=== PATIENT | male | born 1945 | race African-American/Black ===

== ENCOUNTER 2017-08-31 14:23 | Inpatient (IN) | payer OTHER, MEDICARE ==
[~2017-08-31] VITALS: Ht 180.3 cm; Wt 78.5 kg
[2017-08-31] VITALS (7 sets, daily range): BP systolic 106–129; BP diastolic 60–73; PULSE 70–101; RESP 10–20; TEMP 98.2–99.2; O2SAT 95–100
[~2017-08-31 14:23] MED LIST: CART120C2 PO; DIGO0.12 PO; OMPR20CCR PO
[2017-08-31] MEDS ORDERED: SODIUM CHLORIDE 0.9% FLUSH 10 ML FLUSH IVF PRN (15:00)
--- NOTE | 2017-08-31 15:11 | PD ---
HPI Chief Complaint: Abnormal Results Time Seen by Provider: 14:58 Travel History International Travel<30 days: No Contact w/Intl Traveler<30days: No Traveled to known affect area: No History of Present Illness HPI 72-year-old male presents to emergency department complaining of being tired and "dizzy" since Sunday. Patient states that he has had some blurred vision and confusion but he is A+Ox3. Patient has history of liver cancer status post lobectomy in January. Patient states that his stool has been black for approximately 3 months. Patient does not take iron supplements. Patient denies fever, chills, chest pain, shortness of breath, abdominal pain. Pt says his PCP advised him to to come to the ED for worsening symptoms. Apparently patient had labs done his primary care physician and he was concerned about the abnormal blood work. Patient denies use of anticoagulants. PFSH Past Medical History Cancer: Yes (LIVER) Cardiovascular Problems: Yes Diminished Hearing: No Endocrine: No Glaucoma: Yes Genitourinary: No Hypertension: Yes Musculoskeletal: No Neurologic: No Psychiatric: No Respiratory: No Influenza Vaccination: No Past Surgical History Abdominal Surgery: Yes (APPENDECTOMY) Appendectomy: Yes Cardiac Surgery: No Ear Surgery: No Endocrine Surgery: No Eye Surgery: No Genitourinary Surgery: No Gynecologic Surgery: No Oral Surgery: No Thoracic Surgery: No Other Surgery: Yes (eye glaucoma) Social History Alcohol Use: Yes (OCC) Tobacco Use: No (quit 1st week jul 2012) Substance Use: No Allergies-Medications (Allergen,Severity, Reaction): Coded Allergies: No Known Allergies (Unverified , 07/25/12) Reported Meds & Prescriptions Reported Meds & Active Scripts Active Reported Prilosec 20 Mg Cap (Omeprazole) 20 Mg Capcr 20 Mg PO DAILY TAKE ON EMPTY STOMACH, 1-2 HR BEFORE MEALS Digoxin 0.125 Mg Tab 0.125 Mg PO DAILY Cartia Xt (Diltiazem HCl) 120 Mg/24 Hr Cap 120 Mg PO DAILY Review of Systems Except as stated in HPI: all other systems reviewed are Neg Physical Exam Narrative GENERAL: Well-developed well-nourished in mild distress SKIN: Focused skin assessment warm/dry. HEAD: Atraumatic. Normocephalic. EYES: Pupils equal and round. No scleral icterus. No injection or drainage. Pale conjunctiva ENT: No nasal bleeding or discharge. Mucous membranes pink and moist. NECK: Trachea midline. No JVD. CARDIOVASCULAR: Regular rate and rhythm. No murmur appreciated. RESPIRATORY: No accessory muscle use. Clear to auscultation. Breath sounds equal bilaterally. GASTROINTESTINAL: Abdomen soft, non-tender, nondistended. MUSCULOSKELETAL: No obvious deformities. No clubbing. No cyanosis. No edema. Rectal exam- good tone and stool black NEUROLOGICAL: Awake and alert. No obvious cranial nerve deficits. Motor grossly within normal limits. Normal speech. PSYCHIATRIC: Appropriate mood and affect; insight and judgment normal. Data Data Last Documented VS Vital Signs Date Time Temp Pulse Resp B/P (MAP) Pulse Ox O2 Delivery O2 Flow Rate FiO2 08/31/17 18:16 78 10 106/68 (81) 100 Room Air 08/31/17 14:24 99.2 Orders Orders Complete Blood Count With Diff (08/31/17 14:58) Basic Metabolic Panel (Bmp) (08/31/17 14:58) Magnesium (Mg) (08/31/17 14:58) Urinalysis - C+S If Indicated (08/31/17 14:58) Iv Access Insert/Monitor (08/31/17 14:58) Ecg Monitoring (08/31/17 14:58) Oximetry (08/31/17 14:58) Oxygen Administration (08/31/17 14:58) Sodium Chloride 0.9% Flush (Ns Flush) (08/31/17 15:00) Sodium Chlor 0.9% 1000 Ml Inj (Ns 1000 M (08/31/17 15:30) Red Blood Cells (Rbc) (08/31/17 16:13) Blood Product Administration (08/31/17 16:13) Sodium Chlor 0.9% 250 Ml Inj (Ns 250 Ml (08/31/17 16:15) Type And Screen (08/31/17 16:13) Admit Order (Ed Use Only) (08/31/17 18:19) Labs Laboratory Tests Test 08/31/17 15:04 08/31/17 16:09 White Blood Count 7.5 TH/MM3 Red Blood Count 2.97 MIL/MM3 Hemoglobin 7.8 GM/DL Hematocrit 25.6 % Mean Corpuscular Volume 86.0 FL Mean Corpuscular Hemoglobin 26.3 PG Mean Corpuscular Hemoglobin Concent 30.6 % Red Cell Distribution Width 20.7 % Platelet Count 371 TH/MM3 Mean Platelet Volume 7.1 FL Neutrophils (%) (Auto) 67.7 % Lymphocytes (%) (Auto) 19.3 % Monocytes (%) (Auto) 9.2 % Eosinophils (%) (Auto) 3.0 % Basophils (%) (Auto) 0.8 % Neutrophils # (Auto) 5.1 TH/MM3 Lymphocytes # (Auto) 1.4 TH/MM3 Monocytes # (Auto) 0.7 TH/MM3 Eosinophils # (Auto) 0.2 TH/MM3 Basophils # (Auto) 0.1 TH/MM3 CBC Comment AUTO DIFF Differential Total Cells Counted 100 Neutrophils % (Manual) 71 % Band Neutrophils % 2 % Lymphocytes % 16 % Monocytes % 8 % Eosinophils % 2 % Neutrophils # (Manual) 5.6 TH/MM3 Myelocytes 1 % Nucleated Red Blood Cells 2 /100 WBC Differential Comment FINAL DIFF MANUAL Platelet Estimate NORMAL Platelet Morphology Comment NORMAL Blood Urea Nitrogen 6 MG/DL Creatinine 0.96 MG/DL Random Glucose 154 MG/DL Calcium Level 8.4 MG/DL Magnesium Level 2.3 MG/DL Sodium Level 140 MEQ/L Potassium Level 4.0 MEQ/L Chloride Level 108 MEQ/L Carbon Dioxide Level 28.2 MEQ/L Anion Gap 4 MEQ/L Estimat Glomerular Filtration Rate 94 ML/MIN Urine Color YELLOW Urine Turbidity CLEAR Urine pH 6.0 Urine Specific [place] 1.026 Urine Protein TRACE mg/dL Urine Glucose (UA) NEG mg/dL Urine Ketones NEG mg/dL Urine Occult Blood NEG Urine Nitrite NEG Urine Bilirubin NEG Urine Urobilinogen 8.0 MG/DL Urine Leukocyte Esterase TRACE Urine WBC 2 /hpf Urine Squamous Epithelial Cells <1 /hpf Urine Mucus FEW /lpf Microscopic Urinalysis Comment CULT NOT INDICATED MDM Medical Decision Making Medical Screen Exam Complete: Yes Emergency Medical Condition: Yes Differential Diagnosis Anemia versus hypoglycemia versus metabolic disturbance Narrative Course 72-year-old male presents to emergency department complaining of being tired and "dizzy" since Sunday. Patient states that he has had some blurred vision and confusion but he is A+Ox3. Patient has history of liver cancer status post lobectomy in January. Patient states that his stool has been black for approximately 3 months. Patient does not take iron supplements. Patient denies fever, chills, chest pain, shortness of breath, abdominal pain, nausea, vomiting, diarrhea.. Pt says his PCP advised him to to come to the ED for worsening symptoms. Apparently patient had labs done his primary care physician and he was concerned about the abnormal blood work. Patient denies use of anticoagulants. States he had a colonoscopy and endoscopy approximately one year ago. Patient does not know the results. Vital signs stable Occult fecal test positive Laboratory Tests Test 08/31/17 15:04 08/31/17 16:09 White Blood Count 7.5 TH/MM3 (4.0-11.0) Red Blood Count 2.97 MIL/MM3 (4.50-5.90) Hemoglobin 7.8 GM/DL (13.0-17.0) Hematocrit 25.6 % (39.0-51.0) Mean Corpuscular Volume 86.0 FL (80.0-100.0) Mean Corpuscular Hemoglobin 26.3 PG (27.0-34.0) Mean Corpuscular Hemoglobin Concent 30.6 % (32.0-36.0) Red Cell Distribution Width 20.7 % (11.6-17.2) Platelet Count 371 TH/MM3 (150-450) Mean Platelet Volume 7.1 FL (7.0-11.0) Neutrophils (%) (Auto) 67.7 % (16.0-70.0) Lymphocytes (%) (Auto) 19.3 % (9.0-44.0) Monocytes (%) (Auto) 9.2 % (0.0-8.0) Eosinophils (%) (Auto) 3.0 % (0.0-4.0) Basophils (%) (Auto) 0.8 % (0.0-2.0) Neutrophils # (Auto) 5.1 TH/MM3 (1.8-7.7) Lymphocytes # (Auto) 1.4 TH/MM3 (1.0-4.8) Monocytes # (Auto) 0.7 TH/MM3 (0-0.9) Eosinophils # (Auto) 0.2 TH/MM3 (0-0.4) Basophils # (Auto) 0.1 TH/MM3 (0-0.2) CBC Comment AUTO DIFF Differential Total Cells Counted 100 Neutrophils % (Manual) 71 % (16-70) Band Neutrophils % 2 % (0-6) Lymphocytes % 16 % (9-44) Monocytes % 8 % (0-8) Eosinophils % 2 % (0-4) Neutrophils # (Manual) 5.6 TH/MM3 (1.8-7.7) Myelocytes 1 % (0-0) Nucleated Red Blood Cells 2 /100 WBC (0-0) Differential Comment FINAL DIFF MANUAL Platelet Estimate NORMAL (NORMAL) Platelet Morphology Comment NORMAL (NORMAL) Blood Urea Nitrogen 6 MG/DL (7-18) Creatinine 0.96 MG/DL (0.60-1.30) Random Glucose 154 MG/DL (74-106) Calcium Level 8.4 MG/DL (8.5-10.1) Magnesium Level 2.3 MG/DL (1.5-2.5) Sodium Level 140 MEQ/L (136-145) Potassium Level 4.0 MEQ/L (3.5-5.1) Chloride Level 108 MEQ/L (98-107) Carbon Dioxide Level 28.2 MEQ/L (21.0-32.0) Anion Gap 4 MEQ/L (5-15) Estimat Glomerular Filtration Rate 94 ML/MIN (>89) Urine Color YELLOW (YELLW/STRAW) Urine Turbidity CLEAR (CLEAR) Urine pH 6.0 (5.0-8.5) Urine Specific [place] 1.026 (1.002-1.035) Urine Protein TRACE mg/dL (NEG-TRACE) Urine Glucose (UA) NEG mg/dL (NEG) Urine Ketones NEG mg/dL (NEG) Urine Occult Blood NEG (NEG) Urine Nitrite NEG (NEG) Urine Bilirubin NEG (NEG) Urine Urobilinogen 8.0 MG/DL (LESS THAN Urine Leukocyte Esterase TRACE (NEG) Urine WBC 2 /hpf (0-5) Urine Squamous Epithelial Cells <1 /hpf (0-5) Urine Mucus FEW /lpf (OCC) Microscopic Urinalysis Comment CULT NOT INDICATED Patient has severe anemia. Will receive 2 units PRBCs. Admit to Obs. Patient to follow up with primary care physician and consider outpatient follow- up with gastrointestinal specialist for positive fecal Hemoccult blood. HemaPrompt Point of Care Internal Pos. & Neg. Controls: Passed Fecal Specimen Occult Blood: Positive Diagnosis Primary Impression: Anemia Qualified Codes: D64.9 - Anemia, unspecified Admitting Information Admitting Physician Requests: Observation Condition: Stable Tiffany Harvey Aug 31, 2017 15:11
[2017-08-31 15:26] LABS: AUTOMATED NEUTROPHIL # 5.1 TH/MM3 (1.8-7.7); BASOPHIL # 0.1 TH/MM3 (0-0.2); BASOPHIL % 0.8 % (0.0-2.0); EOSINOPHIL # 0.2 TH/MM3 (0-0.4); HEMATOCRIT 25.6 % (39.0-51.0); LYMPH % 19.3 % (9.0-44.0); LYMPHOCYTE # 1.4 TH/MM3 (1.0-4.8); MEAN CORPUSCULAR HEMOGLOBIN 26.3 PG (27.0-34.0); MEAN CORPUSCULAR HGB CONC 30.6 % (32.0-36.0); MONO % 9.2 % (0.0-8.0); NEUT % 67.7 % (16.0-70.0); PLATELET COUNT 371 TH/MM3 (150-450); RED BLOOD COUNT 2.97 MIL/MM3 (4.50-5.90); RED CELL DISTRIBUTION WIDTH 20.7 % (11.6-17.2); WHITE BLOOD COUNT 7.5 TH/MM3 (4.0-11.0)
[2017-08-31 15:27] LABS: HEMO FLAGS AUTO DIFF
[2017-08-31] MEDS ORDERED: SODIUM CHLOR 0.9% 1000 ML INJ 1,000 ML IV ONE (15:30)
[2017-08-31 15:44] LABS: BICARBONATE 28.2 MEQ/L (21.0-32.0); MAGNESIUM 2.3 MG/DL (1.5-2.5)
[2017-08-31 15:54] LABS: BANDS 2 % (0-6); CORRECTED NUCLEATED RBC 2 /100 WBC (0-0); EOSINOPHILS 2 % (0-4); MYELOCYTES 1 % (0-0); NEUTROPHIL # MANUAL DIFF 5.6 TH/MM3 (1.8-7.7); POLYS (SEG NEUTROPHILS) 71 % (16-70); WBC DIFF SAMPLE 100
[2017-08-31 15:55] LABS: PLATELET ESTIMATE SMEAR NORMAL (NORMAL); PLATELET MORPHOLOGY NORMAL (NORMAL); SCAN/DIFF FINAL DIFF MANUAL
[2017-08-31] MEDS ORDERED: SODIUM CHLOR 0.9% 250 ML INJ 250 ML IV ONE (16:15)
[2017-08-31 16:35] LABS: BLOOD, URINE NEG (NEG); COMMENT (UR) CULT NOT INDICATED; CULTURE IF INDICATED CULT NOT INDICATED; GLUCOSE,URINE NEG (NEG); KETONE, URINE NEG (NEG); MUCUS URINE FEW /lpf (OCC); NITRITE,URINE NEG (NEG); SQUAMOUS EPITHELIAL CELL URINE <1 /hpf (0-5); URINE COLOR YELLOW (YELLW/STRAW)
[2017-08-31] MEDS ORDERED: IOHEXOL 350 MG/ML 10 ML VIAL (for RAD DIAG) IVCONTRAST ONE (18:22)
[2017-08-31] MEDS ORDERED: GADODIAMIDE PF 287 MG/ML 20 ML VIAL (for RAD MRI) IVCONTRAST ONE (18:22)
--- NOTE | 2017-08-31 18:49 | HHI.HP ---
[facility] Srinivasan Barakat M.D. Admission Diagnosis Severe anemia Diagnoses: (1) Anemia Diagnosis: Principal Chief Complaint: Dizziness, sent to ED by PCP Travel History International Travel<30 Days: No Contact w/Intl Traveler <30 Da: No Traveled to Known Affected Are: No History of Present Illness 72-year-old AA male past medical history of HTN, anemia, atrial fibrillation, liver cancer s/p liver resection, hepatitis C s/p Harvoni course, liver cirrhosis and prior GI bleed. He presents to the ED after being called by his primary care physician with critical results of anemia. Patient reports that for the past 2 months he had been having dark stools as well as loss of appetite with 10 pound unintentional weight loss. He had been on iron previously however stopped taking this to see if his dark stools would go away however they did not. He denies any nausea, vomiting, or diarrhea. Patient states that for the past 2 months he has progressively gotten or fatigued with shortness of breath on exertion, with transient chest pains, and dizziness with standing, he denies syncope. Patient denies any fevers, chills, or cough. He reports that his last colonoscopy was 2 years ago although is unsure of the exact time. He states that his colonoscopy had polyps which were removed, has not had a repeat colonoscopy. At that time he also underwent EGD he believes was normal. Review of medical records shows patient was hospitalized in July 2012 due to partial small bowel obstruction for which she did not undergo any surgical intervention, did not fine history of GI bleed in [facility].. Review of Systems Except as stated in HPI: all other systems reviewed are Neg Past Family Social History Past Medical History Hypertension A. fib Liver cancer Hep C Cirrhosis Past Surgical History Liver resection in 2014 due to liver cancer Appendectomy Cholecystectomy Eye surgery Left rotator cuff surgery Reported Medications Reported Meds & Active Scripts Active Reported Prilosec 20 Mg Cap (Omeprazole) 20 Mg Capcr 20 Mg PO DAILY TAKE ON EMPTY STOMACH, 1-2 HR BEFORE MEALS Digoxin 0.125 Mg Tab 0.125 Mg PO DAILY Cartia Xt (Diltiazem HCl) 120 Mg/24 Hr Cap 120 Mg PO DAILY Allergies: Coded Allergies: No Known Allergies (Unverified , 07/25/12) Active Ordered Medications Inpatient Medications Sodium Chloride 250 ml @ 15 mls/hr ONCE ONCE IV ; Start 08/31/17 at 16:15; Stop 09/01/17 at 08:54 Sodium Chloride (NS Flush) 2 ml UNSCH PRN IVF FLUSH AFTER USING IV ACCESS; Start 08/31/17 at 15:00 Family History Mother : Dementia Social History Tobacco: Half a pack for the past 2 years Alcohol use: None since 2014 Illicit drug use: Denies Physical Exam Vital Signs Vital Signs Date Time Temp Pulse Resp B/P (MAP) Pulse Ox O2 Delivery O2 Flow Rate FiO2 08/31/17 18:16 78 10 106/68 (81) 100 Room Air 08/31/17 16:23 79 15 122/60 (80) 100 Room Air 08/31/17 15:03 100 Room Air 08/31/17 14:58 91 21 99 Room Air 08/31/17 14:24 99.2 101 20 129/68 (88) 100 Room Air Physical Exam GENERAL: This is a well-nourished, well-developed patient, in no apparent distress. SKIN: No rashes, ecchymoses or lesions. Cool and dry. HEAD: Atraumatic. Normocephalic. EYES: Pupils equal round and reactive. No scleral icterus. No injection or drainage. ENT: Nose without bleeding, purulent drainage or septal hematoma. Throat without erythema. Airway patent. NECK: Trachea midline. CARDIOVASCULAR: Regular rate and rhythm without murmurs, gallops, or rubs. RESPIRATORY: Clear to auscultation. Breath sounds equal bilaterally. No wheezes , rales, or rhonchi. GASTROINTESTINAL: Abdomen soft, non-tender, nondistended. No guarding. MUSCULOSKELETAL: Extremities without clubbing, cyanosis, or edema. No joint tenderness, effusion, or edema noted. NEUROLOGICAL: Awake and alert. Moves all extremities spontaneously. Motor and sensory grossly within normal limits. Five out of 5 muscle strength in all muscle groups. Normal speech. Laboratory Laboratory Tests Test 08/31/17 15:04 08/31/17 16:09 White Blood Count 7.5 Red Blood Count 2.97 Hemoglobin 7.8 Hematocrit 25.6 Mean Corpuscular Volume 86.0 Mean Corpuscular Hemoglobin 26.3 Mean Corpuscular Hemoglobin Concent 30.6 Red Cell Distribution Width 20.7 Platelet Count 371 Mean Platelet Volume 7.1 Neutrophils (%) (Auto) 67.7 Lymphocytes (%) (Auto) 19.3 Monocytes (%) (Auto) 9.2 Eosinophils (%) (Auto) 3.0 Basophils (%) (Auto) 0.8 Neutrophils # (Auto) 5.1 Lymphocytes # (Auto) 1.4 Monocytes # (Auto) 0.7 Eosinophils # (Auto) 0.2 Basophils # (Auto) 0.1 CBC Comment AUTO DIFF Differential Total Cells Counted 100 Neutrophils % (Manual) 71 Band Neutrophils % 2 Lymphocytes % 16 Monocytes % 8 Eosinophils % 2 Neutrophils # (Manual) 5.6 Myelocytes 1 Nucleated Red Blood Cells 2 Differential Comment FINAL DIFF MANUAL Platelet Estimate NORMAL Platelet Morphology Comment NORMAL Blood Urea Nitrogen 6 Creatinine 0.96 Random Glucose 154 Calcium Level 8.4 Magnesium Level 2.3 Sodium Level 140 Potassium Level 4.0 Chloride Level 108 Carbon Dioxide Level 28.2 Anion Gap 4 Estimat Glomerular Filtration Rate 94 Urine Color YELLOW Urine Turbidity CLEAR Urine pH 6.0 Urine Specific [place] 1.026 Urine Protein TRACE Urine Glucose (UA) NEG Urine Ketones NEG Urine Occult Blood NEG Urine Nitrite NEG Urine Bilirubin NEG Urine Urobilinogen 8.0 Urine Leukocyte Esterase TRACE Urine WBC 2 Urine Squamous Epithelial Cells <1 Urine Mucus FEW Microscopic Urinalysis Comment CULT NOT INDICATED Result Diagram: 08/31/17 1504 08/31/17 1504 Caprini VTE Risk Assessment Caprini VTE Risk Assessment: Mod/High Risk (score >= 2) Caprini Risk Assessment Model Point Value = 1 Point Value = 2 Point Value = 3 Point Value = 5 Age 41-60 Minor surgery BMI > 25 kg/m2 Swollen legs Varicose veins or History of unexplained or recurrent spontaneous Oral contraceptives or hormone replacement Sepsis (< 1 month) Serious lung disease, including pneumonia (< 1 month) Abnormal pulmonary function Acute myocardial infarction Congestive heart failure (< 1 month) History of inflammatory bowel disease Medical patient at bed rest Age 61-74 Arthroscopic surgery Major open surgery (> 45 min) Laparoscopic surgery (> 45 min) Malignancy Confined to bed (> 72 hours) Immobilizing plaster cast Central venous access Age >= 75 History of VTE Family history of VTE Factor V Leiden Prothrombin [id number] Lupus anticoagulant Anticardiolipin antibodies Elevated serum homocysteine Heparin-induced thrombocytopenia Other congenital or acquired thrombophilia Stroke (< 1 month) Elective arthroplasty Hip, pelvis, or leg fracture Acute spinal cord injury (< 1 month) Prophylaxis Regimen Total Risk Factor Score Risk Level Prophylaxis Regimen 0-1 Low Early ambulation 2 Moderate Order ONE of the following: *Sequential Compression Device (SCD) *Heparin 5000 units SQ BID 3-4 Higher Order ONE of the following medications: *Heparin 5000 units SQ TID *Enoxaparin/Lovenox 40 mg SQ daily (WT < 150 kg, CrCl > 30 mL/min) *Enoxaparin/Lovenox 30 mg SQ daily (WT < 150 kg, CrCl > 10-29 mL/min) *Enoxaparin/Lovenox 30 mg SQ BID (WT < 150 kg, CrCl > 30 mL/min) AND/OR *Sequential Compression Device (SCD) 5 or more Highest Order ONE of the following medications: *Heparin 5000 units SQ TID (Preferred with Epidurals) *Enoxaparin/Lovenox 40 mg SQ daily (WT < 150 kg, CrCl > 30 mL/min) *Enoxaparin/Lovenox 30 mg SQ daily (WT < 150 kg, CrCl > 10-29 mL/min) *Enoxaparin/Lovenox 30 mg SQ BID (WT < 150 kg, CrCl > 30 mL/min) AND *Sequential Compression Device (SCD) Assessment and Plan Problem List: (1) Anemia ICD Code: D64.9 - Anemia, unspecified Status: Acute Assessment and Plan 72-year-old AA male past medical history of HTN, anemia, atrial fibrillation, liver cancer s/p liver resection, hepatitis C s/p Harvoni course, liver cirrhosis and prior GI bleed. He presents to the ED after being called by his primary care physician with critical results of anemia. Upon arrival patient's lab work showed hemoglobin 7.8, hematocrit 25.6, he is also symptomatic. Symptomatic anemia, likely GI bleed - Patient's lab work reviewed demonstrates hemoglobin 7.8, hematocrit 25.6, RDW 20.7 - Patient reports dark stools for the past 2 months - Patient will be admitted to observation and transfuse with 2 units of PRBCs , recheck H&H one-hour posttransfusion - Labwork ordered for tomorrow morning - Order for Hemoccult, consult GI services - IV PPI - Keep patient nothing by mouth, IV fluids for hydration Atrial fibrillation, initially heart rate elevated, now normal/HTN - Consider restarting diltiazem and digoxin once verified by nurse. - Blood pressure stable at the moment. VTE: - Contraindicated at the moment since it is suspected, SCDs and ELOISA cleary Discussed with daughter who is at the bedside, Tiffany DELCID in ED, and . Problem Qualifiers (1) Anemia: Qualified Codes: D64.9 - Anemia, unspecified Kian Wilson [facility] Aug 31, 2017 18:49
[2017-08-31] MEDS ORDERED: SODIUM CHLORIDE 0.9% FLUSH 10 ML FLUSH IV FLUSH PRN (19:00)
[2017-08-31] MEDS ORDERED: BISACODYL 10 MG SUPP RECTAL PRN (19:00)
[2017-08-31] MEDS ORDERED: SENNOSIDES 8.6 MG TAB PO PRN (19:00)
[2017-08-31] MEDS ORDERED: LACTULOSE SYRUP 20 GM/30 ML CUP PO PRN (19:00)
[2017-08-31] MEDS ORDERED: NALOXONE HCL 0.4 MG/ML AMP IV PUSH PRN (19:00)
[2017-08-31] MEDS ORDERED: MAGNESIUM HYDROXIDE SUSP 30 ML CUP PO PRN (19:00)
[2017-08-31] MEDS ORDERED: ACETAMINOPHEN 325 MG TAB PO PRN (21:00)
[2017-08-31] MEDS ORDERED: FUROSEMIDE 20 MG/2 ML VIAL IV PUSH ONE (21:00)
[2017-08-31] MEDS: SODIUM CHLOR 0.9% 1000 ML INJ 1,000 ML IV SCH (21:36)
[2017-08-31] MEDS: diphenhydrAMINE HCL 25 MG CAP PO PRN (21:37)
[2017-08-31] MEDS: DOCUSATE SODIUM 50 MG/SENNA 8.6 MG TAB PO SCH (21:37)
[2017-08-31] MEDS: PANTOPRAZOLE SODIUM 40 MG VIAL IV PUSH SCH (21:37)
[2017-08-31] MEDS: SODIUM CHLORIDE 0.9% FLUSH 10 ML FLUSH IV FLUSH SCH (21:37)
[2017-08-31] MEDS ORDERED: CART120C PO (22:27)
[2017-08-31] MEDS ORDERED: FERR325T18 PO (22:27)
[2017-08-31] MEDS ORDERED: DIGO0.12 PO (22:28)
[2017-09-01] VITALS (10 sets, daily range): BP systolic 115–135; BP diastolic 66–78; PULSE 65–82; RESP 16–22; TEMP 98–98.6; O2SAT 94–99
[2017-09-01] MEDS: diphenhydrAMINE HCL 25 MG CAP PO PRN (03:58)
[2017-09-01] MEDS: SODIUM CHLOR 0.9% 1000 ML INJ 1,000 ML IV SCH ×2 (05:00→19:42)
[2017-09-01] MEDS: DILTIAZEM-CD 120 MG CAP ER PO SCH (05:15)
[2017-09-01] MEDS: DIGOXIN 0.125 MG TAB PO SCH (05:15)
[2017-09-01] MEDS: SODIUM CHLORIDE 0.9% FLUSH 10 ML FLUSH IV FLUSH SCH ×2 (09:00→21:48)
[2017-09-01] MEDS: FERROUS SULFATE 325 MG (65 MG ELEMENTAL IRON) TAB PO SCH ×3 (10:34→19:42)
[2017-09-01] MEDS: DOCUSATE SODIUM 50 MG/SENNA 8.6 MG TAB PO SCH (10:34)
--- NOTE | 2017-09-01 10:42 | PD.CONS ---
HPI History of Present Illness This is a 72 year old male complaining of dizziness, blurred vision for the past 2-3 months. He also notes shortness of breath and decreased stamina. Patient has a history of liver cancer with liver resection in 2014, liver cirrhosis and prior GI bleed patient. Patient was seen by his general practitioner who requested that he come to the hospital for further workup for critical results of anemia. On admission patient's hemoglobin was 7.8, transfusion ordered for 2 units. Patient notes dark tarry stools over the past few months and states stools were dark even before he started taking by mouth iron products. Patient notes constipation alternated with diarrhea, states he received a laxative on 08-31, BM this a.m. remains dark and tarry. Denies any bright red bleeding, no dysphasia, no nausea and vomiting, no recent weight gain, but has had a 10 pound weight loss. Patient denies any fever. According to the record patient was hospitalized in July 2012 for small bowel obstruction. (Brooke Sosa) PFSH Past Medical History Hypertension A. fib Liver cancer Hep C Liver Cirrhosis GI bleed Constipation alternating with diarrhea Anemia Tobacco dependence Previous alcohol usage up until 2014 Past Surgical History Liver resection in 2014 due to liver cancer Appendectomy Cholecystectomy Eye surgery Left rotator cuff surgery (Brooke Sosa) Coded Allergies: No Known Allergies (Unverified , 07/25/12) Medications Administered Medications Medications (Trade) Dose Ordered Sig/Víctor Route PRN Reason Start Time Stop Time Status Last Admin Dose Admin Sodium Chloride 1,000 ml @ 100 mls/hr Q10H IV 08/31/17 19:00 08/31/17 21:36 Sodium Chloride (NS Flush) 2 ml BID IV FLUSH 08/31/17 21:00 08/31/17 21:37 Senna/Docusate Sodium (Germania-Colace) 1 tab BID PO 08/31/17 21:00 08/31/17 21:37 Pantoprazole Sodium (Protonix Inj) 40 mg Q24H IV PUSH 08/31/17 21:00 08/31/17 21:37 Digoxin (Lanoxin) 0.125 mg DAILY@0600 PO 09/01/17 06:00 09/01/17 05:15 Diltiazem HCl (Cardizem Cd) 120 mg DAILY@0600 PO 09/01/17 06:00 09/01/17 05:15 Family History Mother : Dementia Social History Tobacco: Half a pack for the past 2 years Alcohol use: None since 2014 Illicit drug use: Denies (Brooke Sosa) Review of Systems Constitutional: COMPLAINS OF: Fatigue, Weight loss, Dizziness Ears, nose, mouth, throat: COMPLAINS OF: Vertigo Respiratory: COMPLAINS OF: Shortness of breath Gastrointestinal: COMPLAINS OF: Black stools, Constipation, Diarrhea (Brooke Sosa) GI Exam Vitals I&O Vital Signs Date Time Temp Pulse Resp B/P (MAP) Pulse Ox O2 Delivery O2 Flow Rate FiO2 09/01/17 07:45 98.3 73 16 127/77 99 09/01/17 07:38 98.6 68 20 123/75 (91) 97 09/01/17 05:45 98.3 66 16 122/75 98 09/01/17 05:16 98.4 69 16 127/72 98 09/01/17 03:21 98.4 72 16 121/73 98 09/01/17 00:12 98.1 73 16 120/69 98 08/31/17 23:56 98.2 71 16 124/68 97 08/31/17 23:41 98.2 70 16 119/68 95 08/31/17 20:55 98.3 80 18 124/73 (90) 98 08/31/17 20:18 100 08/31/17 18:16 78 10 106/68 (81) 100 Room Air 08/31/17 16:23 79 15 122/60 (80) 100 Room Air 08/31/17 15:03 100 Room Air 08/31/17 14:58 91 21 99 Room Air 08/31/17 14:24 99.2 101 20 129/68 (88) 100 Room Air I/O 08/31/17 08/31/17 08/31/17 09/01/17 09/01/17 09/01/17 07:00 15:00 23:00 07:00 15:00 23:00 Intake Total 1300 ml 430 ml 410 ml Output Total 1825 ml 400 ml Balance -525 ml 430 ml 10 ml Intake Oral 100 ml IV Total 250 ml Packed Cells 950 ml 400 ml 400 ml Blood Product IV Normal Saline Flush 30 ml 10 ml Output Urine Total 1825 ml 400 ml Laboratory Test 08/31/17 15:04 08/31/17 16:09 White Blood Count 7.5 TH/MM3 Red Blood Count 2.97 MIL/MM3 Hemoglobin 7.8 GM/DL Hematocrit 25.6 % Mean Corpuscular Volume 86.0 FL Mean Corpuscular Hemoglobin 26.3 PG Mean Corpuscular Hemoglobin Concent 30.6 % Red Cell Distribution Width 20.7 % Platelet Count 371 TH/MM3 Mean Platelet Volume 7.1 FL Neutrophils (%) (Auto) 67.7 % Lymphocytes (%) (Auto) 19.3 % Monocytes (%) (Auto) 9.2 % Eosinophils (%) (Auto) 3.0 % Basophils (%) (Auto) 0.8 % Neutrophils # (Auto) 5.1 TH/MM3 Lymphocytes # (Auto) 1.4 TH/MM3 Monocytes # (Auto) 0.7 TH/MM3 Eosinophils # (Auto) 0.2 TH/MM3 Basophils # (Auto) 0.1 TH/MM3 CBC Comment AUTO DIFF Differential Total Cells Counted 100 Neutrophils % (Manual) 71 % Band Neutrophils % 2 % Lymphocytes % 16 % Monocytes % 8 % Eosinophils % 2 % Neutrophils # (Manual) 5.6 TH/MM3 Myelocytes 1 % Nucleated Red Blood Cells 2 /100 WBC Differential Comment FINAL DIFF MANUAL Platelet Estimate NORMAL Platelet Morphology Comment NORMAL Blood Urea Nitrogen 6 MG/DL Creatinine 0.96 MG/DL Random Glucose 154 MG/DL Calcium Level 8.4 MG/DL Magnesium Level 2.3 MG/DL Sodium Level 140 MEQ/L Potassium Level 4.0 MEQ/L Chloride Level 108 MEQ/L Carbon Dioxide Level 28.2 MEQ/L Anion Gap 4 MEQ/L Estimat Glomerular Filtration Rate 94 ML/MIN Urine Color YELLOW Urine Turbidity CLEAR Urine pH 6.0 Urine Specific [place] 1.026 Urine Protein TRACE mg/dL Urine Glucose (UA) NEG mg/dL Urine Ketones NEG mg/dL Urine Occult Blood NEG Urine Nitrite NEG Urine Bilirubin NEG Urine Urobilinogen 8.0 MG/DL Urine Leukocyte Esterase TRACE Urine WBC 2 /hpf Urine Squamous Epithelial Cells <1 /hpf Urine Mucus FEW /lpf Microscopic Urinalysis Comment CULT NOT INDICATED Date/Time Source Procedure Growth Status 09/01/17 08:00 Stool Stool Stool Occult Blood (GILMER) Pending Received Physical Examination HEENT: Pupils round and reactive to light; normocephalic; atraumatic; no jaundice. Oral cavity is clean NECK: Neck is supple, no JVD, no lymphadenopathy. CHEST: Chest is clear to auscultation and percussion. No wheezes or rhonchi noted CARDIAC: Irregular rate and rhythm, possible soft systolic murmur ABDOMEN: Soft, nondistended, nontender to light palpation; no hepatosplenomegaly; bowel sounds are soft in all four quadrants. EXTREMITIES: No clubbing, cyanosis, or edema. SKIN: Normal; no rash; no jaundice. PARTY COORDINATOR: No focal deficits; alert and oriented times three. (Brooke Sosa) Assessment and Plan Plan Assessment GI bleed, probable lower, complaints of dark tarry stools even when not taking by mouth iron products for the past 2-3 months. Symptoms associated with dizziness shortness of breath and blurred vision. Anemia noted per his regular physician, hemoglobin 7.8/25.6 hematocrit, no leukocytosis. Transfusion 2 units 12 -1, hemoglobin hematocrit pending. Possible irritable bowel syndrome, patient has constipation alternating with diarrhea. History of liver cancer, concern for any redevelopment of his cancer changes in bowel habits chiefly dark tarry stools. Patient has also had a 10 pound weight loss within the past few months unexplained. History of EtOH abuse, denies any alcohol consumption since 2014, patient shows no signs of agitation Anemia, possibly due to acute versus chronic, which could include iron deficiency anemia. Iron TIBC and ferritin level pending, CBC pending Plan: Diet is currently is chips over the past [address] of the abdomen and pelvis with contrast today, after review of CT Will consider clear liquids with possible advancement to full liquids today Colonoscopy scheduled for Sunday, procedure explained to patient and family member in room Nothing by mouth at midnight Sunday night 09/02 GI GoLYTELY prep Sunday p.m. Hold any anticoagulants after midnight on 09/02 Hemoccult stools daily 3 PPI, and continue iron supplements Bowel regimen including stool softeners and or laxatives as needed Labs to monitor hemoglobin, currently pending after transfusion of 2 units Recheck CBC CMP in the morning Plan of care and treatment regimen will be based on findings during this hospital stay Patient seen per myself and Dr. 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
[2017-09-01] MEDS ORDERED: DIATRIZOATE MEGLUM/DIATRIZOATE SOD 9 ML CUP PO ONE (11:00)
--- NOTE | 2017-09-01 13:15 | HHI.PR ---
Subjective Remarks Follow-up symptomatic anemia/GI bleed 09/01/17-patient seen and examined, he was transfused 2 units packed red blood cell. Reports history of bloody stool over the past 3 months. Denies any significant shortness of breath Objective Vitals Vital Signs Date Time Temp Pulse Resp B/P (MAP) Pulse Ox O2 Delivery O2 Flow Rate FiO2 09/01/17 12: 98.3 65 22 117/66 (83) 99 09/01/17 07:45 98.3 73 16 127/77 99 09/01/17 07:38 98.6 68 20 123/75 (91) 97 09/01/17 05:45 98.3 66 16 122/75 98 09/01/17 05:16 98.4 69 16 127/72 98 09/01/17 03:21 98.4 72 16 121/73 98 09/01/17 00:12 98.1 73 16 120/69 98 08/31/17 23:56 98.2 71 16 124/68 97 08/31/17 23:41 98.2 70 16 119/68 95 08/31/17 20:55 98.3 80 18 124/73 (90) 98 08/31/17 20:18 100 08/31/17 18:16 78 10 106/68 (81) 100 Room Air 08/31/17 16:23 79 15 122/60 (80) 100 Room Air 08/31/17 15:03 100 Room Air 08/31/17 14:58 91 21 99 Room Air 08/31/17 14:24 99.2 101 20 129/68 (88) 100 Room Air I/O 08/31/17 08/31/17 08/31/17 09/01/17 09/01/17 09/01/17 07:00 15:00 23:00 07:00 15:00 23:00 Intake Total 1300 ml 430 ml 410 ml Output Total 1825 ml 1200 ml Balance -525 ml 430 ml -790 ml Intake Oral 100 ml IV Total 250 ml Packed Cells 950 ml 400 ml 400 ml Blood Product IV Normal Saline Flush 30 ml 10 ml Output Urine Total 1825 ml 1200 ml Result Diagram: 08/31/17 1504 08/31/17 1504 Objective Remarks GENERAL: NAD SKIN: Warm and dry. HEAD: Normocephalic. EYES: No scleral icterus. No injection or drainage. NECK: Supple, trachea midline. No JVD or lymphadenopathy. CARDIOVASCULAR: Regular rate and rhythm without murmurs, gallops, or rubs. RESPIRATORY: Breath sounds equal bilaterally. No accessory muscle use. GASTROINTESTINAL: Abdomen soft, non-tender, nondistended. MUSCULOSKELETAL: No cyanosis, or edema. BACK: Nontender without obvious deformity. No CVA tenderness. A/P Problem List: (1) GI bleeding ICD Code: K92.2 - Gastrointestinal hemorrhage, unspecified (2) Symptomatic anemia ICD Code: D64.9 - Anemia, unspecified (3) History of liver cancer ICD Code: Z85.05 - Personal history of malignant neoplasm of liver (4) Hepatitis C ICD Code: B19.20 - Unspecified viral hepatitis C without hepatic coma Assessment and Plan 72-year-old man with Symptomatic anemia, likely GI bleed - Transfuse 2 units packed red blood cell - Monitor H&H Consult GI for evaluation for possible panendoscopy GI bleed GI consultation pending for possible evaluation for panendoscopy Continue PPI Monitor H&H History liver cancer Chronic outpatient follow with oncology Atrial fibrillation - Currently on diltiazem and digoxin Hypertension Continue Cardizem DVT prophylaxis: Mechanical prophylaxis contraindicated Neel Clemente MD Sep 01, 2017 13:15
[2017-09-01 13:40] LABS: AUTOMATED NEUTROPHIL # 5.6 TH/MM3 (1.8-7.7); BASOPHIL # 0.1 TH/MM3 (0-0.2); BASOPHIL % 0.6 % (0.0-2.0); EOSINOPHIL # 0.2 TH/MM3 (0-0.4); EOSINOPHIL % 2.6 % (0.0-4.0); HEMATOCRIT 32.3 % (39.0-51.0); HEMO FLAGS DIFF FINAL; LYMPH % 16.9 % (9.0-44.0); LYMPHOCYTE # 1.4 TH/MM3 (1.0-4.8); MEAN CELL VOLUME 85.6 FL (80.0-100.0); MEAN CORPUSCULAR HEMOGLOBIN 27.5 PG (27.0-34.0); MEAN CORPUSCULAR HGB CONC 32.1 % (32.0-36.0); MONO % 10.5 % (0.0-8.0); NEUT % 69.4 % (16.0-70.0); PLATELET COUNT 332 TH/MM3 (150-450); RED BLOOD COUNT 3.77 MIL/MM3 (4.50-5.90); RED CELL DISTRIBUTION WIDTH 19.5 % (11.6-17.2); WHITE BLOOD COUNT 8.1 TH/MM3 (4.0-11.0)
[2017-09-01 14:00] LABS: ANION GAP 7 MEQ/L (5-15); AST (GOT) 17 U/L (15-37); BICARBONATE 26.3 MEQ/L (21.0-32.0); BLOOD UREA NITROGEN 9 MG/DL (7-18); CHLORIDE 107 MEQ/L (98-107); GLOMERULAR FILTRATION RATE 103 ML/MIN (>89); POTASSIUM 4.1 MEQ/L (3.5-5.1); SODIUM (NA) 140 MEQ/L (136-145)
[2017-09-01 14:01] LABS: ALT (GPT) 11 U/L (12-78)
[2017-09-01 14:03] LABS: ALKALINE PHOSPHATASE 59 U/L (45-117); TOTAL BILIRUBIN ADULT 0.9 MG/DL (0.2-1.0)
[2017-09-01 15:21] LABS: TRANSFERRIN IRON PROFILE 270 MG/DL (200-360)
[2017-09-01 15:23] LABS: FERRITIN 36 NG/ML (26-388)
--- NOTE | 2017-09-01 16:17 | RADRPT ---
EXAM DATE/TIME: 09/01/2017 15:13 [facility] COMPARISON: CT ABDOMEN & PELVIS W CONTRAST, July 25, 2012, 14:05. INDICATIONS : Abdomen pain with bloody stools. IV CONTRAST: 80 cc Omnipaque 350 (iohexol) IV ORAL CONTRAST: Prescribed oral contrast ingested. RADIATION DOSE: 8.20 CTDIvol (mGy) MEDICAL HISTORY : Cardiovascular disease. Hypertension. Hepatitis C.Liver cancer SURGICAL HISTORY : Appendectomy. Cholecystectomy.Liver resection ENCOUNTER: Initial ACUITY: 2 days PAIN SCALE: 5/10 LOCATION: Bilateral abdomen TECHNIQUE: Volumetric scanning of the abdomen and pelvis was performed. Using automated exposure control and ad justment of the mA and/or kV according to patient size, radiation dose was kept as low as reasonably achievable to obtain optimal diagnostic quality images. DICOM format image data is available electro nically for review and comparison. FINDINGS: LOWER LUNGS: The visualized lower lungs are clear. LIVER: There is a 2.0 x 2.8 cm hypodense mass in the right dome of the liver which was not present on our ex am. There has been interval left hepatic resection with. Portal vein is patent. There is slight promi nence of the common bile duct likely due to reservoir effect. SPLEEN: Normal size without lesion. PANCREAS: Within normal limits. KIDNEYS: Normal in size and shape. There is no mass, stone or hydronephrosis. ADRENAL GLANDS: Within normal limits. VASCULAR: There is no aortic aneurysm. Proximal celiac, SMA and LEIGH ANN are grossly patent. SMV is grossly patent. BOWEL/MESENTERY: There are scattered diverticula in the ascending colon and proximal sigmoid. The colon is decompresse d. However, there is questionable subtle colonic wall thickening involving the proximal transverse co kaiden and hepatic flexure. No pneumatosis or free air. No significant free fluid. ABDOMINAL WALL: Within normal limits. RETROPERITONEUM: There is no lymphadenopathy. BLADDER: No wall thickening or mass. REPRODUCTIVE: Within normal limits. INGUINAL: There is no lymphadenopathy or hernia. MUSCULOSKELETAL: Within normal limits for patient age. CONCLUSION: 1. Incomplete colonic distention which accentuates the colonic wall. There does however appear to be mild colonic wall thickening involving the proximal transverse colon and hepatic flexure. There are s cattered diverticula in the region of the hepatic flexure although the diverticula do not appear part icularly inflamed. Mild colitis, potentially infectious/inflammatory in etiology, cannot be excluded. 2. Status post left hepatic resection with new 2.0 x 2.8 cm mass in the right dome of the liver. This is concerning for hepatocellular carcinoma given patient's history. Recommend further evaluation wit h liver mass protocol MRI exam on a nonemergent basis. Vikash Centeno MD on September 01, 2017 at 16:07 Board Certified Radiologist. This report was verified electronically.
[2017-09-01 17:16] LABS: HEMATOCRIT 32.6 % (39.0-51.0); REVIEW FLAG FINAL
[2017-09-01] MEDS: PANTOPRAZOLE SODIUM 40 MG VIAL IV PUSH SCH (21:49)
[2017-09-01] MEDS ORDERED: CHLORHEXIDINE GLUCONATE 2 % 1 PACK (2 CLOTHS) TOPICAL PRN (22:00)
[2017-09-01] MEDS ORDERED: POVIDONE IODINE 5% (ANTISEPSIS KIT) 4 APPLICATIONS EACH NARE PRN (22:00)
[2017-09-01] MEDS ORDERED: LACTATED RINGER'S 1000 ML IV PRN (22:00)
[2017-09-02 03:36] VITALS: BP 118/68; PULSE 70; RESP 18; TEMP 98.3; O2SAT 97
[2017-09-02] MEDS: SODIUM CHLOR 0.9% 1000 ML INJ 1,000 ML IV SCH ×3 (04:59→18:48)
[2017-09-02] MEDS: DILTIAZEM-CD 120 MG CAP ER PO SCH (05:57)
[2017-09-02] MEDS: DIGOXIN 0.125 MG TAB PO SCH (05:57)
--- NOTE | 2017-09-02 08:31 | RADRPT ---
EXAM DATE/TIME: 09/02/2017 07:33 [facility] COMPARISON: CT ABDOMEN & PELVIS W CONTRAST, September 01, 2017, 15:13. INDICATIONS : Abnormal CT scan. CONTRAST: 16 cc Omniscan (gadodiamide) IV MEDICAL HISTORY : Carcinoma, hepatocellular. Hypertension. SURGICAL HISTORY : Appendectomy. Cholecystectomy. ENCOUNTER: Initial ACUITY: 2 day PAIN SCORE: 0/10 LOCATION: upper quadrant TECHNIQUE: Multiplanar, multisequence magnetic resonance imaging of the abdomen was performed without and with i ntravenous contrast. FINDINGS: LIVER: Partial hepatectomy left lobe. There is a low T1 signal intensity lesion within the central aspect of the liver towards the dome measuring 3.5 x 2.4 cm. Irregular peripheral enhancement is identified. T here is also a small enhancing lesion in the periphery of the liver laterally measuring 1.2 cm only s een portal venous phase. BILIARY: There is no intra- or extra-hepatic biliary ductal dilatation. Gallbladder is surgically absent. SPLEEN: Within normal limits. PANCREAS: Within normal limits. ADRENALS: Within normal limits. KIDNEYS: Normal size and signal intensity. There is no hydronephrosis or mass. OTHER: Aorta is nonaneurysmal. There is no lymphadenopathy. CONCLUSION: 1. Enhancing lesion toward the dome of the liver measuring 3.5 cm concerning for hepatocellular carci noma. 2. Small enhancing lesion more laterally in the liver measuring 1.2 cm, nonspecific. 3. Partial hepatectomy. 4. Status post cholecystectomy. Neel Payne MD on September 02, 2017 at 8:21 Board Certified Radiologist. This report was verified electronically.
--- NOTE | 2017-09-02 08:42 | HHI.GIFU ---
Subjective Remarks Pt resting in bed comfortable. He denies any abdominal pain, nausea, vomiting. Tolerating diet yesterday, on clear liquids today due to procedure scheduled for tomorrow. Pt reports three dark stools yesterday, denies BM today. Complaints of some dizziness and weakness yesterday, but states feels better today. (Celina Quiroz) Objective Vitals I&O Vital Signs Date Time Temp Pulse Resp B/P (MAP) Pulse Ox O2 Delivery O2 Flow Rate FiO2 09/02/17 03:36 98.3 70 18 118/68 (85) 97 09/01/17 23:53 98.3 74 18 121/69 (86) 99 09/01/17 21:00 98.0 82 18 115/70 (85) 98 09/01/17 15:56 98.3 71 20 135/78 (97) 94 09/01/17 12:17 98.3 65 22 117/66 (83) 99 I/O 09/01/17 09/01/17 09/01/17 09/02/17 09/02/17 09/02/17 07:00 15:00 23:00 07:00 15:00 23:00 Intake Total 430 ml 660 ml 1880 ml 1830 ml Output Total 1200 ml 300 ml 1125 ml Balance 430 ml -540 ml 1580 ml 705 ml Intake Oral 880 ml 830 ml IV Total 250 ml 1000 ml 1000 ml Packed Cells 400 ml 400 ml Blood Product IV Normal Saline Flush 30 ml 10 ml Output Urine Total 1200 ml 300 ml 1125 ml # Voids 10 # Bowel Movements 2 Laboratory Laboratory Tests Test 09/01/17 13:10 09/01/17 16:40 White Blood Count 8.1 Red Blood Count 3.77 Hemoglobin 10.4 10.5 Hematocrit 32.3 32.6 Mean Corpuscular Volume 85.6 Mean Corpuscular Hemoglobin 27.5 Mean Corpuscular Hemoglobin Concent 32.1 Red Cell Distribution Width 19.5 Platelet Count 332 Mean Platelet Volume 7.1 Neutrophils (%) (Auto) 69.4 Lymphocytes (%) (Auto) 16.9 Monocytes (%) (Auto) 10.5 Eosinophils (%) (Auto) 2.6 Basophils (%) (Auto) 0.6 Neutrophils # (Auto) 5.6 Lymphocytes # (Auto) 1.4 Monocytes # (Auto) 0.8 Eosinophils # (Auto) 0.2 Basophils # (Auto) 0.1 CBC Comment DIFF FINAL Differential Comment Blood Urea Nitrogen 9 Creatinine 0.88 Random Glucose 81 Total Protein 7.0 Albumin 3.1 Calcium Level 8.3 Alkaline Phosphatase 59 Aspartate Amino Transf (AST/SGOT) 17 Alanine Aminotransferase (ALT/SGPT) 11 Total Bilirubin 0.9 Sodium Level 140 Potassium Level 4.1 Chloride Level 107 Carbon Dioxide Level 26.3 Anion Gap 7 Estimat Glomerular Filtration Rate 103 Iron Level 149 Total Iron Binding Capacity 378 Percent Iron Saturation 39.4 Ferritin 36 Date/Time Source Procedure Growth Status 09/01/17 14:55 Stool Stool Stool Occult Blood (GILMER) - Final HEMOCCULT POSITIVE Complete Imaging Last Impressions Abdomen/Pelvis CT 09/01/17 0000 Signed Impressions: Service Date/Time: Sunday, September 01, 2017 15:13 - CONCLUSION: 1. Incomplete colonic distention which accentuates the colonic wall. There does however appear to be mild colonic wall thickening involving the proximal transverse colon and hepatic flexure. There are scattered diverticula in the region of the hepatic flexure although the diverticula do not appear particularly inflamed. Mild colitis, potentially infectious/inflammatory in etiology, cannot be excluded. 2. Status post left hepatic resection with new 2.0 x 2.8 cm mass in the right dome of the liver. This is concerning for hepatocellular carcinoma given patient's history. Recommend further evaluation with liver mass protocol MRI exam on a nonemergent basis. Vikash Centeno MD Physical Exam HEENT: Normocephalic; atraumatic; no jaundice. CHEST: CTA CARDIAC: RRR ABDOMEN: Soft, distended, nontender; no hepatosplenomegaly; bowel sounds are present in all four quadrants. EXTREMITIES:Mild edema. SKIN: Normal; no rash; no jaundice. PRODUCTION ILLUSTRATOR: No focal deficits; alert and oriented times three. (Celina Quiroz) Assessment and Plan Plan Assessment GI bleed, Dark stools for the past 3-4 month. H/H 7.8/25.6 on admission. S/P 2 U PRBC. H/H 10.5/32.6 yesterday. Labs pending for today. Pt reports 3 dark stools yesterday. EGD/colon schedule for tomorrow. PPI. Anemia- Iron supplements at home. TIBC-378 % Sat- 39.4 Ferritin- 36 Iron-149 Possible irritable bowel syndrome, patient has constipation alternating with diarrhea. CT abdomen and pelvis W/ IV contrast (09/01) --> Incomplete colonic distension with accentuates the colonic wall. There does however appear to be mild colonic wall thickening involving the proximal transverse colon and hepatic flexure. There are scattered diverticula do not appear particularly inflamed. Mild colitis, potentially infectious/ inflammatory in etiology, cannot be excluded. Status post left hepatic resection with new 2.0cm x 2.8 cm mass in the right dome of the liver. This is concerning for HCC given patient's history. Recommended further evaluation with liver mass protocol MRI exam on a nonemergent basis. MRI abdomen pending. History of liver cancer with resection 2014- oncology following. Liver enzymes WNL. CEA, CA 19-9, and AFP, Hep C RNA and genotype pending. History of EtOH abuse, denies any alcohol consumption since 2014, patient shows no signs of agitation. Plan: - EGD, colonoscopy tomorrow - NPO after midnight - Clear liquid diet today - GoLYTELY prep - Obtain consents - CA 19-9, CEA, AFP, Hep C RNA and genotype pending - MRI Abdomen pending - PPI - Monitor H/H - Transfuse as needed - Further recommendation to follow based on results of above Pt has been seen and examined by myself and Dr. Barclay and this note has been written on her behalf (Celina Quiroz) Celina Quiroz Sep 02, 2017 08:42 Emilia Barclay MD Sep 02, 2017 17:58
[2017-09-02] MEDS: SODIUM CHLORIDE 0.9% FLUSH 10 ML FLUSH IV FLUSH SCH ×2 (09:00→21:14)
[2017-09-02] MEDS: FERROUS SULFATE 325 MG (65 MG ELEMENTAL IRON) TAB PO SCH ×3 (09:31→18:30)
[2017-09-02 11:14] VITALS: BP 133/73; PULSE 64; RESP 20; TEMP 97.6; O2SAT 99
--- NOTE | 2017-09-02 12:11 | HHI.PR ---
Subjective Remarks Follow-up symptomatic anemia/GI bleed 09/01/17-patient seen and examined, he was transfused 2 units packed red blood cell. Reports history of bloody stool over the past 3 months. Denies any significant shortness of breath 09/02/17-patient seen and examined, responded well to 2 units of packed red blood cell. Patient still continued to have dark stool. Plan for panendoscopy tomorrow. Abdominal MRI noted. Objective Vitals Vital Signs Date Time Temp Pulse Resp B/P (MAP) Pulse Ox O2 Delivery O2 Flow Rate FiO2 09/02/17 11:14 97.6 64 20 133/73 (93) 99 09/02/17 03:36 98.3 70 18 118/68 (85) 97 09/01/17 23:53 98.3 74 18 121/69 (86) 99 09/01/17 21:00 98.0 82 18 115/70 (85) 98 09/01/17 15:56 98.3 71 20 135/78 (97) 94 09/01/17: 98.3 65 22 117/66 (83) 99 I/O 09/01/17 09/01/17 09/01/17 09/02/17 09/02/17 09/02/17 07:00 15:00 23:00 07:00 15:00 23:00 Intake Total 430 ml 660 ml 1880 ml 1830 ml Output Total 1200 ml 300 ml 1125 ml 500 ml Balance 430 ml -540 ml 1580 ml 705 ml -500 ml Intake Oral 880 ml 830 ml IV Total 250 ml 1000 ml 1000 ml Packed Cells 400 ml 400 ml Blood Product IV Normal Saline Flush 30 ml 10 ml Output Urine Total 1200 ml 300 ml 1125 ml 500 ml # Voids 10 # Bowel Movements 2 Result Diagram: 09/01/17 1640 09/01/17 1310 Imaging Last Impressions Abdomen MRI 09/02/17 0000 Signed Impressions: Service Date/Time: Saturday, September 02, 2017 07:33 - CONCLUSION: 1. Enhancing lesion toward the dome of the liver measuring 3.5 cm concerning for hepatocellular carcinoma. 2. Small enhancing lesion more laterally in the liver measuring 1.2 cm, nonspecific. 3. Partial hepatectomy. 4. Status post cholecystectomy. Neel Payne MD Abdomen/Pelvis CT 09/01/17 0000 Signed Impressions: Service Date/Time: Friday, September 01, 2017 15:13 - CONCLUSION: 1. Incomplete colonic distention which accentuates the colonic wall. There does however appear to be mild colonic wall thickening involving the proximal transverse colon and hepatic flexure. There are scattered diverticula in the region of the hepatic flexure although the diverticula do not appear particularly inflamed. Mild colitis, potentially infectious/inflammatory in etiology, cannot be excluded. 2. Status post left hepatic resection with new 2.0 x 2.8 cm mass in the right dome of the liver. This is concerning for hepatocellular carcinoma given patient's history. Recommend further evaluation with liver mass protocol MRI exam on a nonemergent basis. Vikash Centeno MD Objective Remarks GENERAL: NAD SKIN: Warm and dry. HEAD: Normocephalic. EYES: No scleral icterus. No injection or drainage. NECK: Supple, trachea midline. No JVD or lymphadenopathy. CARDIOVASCULAR: Regular rate and rhythm without murmurs, gallops, or rubs. RESPIRATORY: Breath sounds equal bilaterally. No accessory muscle use. GASTROINTESTINAL: Abdomen soft, non-tender, nondistended. MUSCULOSKELETAL: No cyanosis, or edema. BACK: Nontender without obvious deformity. No CVA tenderness. A/P Problem List: (1) GI bleeding ICD Code: K92.2 - Gastrointestinal hemorrhage, unspecified (2) Symptomatic anemia ICD Code: D64.9 - Anemia, unspecified (3) History of liver cancer ICD Code: Z85.05 - Personal history of malignant neoplasm of liver (4) Hepatitis C ICD Code: B19.20 - Unspecified viral hepatitis C without hepatic coma Assessment and Plan 72-year-old man with Symptomatic anemia, likely GI bleed - Transfused 2 units packed red blood cell - Monitor H&H -Appreciate input from GI and plan for panendoscopy 09/03/17 GI bleed Appreciate input from GI and plan for panendoscopy 09/03/17 Continue PPI Monitor H&H History liver cancer Abdominal MRI noted and review with finding of enhancing lesions in the dome of the liver concerning for HCC Oncology consultation pending Atrial fibrillation - Currently on diltiazem and digoxin Hypertension Continue Cardizem DVT prophylaxis: Mechanical prophylaxis contraindicated Neel Clemente MD Sep 02, 2017 12:11
[2017-09-02] MEDS ORDERED: IOHEXOL 350 MG/ML 10 ML VIAL (for RAD DIAG) IVCONTRAST ONE (12:18)
--- NOTE | 2017-09-02 12:33 | MB ---
cc: MIGUEL JOHNSON M.D., ERIC DATE OF CONSULTATION: 09/02/2017 ATTENDING PHYSICIAN: Dr. Clemente. REASON FOR CONSULTATION: Oncology consulted to render an opinion regarding patient with liver mass. HISTORY OF PRESENT ILLNESS The patient is a very pleasant 72 year-old -[place] male presented to the emergency room with complaint of increased weakness. He was evaluated by his primary care physician, noted to have significant anemia. He was told to come to the hospital. He has had dark stool on and off for at least two months. He has lost about ten pounds. He had decreased appetite. He has increased shortness of breath and dyspnea on exertion. He has occasional dizziness. He has increased weakness and fatigue. He denies any fever or chills. He has no chest pain, no nausea or vomiting. He denies dysuria, hematuria, denies abdominal pain. He has had a history of GI bleed due to complication from liver cirrhosis. He also has a history of liver mass resected in [place] in 2014. On admission he had a CT of the abdomen and pelvis which unfortunately showed two new masses in the liver. Oncology was consulted for further management. PAST MEDICAL HISTORY: 1. Hepatitis C treated with Harvoni in 2014. 2. Liver cirrhosis. 3. GI bleed. 4. Small bowel obstruction. 5. Liver cancer. 6. Chronic atrial fibrillation. 7. Anemia. 8. Hypertension. PAST SURGICAL HISTORY: 1. Colonoscopy and EGD about two years ago. 2. Resection of liver mass in 2014. 3. Appendectomy. 4. Cholecystectomy 5. Eye surgery. 6. Left rotator cuff surgery. FAMILY HISTORY: One sister, one half brother recently . No cancer in the family. He has a son and two daughters, all healthy. SOCIAL HISTORY: He has smoked for at least 20 years, tried to cut back. He has not had alcohol since 2015. ALLERGIES NO KNOWN DRUG ALLERGIES. CURRENT MEDICATIONS 1. Ferrous sulfate. 2. Digoxin. 3. Diltiazem. 4. Protonix. REVIEW OF SYSTEMS Constitution: As above. Eyes: Negative. ENT: Negative. Cardiovascular: Denies chest pressure, palpitation. Respiratory: As above. GI: As above. : Negative. Musculoskeletal: Negative. Hematology: As above. Endocrine: Negative. Dermatology: Negative. Neurologic: Negative. Psychiatric: Negative. PHYSICAL EXAMINATION Vitals: Temperature 98.3, blood pressure 118/68, O2 saturation 97%. General: He is alert and oriented x3, in no acute distress. HEENT: Atraumatic, normocephalic. Pupils equal, round and reactive to light. Extraocular muscles intact. No sclera icterus. Oropharynx: Dry mucosa, no lesion, no thrush. No mucositis. NECK: No thyromegaly. No palpable mass. Lymphatics: No palpable, cervical, clavicular, axillary lymphadenopathy. CARDIOVASCULAR: Regular S1-S2. No murmurs. LUNGS: Clear to auscultation bilaterally, no wheezing, rhonchi. ABDOMEN: Soft, nontender. I could not palpate liver or spleen. EXTREMITIES: No cyanosis, he has mild clubbing, no significant lower extremity edema. No calf tenderness. BACK: No paravertebral tenderness. SKIN: No rash or petechiae. NEUROLOGIC: Nonfocal. LABORATORY DATA: Hemoglobin 10.5, platelet count 332, liver transaminase within normal limit, iron saturation 39, ferritin 36. ASSESSMENT 1. Liver mass worrisome for hepatocellular carcinoma. He has history of cirrhosis due to Hepatitis C. Reportedly he had a liver mass resected in 2016 at [facility] in [place]. His CT of the abdomen and pelvis on presentation showed evidence of left hepatic lobe resection. Unfortunately there is a new 2.0 x 2.8 mass noted in the right hepatic dome of the liver. MRI of the liver showed enhancing lesion measured 3.5 cm with additional 1.2 centimeter enhancing lesion more laterally. This is likely hepatocellular carcinoma, given his history of cirrhosis. Tumor marker has been ordered and results still pending. I will get CT of the chest for further staging. The disease appears to be localized in the liver. I talked to the patient about option of liver transplant versus liver resection versus local therapy like cryoablation, radiofrequency ablation, and Yttrium embolization versus radiation. Given his advanced age he is likely not a candidate for liver transplant and the patient is also not interested in having transplant. Will proceed with staging workup. If the disease is localized, will consult surgeon to get an opinion regarding resection of the liver mass. 2. Severe anemia due to GI bleed. He has had dark stool on and off for two months. Stool occult blood test was positive. He appeared to have iron deficiency. He received two units of packed red blood cells and hemoglobin trended up from 7.8 to 10.4. He is awaiting EGD and colonoscopy. 3. Hepatitis C treated with Harvoni in 2014. 4. Chronic atrial fibrillation. 5. Hypertension. 6. History of partial small bowel obstruction. RECOMMENDATIONS: 1. Await results of the tumor marker. 2. Get CT of the chest for staging. 3. Await EGD and colonoscopy. 4. Consider giving him Venofer infusion after the GI workup. 5. Consult surgery tomorrow to see if the patient is a candidate for resection of liver mass. Thank you Dr. Clemente, for asking me to see this patient. MD DANIEL Ceron/THIERRY /11:08 AM /11:47 AM MTDD
--- NOTE | 2017-09-02 12:34 | RADRPT ---
EXAM DATE/TIME: 09/02/2017 12:11 [place] COMPARISON: CT ABDOMEN & PELVIS W CONTRAST, September 01, 2017, 15:13. INDICATIONS : Abdominal lesions. Evaluate for metastatic disease. IV CONTRAST: 75 cc Omnipaque 350 (iohexol) IV RADIATION DOSE: 4.37 CTDIvol (mGy) MEDICAL HISTORY : Hepatitis C. Carcinoma, hepatocellular. Cardiovascular diseaseHypertension. SURGICAL HISTORY : Appendectomy. Cholecystectomy.Liver resection. ENCOUNTER: Initial ACUITY: 1 day PAIN SCALE: 0/10 LOCATION: chest TECHNIQUE: Volumetric scanning of the chest was performed. Using automated exposure control and adjustment of t he mA and/or kV according to patient size, radiation dose was kept as low as reasonably achievable to obtain optimal diagnostic quality images. DICOM format image data is available electronically for review and comparison. Follow-up recommendations for detected pulmonary nodules are based at a minimum on nodule size and pa tient risk factors according to Fleischner Society Guidelines. FINDINGS: LUNGS: Scarring right lower lobe. Minimal ground glass density right upper lobe and left lower lobe likely s carring. No masses or consolidation PLEURA: There is no pleural thickening or pleural effusion. MEDIASTINUM: The heart and great vessels demonstrate no acute abnormality. There is no mediastinal or hilar lymph adenopathy. AXILLAE: Within normal limits. No lymphadenopathy. SKELETAL: Within normal limits for patient age. MISCELLANEOUS: The visualized upper abdominal organs demonstrate no acute abnormality. CONCLUSION: 1. No evidence for metastatic disease. 2. Minimal scarring. Neel Payne MD on September 02, 2017 at 12:30 Board Certified Radiologist. This report was verified electronically.
[2017-09-02 13:42] LABS: AUTOMATED NEUTROPHIL # 3.8 TH/MM3 (1.8-7.7); BASOPHIL % 0.7 % (0.0-2.0); EOSINOPHIL # 0.1 TH/MM3 (0-0.4); EOSINOPHIL % 1.7 % (0.0-4.0); HEMATOCRIT 31.5 % (39.0-51.0); HEMO FLAGS DIFF FINAL; LYMPH % 18.4 % (9.0-44.0); MEAN CELL VOLUME 87.7 FL (80.0-100.0); MEAN CORPUSCULAR HEMOGLOBIN 27.7 PG (27.0-34.0); MEAN CORPUSCULAR HGB CONC 31.6 % (32.0-36.0); MONO % 9.9 % (0.0-8.0); NEUT % 69.3 % (16.0-70.0); PLATELET COUNT 279 TH/MM3 (150-450); RED BLOOD COUNT 3.59 MIL/MM3 (4.50-5.90); RED CELL DISTRIBUTION WIDTH 19.9 % (11.6-17.2); WHITE BLOOD COUNT 5.5 TH/MM3 (4.0-11.0)
[2017-09-02] MEDS ORDERED: PEG (High)/E-LYTE SOLN 4000 ML BTL PO ONE (14:00)
[2017-09-02 14:11] LABS: BICARBONATE 26.4 MEQ/L (21.0-32.0); POTASSIUM 3.9 MEQ/L (3.5-5.1)
[2017-09-02 15:30] VITALS: BP 138/74; PULSE 59; RESP 22; TEMP 97.6; O2SAT 98
[2017-09-02 18:59] VITALS: BP 137/78; PULSE 95; RESP 18; TEMP 98.7; O2SAT 97
[2017-09-02 21:12] VITALS: BP 133/82; PULSE 64; RESP 18; TEMP 98.7; O2SAT 98
[2017-09-02] MEDS: PANTOPRAZOLE SODIUM 40 MG VIAL IV PUSH SCH (21:14)
[2017-09-02] MEDS ORDERED: SODIUM CHLORID 0.9% 500 ML IV PRN (22:00)
[2017-09-02] MEDS ORDERED: POVIDONE IODINE 5% (ANTISEPSIS KIT) 4 APPLICATIONS EACH NARE PRN (22:00)
[2017-09-02] MEDS ORDERED: CHLORHEXIDINE GLUCONATE 2 % 1 PACK (2 CLOTHS) TOPICAL PRN (22:00)
[2017-09-02] MEDS ORDERED: LACTATED RINGER'S 1000 ML IV PRN (22:00)
[2017-09-03] VITALS (8 sets, daily range): BP systolic 117–142; BP diastolic 66–91; PULSE 52–68; RESP 16–22; TEMP 98–98.7; O2SAT 96–100
[2017-09-03] MEDS: DILTIAZEM-CD 120 MG CAP ER PO SCH (05:06)
[2017-09-03] MEDS: DIGOXIN 0.125 MG TAB PO SCH (05:07)
[2017-09-03 06:36] LABS: INTERNATIONAL NORMALIZED RATIO 1.1 RATIO; PROTHROMBIN TIME - PATIENT 11.2 SEC (9.8-11.6)
[2017-09-03] MEDS: SODIUM CHLORIDE 0.9% FLUSH 10 ML FLUSH IV FLUSH SCH ×2 (08:37→21:51)
[2017-09-03] MEDS: FERROUS SULFATE 325 MG (65 MG ELEMENTAL IRON) TAB PO SCH ×3 (08:46→18:05)
[2017-09-03 10:54] LABS: BASOPHIL % 0.9 % (0.0-2.0); EOSINOPHIL # 0.1 TH/MM3 (0-0.4); EOSINOPHIL % 2.3 % (0.0-4.0); HEMATOCRIT 30.9 % (39.0-51.0); HEMO FLAGS DIFF FINAL; LYMPH % 18.4 % (9.0-44.0); LYMPHOCYTE # 1.1 TH/MM3 (1.0-4.8); MEAN CELL VOLUME 87.1 FL (80.0-100.0); MEAN CORPUSCULAR HEMOGLOBIN 27.1 PG (27.0-34.0); MEAN CORPUSCULAR HGB CONC 31.1 % (32.0-36.0); NEUT % 67.4 % (16.0-70.0); PLATELET COUNT 275 TH/MM3 (150-450); RED BLOOD COUNT 3.55 MIL/MM3 (4.50-5.90); RED CELL DISTRIBUTION WIDTH 19.7 % (11.6-17.2); WHITE BLOOD COUNT 5.9 TH/MM3 (4.0-11.0)
--- NOTE | 2017-09-03 11:20 | PD.ONC.PN ---
Subjective Subjective Remarks Afebrile overnight. Patient resting in bed with at bedside. Denies pain at present. Waiting to go down for EGD/colonoscopy. Objective Data Date Time Temp Pulse Resp B/P (MAP) Pulse Ox O2 Delivery O2 Flow Rate FiO2 09/03/17 08:38 98.7 63 16 129/80 (96) 96 09/03/17 05:01 98.1 66 22 135/91 (106) 99 09/03/17 00:01 98.7 65 16 121/73 (89) 98 09/02/17 21:12 98.7 64 18 133/82 (99) 98 09/02/17 18:59 98.7 95 18 137/78 (97) 97 09/02/17 15:30 97.6 59 22 138/74 (95) 98 09/02/17 11:14 97.6 64 20 133/73 (93) 99 09/03/17 09/03/17 09/03/17 07:00 15:00 23:00 Output Total 300 ml Balance -300 ml Result Diagram: 09/03/17 1043 09/02/17 1320 Laboratory Results Laboratory Tests Test 09/02/17 13:20 09/03/17 05:06 09/03/17 10:43 White Blood Count 5.5 TH/MM3 5.9 TH/MM3 Red Blood Count 3.59 MIL/MM3 3.55 MIL/MM3 Hemoglobin 9.9 GM/DL 9.6 GM/DL Hematocrit 31.5 % 30.9 % Mean Corpuscular Volume 87.7 FL 87.1 FL Mean Corpuscular Hemoglobin 27.7 PG 27.1 PG Mean Corpuscular Hemoglobin Concent 31.6 % 31.1 % Red Cell Distribution Width 19.9 % 19.7 % Platelet Count 279 TH/MM3 275 TH/MM3 Mean Platelet Volume 7.2 FL 6.8 FL Neutrophils (%) (Auto) 69.3 % 67.4 % Lymphocytes (%) (Auto) 18.4 % 18.4 % Monocytes (%) (Auto) 9.9 % 11.0 % Eosinophils (%) (Auto) 1.7 % 2.3 % Basophils (%) (Auto) 0.7 % 0.9 % Neutrophils # (Auto) 3.8 TH/MM3 4.0 TH/MM3 Lymphocytes # (Auto) 1.0 TH/MM3 1.1 TH/MM3 Monocytes # (Auto) 0.5 TH/MM3 0.6 TH/MM3 Eosinophils # (Auto) 0.1 TH/MM3 0.1 TH/MM3 Basophils # (Auto) 0.0 TH/MM3 0.0 TH/MM3 CBC Comment DIFF FINAL DIFF FINAL Differential Comment Blood Urea Nitrogen 6 MG/DL Creatinine 0.96 MG/DL Random Glucose 186 MG/DL Calcium Level 7.9 MG/DL Sodium Level 138 MEQ/L Potassium Level 3.9 MEQ/L Chloride Level 106 MEQ/L Carbon Dioxide Level 26.4 MEQ/L Anion Gap 6 MEQ/L Estimat Glomerular Filtration Rate 94 ML/MIN Tumor Marker Alpha Fetoprotein 1.5 NG/ML Carcinoembryonic Antigen 1.3 NG/ML CA 19-9 Antigen 16.8 U/ML Prothrombin Time 11.2 SEC Prothromb Time International Ratio 1.1 RATIO Culture Results Microbiology Date/Time Source Procedure Growth Status 09/01/17 14:55 Stool Stool Stool Occult Blood (GILMER) - Final HEMOCCULT POSITIVE Complete 09/01/17 08:00 Stool Stool Stool Occult Blood (GILMER) - Final HEMOCCULT NEGATIVE Complete Administered Medications Medications (Trade) Dose Ordered Sig/Víctor Route PRN Reason Start Time Stop Time Status Last Admin Dose Admin Sodium Chloride 1,000 ml @ 100 mls/hr Q10H IV 08/31/17 19:00 09/03/17 00:00 Sodium Chloride (NS Flush) 2 ml BID IV FLUSH 08/31/17 21:00 09/02/17 21:14 Pantoprazole Sodium (Protonix Inj) 40 mg Q24H IV PUSH 08/31/17 21:00 09/02/17 21:14 Digoxin (Lanoxin) 0.125 mg DAILY@0600 PO 09/01/17 06:00 09/03/17 05:07 Diltiazem HCl (Cardizem Cd) 120 mg DAILY@0600 PO 09/01/17 06:00 09/03/17 05:06 Ferrous Sulfate (Ferrous Sulfate) 325 mg TIDPC PO 09/01/17 09:30 09/02/17 18:30 Objective Remarks GENERAL: Pleasant elderly male sitting up in bed in [facility]. SKIN: Warm and dry. HEAD: Normocephalic. EYES: No injection or drainage. NECK: Supple, trachea midline. CARDIOVASCULAR: Regular rate and rhythm RESPIRATORY: Breath sounds equal bilaterally. No accessory muscle use. GASTROINTESTINAL: Abdomen soft, non-tender, nondistended. EXTREMITIES: No cyanosis NEUROLOGICAL: awake and alert, normal speech. Assessment/Plan Problem List: (1) Liver masses ICD Codes: R16.0 - Hepatomegaly, not elsewhere classified Plan: --Liver mass worrisome for hepatocellular carcinoma. --as history of cirrhosis due to Hepatitis C. --had a liver mass resected in 2016 at [facility] in [place]. --CT of the abdomen and pelvis on presentation showed evidence of left hepatic lobe resection + new 2.0 x 2.8 mass noted in the right hepatic dome of the liver. --MRI liver showed enhancing lesion measured 3.5 cm with additional 1.2 centimeter enhancing lesion more laterally. --AFP is not elevated, making HCC less likely --CT chest shows no mets -- If the disease is localized, will consult surgeon to get an opinion regarding resection of the liver mass. (2) GI bleeding ICD Codes: K92.2 - Gastrointestinal hemorrhage, unspecified Status: Acute Plan: --Severe anemia due to GI bleed. --has had dark stool on and off for two months. --Stool occult blood test was positive. appeared to have iron deficiency. --received two units of packed red blood cells and hemoglobin trended up from 7.8 to 10.4. He is awaiting EGD and colonoscopy. Assessment 72y/o male admitted for anemia/GIB. On admission he had a CT of the abdomen and pelvis which showed two new masses in the liver. h/o Hepatitis C treated with Harvoni in 2014. Liver cirrhosis. GI bleed. Small bowel obstruction. Liver cancer. Chronic atrial fibrillation. Anemia. Hypertension. Plan 1. EGD/colonoscopy today 2. I have requested records from [facility]. 3. monitor CBC patient does not want to know about his liver mass Attending Statement The exam, history, and the medical decision-making described in the above note were completed with the assistance of the mid-level provider. I reviewed and agree with the findings presented. I attest that I had a [id number] encounter with the patient on the same day, and personally performed and documented my assessment and findings in the medical record. No abdominal pain. Await EGD/colonoscopy today. Pt's at the bedside but he does not want her to know about the liver mass. Will get records from [facility]. If previous pathology showed hepatocellular carcinoma, then no need to repeat biopsy. CT chest no mets. Will consult surgery to see if he is a candidate for resection. Alexandra Rai Sep 03, 2017 11:20 Lane Ortiz MD Sep 03, 2017 19:13
[2017-09-03] MEDS ORDERED: PROPOFOL 200 MG/20 ML AMP IV ONE (12:00)
[2017-09-03] MEDS ORDERED: LIDOCAINE HCL 1% PF 5 ML SYRINGE OTHER ONE (12:00)
[2017-09-03] MEDS: SODIUM CHLOR 0.9% 1000 ML INJ 1,000 ML IV SCH ×2 (12:41)
--- NOTE | 2017-09-03 12:45 | HHI.PR ---
Subjective Remarks Patient denies abdominal pain. He does complain of hunger. lightheadedness had resolved after blood transfusion. Objective Vitals Vital Signs Date Time Temp Pulse Resp B/P (MAP) Pulse Ox O2 Delivery O2 Flow Rate FiO2 09/03/17 11:46 97 21 09/03/17 08:38 98.7 63 16 129/80 (96) 96 09/03/17 05:01 98.1 66 22 135/91 (106) 99 09/03/17 00:01 98.7 65 16 121/73 (89) 98 09/02/17 21:12 98.7 64 18 133/82 (99) 98 09/02/17 18:59 98.7 95 18 137/78 (97) 97 09/02/17 15:30 97.6 59 22 138/74 (95) 98 I/O 09/02/17 09/02/17 09/02/17 09/03/17 09/03/17 09/03/17 07:00 15:00 23:00 07:00 15:00 23:00 Intake Total 1830 ml Output Total 1125 ml 500 ml 200 ml 300 ml Balance 705 ml -500 ml -200 ml -300 ml Intake Oral 830 ml IV Total 1000 ml Output Urine Total 1125 ml 500 ml 200 ml 300 ml # Voids 4 # Bowel Movements 3 4 Result Diagram: 09/03/17 1043 09/02/17 1320 Objective Remarks GENERAL: Well-nourished, well-developed pleasant male patient in no apparent distress. SKIN: Warm and dry. HEAD: Normocephalic. EYES: No scleral icterus. No injection or drainage. NECK: Supple, trachea midline. No JVD or lymphadenopathy. CARDIOVASCULAR: Regular rate and rhythm without murmurs, gallops, or rubs. RESPIRATORY: Breath sounds equal bilaterally. No accessory muscle use. GASTROINTESTINAL: Abdomen soft, non-tender, nondistended. EXTREMITIES: No cyanosis, or edema. NEUROLOGICAL: Awake, alert, and oriented x 3. Non-focal. A/P Problem List: (1) GI bleeding ICD Code: K92.2 - Gastrointestinal hemorrhage, unspecified Status: Acute (2) Symptomatic anemia ICD Code: D64.9 - Anemia, unspecified Status: Acute (3) History of liver cancer ICD Code: Z85.05 - Personal history of malignant neoplasm of liver Status: Chronic (4) Hepatitis C ICD Code: B19.20 - Unspecified viral hepatitis C without hepatic coma Status: Chronic (5) Liver masses ICD Code: R16.0 - Hepatomegaly, not elsewhere classified (6) Anemia ICD Code: D64.9 - Anemia, unspecified Status: Acute Assessment and Plan 72-year-old man with Symptomatic anemia due to acute blood loss, suspected GI bleed - Transfused 2 units packed red blood cell - hemoglobin stable at 9.6 today - Monitor H&H -Appreciate input from GI and plan for panendoscopy today GI bleed, dark tarry stools Appreciate input from GI and plan for panendoscopy 09/03/17 Continue PPI Monitor H&H History hepatocellular liver cancer with history of liver mass resection in 2016 , history of cirrhosis due to 2 hepatitis C virus Abdominal MRI noted and review with finding of enhancing lesions in the dome of the liver concerning for HCC, AFP not elevated Chest CT with contrast negative for metastatic disease Oncology following, evaluating for candidacy of resection of liver mass versus local therapy Hepatitis C virus load pending - he has been treated in the past with Gaudencio in 2014 Atrial fibrillation - Currently on diltiazem and digoxin Hypertension Continue Cardizem DVT prophylaxis: Problem Qualifiers (1) Anemia: Qualified Codes: D64.9 - Anemia, unspecified Adela Munoz MD Sep 03, 2017 12:45
--- NOTE | 2017-09-03 14:30 | GIPROC ---
[facility] [address] [facility]. [facility] [place], [address] EGD PROCEDURE REPORT EXAM DATE: 09/03/2017 PATIENT NAME: Anil Doe MR #: [id number] BIRTHDATE: 1945 ATTENDING: Marianela Quiroz MD ORDER #: [id number] MARKETING RESEARCH COORDINATOR: Yandel Long and Mandi Dhaliwal STATUS: inpatient INDICATIONS: The patient is a 72 yr old male here for an EGD due to iron deficiency anemia PROCEDURE PERFORMED: EGD, diagnostic MEDICATIONS: None and Per Anesthesia. TOPICAL ANESTHETIC: CONSENT: The patient understands the risks and benefits of the procedure and understands that these risks include, but are not limited to: sedation, allergic reaction, infection, perforation and/or bleeding. Alternative means of evaluation and treatment include, among others: physical exam, x-rays, and/or surgical intervention. The patient elects to proceed with this endoscopic procedure. medical equipment was checked for proper function. Hand hygiene and appropriate measures for infection prevention was taken. After the risks, benefits and alternatives of the procedure were thoroughly explained, Informed consent was verified, confirmed and timeout was successfully executed by the treatment team. The patient was anesthetized with topical anesthesia and the Pentax [id number] endoscope was introduced through the mouth and advanced to the second portion of the duodenum. Retroflexed views revealed no abnormalities The gastroscope was then slowly withdrawn and removed. ESOPHAGUS: The mucosa of the esophagus appeared normal. STOMACH: There was mild gastritis in the gastric antrum. DUODENUM: A large non-bleeding and shallow ulcer, ranging between 5-9mm in size, with heaped up edges and a pigmented spot was found in the duodenal bulb. The duodenal mucosa appeared normal in the 2nd part of the duodenum. ADVERSE EVENTS: There were no complications. IMPRESSIONS: 1. The esophagus appeared normal 2. There was mild gastritis in the gastric antrum 3. Large ulcer, ranging between 5-9mm in size, was found in the duodenal bulb 4. Normal duodenal mucosa in the 2nd part of the duodenum 5. Retroflexed views revealed no abnormalities RECOMMENDATIONS: 1. Anti-reflux regimen 2. Continue PPI 3. Avoid NSAIDS PATIENT CONDITION: stable DISPOSITION: Inpatient REPEAT EXAM: Return 3 days EGD Marianela Quiroz MD eSigned: Marianela Quiroz MD 09/03/2017 2:29 PM cc: PATIENT NAME: Anil Doe MR#: [id number]
--- NOTE | 2017-09-03 14:33 | GIPROC ---
[facility] [address] [facility]. [facility], [address] COLONOSCOPY PROCEDURE REPORT EXAM DATE: 09/03/2017 PATIENT NAME: Anil Doe MR #: [id number] BIRTHDATE: 1945 ENDOSCOPIST: Marianela Quiroz MD ORDER #: [id number] DISTRIBUTOR SALES CONSULTANT: Yandel Long and Mandi Dhaliwal STATUS: inpatient INDICATIONS: The patient is a 72 yr old male here for a colonoscopy due to iron deficiency anemia PROCEDURE PERFORMED: Colonoscopy with polypectomy MEDICATIONS: None and Per Anesthesia. PREP QUALITY: The [place] Bowel Prep Score was Right colon 3, Mid colon 2, and Left colon 2. Total = 7. PREP TYPE:GoLytely ESTIMATED BLOOD LOSS: None CONSENT: The patient understands the risks and benefits of the procedure and understands that these risks include, but are not limited to: sedation, allergic reaction, infection, perforation and/or bleeding. Alternative means of evaluation and treatment include, among others: physical exam, x-rays, and/or surgical intervention. The patient elects to proceed with this endoscopic procedure. medical equipment was checked for proper function. Hand hygiene and appropriate measures for infection prevention was taken. After the risks, benefits and alternatives of the procedure were thoroughly explained, Informed consent was verified, confirmed and timeout was successfully executed by the treatment team. A digital exam revealed external hemorrhoids The Pentax [id number] endoscope was introduced through the anus and advanced to the cecum, which was identified by both the appendix and ileocecal valve. The instrument was then slowly withdrawn as the colon was fully examined. COLON FINDINGS: A polypoid shaped sessile polyp ranging between 3-5mm in size was found in the sigmoid colon. A polypectomy was performed with cold forceps. The resection was complete and the polyp tissue was completely retrieved. Retroflexed views revealed internal hemorrhoids and Retroflexed views revealed small internal hemorrhoids The scope was then completely withdrawn from the patient and the procedure terminated. PROCEDURE WITHDRAWAL TIME:6minutes ADVERSE EVENTS: There were no complications. IMPRESSIONS: 1. A sessile polyp ranging between 3-5mm in size was found in the sigmoid colon; polypectomy was performed with cold forceps 2. Retroflexed views revealed internal hemorrhoids 3. Retroflexed views revealed small internal hemorrhoids 4. Revealed external hemorrhoids RECOMMENDATIONS: 1. Await biopsy results. Biopsy results will not be ready for 7-10 days. If you don't hear from us in two weeks, call our office for results. 2. Continue surveillance 3. Yearly hemoccult RECALL: Return 5 years Colonoscopy, pending biopsy results Marianela Quiroz MD eSigned: Marianela Quiroz MD 09/03/2017 2:32 PM cc: PATIENT NAME: Anil Doe MR#: [id number]
--- NOTE | 2017-09-03 18:26 | EKG ---
Date Performed: 09/03/2017 Time Performed: 06:13:26 PTAGE: 72 years EKG: Abnormal ECG Compared to PREVIOUS TRACING , the patient continues in Sinus rhythm with PACs. PREVIOUS TRACING 07/25/2012 10.40.50 DOCTOR: Figueroa Keating Interpretating Date/Time 09/03/2017 18:25:39
[2017-09-03] MEDS: PANTOPRAZOLE SODIUM 40 MG VIAL IV PUSH SCH (21:51)
[2017-09-04] VITALS (7 sets, daily range): BP systolic 120–130; BP diastolic 63–79; PULSE 57–64; RESP 15–16; TEMP 97.9–98.9; O2SAT 96–100
[2017-09-04] MEDS: SODIUM CHLOR 0.9% 1000 ML INJ 1,000 ML IV SCH ×2 (04:24→14:38)
[2017-09-04] MEDS: DILTIAZEM-CD 120 MG CAP ER PO SCH (04:25)
[2017-09-04] MEDS: DIGOXIN 0.125 MG TAB PO SCH (04:25)
[2017-09-04] MEDS: FERROUS SULFATE 325 MG (65 MG ELEMENTAL IRON) TAB PO SCH ×3 (08:42→18:48)
[2017-09-04] MEDS: SODIUM CHLORIDE 0.9% FLUSH 10 ML FLUSH IV FLUSH SCH ×2 (08:43→20:01)
--- NOTE | 2017-09-04 10:03 | HHI.GIFU ---
Subjective Remarks Pt resting in bed, says he feels better today. Asking to go home. (Zakia Arreola) Objective Vitals I&O Vital Signs Date Time Temp Pulse Resp B/P (MAP) Pulse Ox O2 Delivery O2 Flow Rate FiO2 09/04/17 04:27 98.8 64 16 125/74 (91) 98 09/04/17 00:26 98.8 57 15 120/66 (84) 97 09/03/17 20:00 98.1 68 20 117/66 (83) 97 09/03/17 17:38 99 21 09/03/17 15:59 98.0 52 16 142/83 (102) 100 09/03/17 14:39 97.4 69 18 111/59 (76) 100 09/03/17 12:47 98.3 54 16 135/80 (98) 98 09/03/17 11:46 97 21 I/O 09/03/17 09/03/17 09/03/17 09/04/17 09/04/17 09/04/17 07:00 15:00 23:00 07:00 15:00 23:00 Intake Total 1801 ml 1200 ml Output Total 300 ml 1150 ml 900 ml Balance -300 ml 1801 ml 50 ml -900 ml Intake Oral 1200 ml IV Total 1501 ml Other 300 ml Output Urine Total 300 ml 1150 ml 900 ml # Voids 4 # Bowel Movements 4 1 Laboratory Laboratory Tests Test 09/03/17 10:43 White Blood Count 5.9 Red Blood Count 3.55 Hemoglobin 9.6 Hematocrit 30.9 Mean Corpuscular Volume 87.1 Mean Corpuscular Hemoglobin 27.1 Mean Corpuscular Hemoglobin Concent 31.1 Red Cell Distribution Width 19.7 Platelet Count 275 Mean Platelet Volume 6.8 Neutrophils (%) (Auto) 67.4 Lymphocytes (%) (Auto) 18.4 Monocytes (%) (Auto) 11.0 Eosinophils (%) (Auto) 2.3 Basophils (%) (Auto) 0.9 Neutrophils # (Auto) 4.0 Lymphocytes # (Auto) 1.1 Monocytes # (Auto) 0.6 Eosinophils # (Auto) 0.1 Basophils # (Auto) 0.0 CBC Comment DIFF FINAL Differential Comment Date/Time Source Procedure Growth Status 09/01/17 14:55 Stool Stool Stool Occult Blood (GILMER) - Final HEMOCCULT POSITIVE Complete Imaging Last Impressions Chest CT 09/02/17 0000 Signed Impressions: Service Date/Time: Saturday, September 02, 2017 12:11 - CONCLUSION: 1. No evidence for metastatic disease. 2. Minimal scarring. Neel Payne MD Abdomen MRI 09/02/17 0000 Signed Impressions: Service Date/Time: Saturday, September 02, 2017 07:33 - CONCLUSION: 1. Enhancing lesion toward the dome of the liver measuring 3.5 cm concerning for hepatocellular carcinoma. 2. Small enhancing lesion more laterally in the liver measuring 1.2 cm, nonspecific. 3. Partial hepatectomy. 4. Status post cholecystectomy. Neel Payne MD Abdomen/Pelvis CT 09/01/17 0000 Signed Impressions: Service Date/Time: Friday, September 01, 2017 15:13 - CONCLUSION: 1. Incomplete colonic distention which accentuates the colonic wall. There does however appear to be mild colonic wall thickening involving the proximal transverse colon and hepatic flexure. There are scattered diverticula in the region of the hepatic flexure although the diverticula do not appear particularly inflamed. Mild colitis, potentially infectious/inflammatory in etiology, cannot be excluded. 2. Status post left hepatic resection with new 2.0 x 2.8 cm mass in the right dome of the liver. This is concerning for hepatocellular carcinoma given patient's history. Recommend further evaluation with liver mass protocol MRI exam on a nonemergent basis. Vikash Centeno MD Physical Exam HEENT: Normocephalic; atraumatic; no jaundice. CHEST: CTA CARDIAC: RRR ABDOMEN: Soft, mildly distended, mild RUQ TTP; no hepatosplenomegaly; bowel sounds are present in all four quadrants. EXTREMITIES:Mild edema. SKIN: Normal; no rash; no jaundice. FIBERGLASS PRODUCT TESTER: No focal deficits; alert and oriented times three. (Zakia Arreola) Assessment and Plan Plan Assessment GI bleed, Dark stools for the past 3-4 month. H/H 7.8/25.6 on admission. S/P 2 U PRBC. H/H 10.5/32.6 yesterday. Labs pending for today. Pt reports 3 dark stools yesterday. s/p EGD and colonoscopy 09/03/17 found gastritis, large ulcer duodenum; sessile polyps sigmoid, hemorrhoids. Anemia- Iron supplements at home. TIBC-378 % Sat- 39.4 Ferritin- 36 Iron-149 Possible irritable bowel syndrome, patient has constipation alternating with diarrhea. CT abdomen and pelvis W/ IV contrast (09/01) --> Incomplete colonic distension with accentuates the colonic wall. There does however appear to be mild colonic wall thickening involving the proximal transverse colon and hepatic flexure. There are scattered diverticula do not appear particularly inflamed. Mild colitis, potentially infectious/ inflammatory in etiology, cannot be excluded. Status post left hepatic resection with new 2.0cm x 2.8 cm mass in the right dome of the liver. This is concerning for HCC given patient's history. MRI abd 09/02/17 --> lesion dome liver 3.5 cm concerning for HCC, small 1.2 cm nonspecific lesion still with mild RUQ TTP History of liver cancer with resection 2014- oncology following. Liver enzymes WNL. tumor markers not elevated, MRI abd as above, Hep C RNA and genotype pending. History of EtOH abuse, denies any alcohol consumption since 2014, patient shows no signs of agitation. Plan: - repeat EGD 2days - await Hep C RNA and genotype pending - await path - PPI - Monitor H/H - Transfuse as needed - Further recommendation to follow based on results of above Pt has been seen and examined by myself and and this note has been written on his behalf (Zakia Arreola) Physician Comments Seen and examined with PHOTOVOLTAIC TECHNICIAN, doing well expecting to go home today. Needs fu egd for large duodenal ulcer as well as a liver biopsy. If dced home please arrange fu with gi in [address] Ortiz to fu on liver lesion. (Marianela Quiroz MD) Zakia Arreola Sep 04, 2017 10:03 Marianela Quiroz MD Sep 04, 2017 14:25
--- NOTE | 2017-09-04 10:46 | PD.ONC.PN ---
Subjective Subjective Remarks Afebrile overnight. Patient feeling good today. tolerated colonoscopy yesterday and was able to eat breakfast today. Hopeful to go home soon. Objective Data Date Time Temp Pulse Resp B/P (MAP) Pulse Ox O2 Delivery O2 Flow Rate FiO2 09/04/17 04:27 98.8 64 16 125/74 (91) 98 09/04/17 00:26 98.8 57 15 120/66 (84) 97 09/03/17 20:00 98.1 68 20 117/66 (83) 97 09/03/17 17:38 99 21 09/03/17 15:59 98.0 52 16 142/83 (102) 100 09/03/17 14:39 97.4 69 18 111/59 (76) 100 09/03/17 12:47 98.3 54 16 135/80 (98) 98 09/03/17 11:46 97 21 09/04/17 09/04/17 09/04/17 07:00 15:00 23:00 Output Total 900 ml Balance -900 ml Result Diagram: 09/03/17 1043 09/02/17 1320 Culture Results Microbiology Date/Time Source Procedure Growth Status 09/01/17 14:55 Stool Stool Stool Occult Blood (GILMER) - Final HEMOCCULT POSITIVE Complete Administered Medications Medications (Trade) Dose Ordered Sig/Víctor Route PRN Reason Start Time Stop Time Status Last Admin Dose Admin Sodium Chloride 1,000 ml @ 100 mls/hr Q10H IV 08/31/17 19:00 09/04/17 04:24 Sodium Chloride (NS Flush) 2 ml BID IV FLUSH 08/31/17 21:00 09/03/17 21:51 Pantoprazole Sodium (Protonix Inj) 40 mg Q24H IV PUSH 08/31/17 21:00 09/03/17 21:51 Digoxin (Lanoxin) 0.125 mg DAILY@0600 PO 09/01/17 06:00 09/04/17 04:25 Diltiazem HCl (Cardizem Cd) 120 mg DAILY@0600 PO 09/01/17 06:00 09/04/17 04:25 Ferrous Sulfate (Ferrous Sulfate) 325 mg TIDPC PO 09/01/17 09:30 09/04/17 08:42 Objective Remarks GENERAL: Pleasant male, sitting up in bed in nad. SKIN: Warm and dry. HEAD: Normocephalic. EYES: No injection or drainage. NECK: Supple, trachea midline. CARDIOVASCULAR: Regular rate and rhythm RESPIRATORY: Breath sounds equal bilaterally. No accessory muscle use. GASTROINTESTINAL: Abdomen soft, non-tender, nondistended. EXTREMITIES: No cyanosis NEUROLOGICAL: awake and alert, normal speech. moving all extremities. Assessment/Plan Problem List: (1) Liver masses ICD Codes: R16.0 - Hepatomegaly, not elsewhere classified Plan: --Liver mass worrisome for hepatocellular carcinoma. --as history of cirrhosis due to Hepatitis C. --had a liver mass resected in [address] [facility] in [place]. --CT of the abdomen and pelvis on presentation showed evidence of left hepatic lobe resection + new 2.0 x 2.8 mass noted in the right hepatic dome of the liver. --MRI liver showed enhancing lesion measured 3.5 cm with additional 1.2 centimeter enhancing lesion more laterally. --AFP is not elevated --CT chest shows no mets (2) GI bleeding ICD Codes: K92.2 - Gastrointestinal hemorrhage, unspecified Status: Acute Plan: --Severe anemia due to GI bleed. --has had dark stool on and off for two months. --Stool occult blood test was positive. appeared to have iron deficiency. --received two units of packed red blood cells and hemoglobin trended up from 7.8 to 10.4. --s/p colonoscopy on 09/03 Assessment 72y/o male admitted for anemia/GIB. On admission he had a CT of the abdomen and pelvis which showed two new masses in the liver. h/o Hepatitis C treated with Harvoni in 2014. Liver cirrhosis. GI bleed. Small bowel obstruction. Liver cancer. Chronic atrial fibrillation. Anemia. Hypertension. Plan 1. ok to go home once cleared by GI 2. follow up in clinic with Dr. Ortiz in 2-3 weeks. Attending Statement The exam, history, and the medical decision-making described in the above note were completed with the assistance of the mid-level provider. I reviewed and agree with the findings presented. I attest that I had a [id number] encounter with the patient on the same day, and personally performed and documented my assessment and findings in the medical record. Feeling better. EGD showed ulcer in duodenal bulb possibly source of bleed. Colonoscopy + polyps. Liver masses most likely HCC. Try to get report from [facility]. Consult surgery to see if he is candidate for resection but can be done as outpt if he is discharged. Discussed with patient and his questions answered. Alexandra Rai Sep 04, 2017 10:46 Lane Ortiz MD Sep 04, 2017 11:36
--- NOTE | 2017-09-04 11:49 | HHI.PR ---
Subjective Remarks No complaints. Tolerated breakfast of eggs and grits. Objective Vitals Vital Signs Date Time Temp Pulse Resp B/P (MAP) Pulse Ox O2 Delivery O2 Flow Rate FiO2 09/04/17 04:27 98.8 64 16 125/74 (91) 98 09/04/17 00:26 98.8 57 15 120/66 (84) 97 09/03/17 20:00 98.1 68 20 117/66 (83) 97 09/03/17 17:38 99 21 09/03/17 15:59 98.0 52 16 142/83 (102) 100 09/03/17 14:39 97.4 69 18 111/59 (76) 100 09/03/17 12:47 98.3 54 16 135/80 (98) 98 I/O 09/03/17 09/03/17 09/03/17 09/04/17 09/04/17 09/04/17 07:00 15:00 23:00 07:00 15:00 23:00 Intake Total 1801 ml 1200 ml Output Total 300 ml 1150 ml 900 ml Balance -300 ml 1801 ml 50 ml -900 ml Intake Oral 1200 ml IV Total 1501 ml Other 300 ml Output Urine Total 300 ml 1150 ml 900 ml # Voids 4 # Bowel Movements 4 1 Result Diagram: 09/03/17 1043 09/02/17 1320 Objective Remarks GENERAL: Well-nourished, well-developed pleasant male patient in no apparent distress. SKIN: Warm and dry. HEAD: Normocephalic. EYES: No scleral icterus. No injection or drainage. NECK: Supple, trachea midline. No JVD or lymphadenopathy. CARDIOVASCULAR: Regular rate and rhythm without murmurs, gallops, or rubs. RESPIRATORY: Breath sounds equal bilaterally. No accessory muscle use. GASTROINTESTINAL: Abdomen soft, non-tender, nondistended. EXTREMITIES: No cyanosis, or edema. NEUROLOGICAL: Awake, alert, and oriented x 3. Non-focal. A/P Problem List: (1) GI bleeding ICD Code: K92.2 - Gastrointestinal hemorrhage, unspecified Status: Acute (2) Symptomatic anemia ICD Code: D64.9 - Anemia, unspecified Status: Acute (3) History of liver cancer ICD Code: Z85.05 - Personal history of malignant neoplasm of liver Status: Chronic (4) Hepatitis C ICD Code: B19.20 - Unspecified viral hepatitis C without hepatic coma Status: Chronic (5) Liver masses ICD Code: R16.0 - Hepatomegaly, not elsewhere classified (6) Anemia ICD Code: D64.9 - Anemia, unspecified Status: Acute (7) Duodenal ulcer ICD Code: K26.9 - Duodenal ulcer, unspecified as acute or chronic, without hemorrhage or perforation (8) Polyp of sigmoid colon ICD Code: D12.5 - Benign neoplasm of sigmoid colon Assessment and Plan 72-year-old man with Symptomatic anemia due to acute blood loss, suspected GI bleed - Transfused 2 units packed red blood cell - repeat CBC in a.m. - Monitor H&H -Appreciate input from GI GI bleed, dark tarry stools Appreciate input from GI and plan for panendoscopy 09/03/17 - showing large 5 -9 mm duodenal ulcer, sessile polyp removed from sigmoid colon small internal and external hemorrhoids Continue PPI Monitor H&H Repeat EGD in 2 days per GI History hepatocellular liver cancer with history of liver mass resection in 2015 , history of cirrhosis due to 2 hepatitis C virus Abdominal MRI noted and review with finding of enhancing lesions in the dome of the liver concerning for HCC, AFP not elevated Chest CT with contrast negative for metastatic disease Oncology following, evaluating for candidacy of resection of liver mass versus local therapy - followup outpatient Hepatitis C virus load pending - he has been treated in the past with Harvsascha in 2014 Atrial fibrillation - Currently on diltiazem and digoxin -Not on anticoagulation at home. Any blood thinners will need to be held until the duodenal ulcer is healed. Discussed with the patient and his daughter. 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
[2017-09-04] MEDS ORDERED: ACETAMINOPHEN/HYDROcodone 325 MG/5 MG TAB PO PRN (15:15)
[2017-09-04] MEDS: PANTOPRAZOLE SODIUM 40 MG VIAL IV PUSH SCH (20:01)
[2017-09-05] VITALS: BP 121/68; PULSE 69; RESP 16; TEMP 98.9; O2SAT 99
[2017-09-05] MEDS: SODIUM CHLOR 0.9% 1000 ML INJ 1,000 ML IV SCH ×3 (00:05→17:58)
[2017-09-05 05:11] VITALS: BP 133/76; PULSE 65; RESP 19; TEMP 98.7; O2SAT 99
[2017-09-05 05:13] LABS: AUTOMATED NEUTROPHIL # 3.9 TH/MM3 (1.8-7.7); BASOPHIL % 0.5 % (0.0-2.0); EOSINOPHIL # 0.2 TH/MM3 (0-0.4); EOSINOPHIL % 3.3 % (0.0-4.0); HEMO FLAGS DIFF FINAL; LYMPHOCYTE # 1.1 TH/MM3 (1.0-4.8); MEAN CELL VOLUME 86.9 FL (80.0-100.0); MEAN CORPUSCULAR HEMOGLOBIN 26.8 PG (27.0-34.0); MEAN CORPUSCULAR HGB CONC 30.8 % (32.0-36.0); MONO % 12.9 % (0.0-8.0); NEUT % 65.3 % (16.0-70.0); PLATELET COUNT 280 TH/MM3 (150-450); RED CELL DISTRIBUTION WIDTH 18.7 % (11.6-17.2); WHITE BLOOD COUNT 5.9 TH/MM3 (4.0-11.0)
[2017-09-05] MEDS: DILTIAZEM-CD 120 MG CAP ER PO SCH (05:15)
[2017-09-05] MEDS: DIGOXIN 0.125 MG TAB PO SCH (05:15)
[2017-09-05 05:45] LABS: BICARBONATE 28.6 MEQ/L (21.0-32.0); POTASSIUM 4.3 MEQ/L (3.5-5.1)
[2017-09-05 08:00] VITALS: BP 132/77; PULSE 60; RESP 20; TEMP 98.4; O2SAT 98
[2017-09-05] MEDS: SODIUM CHLORIDE 0.9% FLUSH 10 ML FLUSH IV FLUSH SCH ×2 (08:53→21:00)
[2017-09-05] MEDS: FERROUS SULFATE 325 MG (65 MG ELEMENTAL IRON) TAB PO SCH ×3 (08:53→17:57)
[2017-09-05 10:48] VITALS: O2SAT 99
[2017-09-05 12:00] VITALS: BP 121/72; PULSE 64; RESP 18; TEMP 98; O2SAT 99
--- NOTE | 2017-09-05 12:39 | HHI.PR ---
Subjective Remarks States stools are brown and formed. Denies abdominal pain or complaints. He wants to go home. Objective Vitals Vital Signs Date Time Temp Pulse Resp B/P (MAP) Pulse Ox O2 Delivery O2 Flow Rate FiO2 09/05/17 10:48 99 09/05/17 08:00 98.4 60 20 132/77 (95) 98 09/05/17 05:11 98.7 65 19 133/76 (95) 99 09/05/17 00:00 98.9 69 16 121/68 (85) 99 09/04/17 22:02 96 21 09/04/17 20:04 98.9 62 16 130/77 (94) 96 09/04/17 17:30 98.8 57 16 130/79 (96) I/O 09/04/17 09/04/17 09/04/17 09/05/17 09/05/17 09/05/17 07:00 15:00 23:00 07:00 15:00 23:00 Intake Total 732 ml 1420 ml Output Total 900 ml 1100 ml 1740 ml Balance -900 ml 732 ml -1100 ml -320 ml Intake Oral 240 ml IV Total 732 ml 1180 ml Output Urine Total 900 ml 1100 ml 1740 ml Result Diagram: 09/05/1742409/05/17424 Objective Remarks GENERAL: Well-nourished, well-developed pleasant male patient in no apparent distress. SKIN: Warm and dry. HEAD: Normocephalic. EYES: No scleral icterus. No injection or drainage. NECK: Supple, trachea midline. No JVD or lymphadenopathy. CARDIOVASCULAR: Regular rate and rhythm without murmurs, gallops, or rubs. RESPIRATORY: Breath sounds equal bilaterally. No accessory muscle use. GASTROINTESTINAL: Abdomen soft, non-tender, nondistended. EXTREMITIES: No cyanosis, or edema. NEUROLOGICAL: Awake, alert, and oriented x 3. Non-focal. A/P Problem List: (1) GI bleeding ICD Code: K92.2 - Gastrointestinal hemorrhage, unspecified Status: Acute (2) Symptomatic anemia ICD Code: D64.9 - Anemia, unspecified Status: Acute (3) History of liver cancer ICD Code: Z85.05 - Personal history of malignant neoplasm of liver Status: Chronic (4) Hepatitis C ICD Code: B19.20 - Unspecified viral hepatitis C without hepatic coma Status: Chronic (5) Liver masses ICD Code: R16.0 - Hepatomegaly, not elsewhere classified (6) Anemia ICD Code: D64.9 - Anemia, unspecified Status: Acute (7) Duodenal ulcer ICD Code: K26.9 - Duodenal ulcer, unspecified as acute or chronic, without hemorrhage or perforation (8) Polyp of sigmoid colon ICD Code: D12.5 - Benign neoplasm of sigmoid colon Assessment and Plan 72-year-old man with Symptomatic anemia due to acute blood loss, suspected GI bleed - Transfused 2 units packed red blood cell -hemoglobin stable at 10 today without further bleeding - Monitor H&H -Appreciate input from GI GI bleed, dark tarry stools Appreciate input from GI and plan for panendoscopy 09/03/17 - showing large 5 -9 mm duodenal ulcer, sessile polyp removed from sigmoid colon small internal and external hemorrhoids Continue PPI Monitor H&H Repeat EGD tomorrow per GI, high risk of rebleed due to size of ulcer History hepatocellular liver cancer with history of liver mass resection in 2015 , 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 Any blood thinners will need to be held until the duodenal ulcer is healed. Discussed with the patient and his daughter. 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
--- NOTE | 2017-09-05 14:55 | PD.ONC.PN ---
Subjective Subjective Remarks Afebrile Denies abdominal pain Reports some mild nausea Wants to go home Objective Data Date Time Temp Pulse Resp B/P (MAP) Pulse Ox O2 Delivery O2 Flow Rate FiO2 09/05/17 12:00 98.0 64 18 121/72 (88) 99 09/05/17 10:48 99 09/05/17 08:00 98.4 60 20 132/77 (95) 98 09/05/17 05:11 98.7 65 19 133/76 (95) 99 09/05/17 00:00 98.9 69 16 121/68 (85) 99 09/04/17 22:02 96 21 09/04/17 20:04 98.9 62 16 130/77 (94) 96 09/04/17 17:30 98.8 57 16 130/79 (96) 09/05/17 09/05/17 09/05/17 06:59 14:59 22:59 Intake Total 1420 ml Output Total 1740 ml Balance -320 ml Result Diagram: 09/05/17 0425 09/05/17 0425 Laboratory Results Laboratory Tests Test 09/05/17 04:25 White Blood Count 5.9 TH/MM3 Red Blood Count 3.80 MIL/MM3 Hemoglobin 10.2 GM/DL Hematocrit 33.0 % Mean Corpuscular Volume 86.9 FL Mean Corpuscular Hemoglobin 26.8 PG Mean Corpuscular Hemoglobin Concent 30.8 % Red Cell Distribution Width 18.7 % Platelet Count 280 TH/MM3 Mean Platelet Volume 7.6 FL Neutrophils (%) (Auto) 65.3 % Lymphocytes (%) (Auto) 18.0 % Monocytes (%) (Auto) 12.9 % Eosinophils (%) (Auto) 3.3 % Basophils (%) (Auto) 0.5 % Neutrophils # (Auto) 3.9 TH/MM3 Lymphocytes # (Auto) 1.1 TH/MM3 Monocytes # (Auto) 0.8 TH/MM3 Eosinophils # (Auto) 0.2 TH/MM3 Basophils # (Auto) 0.0 TH/MM3 CBC Comment DIFF FINAL Differential Comment Blood Urea Nitrogen 6 MG/DL Creatinine 0.89 MG/DL Random Glucose 91 MG/DL Calcium Level 8.8 MG/DL Sodium Level 143 MEQ/L Potassium Level 4.3 MEQ/L Chloride Level 109 MEQ/L Carbon Dioxide Level 28.6 MEQ/L Anion Gap 5 MEQ/L Estimat Glomerular Filtration Rate 102 ML/MIN Administered Medications Medications (Trade) Dose Ordered Sig/Víctor Route PRN Reason Start Time Stop Time Status Last Admin Dose Admin Sodium Chloride 1,000 ml @ 100 mls/hr Q10H IV 08/31/17 19:00 09/05/17 08:53 Sodium Chloride (NS Flush) 2 ml BID IV FLUSH 08/31/17 21:00 09/04/17 20:01 Pantoprazole Sodium (Protonix Inj) 40 mg Q24H IV PUSH 08/31/17 21:00 09/04/17 20:01 Digoxin (Lanoxin) 0.125 mg DAILY@0600 PO 09/01/17 06:00 09/05/17 05:15 Diltiazem HCl (Cardizem Cd) 120 mg DAILY@0600 PO 09/01/17 06:00 09/05/17 05:15 Ferrous Sulfate (Ferrous Sulfate) 325 mg TIDPC PO 09/01/17 09:30 09/05/17 13:23 Objective Remarks GENERAL: Pleasant male, sitting up in bed in no obvious distress SKIN: Warm and dry. HEAD: Normocephalic. EYES: No injection or drainage. NECK: Supple, trachea midline. CARDIOVASCULAR: Regular rate and rhythm RESPIRATORY: Breath sounds equal bilaterally. No accessory muscle use. GASTROINTESTINAL: Abdomen soft, non-tender, nondistended. EXTREMITIES: No cyanosis NEUROLOGICAL: No obvious focal deficit. Denies headache. Normal speech. Assessment/Plan Problem List: (1) Liver masses ICD Codes: R16.0 - Hepatomegaly, not elsewhere classified Plan: --Liver mass worrisome for hepatocellular carcinoma. --as history of cirrhosis due to Hepatitis C. --had a liver mass resected in 2016 at [facility]. --CT of the abdomen and pelvis on presentation showed evidence of left hepatic lobe resection + new 2.0 x 2.8 mass noted in the right hepatic dome of the liver. --MRI liver showed enhancing lesion measured 3.5 cm with additional 1.2 centimeter enhancing lesion more laterally. --AFP is not elevated --CT chest shows no mets -- Colon Pathology pending (2) GI bleeding ICD Codes: K92.2 - Gastrointestinal hemorrhage, unspecified Status: Acute Plan: --Severe anemia due to GI bleed. --has had dark stool on and off for two months. --Stool occult blood test was positive. appeared to have iron deficiency. --received two units of packed red blood cells and hemoglobin trended up from 7.8 to 10.4. --s/p colonoscopy on 09/03 Assessment 72y/o male admitted for anemia/GIB. On admission he had a CT of the abdomen and pelvis which showed two new masses in the liver. h/o Hepatitis C treated with Harvoni in 2014. Liver cirrhosis. GI bleed. Small bowel obstruction. Liver cancer. Chronic atrial fibrillation. Anemia. Hypertension. Plan 1. Pathology pending 2. Recommend he follow-up with his surgeon at [facility] in [place] 3. Clear for discharge from oncology standpoint Attending Statement The exam, history, and the medical decision-making described in the above note were completed with the assistance of the mid-level provider. I reviewed and agree with the findings presented. I attest that I had a [id number] encounter with the patient on the same day, and personally performed and documented my assessment and findings in the medical record. Denies GI bleed or abdominal pain. Discussed with at tumor board, pt is not a good surgical candidate. Recommend he goes back to see his surgeon at [facility] for another opinion. I fnot a surgical candidate, can consider local therapy with ablation vs embolization vs XRT. Previous path from +HCC. Discussed with pt and he voices understanding. Delmi Souza Sep 05, 2017 14:55 Lane Ortiz MD Sep 05, 2017 16:11
[2017-09-05 16:30] VITALS: BP 130/77; PULSE 68; RESP 18; TEMP 98.2; O2SAT 98
[2017-09-05] MEDS: PANTOPRAZOLE SODIUM 40 MG VIAL IV PUSH SCH (21:58)
[2017-09-05] MEDS: ONDANSETRON HCL 4 MG/2 ML VIAL IVP PRN (22:05)
[2017-09-06 03:50] LABS: HCV RNA PCR IU/ML LESS THAN 15 IU/mL (0-14); HCV RNA PCR LOGIU/ML LESS THAN 1.18 (0-1.18)
[2017-09-06 04:49] VITALS: BP 130/77; PULSE 58; RESP 16; O2SAT 100
[2017-09-06] MEDS: DIGOXIN 0.125 MG TAB PO SCH (04:53)
[2017-09-06] MEDS: DILTIAZEM-CD 120 MG CAP ER PO SCH (04:54)
[2017-09-06] MEDS: SODIUM CHLOR 0.9% 1000 ML INJ 1,000 ML IV SCH (04:55)
[2017-09-06 08:44] VITALS: BP 118/75; PULSE 54; RESP 20; TEMP 98.1; O2SAT 100
[2017-09-06] MEDS: SODIUM CHLORIDE 0.9% FLUSH 10 ML FLUSH IV FLUSH SCH ×2 (09:00→14:01)
[2017-09-06 09:07] VITALS: O2SAT 99
[2017-09-06] MEDS: FERROUS SULFATE 325 MG (65 MG ELEMENTAL IRON) TAB PO SCH ×2 (09:21→13:30)
--- NOTE | 2017-09-06 10:09 | HHI.PR ---
Subjective Remarks Patient denies complaints, no GI bleeding. Objective Vitals Vital Signs Date Time Temp Pulse Resp B/P (MAP) Pulse Ox O2 Delivery O2 Flow Rate FiO2 09/06/17 09:07 99 21 09/06/17 08:44 98.1 54 20 118/75 (89) 100 09/06/17 06:10 18 09/06/17 04:49 58 16 130/77 (94) 100 09/05/17 22:24 21 09/05/17 16:30 98.2 68 18 130/77 (94) 98 09/05/17 12:00 98.0 64 18 121/72 (88) 99 09/05/17 10:48 99 I/O 09/05/17 09/05/17 09/05/17 09/06/17 09/06/17 09/06/17 07:00 15:00 23:00 07:00 15:00 23:00 Intake Total 1420 ml 1000 ml 1780 ml 2583 ml Output Total 1740 ml 1475 ml 1100 ml 200 ml Balance -320 ml 1000 ml 305 ml -1100 ml 2383 ml Intake Oral 240 ml 780 ml IV Total 1180 ml 1000 ml 1000 ml 2583 ml Output Urine Total 1740 ml 1475 ml 1100 ml 200 ml Result Diagram: 09/05/1742409/05/17424 Objective Remarks GENERAL: Well-nourished, well-developed pleasant male patient in no apparent distress. SKIN: Warm and dry. HEAD: Normocephalic. EYES: No scleral icterus. No injection or drainage. NECK: Supple, trachea midline. No JVD or lymphadenopathy. CARDIOVASCULAR: Regular rate and rhythm without murmurs, gallops, or rubs. RESPIRATORY: Breath sounds equal bilaterally. No accessory muscle use. GASTROINTESTINAL: Abdomen soft, non-tender, nondistended. EXTREMITIES: No cyanosis, or edema. NEUROLOGICAL: Awake, alert, and oriented x 3. Non-focal. A/P Problem List: (1) GI bleeding ICD Code: K92.2 - Gastrointestinal hemorrhage, unspecified Status: Acute (2) Symptomatic anemia ICD Code: D64.9 - Anemia, unspecified Status: Acute (3) History of liver cancer ICD Code: Z85.05 - Personal history of malignant neoplasm of liver Status: Chronic (4) Hepatitis C ICD Code: B19.20 - Unspecified viral hepatitis C without hepatic coma Status: Chronic (5) Liver masses ICD Code: R16.0 - Hepatomegaly, not elsewhere classified (6) Anemia ICD Code: D64.9 - Anemia, unspecified Status: Acute (7) Duodenal ulcer ICD Code: K26.9 - Duodenal ulcer, unspecified as acute or chronic, without hemorrhage or perforation (8) Polyp of sigmoid colon ICD Code: D12.5 - Benign neoplasm of sigmoid colon Assessment and Plan 72-year-old man with Symptomatic anemia due to acute blood loss, suspected GI bleed - Transfused 2 units packed red blood cell -hemoglobin improved to 10 without further bleeding GI bleed, dark tarry stools Appreciate input from GI and plan for panendoscopy 09/03/17 - showing large 5 -9 mm duodenal ulcer, sessile polyp removed from sigmoid colon small internal and external hemorrhoids Continue PPI For repeat EGD today per GI, high risk of rebleed due to size of ulcer - I discussed patient with Dr. Quiroz History hepatocellular liver cancer with history of liver mass resection in 2015 , history of cirrhosis due to 2 hepatitis C virus Abdominal MRI noted and review with finding of enhancing lesions in the dome of the liver concerning for HCC, AFP not elevated Chest CT with contrast negative for metastatic disease Oncology following, evaluating for candidacy of resection of liver mass versus local therapy - followup outpatient with Dr. Ortiz in 3 weeks Hepatitis C virus load pending - he has been treated in the past with Gaudencio in 2014 Atrial fibrillation - Cont diltiazem and digoxin -Not on anticoagulation at home. Any blood thinners will need to be held until the duodenal ulcer is healed. Discussed with the patient and his daughter previously. 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 Problem Qualifiers (1) Anemia: Qualified Codes: D64.9 - Anemia, unspecified Adela Munoz MD Sep 06, 2017 10:09
--- NOTE | 2017-09-06 10:57 | HHI.DS ---
Discharge Summary Admission Date Sep 03, 2017 at 08:38 Discharge Date: Sep 06, 2017 Admitting Diagnosis Severe anemia (1) GI bleeding ICD Code: K92.2 - Gastrointestinal hemorrhage, unspecified Status: Acute (2) Symptomatic anemia ICD Code: D64.9 - Anemia, unspecified Status: Acute (3) History of liver cancer ICD Code: Z85.05 - Personal history of malignant neoplasm of liver Status: Chronic (4) Hepatitis C ICD Code: B19.20 - Unspecified viral hepatitis C without hepatic coma Status: Chronic (5) Liver masses ICD Code: R16.0 - Hepatomegaly, not elsewhere classified (6) Anemia ICD Code: D64.9 - Anemia, unspecified Status: Acute (7) Duodenal ulcer ICD Code: K26.9 - Duodenal ulcer, unspecified as acute or chronic, without hemorrhage or perforation (8) Polyp of sigmoid colon ICD Code: D12.5 - Benign neoplasm of sigmoid colon Procedures EGD x 2, colonoscopy Brief History - From Admission 72-year-old AA male past medical history of HTN, anemia, atrial fibrillation, liver cancer s/p liver resection, hepatitis C s/p Harvoni course, liver cirrhosis and prior GI bleed. He presents to the ED after being called by his primary care physician with critical results of anemia. Patient reports that for the past 2 months he had been having dark stools as well as loss of appetite with 10 pound unintentional weight loss. He had been on iron previously however stopped taking this to see if his dark stools would go away however they did not. He denies any nausea, vomiting, or diarrhea. Patient states that for the past 2 months he has progressively gotten or fatigued with shortness of breath on exertion, with transient chest pains, and dizziness with standing, he denies syncope. Patient denies any fevers, chills, or cough. He reports that his last colonoscopy was 2 years ago although is unsure of the exact time. He states that his colonoscopy had polyps which were removed, has not had a repeat colonoscopy. At that time he also underwent EGD he believes was normal. Review of medical records shows patient was hospitalized in July 2012 due to partial small bowel obstruction for which she did not undergo any surgical intervention, did not fine history of GI bleed in [facility] [place].. CBC/BMP: 09/05/17 0425 09/05/17 0425 Significant Findings Laboratory Tests Test 09/05/17 04:25 Red Blood Count 3.80 MIL/MM3 (4.50-5.90) Hemoglobin 10.2 GM/DL (13.0-17.0) Hematocrit 33.0 % (39.0-51.0) Mean Corpuscular Hemoglobin 26.8 PG (27.0-34.0) Mean Corpuscular Hemoglobin Concent 30.8 % (32.0-36.0) Red Cell Distribution Width 18.7 % (11.6-17.2) Monocytes (%) (Auto) 12.9 % (0.0-8.0) Blood Urea Nitrogen 6 MG/DL (7-18) Chloride Level 109 MEQ/L (98-107) Imaging Last Impressions Chest CT 09/02/17 0000 Signed Impressions: Service Date/Time: Saturday, September 02, 2017 12:11 - CONCLUSION: 1. No evidence for metastatic disease. 2. Minimal scarring. Neel Payne MD Abdomen MRI 09/02/17 0000 Signed Impressions: Service Date/Time: Saturday, September 02, 2017 07:33 - CONCLUSION: 1. Enhancing lesion toward the dome of the liver measuring 3.5 cm concerning for hepatocellular carcinoma. 2. Small enhancing lesion more laterally in the liver measuring 1.2 cm, nonspecific. 3. Partial hepatectomy. 4. Status post cholecystectomy. Neel Payne MD Abdomen/Pelvis CT 09/01/17 0000 Signed Impressions: Service Date/Time: Friday, September 01, 2017 15:13 - CONCLUSION: 1. Incomplete colonic distention which accentuates the colonic wall. There does however appear to be mild colonic wall thickening involving the proximal transverse colon and hepatic flexure. There are scattered diverticula in the region of the hepatic flexure although the diverticula do not appear particularly inflamed. Mild colitis, potentially infectious/inflammatory in etiology, cannot be excluded. 2. Status post left hepatic resection with new 2.0 x 2.8 cm mass in the right dome of the liver. This is concerning for hepatocellular carcinoma given patient's history. Recommend further evaluation with liver mass protocol MRI exam on a [facility] basis. Vikash Centeno MD PE at Discharge GENERAL: Well-nourished, well-developed pleasant male patient in no apparent distress. SKIN: Warm and dry. HEAD: Normocephalic. EYES: No scleral icterus. No injection or drainage. NECK: Supple, trachea midline. No JVD or lymphadenopathy. CARDIOVASCULAR: Regular rate and rhythm without murmurs, gallops, or rubs. RESPIRATORY: Breath sounds equal bilaterally. No accessory muscle use. GASTROINTESTINAL: Abdomen soft, non-tender, nondistended. EXTREMITIES: No cyanosis, or edema. NEUROLOGICAL: Awake, alert, and oriented x 3. Non-focal. Hospital Course 72-year-old man with Symptomatic anemia due to acute blood loss, suspected GI bleed - Transfused 2 units packed red blood cell -hemoglobin improved to 10 without further bleeding GI bleed, dark tarry stools Appreciate input from GI and plan for panendoscopy 09/03/17 - showing large 5 -9 mm duodenal ulcer, sessile polyp removed from sigmoid colon small internal and external hemorrhoids pathology pending Continue PPI, patient has been counseled on no NSAIDs/blood thinners Patient needed to have repeat EGD as the ulcer could not be biopsied the first time due to risk of bleed, high risk of rebleed due to size of ulcer Patient underwent EGD again this afternoon with Dr. Quiroz and a biopsy of the ulcer was taken to f/u biopsy results - discussed with Dr. Quiroz History hepatocellular liver cancer with history of liver mass resection in 2016 , history of cirrhosis due to 2 hepatitis C virus Abdominal MRI noted and review with finding of enhancing lesions in the dome of the liver concerning for HCC, AFP not elevated Chest CT with contrast negative for metastatic disease Oncology following, evaluating for candidacy of resection of liver mass versus local therapy - followup outpatient with Dr. Ortiz in 3 weeks Hepatitis C virus PCR<15 Atrial fibrillation - Cont diltiazem and digoxin -Not on anticoagulation at home. Any blood thinners will need to be held until the duodenal ulcer is healed. Discussed with the patient and his daughter previously. 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 Pt Condition on Discharge: Stable Discharge Disposition: Discharge Home Discharge Time: > 30 minutes Discharge Instructions DIET: Follow Instructions for: Heart Healthy Diet Additional Diet Instructions: NO NSAIDS OR BLOOD THINNERS Activities you can perform: Regular-No Restrictions Follow up Referrals: Gastroenterology - 2 Weeks with Marianela Quiroz MD Oncology/Hematology - [address]iz MD PCP Follow-up - 1 Week Continued Medications: Digoxin 0.125 mg (Digoxin 0.125 mg) 0.125 Mg Tab 0.125 MG PO DAILY Diltiazem ER 24 HR (Cartia Xt) 120 Mg Caper 120 MG PO DAILY@0600, #30 CAP 0 Refills DILTIAZEM XT 120 mg (Cartia) (Cartia XT 120 mg) 120 Mg/24 Hr Cap 120 MG PO DAILY Ferrous Sulfate (Ferrous Sulfate) 325 Mg (65 Mg Iron) Tablet 325 MG PO TIDPC for Nutritional Supplement, #90 TAB 0 Refills Omeprazole (Prilosec 20 Mg Cap) 20 Mg Capcr 20 MG PO DAILY, #90 TAKE ON EMPTY STOMACH, 1-2 HR BEFORE MEALS Discontinued Medications: Digoxin (Digoxin) 0.125 Mg Tab 0.125 MG PO DAILY@0600 for Regulate Heart Beat, #30 TAB 0 Refills Adela Munoz MD Sep 06, 2017 10:57
--- NOTE | 2017-09-06 10:59 | PD.ONC.PN ---
Subjective Subjective Remarks Afebrile Reports he still has some mild nausea Improved with IV Zofran Having EGD later this afternoon Reports he has an appointment with his surgeon in [place] for second opinion on the Objective Data Date Time Temp Pulse Resp B/P (MAP) Pulse Ox O2 Delivery O2 Flow Rate FiO2 09/06/17 09:07 99 21 09/06/17 08:44 98.1 54 20 118/75 (89) 100 09/06/17 06:10 18 09/06/17 04:49 58 16 130/77 (94) 100 09/05/17 22:24 21 09/05/17 16:30 98.2 68 18 130/77 (94) 98 09/05/17 12:00 98.0 64 18 121/72 (88) 99 09/05/17 10:48 99 09/06/17 09/06/17 09/06/17 07:00 15:00 23:00 Intake Total 2583 ml Output Total 1100 ml 200 ml Balance -1100 ml 2383 ml Result Diagram: 09/05/17 0425 09/05/17 0425 Administered Medications Medications (Trade) Dose Ordered Sig/Víctor Route PRN Reason Start Time Stop Time Status Last Admin Dose Admin Sodium Chloride 1,000 ml @ 100 mls/hr Q10H IV 08/31/17 19:00 09/06/17 04:55 Sodium Chloride (NS Flush) 2 ml BID IV FLUSH 08/31/17 21:00 09/04/17 20:01 Ondansetron HCl (Zofran Inj) 4 mg Q6H PRN IVP NAUSEA OR VOMITING 08/31/17 19:00 09/05/17 22:05 Pantoprazole Sodium (Protonix Inj) 40 mg Q24H IV PUSH 08/31/17 21:00 09/05/17 21:58 Digoxin (Lanoxin) 0.125 mg DAILY@0600 PO 09/01/17 06:00 09/06/17 04:53 Diltiazem HCl (Cardizem Cd) 120 mg DAILY@0600 PO 09/01/17 06:00 09/06/17 04:54 Ferrous Sulfate (Ferrous Sulfate) 325 mg TIDPC PO 09/01/17 09:30 09/06/17 09:21 Acetaminophen/ Hydrocodone Bitart ([place] 5-325 Mg) 1 tab Q4H PRN PO leg pain 09/04/17 15:15 09/06/17 04:53 Objective Remarks GENERAL: Pleasant male resting in bed in no acute distress SKIN: Warm and dry. HEAD: Normocephalic. EYES: No injection or drainage. NECK: Supple, trachea midline. CARDIOVASCULAR: Regular rate and rhythm RESPIRATORY: Breath sounds equal bilaterally. No accessory muscle use. GASTROINTESTINAL: Abdomen soft, non-tender, nondistended. EXTREMITIES: No cyanosis NEUROLOGICAL: No obvious focal deficit. Denies headache. Normal speech. Assessment/Plan Problem List: (1) Liver masses ICD Codes: R16.0 - Hepatomegaly, not elsewhere classified Plan: --Liver mass worrisome for hepatocellular carcinoma. --as history of cirrhosis due to Hepatitis C. --had a liver mass resected in [address] [facility] in [place]. --CT of the abdomen and pelvis on presentation showed evidence of left hepatic lobe resection + new 2.0 x 2.8 mass noted in the right hepatic dome of the liver. --MRI liver showed enhancing lesion measured 3.5 cm with additional 1.2 centimeter enhancing lesion more laterally. --AFP is not elevated --CT chest shows no mets -- Colon Pathology shows hyperplastic polyp (2) GI bleeding ICD Codes: K92.2 - Gastrointestinal hemorrhage, unspecified Status: Acute Plan: --Severe anemia due to GI bleed. --has had dark stool on and off for two months. --Stool occult blood test was positive. appeared to have iron deficiency. --received two units of packed red blood cells and hemoglobin trended up from 7.8 to 10.4. --s/p colonoscopy on 09/03 Assessment 72y/o male admitted for anemia/GIB. On admission he had a CT of the abdomen and pelvis which showed two new masses in the liver. h/o Hepatitis C treated with Harvoni in 2014. Liver cirrhosis. GI bleed. Small bowel obstruction. Liver cancer. Chronic atrial fibrillation. Anemia. Hypertension. Plan 1. Patient having repeat EGD later this afternoon to reevaluate ulcers 2. We will follow up with patient in the clinic 3. Clear for discharge from oncology standpoint Attending Statement The exam, history, and the medical decision-making described in the above note were completed with the assistance of the mid-level provider. I reviewed and agree with the findings presented. I attest that I had a [id number] encounter with the patient on the same day, and personally performed and documented my assessment and findings in the medical record. No GI bleed. Stool was brown. Await repeat EGD. He has appt with surgeon Dr.Dela Rodrigues later this months. F/u oncology after d/c. Delmi Souza Sep 06, 2017 10:[address] Ortiz MD Sep 06, 2017 11:12
--- NOTE | 2017-09-06 12:47 | GIPROC ---
[facility] [address] [facility]. [facility] [place], [id number] EGD PROCEDURE REPORT EXAM DATE: 09/06/2017 PATIENT NAME: Anil Doe MR #: [id number] BIRTHDATE: 1945 ATTENDING: Marianela Quiroz MD ORDER #: [id number] FURNACE CONVERTER: Armando Ozuna and Lorena Roche STATUS: inpatient INDICATIONS: The patient is a 72 yr old male here for an EGD due to acute post hemorrhagic anemia PROCEDURE PERFORMED: EGD w/ biopsy MEDICATIONS: None and Per Anesthesia. TOPICAL ANESTHETIC: CONSENT: The patient understands the risks and benefits of the procedure and understands that these risks include, but are not limited to: sedation, allergic reaction, infection, perforation and/or bleeding. Alternative means of evaluation and treatment include, among others: physical exam, x-rays, and/or surgical intervention. The patient elects to proceed with this endoscopic procedure. medical equipment was checked for proper function. Hand hygiene and appropriate measures for infection prevention was taken. After the risks, benefits and alternatives of the procedure were thoroughly explained, Informed consent was verified, confirmed and timeout was successfully executed by the treatment team. The patient was anesthetized with topical anesthesia and the InforSenseax [id number] endoscope was introduced through the mouth and advanced to the second portion of the duodenum. Retroflexed views revealed no abnormalities The gastroscope was then slowly withdrawn and removed. ESOPHAGUS: There was LA Class A esophagitis noted. STOMACH: The mucosa of the stomach appeared normal. DUODENUM: A single non-bleeding, round and deep ulcer ranging between 5-9mm in size with surrounding edema and a pigmented spot was found in the duodenal bulb. Biopsies were taken at edge of the ulcer. ADVERSE EVENTS: There were no complications. IMPRESSIONS: 1. There was LA Class A esophagitis noted 2. The mucosa of the stomach appeared normal 3. Single ulcer ranging between 5-9mm in size was found in the duodenal bulb; biopsies were taken 4. Retroflexed views revealed no abnormalities RECOMMENDATIONS: 1. Await biopsy results. Biopsy results will not be ready for 7-10 days. If you don't hear from us in two weeks, call our office for biopsy results. 2. Anti-reflux regimen 3. Continue PPI 4. Avoid NSAIDS PATIENT CONDITION: stable DISPOSITION: Inpatient REPEAT EXAM: Return 3 months EGD pending biopsy results Marianela Quiroz MD eSigned: Marianela Quiroz MD 09/06/2017 12:47 PM cc: PATIENT NAME: Anil Doe MR#: [id number]
[2017-09-06] MEDS ORDERED: PROT40TA PO (13:02)
[2017-09-06] MEDS: ONDANSETRON HCL 4 MG/2 ML VIAL IVP PRN (14:01)
[2017-09-06] MEDS ORDERED: ZOFR4TAB3 SL (14:40)
[2017-09-06 14:42] VITALS: BP 124/67; PULSE 56; RESP 18; TEMP 98.8; O2SAT 96
[2017-09-06 15:50] LABS: HEPATITIS C RNA GENOTYPE NOT DETECTED (NOT DETECTD)
== END 2017-09-06 15:22 | disposition home or self-care (01) | DRG 378 ==
LOC: NEPE 14:23 → NEDA 18:21 → NEPHCDU 19:51 → HCIN 09-02 17:45 → OBSVTOIN 09-03 08:38
PROVIDERS: ADMIT Family Medicine; ATTEND Family Medicine
PROC: 30233N1 Transfusion of Nonautologous Red Blood Cells into Peripheral Vein, Percutaneous Approach (ICD-10-PCS; principal; 2017-08-31)
PROC: 0DBN8ZX Excision of Sigmoid Colon, Via Natural or Artificial Opening Endoscopic, Diagnostic (ICD-10-PCS; 2017-09-03 14:05)
PROC: 0DB98ZX Excision of Duodenum, Via Natural or Artificial Opening Endoscopic, Diagnostic (ICD-10-PCS; 2017-09-06)
DX: K92.2 Gastrointestinal hemorrhage, unspecified (principal); D62 Acute posthemorrhagic anemia; I48.2 Chronic atrial fibrillation; K74.69 Other cirrhosis of liver; I10 Essential (primary) hypertension; K26.9 Duodenal ulcer, unspecified as acute or chronic, without hemorrhage or perforation; K20.9 Esophagitis, unspecified; D12.5 Benign neoplasm of sigmoid colon; Z85.05 Personal history of malignant neoplasm of liver; Z90.49 Acquired absence of other specified parts of digestive tract; K64.8 Other hemorrhoids; K64.4 Residual hemorrhoidal skin tags; R16.0 Hepatomegaly, not elsewhere classified; Z86.19 Personal history of other infectious and parasitic diseases
CPT/HCPCS: 36430; 71260; 74177; 74183; 80048; 80053; 81001; 82105; 82272; 82378; 82728; 83540; 83550; 83735; 85007; 85014; 85018; 85025; 85027; 85610; 86301; 86850; 86900; 86901; 86920; 87522; 87902; 88305; 93005; 96361; 96374; 96375; 96376; A9579; C9113; G0378; J1940; J2405; J7030; J7050; P9016; Q9963; Q9967

== ENCOUNTER 2017-11-01 21:53 | Inpatient (IN) | payer OTHER, MEDICARE ==
[~2017-11-01] VITALS: Ht 180.3 cm; Wt 75.4 kg
[~2017-11-01 21:53] MED LIST changes: +CART120C PO; +FERR325T18 PO; -OMPR20CCR PO; +PROT40TA PO; +ZOFR4TAB3 SL
[2017-11-01 21:55] VITALS: BP 126/71; PULSE 102; RESP 16; TEMP 98.9; O2SAT 98
[2017-11-01] MEDS ORDERED: DILT120T PO (22:59)
[2017-11-01] MEDS ORDERED: TYLE325T PO (22:59)
[2017-11-01] MEDS ORDERED: DIGO0.12 PO (22:59)
[2017-11-01 23:00] VITALS: BP 104/61; PULSE 84; RESP 16; O2SAT 96
[2017-11-01] MEDS ORDERED: PANTOPRAZOLE INJ 80 MG in SODIUM CHLORIDE 0.9% INJ 35 ML IV ONE (23:00)
[2017-11-01 23:12] LABS: AUTOMATED NEUTROPHIL # 6.2 TH/MM3 (1.8-7.7); BASOPHIL % 0.5 % (0.0-2.0); EOSINOPHIL # 0.2 TH/MM3 (0-0.4); EOSINOPHIL % 2.1 % (0.0-4.0); HEMATOCRIT 22.7 % (39.0-51.0); HEMOGLOBIN 7.3 GM/DL (13.0-17.0); LYMPH % 17.6 % (9.0-44.0); LYMPHOCYTE # 1.6 TH/MM3 (1.0-4.8); MEAN CELL VOLUME 92.1 FL (80.0-100.0); MEAN CORPUSCULAR HEMOGLOBIN 29.5 PG (27.0-34.0); MEAN CORPUSCULAR HGB CONC 32.1 % (32.0-36.0); MEAN PLATELET VOLUME 7.1 FL (7.0-11.0); MONO % 10.3 % (0.0-8.0); MONOCYTE # 0.9 TH/MM3 (0-0.9); NEUT % 69.5 % (16.0-70.0); PLATELET COUNT 328 TH/MM3 (150-450); RED BLOOD COUNT 2.46 MIL/MM3 (4.50-5.90); RED CELL DISTRIBUTION WIDTH 20.3 % (11.6-17.2); WHITE BLOOD COUNT 8.9 TH/MM3 (4.0-11.0)
--- NOTE | 2017-11-01 23:20 | RADRPT ---
EXAM DATE/TIME: 11/01/2017 23:08 [facility] COMPARISON: No previous studies available for comparison. INDICATIONS : Vomiting with blood in stool x 1 week. MEDICAL HISTORY : Hypertension. Liver Cancer, Angina SURGICAL HISTORY : Appendectomy. Cholecystectomy. ENCOUNTER: Initial ACUITY: 1 week PAIN SCORE: 8/10 LOCATION: Bilateral chest FINDINGS: Lungs are clear. Borderline cardiomegaly. Osseous structures are intact. EKG leads overlie the chest. CONCLUSION: No acute disease. Tylor Jon MD on November 01, 2017 at 23:18 Board Certified Radiologist. This report was verified electronically.
[2017-11-01 23:21] LABS: PROTHROMBIN TIME - PATIENT 10.4 SEC (9.8-11.6)
[2017-11-01 23:28] LABS: ALBUMIN 3.2 GM/DL (3.4-5.0); AST (GOT) 10 U/L (15-37); BICARBONATE 25.3 MEQ/L (21.0-32.0); BLOOD UREA NITROGEN 13 MG/DL (7-18); CALCIUM 8.8 MG/DL (8.5-10.1); CHLORIDE 105 MEQ/L (98-107); CREATININE 1.08 MG/DL (0.60-1.30); GLOMERULAR FILTRATION RATE 82 ML/MIN (>89); GLUCOSE,RANDOM 90 MG/DL (74-106); SODIUM (NA) 138 MEQ/L (136-145)
[2017-11-01 23:29] LABS: ALT (GPT) 8 U/L (12-78)
[2017-11-01 23:33] LABS: ALKALINE PHOSPHATASE 52 U/L (45-117); TOTAL BILIRUBIN ADULT 0.2 MG/DL (0.2-1.0); TOTAL PROTEIN 6.8 GM/DL (6.4-8.2); TROPONIN I LESS THAN 0.02 NG/ML (0.02-0.05)
[2017-11-01] MEDS: PANTOPRAZOLE INJ 80 MG in SODIUM CHLORIDE 0.9% INJ 100 ML IV SCH (23:44)
[2017-11-02] VITALS (8 sets, daily range): BP systolic 99–121; BP diastolic 56–76; PULSE 71–79; RESP 16–24; TEMP 97.9–99.2; O2SAT 96–100
--- NOTE | 2017-11-02 00:23 | PD ---
HPI Chief Complaint: GI Complaint Time Seen by Provider: 22:34 Travel History International Travel<30 days: No Contact w/Intl Traveler<30days: No Traveled to known affect area: No History of Present Illness HPI Patient is a 72-year-old male who comes in complaining of generalized weakness. He says he has been having black stools for the past week, but is not sure if it is from the iron he is taking. He does have history of anemia and GI bleeds and has required transfusions in the past. He says he has liver cancer, but he is not being treated yet. He did have some vomiting a few days ago, and says it was coffee grounds. He denies fever chills. Nothing seems to make his symptoms better. Severity is moderate. PFSH Past Medical History Asthma: No Blood Disorders: No Anxiety: No Depression: No Heart Rhythm Problems: Yes (irregular palpations) Cancer: Yes (LIVER) Cardiovascular Problems: Yes (HTN, Palpitations) High Cholesterol: No Chemotherapy: No Chest Pain: Yes (10 years) Congestive Heart Failure: No COPD: No Diabetes: No Diminished Hearing: No Endocrine: No Gastrointestinal Disorders: Yes (constipation) Glaucoma: Yes Genitourinary: No Hypertension: Yes Immune Disorder: No Musculoskeletal: No Neurologic: No Psychiatric: No Reproductive: No Respiratory: No Radiation Therapy: No Sleep Apnea: No Thyroid Disease: No Past Surgical History Abdominal Surgery: Yes (APPENDECTOMY) Appendectomy: Yes Cardiac Surgery: No Cholecystectomy: Yes Ear Surgery: No Endocrine Surgery: No Eye Surgery: No Genitourinary Surgery: No Gynecologic Surgery: No Oral Surgery: No Thoracic Surgery: No Other Surgery: Yes (eye glaucoma/ sx liver cancer/ appentectomy/ gall bladder) Social History Alcohol Use: Yes (OCC) Tobacco Use: No (quit week jul 2012) Substance Use: No Allergies-Medications (Allergen,Severity, Reaction): Coded Allergies: No Known Allergies (Unverified , 07/25/12) Reported Meds & Prescriptions Reported Meds & Active Scripts Active Zofran Odt (Ondansetron Odt) 4 Mg Tab 4 Mg SL Q6HR PRN Protonix (Pantoprazole Sodium) 40 Mg Tab 40 Mg PO DAILY Reported Diltiazem (Diltiazem HCl) 120 Mg Tab 120 Mg PO QID Digoxin 0.125 Mg Tab 0.125 Mg PO DAILY Tylenol (Acetaminophen) 325 Mg Tab 500 Mg PO ONCE Ferrous Sulfate 325 Mg (65 Mg Iron) Tablet 325 Mg PO TIDPC Review of Systems Except as stated in HPI: all other systems reviewed are Neg General / Constitutional: No: Fever, Chills HENT: No: Headaches, Lightheadedness Cardiovascular: No: Chest Pain or Discomfort Respiratory: No: Shortness of Breath Gastrointestinal: Positive: Nausea, Vomiting, Abdominal Pain, Hematemesis, Hematochezia Genitourinary: No: Dysuria Musculoskeletal: No: Myalgias Skin: No Rash, No Change in Pigmentation Neurologic: Positive: Weakness Physical Exam Narrative GENERAL: Awake and alert, no acute distress. SKIN: Focused skin assessment warm/dry. HEAD: Atraumatic. Normocephalic. EYES: Pupils equal and round. No scleral icterus. ENT: Mucous membranes pink and moist. NECK: Trachea midline. No JVD. CARDIOVASCULAR: Regular rate and rhythm. No murmur appreciated. RESPIRATORY: No accessory muscle use. Clear to auscultation. Breath sounds equal bilaterally. GASTROINTESTINAL: Abdomen soft, non-tender, nondistended. MUSCULOSKELETAL: No obvious deformities. No clubbing. No cyanosis. No edema. NEUROLOGICAL: Awake and alert. No obvious cranial nerve deficits. Motor grossly within normal limits. Normal speech. PSYCHIATRIC: Appropriate mood and affect; insight and judgment normal. Data Data Last Documented VS Vital Signs Date Time Temp Pulse Resp B/P (MAP) Pulse Ox O2 Delivery O2 Flow Rate FiO2 11/01/17 23:00 84 16 104/61 (75) 96 11/01/17 21:55 98.9 Room Air Orders Orders Iv Access Insert/Monitor (11/01/17 22:50) Complete Blood Count With Diff (11/01/17 22:50) Comprehensive Metabolic Panel (11/01/17 22:50) Troponin I (11/01/17 22:50) Type And Screen (11/01/17 22:50) Act Partial Throm Time (Ptt) (11/01/17 22:50) Prothrombin Time / Inr (Pt) (11/01/17 22:50) Chest, Single Ap (11/01/17 ) Pantoprazole Inj (Protonix Inj) (11/01/17 23:00) Pantoprazole Inj (Protonix Inj) (11/01/17 23:00) Electrocardiogram (11/01/17 ) Ecg Monitoring (11/01/17 22:50) Red Blood Cells (Rbc) (11/02/17 00:21) Blood Product Administration (11/02/17 00:21) Sodium Chlor 0.9% 250 Ml Inj (Ns 250 Ml (11/02/17 00:30) Admit Order (Ed Use Only) (11/02/17 ) Labs Laboratory Tests Test 11/01/17 22:50 White Blood Count 8.9 TH/MM3 Red Blood Count 2.46 MIL/MM3 Hemoglobin 7.3 GM/DL Hematocrit 22.7 % Mean Corpuscular Volume 92.1 FL Mean Corpuscular Hemoglobin 29.5 PG Mean Corpuscular Hemoglobin Concent 32.1 % Red Cell Distribution Width 20.3 % Platelet Count 328 TH/MM3 Mean Platelet Volume 7.1 FL Neutrophils (%) (Auto) 69.5 % Lymphocytes (%) (Auto) 17.6 % Monocytes (%) (Auto) 10.3 % Eosinophils (%) (Auto) 2.1 % Basophils (%) (Auto) 0.5 % Neutrophils # (Auto) 6.2 TH/MM3 Lymphocytes # (Auto) 1.6 TH/MM3 Monocytes # (Auto) 0.9 TH/MM3 Eosinophils # (Auto) 0.2 TH/MM3 Basophils # (Auto) 0.0 TH/MM3 CBC Comment DIFF FINAL Differential Comment Prothrombin Time 10.4 SEC Prothromb Time International Ratio 1.0 RATIO Activated Partial Thromboplast Time 24.7 SEC Blood Urea Nitrogen 13 MG/DL Creatinine 1.08 MG/DL Random Glucose 90 MG/DL Total Protein 6.8 GM/DL Albumin 3.2 GM/DL Calcium Level 8.8 MG/DL Alkaline Phosphatase 52 U/L Aspartate Amino Transf (AST/SGOT) 10 U/L Alanine Aminotransferase (ALT/SGPT) 8 U/L Total Bilirubin 0.2 MG/DL Sodium Level 138 MEQ/L Potassium Level 4.2 MEQ/L Chloride Level 105 MEQ/L Carbon Dioxide Level 25.3 MEQ/L Anion Gap 8 MEQ/L Estimat Glomerular Filtration Rate 82 ML/MIN Troponin I LESS THAN 0.02 NG/ML MDM Medical Decision Making Medical Screen Exam Complete: Yes Emergency Medical Condition: Yes Medical Record Reviewed: Yes Differential Diagnosis GI bleed versus electrolyte abnormality versus dehydration Narrative Course Patient is a 72-year-old male comes in complaining of generalized weakness. Exam shows black stool positive for blood. IV established, labs sent. Labs show a low hemoglobin of 7.3. Patient be transfused 1 unit due to symptoms and active bleed. Given Protonix. He will be admitted for further management. HemaPrompt Point of Care Internal Pos. & Neg. Controls: Passed Fecal Specimen Occult Blood: Positive Diagnosis Primary Impression: GI bleeding Qualified Codes: K62.5 - Hemorrhage of anus and rectum Admitting Information Admitting Physician Requests: Admit Viktoria Shaikh MD Nov 02, 2017 00:23
[2017-11-02] MEDS ORDERED: SODIUM CHLOR 0.9% 250 ML INJ 250 ML IV ONE (00:30)
[2017-11-02] MEDS ORDERED: SODIUM CHLORIDE 0.9% FLUSH 10 ML FLUSH IV FLUSH PRN (00:45)
[2017-11-02] MEDS ORDERED: ONDANSETRON HCL 4 MG/2 ML VIAL IVP PRN (00:45)
[2017-11-02] MEDS ORDERED: LACTULOSE SYRUP 20 GM/30 ML CUP PO PRN (00:45)
[2017-11-02] MEDS ORDERED: NALOXONE HCL 0.4 MG/ML AMP IV PUSH PRN (00:45)
[2017-11-02] MEDS ORDERED: SENNOSIDES 8.6 MG TAB PO PRN (00:45)
[2017-11-02] MEDS ORDERED: BISACODYL 10 MG SUPP RECTAL PRN (00:45)
[2017-11-02] MEDS ORDERED: ACETAMINOPHEN 325 MG TAB PO PRN (00:45)
[2017-11-02] MEDS ORDERED: MAGNESIUM HYDROXIDE SUSP 30 ML CUP PO PRN (00:45)
--- NOTE | 2017-11-02 03:51 | HHI.HP ---
HPI Service [facility] Srinivasan Barakat M.D. Admission Diagnosis Anemia, GI bleed Diagnoses: Travel History International Travel<30 Days: No Contact w/Intl Traveler <30 Da: No Traveled to Known Affected Are: No History of Present Illness 72-year-old male with a past medical history significant for hypertension, anemia, atrial fibrillation, hepatitis C cirrhosis with liver mass and large duodenal ulcer with history of GI bleed presents to the emergency department with a complaint of dizziness and black, tarry stools 1 week. The patient has had accompanying fatigue with shortness of breath. He denies any syncope. He also endorses postprandial pain. The patient denies any chest pain, palpitations. No nausea/vomiting/abdominal pain. Vital signs: Temperature 98.9 , pulse 102, respirations 16, BP 126/71, pulse ox 98% on room air Review of Systems Except as stated in HPI: all other systems reviewed are Neg Past Family Social History Past Medical History Hypertension A. fib Liver cancer Hep C Cirrhosis New liver mass concerning for HCC Past Surgical History Liver resection in 2015 due to liver cancer Appendectomy Cholecystectomy Eye surgery Left rotator cuff surgery Reported Medications Reported Meds & Active Scripts Active Zofran Odt (Ondansetron Odt) 4 Mg Tab 4 Mg SL Q6HR PRN Protonix (Pantoprazole Sodium) 40 Mg Tab 40 Mg PO DAILY Reported Diltiazem (Diltiazem HCl) 120 Mg Tab 120 Mg PO QID Digoxin 0.125 Mg Tab 0.125 Mg PO DAILY Tylenol (Acetaminophen) 325 Mg Tab 500 Mg PO ONCE Ferrous Sulfate 325 Mg (65 Mg Iron) Tablet 325 Mg PO TIDPC Allergies: Coded Allergies: No Known Allergies (Unverified , 07/25/12) Family History Mother : Dementia Social History Tobacco: Half a pack for the past 2 years Alcohol use: None since 2014 Illicit drug use: Denies Physical Exam Vital Signs Vital Signs Date Time Temp Pulse Resp B/P (MAP) Pulse Ox O2 Delivery O2 Flow Rate FiO2 11/02/17 03:07 98.0 75 18 99/56 100 11/02/17 02:00 80 16 115/76 (89) 95 11/01/17 23:00 84 16 104/61 (75) 96 11/01/17 21:55 98.9 102 16 126/71 (89) 98 Room Air Physical Exam GENERAL: This is a well-nourished, well-developed patient, in no apparent distress. SKIN: No rashes, ecchymoses or lesions. Cool and dry. HEAD: Atraumatic. Normocephalic. No temporal or scalp tenderness. EYES: Pupils equal round and reactive. Extraocular motions intact. No scleral icterus. No injection or drainage. ENT: Nose without bleeding, purulent drainage or septal hematoma. Throat without erythema, tonsillar hypertrophy or exudate. Uvula midline. Airway patent. NECK: Trachea midline. No JVD or lymphadenopathy. Supple, nontender, no meningeal signs. CARDIOVASCULAR: Regular rate and rhythm without murmurs, gallops, or rubs. RESPIRATORY: Clear to auscultation. Breath sounds equal bilaterally. No wheezes , rales, or rhonchi. GASTROINTESTINAL: Abdomen soft, non-tender, nondistended. No hepato-splenomegaly , or palpable masses. No guarding. MUSCULOSKELETAL: Extremities without clubbing, cyanosis, or edema. No joint tenderness, effusion, or edema noted. No calf tenderness. Negative Homans sign bilaterally. NEUROLOGICAL: Awake and alert. Cranial nerves II through XII intact. Motor and sensory grossly within normal limits. Five out of 5 muscle strength in all muscle groups. Normal speech. Laboratory Laboratory Tests Test 11/01/17 22:50 White Blood Count 8.9 Red Blood Count 2.46 Hemoglobin 7.3 Hematocrit 22.7 Mean Corpuscular Volume 92.1 Mean Corpuscular Hemoglobin 29.5 Mean Corpuscular Hemoglobin Concent 32.1 Red Cell Distribution Width 20.3 Platelet Count 328 Mean Platelet Volume 7.1 Neutrophils (%) (Auto) 69.5 Lymphocytes (%) (Auto) 17.6 Monocytes (%) (Auto) 10.3 Eosinophils (%) (Auto) 2.1 Basophils (%) (Auto) 0.5 Neutrophils # (Auto) 6.2 Lymphocytes # (Auto) 1.6 Monocytes # (Auto) 0.9 Eosinophils # (Auto) 0.2 Basophils # (Auto) 0.0 CBC Comment DIFF FINAL Differential Comment Prothrombin Time 10.4 Prothromb Time International Ratio 1.0 Activated Partial Thromboplast Time 24.7 Blood Urea Nitrogen 13 Creatinine 1.08 Random Glucose 90 Total Protein 6.8 Albumin 3.2 Calcium Level 8.8 Alkaline Phosphatase 52 Aspartate Amino Transf (AST/SGOT) 10 Alanine Aminotransferase (ALT/SGPT) 8 Total Bilirubin 0.2 Sodium Level 138 Potassium Level 4.2 Chloride Level 105 Carbon Dioxide Level 25.3 Anion Gap 8 Estimat Glomerular Filtration Rate 82 Troponin I LESS THAN 0.02 Result Diagram: 11/01/17224911/01/172249 Caprini VTE Risk Assessment Caprini VTE Risk Assessment: Mod/High Risk (score >= 2) Caprini Risk Assessment Model Point Value = 1 Point Value = 2 Point Value = 3 Point Value = 5 Age 41-60 Minor surgery BMI > 25 kg/m2 Swollen legs Varicose veins or History of unexplained or recurrent spontaneous Oral contraceptives or hormone replacement Sepsis (< 1 month) Serious lung disease, including pneumonia (< 1 month) Abnormal pulmonary function Acute myocardial infarction Congestive heart failure (< 1 month) History of inflammatory bowel disease Medical patient at bed rest Age 61-74 Arthroscopic surgery Major open surgery (> 45 min) Laparoscopic surgery (> 45 min) Malignancy Confined to bed (> 72 hours) Immobilizing plaster cast Central venous access Age >= 75 History of VTE Family history of VTE Factor V Leiden Prothrombin [id number] Lupus anticoagulant Anticardiolipin antibodies Elevated serum homocysteine Heparin-induced thrombocytopenia Other congenital or acquired thrombophilia Stroke (< 1 month) Elective arthroplasty Hip, pelvis, or leg fracture Acute spinal cord injury (< 1 month) Prophylaxis Regimen Total Risk Factor Score Risk Level Prophylaxis Regimen 0-1 Low Early ambulation 2 Moderate Order ONE of the following: *Sequential Compression Device (SCD) *Heparin 5000 units SQ BID 3-4 Higher Order ONE of the following medications: *Heparin 5000 units SQ TID *Enoxaparin/Lovenox 40 mg SQ daily (WT < 150 kg, CrCl > 30 mL/min) *Enoxaparin/Lovenox 30 mg SQ daily (WT < 150 kg, CrCl > 10-29 mL/min) *Enoxaparin/Lovenox 30 mg SQ BID (WT < 150 kg, CrCl > 30 mL/min) AND/OR *Sequential Compression Device (SCD) 5 or more Highest Order ONE of the following medications: *Heparin 5000 units SQ TID (Preferred with Epidurals) *Enoxaparin/Lovenox 40 mg SQ daily (WT < 150 kg, CrCl > 30 mL/min) *Enoxaparin/Lovenox 30 mg SQ daily (WT < 150 kg, CrCl > 10-29 mL/min) *Enoxaparin/Lovenox 30 mg SQ BID (WT < 150 kg, CrCl > 30 mL/min) AND *Sequential Compression Device (SCD) Assessment and Plan Assessment and Plan Assessment/plan: 1. GI bleed H&H 7.3/22.7 Patient with history of large bleeding duodenal ulcer Transfuse 1 unit packed red blood cells Protonix drip Gastroenterology consulted, appreciate assistance 2. Liver masses concerning for HCC Patient seen by oncology during his most recent hospitalization on 09/06/17 Will need to follow up as an outpatient upon discharge 3. Atrial fibrillation Continue home digoxin and diltiazem 4. Hypertension Medications as above FEN NPO Electrolytes: monitor and replete prn Holding anticoagulation for active GI bleed Physician Certification 2 Midnight Certification Type: Admission for Inpatient Services Order for Inpatient Services The services are ordered in accordance with Medicare regulations or non- Medicare payer requirements, as applicable. In the case of services not specified as inpatient-only, they are appropriately provided as inpatient services in accordance with the 2-midnight benchmark. Estimated LOS (days): 2 2 days is the estimated time the patient will need to remain in the hospital, assuming treatment plan goals are met and no additional complications. Post-Hospital Plan: Not yet determined Swati Preston MD Nov 02, 2017 03:51
[2017-11-02] MEDS: SODIUM CHLORIDE 0.9% FLUSH 10 ML FLUSH IV FLUSH SCH ×2 (08:30→22:10)
[2017-11-02] MEDS: DIGOXIN 0.125 MG TAB PO SCH (08:33)
[2017-11-02] MEDS: DILTIAZEM HCL 60 MG TAB PO SCH ×4 (08:33→22:09)
--- NOTE | 2017-11-02 09:51 | PD.CONS ---
HPI History of Present Illness This is a 72 year old male with hx hep C, liver cancer, cirrhosis, duodenal ulcer, AF who presented with fatigue, black tarry stool, abd pain, dizziness, nausea, coffee ground emesis. He was admitted in August and treated for GIB and had black tarry stool at that time which stayed black as he was on iron but returned to normal firmness and then 1-2 weeks ago became black and tarry and he started having epigastric pain, coffee ground emesis, bloating after eating. he had and EGD at [facility] 09/06/17 that found class A esophagitis, and a duodenal bulb ulcer with path peptic duodenitis. Same ulcer seen on an EGD as well. he had a colonsocopy 09/03/17 found sessile polyp, hyperplastic. He has not followed up with RACHNA in the office. (Zakia Arreola) PFSH Past Medical History Hypertension A. fib Liver cancer Hep C Cirrhosis New liver mass concerning for HCC Past Surgical History Liver resection in 2014 due to liver cancer Appendectomy Cholecystectomy Eye surgery Left rotator cuff surgery (Zakia Arreola) Coded Allergies: No Known Allergies (Unverified , 07/25/12) Family History Mother : Dementia Social History Tobacco: Half a pack for the past 2 years Alcohol use: None since 2014 Illicit drug use: Denies (Zakia Arreola) Review of Systems Constitutional: DENIES: Fever Eyes: DENIES: Blurred vision Ears, nose, mouth, throat: DENIES: Hearing loss Respiratory: DENIES: Cough Cardiovascular: DENIES: Chest pain Gastrointestinal: COMPLAINS OF: Abdominal pain, Black stools, Nausea, Vomiting , Hematemesis Genitourinary: DENIES: Hematuria Musculoskeletal: DENIES: Joint Swelling Integumentary: DENIES: Pruritus Immunologic/allergic: DENIES: Eczema Neurologic: DENIES: Abnormal gait Psychiatric: DENIES: Confusion (Zakia Arreola) GI Exam Vitals I&O Vital Signs Date Time Temp Pulse Resp B/P (MAP) Pulse Ox O2 Delivery O2 Flow Rate FiO2 11/02/17 08:00 98.3 75 24 110/65 (80) 98 11/02/17 03:42 98.0 75 18 99/56 (70) 100 11/02/17 03:26 97.9 79 18 106/63 97 11/02/17 03:07 98.0 75 18 99/56 100 11/02/17 02:00 80 16 115/76 (89) 95 11/01/17 23:00 84 16 104/61 (75) 96 11/01/17 21:55 98.9 102 16 126/71 (89) 98 Room Air I/O 11/01/17 11/01/17 11/01/17 11/02/17 11/02/17 11/02/17 07:00 15:00 23:00 07:00 15:00 23:00 Intake Total 455 ml Balance 455 ml Intake IV Total 35 ml Packed Cells 400 ml Blood Product IV Normal Saline Flush 20 ml Imaging Last Impressions Chest X-Ray 11/01/17 0000 Signed Impressions: Service Date/Time: November 23:08 - CONCLUSION: No acute disease. Tylor Jon MD Laboratory Test 11/01/17 22:50 White Blood Count 8.9 TH/MM3 Red Blood Count 2.46 MIL/MM3 Hemoglobin 7.3 GM/DL Hematocrit 22.7 % Mean Corpuscular Volume 92.1 FL Mean Corpuscular Hemoglobin 29.5 PG Mean Corpuscular Hemoglobin Concent 32.1 % Red Cell Distribution Width 20.3 % Platelet Count 328 TH/MM3 Mean Platelet Volume 7.1 FL Neutrophils (%) (Auto) 69.5 % Lymphocytes (%) (Auto) 17.6 % Monocytes (%) (Auto) 10.3 % Eosinophils (%) (Auto) 2.1 % Basophils (%) (Auto) 0.5 % Neutrophils # (Auto) 6.2 TH/MM3 Lymphocytes # (Auto) 1.6 TH/MM3 Monocytes # (Auto) 0.9 TH/MM3 Eosinophils # (Auto) 0.2 TH/MM3 Basophils # (Auto) 0.0 TH/MM3 CBC Comment DIFF FINAL Differential Comment Prothrombin Time 10.4 SEC Prothromb Time International Ratio 1.0 RATIO Activated Partial Thromboplast Time 24.7 SEC Blood Urea Nitrogen 13 MG/DL Creatinine 1.08 MG/DL Random Glucose 90 MG/DL Total Protein 6.8 GM/DL Albumin 3.2 GM/DL Calcium Level 8.8 MG/DL Alkaline Phosphatase 52 U/L Aspartate Amino Transf (AST/SGOT) 10 U/L Alanine Aminotransferase (ALT/SGPT) 8 U/L Total Bilirubin 0.2 MG/DL Sodium Level 138 MEQ/L Potassium Level 4.2 MEQ/L Chloride Level 105 MEQ/L Carbon Dioxide Level 25.3 MEQ/L Anion Gap 8 MEQ/L Estimat Glomerular Filtration Rate 82 ML/MIN Troponin I LESS THAN 0.02 NG/ML Physical Examination HEENT: PERRL; normocephalic; atraumatic; no jaundice. CHEST: CTA CARDIAC: RRR ABDOMEN: Soft, nondistended, nontender; no hepatosplenomegaly; bowel sounds are present in all four quadrants. EXTREMITIES: No clubbing, cyanosis, or edema. SKIN: Normal; no rash; no jaundice. DIESEL TECHNICIAN MECHANIC: No focal deficits; alert and oriented times three. (Zakia Arreola) Assessment and Plan Plan ASSESSMENT - anemia, melanotic stool - hgb 7.3 on admission, this is drop from his baseline. normocytic. 2 wks black tarry stool. hx duodenal ulcer EGD at [facility] 09/06/17 that found class A esophagitis, and a duodenal bulb ulcer with path peptic duodenitis. he had a colonsocopy 09/03/17 found sessile polyp, hyperplastic s/p 1 x PRBC, will rck HH - hx hep C, liver ca PLAN - EGD today - obtain consent - keep NPO - stat HH - monitor labs - transfuse as needed - further recs to follow this pt seen by myself and Dr Quiroz and this note is written on his behalf (Zakia Arreola) Physician Comments Seen and examined with LAUREN, admitted for gi bleed. NPO, egd today. IV protonix. Has liver cancer and duodenal ulcer. (Marianela Quiroz MD) Zakia Arreola Nov 02, 2017 09:51 Marianela Quiroz MD Nov 02, 2017 12:39
--- NOTE | 2017-11-02 11:58 | GIPROC ---
[facility] [address] [facility], [address] EGD PROCEDURE REPORT EXAM DATE: 11/02/2017 PATIENT NAME: Anil Doe MR #: [id number] BIRTHDATE: 1945 ATTENDING: Marianela Quiroz MD ORDER #: [id number] ACCESS CONTROL SPECIALIST: Fadumo Quarles and Mandi Dhaliwal STATUS: inpatient INDICATIONS: The patient is a 72 yr old male here for an EGD due to acute post hemorrhagic anemia and hematemesis PROCEDURE PERFORMED: EGD w/ biopsy MEDICATIONS: None and Per Anesthesia. TOPICAL ANESTHETIC: CONSENT: The patient understands the risks and benefits of the procedure and understands that these risks include, but are not limited to: sedation, allergic reaction, infection, perforation and/or bleeding. Alternative means of evaluation and treatment include, among others: physical exam, x-rays, and/or surgical intervention. The patient elects to proceed with this endoscopic procedure. medical equipment was checked for proper function. Hand hygiene and appropriate measures for infection prevention was taken. After the risks, benefits and alternatives of the procedure were thoroughly explained, Informed consent was verified, confirmed and timeout was successfully executed by the treatment team. The patient was anesthetized with topical anesthesia and the Pentax [id number] endoscope was introduced through the mouth and advanced to the pylorus. Retroflexion was not performed The gastroscope was then slowly withdrawn and removed. ESOPHAGUS: The mucosa of the esophagus appeared normal. STOMACH: A circumferential fungating mass with friable surfaces was found at the pylorus. Large obstructing /ulcer at the pylorus. Unable to pass into the duodenum. Biopsies obtained. Retained food and fluid in the stomach. NG placed. ADVERSE EVENTS: There were no complications. IMPRESSIONS: 1. The esophagus appeared normal 2. Circumferential mass was found at the pylorus; Large obstructing /ulcer at the pylorus. Unable to pass into the duodenum. Biopsies obtained. Retained food and fluid in the stomach. NG placed 3. Retroflexion was not performed RECOMMENDATIONS: 1. Await biopsy results. Biopsy results will not be ready for 7-10 days. If you don't hear from us in two weeks, call our office for biopsy results. 2. Xray: CT ABD W/CONTRAST 3. NG to L.I.S. NPO PATIENT CONDITION: stable DISPOSITION: Inpatient REPEAT EXAM: Return 1 week EGD pending biopsy results Marianela Quiroz MD eSigned: Marianela Quiroz MD 11/02/2017 11:57 AM cc:
[2017-11-02] MEDS ORDERED: PHENYLEPH/NS 1000 MCG/10 ML SYR IV ONE (12:00)
[2017-11-02] MEDS ORDERED: PROPOFOL 200 MG/20 ML AMP IV ONE (12:00)
[2017-11-02] MEDS ORDERED: LIDOCAINE HCL 1% PF 5 ML SYRINGE OTHER ONE (12:00)
--- NOTE | 2017-11-02 12:01 | HHI.PR ---
Subjective Remarks Patient states no further vomiting overnight. States that he did not have any bowel movements overnight. Mild nausea. Reports mild midabdominal discomfort. Objective Vitals Vital Signs Date Time Temp Pulse Resp B/P (MAP) Pulse Ox O2 Delivery O2 Flow Rate FiO2 11/02/17 08:00 98.3 75 24 110/65 (80) 98 11/02/17 03:42 98.0 75 18 99/56 (70) 100 11/02/17 03:26 97.9 79 18 106/63 97 11/02/17 03:07 98.0 75 18 99/56 100 11/02/17 02:00 80 16 115/76 (89) 95 11/01/17 23:00 84 16 104/61 (75) 96 11/01/17 21:55 98.9 102 16 126/71 (89) 98 Room Air I/O 11/01/17 11/01/17 11/01/17 11/02/17 11/02/17 11/02/17 07:00 15:00 23:00 07:00 15:00 23:00 Intake Total 455 ml Balance 455 ml Intake IV Total 35 ml Packed Cells 400 ml Blood Product IV Normal Saline Flush 20 ml Result Diagram: 11/01/17224911/01/172249 Objective Remarks GENERAL: This is a well-nourished, well-developed patient, in no apparent distress. CARDIOVASCULAR: Regular rate and rhythm RESPIRATORY: Clear to auscultation. Breath sounds equal bilaterally. No wheezes , rales, or rhonchi. GASTROINTESTINAL: Abdomen soft, non-tender, nondistended. Normal active bowel sounds MUSCULOSKELETAL: Extremities without clubbing, cyanosis, or edema. NEURO: Alert & Oriented x4 to person, place, time, situation. Moves all ext x4 A/P Assessment and Plan 1. GI bleed with acute anemia H&H 7.3/22.7 Patient with history of large bleeding duodenal ulcer Transfuse 1 unit packed red blood cells overnight with repeat hemoglobin pending. Protonix drip Gastroenterology consulted, appreciate assistance and continue nothing by mouth for scheduled EGD today. 2. Liver masses concerning for HCC Patient seen by oncology during his most recent hospitalization on 09/06/17 Will need to follow up as an outpatient upon discharge 3. Previous history of Atrial fibrillation - currently normal sinus rhythm Continue home digoxin and diltiazem 4. DVT prophylaxisv - anticoagulation contraindicated secondary to GI bleed. SCDs Discharge Planning Home when clinically stable. Christine Ayres MD Nov 02, 2017 12:01
[2017-11-02] MEDS ORDERED: DO NOT ADM ANY ANTICOAGULANT DRUGS PRN (13:30)
[2017-11-02] MEDS ORDERED: metFORMIN HCL 500 MG TAB PO SCH (16:00)
[2017-11-02 16:11] LABS: HEMATOCRIT 23.1 % (39.0-51.0); HEMOGLOBIN 8.2 GM/DL (13.0-17.0)
[2017-11-02] MEDS ORDERED: PHENOL 1.4% SOLN 180 ML BTL MT PRN (16:45)
--- NOTE | 2017-11-02 19:41 | EKG ---
Date Performed: 11/01/2017 Time Performed: 23:25:31 PTAGE: 72 years EKG: Sinus rhythm Premature atrial contractions no longer present from prior tracing NORMAL ECG PREVIOUS TRACING : 09/03/2017 06.13 DOCTOR: Khris Funk Interpretating Date/Time 11/02/2017 19:40:22
[2017-11-02] MEDS ORDERED: ATORVASTATIN 20 MG TAB PO SCH (21:00)
[2017-11-02] MEDS: PANTOPRAZOLE INJ 80 MG in SODIUM CHLORIDE 0.9% INJ 100 ML IV SCH (23:53)
[2017-11-03] VITALS: BP 123/69; PULSE 78; RESP 18; TEMP 99.1; O2SAT 95
[2017-11-03] MEDS ORDERED: LIRAGLUTIDE SQ SCH (06:00)
[2017-11-03 07:06] LABS: AUTOMATED NEUTROPHIL # 12.4 TH/MM3 (1.8-7.7); BASOPHIL % 0.3 % (0.0-2.0); EOSINOPHIL % 0.1 % (0.0-4.0); HEMATOCRIT 27.7 % (39.0-51.0); LYMPHOCYTE # 0.7 TH/MM3 (1.0-4.8); MEAN CELL VOLUME 91.1 FL (80.0-100.0); MEAN CORPUSCULAR HEMOGLOBIN 29.6 PG (27.0-34.0); MEAN CORPUSCULAR HGB CONC 32.5 % (32.0-36.0); MEAN PLATELET VOLUME 7.5 FL (7.0-11.0); MONO % 7.5 % (0.0-8.0); MONOCYTE # 1.1 TH/MM3 (0-0.9); NEUT % 87.1 % (16.0-70.0); PLATELET COUNT 332 TH/MM3 (150-450); RED BLOOD COUNT 3.04 MIL/MM3 (4.50-5.90); RED CELL DISTRIBUTION WIDTH 18.2 % (11.6-17.2); WHITE BLOOD COUNT 14.2 TH/MM3 (4.0-11.0)
[2017-11-03 07:24] LABS: BICARBONATE 22.5 MEQ/L (21.0-32.0); CALCIUM 8.7 MG/DL (8.5-10.1); CREATININE 1.04 MG/DL (0.60-1.30)
[2017-11-03 08:00] VITALS: BP 118/75; PULSE 82; RESP 18; TEMP 98.9; O2SAT 96
[2017-11-03] MEDS: DILTIAZEM HCL 60 MG TAB PO SCH ×4 (08:55→21:09)
[2017-11-03] MEDS: DIGOXIN 0.125 MG TAB PO SCH (08:55)
[2017-11-03] MEDS: SODIUM CHLORIDE 0.9% FLUSH 10 ML FLUSH IV FLUSH SCH ×2 (08:56→21:00)
[2017-11-03] MEDS ORDERED: PANTOPRAZOLE SOD 20 MG DELAYED RELEASE TAB PO SCH (09:00)
[2017-11-03] MEDS ORDERED: LORazepam 2 MG/ML VIAL IV PUSH PRN (09:45)
--- NOTE | 2017-11-03 09:59 | HHI.PR ---
Subjective Remarks 72-year-old male with a past medical history significant for hypertension, anemia, atrial fibrillation, hepatitis C cirrhosis with liver mass and large duodenal ulcer with history of GI bleed presents to the emergency department with a complaint of dizziness and black, tarry stools 1 week. The patient has had accompanying fatigue with shortness of breath. He denies any syncope. He also endorses postprandial pain. The patient denies any chest pain, palpitations. No nausea/vomiting/abdominal pain. Vital signs: Temperature 98.9 , pulse 102, respirations 16, BP 126/71, pulse ox 98% on room air 2-2 Patient states no further vomiting overnight. States that he did not have any bowel movements overnight. Mild nausea. Reports mild midabdominal discomfort. 2-3 PATIENT COMPLAINS OF DISCOMFORT WITH NGT IN PLACE, STATES I CANNOT BREATHE BUT IS BREATHING FINE WITH IT IN PLACE WILL GIVE MEDICATIONS FOR ANXIETY START OF IV FLUIDS AM LABS ST TO EVAL AND TREAT DW RN AND PT Patient is threatening to pull out his NG tube Objective Vitals Vital Signs Date Time Temp Pulse Resp B/P (MAP) Pulse Ox O2 Delivery O2 Flow Rate FiO2 11/03/17 08:00 98.9 82 18 118/75 (89) 96 11/03/17 00:00 99.1 78 18 123/69 (87) 95 11/02/17 20:00 99.2 74 16 121/68 (85) 97 11/02/17 17:12 96 21 11/02/17 16:00 99.2 71 20 104/57 (73) 96 11/02/17 12:15 97.9 63 18 101/52 (68) 100 I/O 11/02/17 11/02/17 11/02/17 11/03/17 11/03/17 11/03/17 07:00 15:00 23:00 07:00 15:00 23:00 Intake Total 455 ml 600 ml Output Total 625 ml 1250 ml Balance 455 ml 600 ml -625 ml -1250 ml Intake Oral 0 ml IV Total 35 ml Packed Cells 400 ml Blood Product IV Normal Saline Flush 20 ml Other 600 ml Output Urine Total 650 ml Gastric Drainage Total 625 ml 600 ml # Voids 2 # Bowel Movements 0 Result Diagram: 11/03/17 0627 11/03/17 0627 Other Results Laboratory Tests Test 11/01/17 22:50 11/02/17 14:52 11/03/17 06:27 White Blood Count 8.9 TH/MM3 14.2 TH/MM3 Red Blood Count 2.46 MIL/MM3 3.04 MIL/MM3 Hemoglobin 7.3 GM/DL 8.2 GM/DL 9.0 GM/DL Hematocrit 22.7 % 23.1 % 27.7 % Mean Corpuscular Volume 92.1 FL 91.1 FL Mean Corpuscular Hemoglobin 29.5 PG 29.6 PG Mean Corpuscular Hemoglobin Concent 32.1 % 32.5 % Red Cell Distribution Width 20.3 % 18.2 % Platelet Count 328 TH/MM3 332 TH/MM3 Mean Platelet Volume 7.1 FL 7.5 FL Neutrophils (%) (Auto) 69.5 % 87.1 % Lymphocytes (%) (Auto) 17.6 % 5.0 % Monocytes (%) (Auto) 10.3 % 7.5 % Eosinophils (%) (Auto) 2.1 % 0.1 % Basophils (%) (Auto) 0.5 % 0.3 % Neutrophils # (Auto) 6.2 TH/MM3 12.4 TH/MM3 Lymphocytes # (Auto) 1.6 TH/MM3 0.7 TH/MM3 Monocytes # (Auto) 0.9 TH/MM3 1.1 TH/MM3 Eosinophils # (Auto) 0.2 TH/MM3 0.0 TH/MM3 Basophils # (Auto) 0.0 TH/MM3 0.0 TH/MM3 CBC Comment DIFF FINAL DIFF FINAL Differential Comment Prothrombin Time 10.4 SEC Prothromb Time International Ratio 1.0 RATIO Activated Partial Thromboplast Time 24.7 SEC Blood Urea Nitrogen 13 MG/DL 11 MG/DL Creatinine 1.08 MG/DL 1.04 MG/DL Random Glucose 90 MG/DL 87 MG/DL Total Protein 6.8 GM/DL Albumin 3.2 GM/DL Calcium Level 8.8 MG/DL 8.7 MG/DL Alkaline Phosphatase 52 U/L Aspartate Amino Transf (AST/SGOT) 10 U/L Alanine Aminotransferase (ALT/SGPT) 8 U/L Total Bilirubin 0.2 MG/DL Sodium Level 138 MEQ/L 140 MEQ/L Potassium Level 4.2 MEQ/L 4.1 MEQ/L Chloride Level 105 MEQ/L 107 MEQ/L Carbon Dioxide Level 25.3 MEQ/L 22.5 MEQ/L Anion Gap 8 MEQ/L 11 MEQ/L Estimat Glomerular Filtration Rate 82 ML/MIN 85 ML/MIN Troponin I LESS THAN 0.02 NG/ML Imaging Last Impressions Chest X-Ray 11/01/17 0000 Signed Impressions: Service Date/Time: November 23:08 - CONCLUSION: No acute disease. Tylor Jon MD Objective Remarks GENERAL: Alert very anxious has NG tube in place SKIN: Warm and dry. HEAD: Atraumatic. Normocephalic. EYES: Pupils equal and round. No scleral icterus. No injection or drainage. Extraocular muscles intact ENT: No nasal bleeding or discharge. Mucous membranes pink and moist. Tongue is midline has NG tube in place NECK: Trachea midline. No JVD. Supple CARDIOVASCULAR: Regular rate and rhythm. S1 and S2 no S3 or S4 RESPIRATORY: No accessory muscle use. Clear to auscultation. Breath sounds equal bilaterally. GASTROINTESTINAL: Abdomen soft, non-tender, nondistended. Hepatic and splenic margins not palpable. MUSCULOSKELETAL: Extremities without clubbing, cyanosis, or edema. No obvious deformities. NEUROLOGICAL: Awake and alert. No obvious cranial nerve deficits. Motor grossly within normal limits. 4 out of 5 muscle strength in the arms and legs. Normal speech. PSYCHIATRIC: INAppropriate mood and affect; insight and judgment ABnormal. Procedures EGD PROCEDURE REPORT EXAM DATE: 11/02/2017 PATIENT NAME: Anil Doe MR #: [id number] BIRTHDATE: 1945 ATTENDING: Marianela Quiroz MD ORDER #: [id number] MARKETING ASSISTANT: Fadumo Quarles and Mandi Dhaliwal STATUS: inpatient INDICATIONS: The patient is a 72 yr old male here for an EGD due to acute post hemorrhagic anemia and hematemesis PROCEDURE PERFORMED: EGD w/ biopsy MEDICATIONS: None and Per Anesthesia. TOPICAL ANESTHETIC: CONSENT: The patient understands the risks and benefits of the procedure and understands that these risks include, but are not limited to: sedation, allergic reaction, infection, perforation and/or bleeding. Alternative means of evaluation and treatment include, among others: physical exam, x-rays, and/or surgical intervention. The patient elects to proceed with this endoscopic procedure. medical equipment was checked for proper function. Hand hygiene and appropriate measures for infection prevention was taken. After the risks, benefits and alternatives of the procedure were thoroughly explained, Informed consent was verified, confirmed and timeout was successfully executed by the treatment team. The patient was anesthetized with topical anesthesia and the Pentax EG-[id number] endoscope was introduced through the mouth and advanced to the pylorus. Retroflexion was not performed The gastroscope was then slowly withdrawn and removed. ESOPHAGUS: The mucosa of the esophagus appeared normal. STOMACH: A circumferential fungating mass with friable surfaces was found at the pylorus. Large obstructing /ulcer at the pylorus. Unable to pass into the duodenum. Biopsies obtained. Retained food and fluid in the stomach. NG placed. ADVERSE EVENTS: There were no complications. IMPRESSIONS: 1. The esophagus appeared normal 2. Circumferential mass was found at the pylorus; Large obstructing /ulcer at the pylorus. Unable to pass into the duodenum. Biopsies obtained. Retained food and fluid in the stomach. NG placed 3. Retroflexion was not performed RECOMMENDATIONS: 1. Await biopsy results. Biopsy results will not be ready for 7-10 days. If you don't hear from us in two weeks, call our office for biopsy results. 2. Xray: CT ABD W/CONTRAST 3. NG to L.I.S. NPO PATIENT CONDITION: stable DISPOSITION: Inpatient REPEAT EXAM: Return 1 week EGD pending biopsy results Medications and IVs Current Medications Pantoprazole Sodium 80 mg/ Sodium Chloride 100 ml @ 10 mls/hr CONTINUOUS IV Last administered on 11/02/17at 23:53; Start 11/01/17 at 23:00 Pantoprazole Sodium 80 mg/ Sodium Chloride 35 ml @ 420 mls/hr BOLUS ONCE IV Last administered on 11/01/17at 23:43; Start 11/01/17 at 23:00; Stop 11/01/17 at 23: 04; Status DC Sodium Chloride 250 ml @ 15 mls/hr ONCE ONCE IV Last administered on at 03:00; Start 11/02/17 at 00:30; Stop 11/02/17 at 17:09; Status DC Sodium Chloride (NS Flush) 2 ml UNSCH PRN IV FLUSH FLUSH AFTER USING IV ACCESS ; Start 11/02/17 at 00:45 Sodium Chloride (NS Flush) 2 ml BID IV FLUSH Last administered on 11/03/17at 08: 56; Start 11/02/17 at 09:00 Acetaminophen (Tylenol) 650 mg Q4H PRN PO TEMP>100.4F,PAIN1-10; Start 11/02/17 at 00:45 Ondansetron HCl (Zofran Inj) 4 mg Q6H PRN IVP NAUSEA OR VOMITING Last administered on 11/03/17at 09:01; Start 11/02/17 at 00:45 Naloxone HCl (Narcan Inj) 0.4 mg UNSCH PRN IV PUSH SEE LABEL COMMENTS; Start at 00:45 Magnesium Hydroxide (Milk Of Magnesia Liq) 30 ml Q12H PRN PO Mild constipation ; Start 11/02/17 at 00:45 Sennosides (Senokot) 17.2 mg Q12H PRN PO Moderate constipation; Start 11/02/17 at 00:45 Bisacodyl (Dulcolax Supp) 10 mg DAILY PRN RECTAL SEVERE CONSITIPATION; Start at 00:45 Lactulose (Lactulose Liq) 30 ml DAILY PRN PO SEVERE CONSITIPATION; Start at 00:45 Digoxin (Lanoxin) 0.125 mg DAILY PO Last administered on 11/03/17at 08:55; Start 11/02/17 at 09:00 Diltiazem HCl (Cardizem) 120 mg QID PO Last administered on 11/03/17at 08:55; Start 11/02/17 at 09:00 Miscellaneous Information ALL NURSING DEPARTME... UNSCH PRN .XX SEE LABEL COMMENTS; Start 11/02/17 at 13:30; Stop 11/03/17 at 13:29 Atorvastatin Calcium (Lipitor) 20 mg HS PO ; Start 11/02/17 at 21:00; Status Cancel Pantoprazole Sodium (Protonix) 20 mg DAILY PO ; Start 11/03/17 at 09:00; Status Cancel Metformin HCl (Glucophage) 500 mg BIDAC PO ; Start 11/02/17 at 16:00; Status Cancel Patient Own Medication PT OWN MED: LIRAGLUT... DAILY@0600 SQ ; Start 11/03/17 at 06:00; Status Cancel Phenol (Chloraseptic [place]) 2 spray Q2H PRN MT SORE THROAT Last administered on 11/02/17at 17:19; Start 11/02/17 at 16:45 Potassium Chloride/Dextrose/ Sod Cl 1,000 ml @ 100 mls/hr Q10H IV ; Start at 10:41; Status UNV Lorazepam (Ativan Inj) 1 mg Q6H PRN IV PUSH ANXIETY; Start 11/03/17 at 09:45; Status UNV Zolpidem Tartrate (Ambien) 5 mg HS PRN PO INSOMNIA; Start 11/03/17 at 09:45; Status UNV A/P Assessment and Plan 1. GI bleed with acute anemia H&H 7.3/22.7 Patient with history of large bleeding duodenal ulcer Transfuse 1 unit packed red blood cells overnight with repeat hemoglobin pending. Protonix drip Gastroenterology consulted, appreciate assistance and continue nothing by mouth for scheduled Had EGD 2-2 IMPRESSIONS: 1. The esophagus appeared normal 2. Circumferential mass was found at the pylorus; Large obstructing /ulcer at the pylorus. Unable to pass into the duodenum. Biopsies obtained. Retained food and fluid in the stomach. NG placed 3. Retroflexion was not performed PYLORIC ULCER/MASS HAS NGT IN PLACE 2. Liver masses concerning for HCC-- LIVER CANCER Patient seen by oncology during his most recent hospitalization on 09/06/17 Will need to follow up as an outpatient upon discharge 3. Previous history of Atrial fibrillation - currently normal sinus rhythm Continue home digoxin and diltiazem 4. DVT prophylaxis - anticoagulation contraindicated secondary to GI bleed. SCDs Continue NG tube --will consult speech regarding swallow evaluation GI prophylaxis Anxiety 1 mg Ativan IV every 6 Insomnia Ambien when necessary Discharge Planning PENDING TOLERATING A DIET Som Jesus DO Nov 03, 2017 09:59
[2017-11-03] MEDS: D5-1/2 NS + KCL 20 MEQ INJ 1,000 ML IV SCH ×2 (10:54→21:08)
[2017-11-03] MEDS: PANTOPRAZOLE INJ 80 MG in SODIUM CHLORIDE 0.9% INJ 100 ML IV SCH ×2 (11:14→21:08)
[2017-11-03] MEDS ORDERED: NALOXONE HCL 0.4 MG/ML AMP IV PUSH PRN (11:15)
[2017-11-03] MEDS ORDERED: METOCLOPRAMIDE HCL 10 MG/2 ML VIAL IV PUSH PRN (11:15)
[2017-11-03] MEDS ORDERED: BISACODYL 10 MG SUPP RECTAL PRN (11:15)
[2017-11-03] MEDS ORDERED: ACETAMINOPHEN 325 MG TAB PO PRN (11:15)
[2017-11-03] MEDS ORDERED: LACTULOSE SYRUP 20 GM/30 ML CUP PO PRN (11:15)
[2017-11-03] MEDS ORDERED: MORPHINE SULFATE 2 MG/ML INJ IV PUSH PRN (11:15)
[2017-11-03 12:00] VITALS: BP 125/69; PULSE 94; RESP 17; TEMP 98.3; O2SAT 96
[2017-11-03] MEDS ORDERED: DIATRIZOATE MEGLUM/DIATRIZOATE SOD 9 ML CUP PO ONE (12:00)
[2017-11-03] MEDS ORDERED: MORPHINE SULFATE 4 MG/ML INJ IV PUSH PRN (12:15)
[2017-11-03 16:00] VITALS: BP 123/69; PULSE 92; RESP 18; TEMP 97.8; O2SAT 97
[2017-11-03] MEDS ORDERED: IOHEXOL 350 MG/ML 10 ML VIAL (for RAD DIAG) IVCONTRAST ONE (16:10)
--- NOTE | 2017-11-03 16:47 | RADRPT ---
EXAM DATE/TIME: 11/03/2017 15:52 [facility] COMPARISON: CT ABDOMEN & PELVIS W CONTRAST, September 01, 2017, 15:13. INDICATIONS : Black, tarry stools for one week. IV CONTRAST: 90 cc Omnipaque 350 (iohexol) IV ORAL CONTRAST: Prescribed oral contrast ingested. RADIATION DOSE: 6.69 CTDIvol (mGy) MEDICAL HISTORY : Cirrhosis. Hepatitis C. Cardiovascular diseaseLiver cancer. SURGICAL HISTORY : Appendectomy. Cholecystectomy. ENCOUNTER: Initial ACUITY: 1 week PAIN SCALE: 0/10 LOCATION: lower quadrant TECHNIQUE: Volumetric scanning of the abdomen and pelvis was performed. Using automated exposure control and ad justment of the mA and/or kV according to patient size, radiation dose was kept as low as reasonably achievable to obtain optimal diagnostic quality images. DICOM format image data is available electro nically for review and comparison. FINDINGS: CT Abdomen: The spleen, pancreas, kidneys, adrenals are unremarkable. There is no evidence for any ap preciable pathological adenopathy, free fluid, or bowel obstruction. There is evidence for prior res ection of left hepatic lobe and in the right hepatic lobe there is an approximate 3.6 cm low attenuat ing mass which measured 2.7 cm previously therefore larger. There is a loop of bowel which projects i nto the right upper quadrant adjacent to the surgical clips at the appearance of the patient's antrum . The stomach is slightly prominent in size and the exact nature of the patient's prior surgery is no t known to us. This loop of bowel and next to the second portion of the duodenum, however does not ap pear to be connecting to the stomach itself. Common bile duct measures 1 cm without significant luke e. There is mild prominence of the pancreatic duct without evidence for a mass. CT pelvis: There is no evidence for mass, abscess formation, or any significant adenopathy within the pelvis. The prostate gland is inhomogeneous and measures 3.5 x 5.2 cm in AP and transverse diameters and nonspecific. There is moderate amount of stool throughout the colon. Significant degenerative di sc disease is present in the lower lumbosacral spine particularly L5-S1. CONCLUSION: Hepatic mass appears larger concerning for malignancy such as hepatocellular carcinom a. K. Eugene Sanchez MD on November 03, 2017 at 16:38 Board Certified Radiologist. This report was verified electronically.
[2017-11-03] MEDS: ONDANSETRON HCL 4 MG/2 ML VIAL IVP PRN ×2 (17:02→21:20)
--- NOTE | 2017-11-03 17:15 | HHI.GIFU ---
Subjective Remarks Patient is sitting up in chair, holding a bassinet in his hand, spitting up saliva and clear frothy material. No bleeding reported (Debo Cee) Objective Vitals I&O Vital Signs Date Time Temp Pulse Resp B/P (MAP) Pulse Ox O2 Delivery O2 Flow Rate FiO2 11/03/17 16:00 97.8 92 18 123/69 (87) 97 11/03/17 12:00 98.3 94 17 125/69 (87) 96 11/03/17 08:00 98.9 82 18 118/75 (89) 96 11/03/17 00:00 99.1 78 18 123/69 (87) 95 11/02/17 20:00 99.2 74 16 121/68 (85) 97 11/02/17 17:12 96 21 I/O 11/02/17 11/02/17 11/02/17 11/03/17 11/03/17 11/03/17 07:00 15:00 23:00 07:00 15:00 23:00 Intake Total 455 ml 600 ml Output Total 625 ml 1250 ml 200 ml Balance 455 ml 600 ml -625 ml -1250 ml -200 ml Intake Oral 0 ml IV Total 35 ml Packed Cells 400 ml Blood Product IV Normal Saline Flush 20 ml Other 600 ml Output Urine Total 650 ml Gastric Drainage Total 625 ml 600 ml 200 ml # Voids 2 # Bowel Movements 0 Laboratory Laboratory Tests Test 11/03/17 06:27 White Blood Count 14.2 Red Blood Count 3.04 Hemoglobin 9.0 Hematocrit 27.7 Mean Corpuscular Volume 91.1 Mean Corpuscular Hemoglobin 29.6 Mean Corpuscular Hemoglobin Concent 32.5 Red Cell Distribution Width 18.2 Platelet Count 332 Mean Platelet Volume 7.5 Neutrophils (%) (Auto) 87.1 Lymphocytes (%) (Auto) 5.0 Monocytes (%) (Auto) 7.5 Eosinophils (%) (Auto) 0.1 Basophils (%) (Auto) 0.3 Neutrophils # (Auto) 12.4 Lymphocytes # (Auto) 0.7 Monocytes # (Auto) 1.1 Eosinophils # (Auto) 0.0 Basophils # (Auto) 0.0 CBC Comment DIFF FINAL Differential Comment Blood Urea Nitrogen 11 Creatinine 1.04 Random Glucose 87 Calcium Level 8.7 Sodium Level 140 Potassium Level 4.1 Chloride Level 107 Carbon Dioxide Level 22.5 Anion Gap 11 Estimat Glomerular Filtration Rate 85 Imaging Last Impressions Abdomen/Pelvis CT 11/03/17 0000 Signed Impressions: Service Date/Time: Friday, November 03, 2017 15:52 - CONCLUSION: Hepatic mass appears larger concerning for malignancy such as hepatocellular carcinoma. Dorothy Sanchez MD Chest X-Ray 11/01/17 0000 Signed Impressions: Service Date/Time: November 23:08 - CONCLUSION: No acute disease. Tylor Jon MD Physical Exam HEENT: normocephalic; atraumatic; no jaundice. CHEST: Chest is clear to auscultation and percussion. CARDIAC: Regular rate and rhythm with no murmur gallop or rubs. ABDOMEN: Soft, nondistended, nontender; no hepatosplenomegaly; bowel sounds are present in all four quadrants. EXTREMITIES: No clubbing, cyanosis, or edema. SKIN: Normal; no rash; no jaundice. MOBILE HOME SERVICER: No focal deficits; alert and oriented times three. (Debo Cee) Assessment and Plan Plan ASSESSMENT - anemia, melanotic stool - hgb 7.3 on admission, this is drop from his baseline. 2 wks black tarry stool. hx duodenal ulcer EGD on 11/02/17---> The esophagus appeared normal, Circumferential mass was found at the pylorus; Large obstructing /ulcer at the pylorus. Unable to pass into the duodenum. Biopsies obtained. Retained food and fluid in the stomach. 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 Jesus. New finding on egd of pyloric mass/ulcer causing gastric outlet obstruction. repeat CT pending. Will likely need surgical consult. (Marianela Quiroz MD) Debo Cee Nov 03, 2017 17:15 Marianela Quiroz MD Nov 04, 2017 10:29
[2017-11-03 20:00] VITALS: BP 110/57; PULSE 89; RESP 17; TEMP 99.5; O2SAT 97
[2017-11-03] MEDS ORDERED: ZOLPIDEM TARTRATE 5 MG TAB PO PRN (21:00)
[2017-11-03] MEDS: DOCUSATE SODIUM 50 MG/SENNA 8.6 MG TAB PO SCH (21:09)
[2017-11-04 00:23] VITALS: BP 118/66; PULSE 85; RESP 18; TEMP 99.6; O2SAT 95
[2017-11-04] MEDS: PANTOPRAZOLE INJ 80 MG in SODIUM CHLORIDE 0.9% INJ 100 ML IV SCH ×2 (05:13→15:06)
[2017-11-04] MEDS: D5-1/2 NS + KCL 20 MEQ INJ 1,000 ML IV SCH ×2 (05:14→15:06)
[2017-11-04 06:33] LABS: BASOPHIL % 0.2 % (0.0-2.0); EOSINOPHIL % 0.3 % (0.0-4.0); HEMOGLOBIN 8.6 GM/DL (13.0-17.0); LYMPH % 7.2 % (9.0-44.0); LYMPHOCYTE # 0.8 TH/MM3 (1.0-4.8); MEAN CELL VOLUME 90.4 FL (80.0-100.0); MEAN PLATELET VOLUME 7.5 FL (7.0-11.0); MONO % 10.4 % (0.0-8.0); MONOCYTE # 1.2 TH/MM3 (0-0.9); NEUT % 81.9 % (16.0-70.0); PLATELET COUNT 326 TH/MM3 (150-450); RED BLOOD COUNT 2.98 MIL/MM3 (4.50-5.90); RED CELL DISTRIBUTION WIDTH 17.8 % (11.6-17.2)
[2017-11-04 06:45] LABS: CARCINOEMBRYONIC ANTIGEN 0.8 NG/ML (0.2-5.0)
[2017-11-04 07:03] LABS: ALKALINE PHOSPHATASE 74 U/L (45-117); ALT (GPT) 12 U/L (12-78); AST (GOT) 29 U/L (15-37); BICARBONATE 25.6 MEQ/L (21.0-32.0); BLOOD UREA NITROGEN 11 MG/DL (7-18); CALCIUM 8.4 MG/DL (8.5-10.1); CHLORIDE 106 MEQ/L (98-107); CREATININE 1.15 MG/DL (0.60-1.30); GLOMERULAR FILTRATION RATE 76 ML/MIN (>89); GLUCOSE,RANDOM 156 MG/DL (74-106); MAGNESIUM 2.3 MG/DL (1.5-2.5); PHOSPHORUS 2.8 MG/DL (2.5-4.9); SODIUM (NA) 137 MEQ/L (136-145); TOTAL BILIRUBIN ADULT 0.8 MG/DL (0.2-1.0); TOTAL PROTEIN 6.7 GM/DL (6.4-8.2)
[2017-11-04 07:22] LABS: CA 19-9 13.5 U/ML (0.0-35.0)
[2017-11-04 08:00] VITALS: BP 114/61; PULSE 89; RESP 16; TEMP 99; O2SAT 92
[2017-11-04] MEDS: SODIUM CHLORIDE 0.9% FLUSH 10 ML FLUSH IV FLUSH SCH ×2 (08:08→19:56)
[2017-11-04] MEDS: DOCUSATE SODIUM 50 MG/SENNA 8.6 MG TAB PO SCH ×2 (08:09→19:56)
[2017-11-04] MEDS: DILTIAZEM HCL 60 MG TAB PO SCH ×4 (08:10→21:00)
[2017-11-04] MEDS: DIGOXIN 0.125 MG TAB PO SCH (08:10)
[2017-11-04] MEDS: ONDANSETRON HCL 4 MG/2 ML VIAL IVP PRN ×2 (08:11→17:56)
[2017-11-04 09:55] VITALS: O2SAT 92
--- NOTE | 2017-11-04 10:16 | HHI.GIFU ---
Subjective Remarks Patient is resting in bed, NGT to LIWS with yellow gastric out put, no bleeding noted, patient inquiring about the status of NGT (Debo Cee) Objective Vitals I&O Vital Signs Date Time Temp Pulse Resp B/P (MAP) Pulse Ox O2 Delivery O2 Flow Rate FiO2 11/04/17 09:55 92 11/04/17 08:00 99.0 89 16 114/61 (78) 92 11/04/17 00:23 99.6 85 18 118/66 (83) 95 11/03/17 20:00 99.5 89 17 110/57 (74) 97 11/03/17 16:00 97.8 92 18 123/69 (87) 97 11/03/17 12:00 98.3 94 17 125/69 (87) 96 I/O 11/03/17 11/03/17 11/03/17 11/04/17 11/04/17 11/04/17 07:00 15:00 23:00 07:00 15:00 23:00 Intake Total 1100 ml 1100 ml Output Total 1250 ml 200 ml 300 ml 850 ml Balance -1250 ml -200 ml 800 ml 250 ml Intake Oral 0 ml IV Total 1100 ml 1100 ml Output Urine Total 650 ml 300 ml 700 ml Gastric Drainage Total 600 ml 200 ml 150 ml # Voids 3 # Bowel Movements 0 0 Laboratory Laboratory Tests Test 11/04/17 05:23 11/04/17 05:32 Blood Urea Nitrogen 11 Creatinine 1.15 Random Glucose 156 Total Protein 6.7 Albumin 3.0 Calcium Level 8.4 Phosphorus Level 2.8 Magnesium Level 2.3 Alkaline Phosphatase 74 Aspartate Amino Transf (AST/SGOT) 29 Alanine Aminotransferase (ALT/SGPT) 12 Total Bilirubin 0.8 Sodium Level 137 Potassium Level 4.1 Chloride Level 106 Carbon Dioxide Level 25.6 Anion Gap 5 Estimat Glomerular Filtration Rate 76 Free Thyroxine 1.20 Thyroid Stimulating Hormone 3rd Gen 2.670 White Blood Count 11.0 Red Blood Count 2.98 Hemoglobin 8.6 Hematocrit 27.0 Mean Corpuscular Volume 90.4 Mean Corpuscular Hemoglobin 29.0 Mean Corpuscular Hemoglobin Concent 32.0 Red Cell Distribution Width 17.8 Platelet Count 326 Mean Platelet Volume 7.5 Neutrophils (%) (Auto) 81.9 Lymphocytes (%) (Auto) 7.2 Monocytes (%) (Auto) 10.4 Eosinophils (%) (Auto) 0.3 Basophils (%) (Auto) 0.2 Neutrophils # (Auto) 9.0 Lymphocytes # (Auto) 0.8 Monocytes # (Auto) 1.2 Eosinophils # (Auto) 0.0 Basophils # (Auto) 0.0 CBC Comment DIFF FINAL Differential Comment Tumor Marker Alpha Fetoprotein 1.3 Carcinoembryonic Antigen 0.8 CA 19-9 Antigen 13.5 Imaging Last Impressions Abdomen/Pelvis CT 11/03/17 0000 Signed Impressions: Service Date/Time: Friday, November 03, 2017 15:52 - CONCLUSION: Hepatic mass appears larger concerning for malignancy such as hepatocellular carcinoma. Dorothy Sanchez MD Chest X-Ray 11/01/17 0000 Signed Impressions: Service Date/Time: November 23:08 - CONCLUSION: No acute disease. Tylor Jon MD Physical Exam HEENT: normocephalic; atraumatic; no jaundice. CHEST: Chest is clear to auscultation and percussion. CARDIAC: Regular rate and rhythm with no murmur gallop or rubs. ABDOMEN: Soft, nondistended, nontender; no hepatosplenomegaly; bowel sounds are present in all four quadrants. EXTREMITIES: No clubbing, cyanosis, or edema. SKIN: Normal; no rash; no jaundice. BUSINESS SUPPORT ASSISTANT: No focal deficits; alert and oriented times three. (Debo Cee) Assessment and Plan Plan ASSESSMENT - anemia, melanotic stool - hgb 7.3 on admission, this is drop from his baseline. 2 wks black tarry stool. hx duodenal ulcer No more black stools, hgb today is 8.6 which is stable, yellow gastric out put noted in the canister. Tumor markers including CEA, AFP, CA 19-9 negative EGD on 11/02/17---> The esophagus appeared normal, Circumferential mass was found at the pylorus; Large obstructing /ulcer at the pylorus. Unable to pass into the duodenum. Biopsies obtained. Retained food and fluid in the stomach. 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 Surgical consult recommended. TPN (Marianela Quiroz MD) Debo Cee Nov 04, 2017 10:16 Marianela Quiroz MD Nov 04, 2017 10:38
[2017-11-04 11:35] LABS: HEMOGLOBIN A1C 4.3 % (4.3-6.0)
--- NOTE | 2017-11-04 11:36 | HHI.PR ---
Subjective Remarks 72-year-old male with a past medical history significant for hypertension, anemia, atrial fibrillation, hepatitis C cirrhosis with liver mass and large duodenal ulcer with history of GI bleed presents to the emergency department with a complaint of dizziness and black, tarry stools 1 week. The patient has had accompanying fatigue with shortness of breath. He denies any syncope. He also endorses postprandial pain. The patient denies any chest pain, palpitations. No nausea/vomiting/abdominal pain. Vital signs: Temperature 98.9 , pulse 102, respirations 16, BP 126/71, pulse ox 98% on room air 2-2 Patient states no further vomiting overnight. States that he did not have any bowel movements overnight. Mild nausea. Reports mild midabdominal discomfort. 2-3 PATIENT COMPLAINS OF DISCOMFORT WITH NGT IN PLACE, STATES I CANNOT BREATHE BUT IS BREATHING FINE WITH IT IN PLACE WILL GIVE MEDICATIONS FOR ANXIETY START OF IV FLUIDS AM LABS ST TO EVAL AND TREAT DW RN AND PT Patient is threatening to pull out his NG tube 2-4 FAILED SWALLOW EVAL WILL START TUBE FEEDS CT SCAN SHOWS WORSENING LIVER METS AND DISEASE Objective Vitals Vital Signs Date Time Temp Pulse Resp B/P (MAP) Pulse Ox O2 Delivery O2 Flow Rate FiO2 11/04/17 09:55 92 11/04/17 08:00 99.0 89 16 114/61 (78) 92 11/04/17 00:23 99.6 85 18 118/66 (83) 95 11/03/17 20:00 99.5 89 17 110/57 (74) 97 11/03/17 16:00 97.8 92 18 123/69 (87) 97 11/03/17 12:00 98.3 94 17 125/69 (87) 96 I/O 11/03/17 11/03/17 11/03/17 11/04/17 11/04/17 11/04/17 07:00 15:00 23:00 07:00 15:00 23:00 Intake Total 1100 ml 1100 ml Output Total 1250 ml 200 ml 300 ml 850 ml Balance -1250 ml -200 ml 800 ml 250 ml Intake Oral 0 ml IV Total 1100 ml 1100 ml Output Urine Total 650 ml 300 ml 700 ml Gastric Drainage Total 600 ml 200 ml 150 ml # Voids 3 # Bowel Movements 0 0 Result Diagram: 11/04/17 0532 11/04/17 0523 Other Results Laboratory Tests Test 11/01/17 22:50 11/02/17 14:52 11/03/17 06:27 11/04/17 05:23 White Blood Count 8.9 TH/MM3 14.2 TH/MM3 Red Blood Count 2.46 MIL/MM3 3.04 MIL/MM3 Hemoglobin 7.3 GM/DL 8.2 GM/DL 9.0 GM/DL Hematocrit 22.7 % 23.1 % 27.7 % Mean Corpuscular Volume 92.1 FL 91.1 FL Mean Corpuscular Hemoglobin 29.5 PG 29.6 PG Mean Corpuscular Hemoglobin Concent 32.1 % 32.5 % Red Cell Distribution Width 20.3 % 18.2 % Platelet Count 328 TH/MM3 332 TH/MM3 Mean Platelet Volume 7.1 FL 7.5 FL Neutrophils (%) (Auto) 69.5 % 87.1 % Lymphocytes (%) (Auto) 17.6 % 5.0 % Monocytes (%) (Auto) 10.3 % 7.5 % Eosinophils (%) (Auto) 2.1 % 0.1 % Basophils (%) (Auto) 0.5 % 0.3 % Neutrophils # (Auto) 6.2 TH/MM3 12.4 TH/MM3 Lymphocytes # (Auto) 1.6 TH/MM3 0.7 TH/MM3 Monocytes # (Auto) 0.9 TH/MM3 1.1 TH/MM3 Eosinophils # (Auto) 0.2 TH/MM3 0.0 TH/MM3 Basophils # (Auto) 0.0 TH/MM3 0.0 TH/MM3 CBC Comment DIFF FINAL DIFF FINAL Differential Comment Prothrombin Time 10.4 SEC Prothromb Time International Ratio 1.0 RATIO Activated Partial Thromboplast Time 24.7 SEC Blood Urea Nitrogen 13 MG/DL 11 MG/DL 11 MG/DL Creatinine 1.08 MG/DL 1.04 MG/DL 1.15 MG/DL Random Glucose 90 MG/DL 87 MG/DL 156 MG/DL Total Protein 6.8 GM/DL 6.7 GM/DL Albumin 3.2 GM/DL 3.0 GM/DL Calcium Level 8.8 MG/DL 8.7 MG/DL 8.4 MG/DL Alkaline Phosphatase 52 U/L 74 U/L Aspartate Amino Transf (AST/SGOT) 10 U/L 29 U/L Alanine Aminotransferase (ALT/SGPT) 8 U/L 12 U/L Total Bilirubin 0.2 MG/DL 0.8 MG/DL Sodium Level 138 MEQ/L 140 MEQ/L 137 MEQ/L Potassium Level 4.2 MEQ/L 4.1 MEQ/L 4.1 MEQ/L Chloride Level 105 MEQ/L 107 MEQ/L 106 MEQ/L Carbon Dioxide Level 25.3 MEQ/L 22.5 MEQ/L 25.6 MEQ/L Anion Gap 8 MEQ/L 11 MEQ/L 5 MEQ/L Estimat Glomerular Filtration Rate 82 ML/MIN 85 ML/MIN 76 ML/MIN Troponin I LESS THAN 0.02 NG/ML Phosphorus Level 2.8 MG/DL Magnesium Level 2.3 MG/DL Free Thyroxine 1.20 NG/DL Thyroid Stimulating Hormone 3rd Gen 2.670 uIU/ML Test 11/04/17 05:32 White Blood Count 11.0 TH/MM3 Red Blood Count 2.98 MIL/MM3 Hemoglobin 8.6 GM/DL Hematocrit 27.0 % Mean Corpuscular Volume 90.4 FL Mean Corpuscular Hemoglobin 29.0 PG Mean Corpuscular Hemoglobin Concent 32.0 % Red Cell Distribution Width 17.8 % Platelet Count 326 TH/MM3 Mean Platelet Volume 7.5 FL Neutrophils (%) (Auto) 81.9 % Lymphocytes (%) (Auto) 7.2 % Monocytes (%) (Auto) 10.4 % Eosinophils (%) (Auto) 0.3 % Basophils (%) (Auto) 0.2 % Neutrophils # (Auto) 9.0 TH/MM3 Lymphocytes # (Auto) 0.8 TH/MM3 Monocytes # (Auto) 1.2 TH/MM3 Eosinophils # (Auto) 0.0 TH/MM3 Basophils # (Auto) 0.0 TH/MM3 CBC Comment DIFF FINAL Differential Comment Tumor Marker Alpha Fetoprotein 1.3 NG/ML Carcinoembryonic Antigen 0.8 NG/ML CA 19-9 Antigen 13.5 U/ML Imaging Last Impressions Abdomen/Pelvis CT 11/03/17 0000 Signed Impressions: Service Date/Time: Friday, November 03, 2017 15:52 - CONCLUSION: Hepatic mass appears larger concerning for malignancy such as hepatocellular carcinoma. Dorothy Sanchez MD Chest X-Ray 11/01/17 0000 Signed Impressions: Service Date/Time: November 23:08 - CONCLUSION: No acute disease. Tylor A. Dontrell, MD Objective Remarks GENERAL: Alert very anxious has NG tube in place SKIN: Warm and dry. HEAD: Atraumatic. Normocephalic. EYES: Pupils equal and round. No scleral icterus. No injection or drainage. Extraocular muscles intact ENT: No nasal bleeding or discharge. Mucous membranes pink and moist. Tongue is midline has NG tube in place NECK: Trachea midline. No JVD. Supple CARDIOVASCULAR: Regular rate and rhythm. S1 and S2 no S3 or S4 RESPIRATORY: No accessory muscle use. Clear to auscultation. Breath sounds equal bilaterally. GASTROINTESTINAL: Abdomen soft, non-tender, nondistended. Hepatic and splenic margins not palpable. MUSCULOSKELETAL: Extremities without clubbing, cyanosis, or edema. No obvious deformities. NEUROLOGICAL: Awake and alert. No obvious cranial nerve deficits. Motor grossly within normal limits. 4 out of 5 muscle strength in the arms and legs. Normal speech. PSYCHIATRIC: INAppropriate mood and affect; insight and judgment ABnormal. Procedures EGD PROCEDURE REPORT EXAM DATE: 11/02/2017 PATIENT NAME: Anil Doe MR #: [id number] BIRTHDATE: 1945 ATTENDING: Marianela Quiroz MD ORDER #: [id number] DECORATOR CONSULTANT: Fadumo Quarles and Mandi Dhaliwal STATUS: inpatient INDICATIONS: The patient is a 72 yr old male here for an EGD due to acute post hemorrhagic anemia and hematemesis PROCEDURE PERFORMED: EGD w/ biopsy MEDICATIONS: None and Per Anesthesia. TOPICAL ANESTHETIC: CONSENT: The patient understands the risks and benefits of the procedure and understands that these risks include, but are not limited to: sedation, allergic reaction, infection, perforation and/or bleeding. Alternative means of evaluation and treatment include, among others: physical exam, x-rays, and/or surgical intervention. The patient elects to proceed with this endoscopic procedure. medical equipment was checked for proper function. Hand hygiene and appropriate measures for infection prevention was taken. After the risks, benefits and alternatives of the procedure were thoroughly explained, Informed consent was verified, confirmed and timeout was successfully executed by the treatment team. The patient was anesthetized with topical anesthesia and the Pentax EG-[id number] endoscope was introduced through the mouth and advanced to the pylorus. Retroflexion was not performed The gastroscope was then slowly withdrawn and removed. ESOPHAGUS: The mucosa of the esophagus appeared normal. STOMACH: A circumferential fungating mass with friable surfaces was found at the pylorus. Large obstructing /ulcer at the pylorus. Unable to pass into the duodenum. Biopsies obtained. Retained food and fluid in the stomach. NG placed. ADVERSE EVENTS: There were no complications. IMPRESSIONS: 1. The esophagus appeared normal 2. Circumferential mass was found at the pylorus; Large obstructing /ulcer at the pylorus. Unable to pass into the duodenum. Biopsies obtained. Retained food and fluid in the stomach. NG placed 3. Retroflexion was not performed RECOMMENDATIONS: 1. Await biopsy results. Biopsy results will not be ready for 7-10 days. If you don't hear from us in two weeks, call our office for biopsy results. 2. Xray: CT ABD W/CONTRAST 3. NG to L.I.S. NPO PATIENT CONDITION: stable DISPOSITION: Inpatient REPEAT EXAM: Return 1 week EGD pending biopsy results Medications and IVs Current Medications Pantoprazole Sodium 80 mg/ Sodium Chloride 100 ml @ 10 mls/hr CONTINUOUS IV Last administered on 11/02/17at 23:53; Start 11/01/17 at 23:00; Stop 11/03/17 at 10: 25; Status DC Pantoprazole Sodium 80 mg/ Sodium Chloride 35 ml @ 420 mls/hr BOLUS ONCE IV Last administered on 11/01/17at 23:43; Start 11/01/17 at 23:00; Stop 11/01/17 at 23: 04; Status DC Sodium Chloride 250 ml @ 15 mls/hr ONCE ONCE IV Last administered on at 03:00; Start 11/02/17 at 00:30; Stop 11/02/17 at 17:09; Status DC Sodium Chloride (NS Flush) 2 ml UNSCH PRN IV FLUSH FLUSH AFTER USING IV ACCESS ; Start 11/02/17 at 00:45 Sodium Chloride (NS Flush) 2 ml BID IV FLUSH Last administered on 11/03/17at 08: 56; Start 11/02/17 at 09:00 Acetaminophen (Tylenol) 650 mg Q4H PRN PO TEMP>100.4F,PAIN1-10; Start 11/02/17 at 00:45; Stop 11/03/17 at 12:05; Status DC Ondansetron HCl (Zofran Inj) 4 mg Q6H PRN IVP NAUSEA OR VOMITING Last administered on 11/03/17at 09:01; Start 11/02/17 at 00:45; Stop 11/03/17 at 12:05; Status DC Naloxone HCl (Narcan Inj) 0.4 mg UNSCH PRN IV PUSH SEE LABEL COMMENTS; Start at 00:45; Stop 11/03/17 at 11:56; Status DC Magnesium Hydroxide (Milk Of Magnesia Liq) 30 ml Q12H PRN PO Mild constipation ; Start 11/02/17 at 00:45; Stop 11/03/17 at 11:56; Status DC Sennosides (Senokot) 17.2 mg Q12H PRN PO Moderate constipation; Start 11/02/17 at 00:45; Stop 11/03/17 at 11:56; Status DC Bisacodyl (Dulcolax Supp) 10 mg DAILY PRN RECTAL SEVERE CONSITIPATION; Start at 00:45; Stop 11/03/17 at 11:56; Status DC Lactulose (Lactulose Liq) 30 ml DAILY PRN PO SEVERE CONSITIPATION; Start at 00:45; Stop 11/03/17 at 11:56; Status DC Digoxin (Lanoxin) 0.125 mg DAILY PO Last administered on 11/04/17at 08:10; Start 11/02/17 at 09:00 Diltiazem HCl (Cardizem) 120 mg QID PO Last administered on 11/04/17at 08:10; Start 11/02/17 at 09:00 Miscellaneous Information ALL NURSING DEPARTME... UNSCH PRN .XX SEE LABEL COMMENTS; Start 11/02/17 at 13:30; Stop 11/03/17 at 13:29; Status DC Atorvastatin Calcium (Lipitor) 20 mg HS PO ; Start 11/02/17 at 21:00; Status Cancel Pantoprazole Sodium (Protonix) 20 mg DAILY PO ; Start 11/03/17 at 09:00; Status Cancel Metformin HCl (Glucophage) 500 mg BIDAC PO ; Start 11/02/17 at 16:00; Status Cancel Patient Own Medication PT OWN MED: LIRAGLUT... DAILY@0600 SQ ; Start 11/03/17 at 06:00; Status Cancel Phenol (Chloraseptic [place]) 2 spray Q2H PRN MT SORE THROAT Last administered on 11/02/17at 17:19; Start 11/02/17 at 16:45 Potassium Chloride/Dextrose/ Sod Cl 1,000 ml @ 100 mls/hr Q10H IV Last administered on 11/04/17at 05:14; Start 11/03/17 at 10:41 Lorazepam (Ativan Inj) 1 mg Q6H PRN IV PUSH ANXIETY Last administered on at 10:58; Start 11/03/17 at 09:45 Zolpidem Tartrate (Ambien) 5 mg HS PRN PO INSOMNIA; Start 11/03/17 at 21:00 Pantoprazole Sodium 80 mg/ Sodium Chloride 100 ml @ 10 mls/hr Q10H IV Last administered on 11/04/17at 05:13; Start 11/03/17 at 10:30 Acetaminophen (Tylenol) 650 mg Q4H PRN PO TEMP > 100.4; Start 11/03/17 at 11:15 Ondansetron HCl (Zofran Inj) 4 mg Q6H PRN IVP NAUSEA OR VOMITING Last administered on 11/04/17at 08:11; Start 11/03/17 at 11:15 Metoclopramide HCl (Reglan Inj) 5 mg Q6H PRN IV PUSH NAUSEA OR VOMITING; Start 11/03/17 at 11:15 Oxycodone HCl (Roxicodone) 10 mg Q4H PRN PO PAIN SCALE 6 TO 10 Last administered on 11/04/17at 08:09; Start 11/03/17 at 12:15 Morphine Sulfate (Morphine Inj) 2 mg Q3H PRN IV PUSH Pain 3-5; if unable to take PO; Start 11/03/17 at 11:15 Morphine Sulfate (Morphine Inj) 4 mg Q3H PRN IV PUSH Pain 6-10;if unable to take PO; Start 11/03/17 at 12:15 Morphine Sulfate (Morphine Inj) 4 mg Q3H PRN IV PUSH BREAKTHROUGH PAIN; Start 11/03/17 at 12:15 Oxycodone HCl (Roxicodone) 5 mg Q4H PRN PO PAIN SCALE 3 TO 5; Start 11/03/17 at 11:15 Naloxone HCl (Narcan Inj) 0.4 mg UNSCH PRN IV PUSH SEE LABEL COMMENTS; Start at 11:15 Senna/Docusate Sodium ([place]ia-Colace) 1 tab BID PO Last administered on 11/04/17at 08:09; Start 11/03/17 at 21:00 Magnesium Hydroxide (Milk Of Magnesia Liq) 30 ml Q12H PRN PO Mild constipation ; Start 11/03/17 at 11:15 Sennosides (Senokot) 17.2 mg Q12H PRN PO Moderate constipation; Start 11/03/17 at 11:15 Bisacodyl (Dulcolax Supp) 10 mg DAILY PRN RECTAL SEVERE CONSITIPATION; Start at 11:15 Lactulose (Lactulose Liq) 30 ml DAILY PRN PO SEVERE CONSITIPATION; Start at 11:15 Diatrizoate Meglum/ Diatrizoate Sod ( Gastroview Liq) 18 ml ONCE ONCE PO Last administered on 11/03/17at 12:40; Start 11/03/17 at 12:00; Stop 11/03/17 at 12: 01; Status DC Iohexol (Omnipaque 350 Inj) 90 ml STK-MED ONCE IVCONTRAST Last administered on 11/03/17at 16:10; Start 11/03/17 at 16:10; Stop 11/03/17 at 16:11; Status DC A/P Assessment and Plan 1. GI bleed with acute anemia H&H 7.3/22.7 Patient with history of large bleeding duodenal ulcer Transfuse 1 unit packed red blood cells overnight with repeat hemoglobin pending. Protonix drip Gastroenterology consulted, appreciate assistance and continue nothing by mouth for scheduled Had EGD 2-2 IMPRESSIONS: 1. The esophagus appeared normal 2. Circumferential mass was found at the pylorus; Large obstructing /ulcer at the pylorus. Unable to pass into the duodenum. Biopsies obtained. Retained food and fluid in the stomach. NG placed 3. Retroflexion was not performed PYLORIC ULCER/MASS HAS NGT IN PLACE 2. Liver masses concerning for HCC-- LIVER CANCER- HX OF LIVER RESECTIONS Patient seen by oncology during his most recent hospitalization on 12/7/17 Will need to follow up as an outpatient upon discharge 3. Previous history of Atrial fibrillation - currently normal sinus rhythm Continue home digoxin and diltiazem 4. DVT prophylaxis - anticoagulation contraindicated secondary to GI bleed. SCDs Continue NG tube --will consult speech regarding swallow evaluation GI prophylaxis Anxiety 1 mg Ativan IV every 6 Insomnia Ambien when necessary FAILED SWALLOW EVAL START TUBE FEEDS Discharge Planning PENDING TOLERATING A DIET Som Jesus DO Nov 04, 2017 11:36
[2017-11-04 12:00] VITALS: BP 116/68; PULSE 85; RESP 18; TEMP 98.8; O2SAT 94
[2017-11-04 16:00] VITALS: BP 119/69; PULSE 86; RESP 18; TEMP 98.3; O2SAT 94
[2017-11-04] MEDS ORDERED: SODIUM CHLORIDE 0.9% FLUSH 10 ML FLUSH IV FLUSH PRN (17:30)
--- NOTE | 2017-11-04 18:24 | RADRPT ---
EXAM DATE/TIME: 11/04/2017 18:05 [facility] COMPARISON: CHEST SINGLE AP, November 01, 2017, 23:08. INDICATIONS : PICC line placement, right upper arm. MEDICAL HISTORY : Hypertension. Liver Cancer, Angina SURGICAL HISTORY : Appendectomy. Cholecystectomy. ENCOUNTER: Subsequent ACUITY: 3 days PAIN SCORE: 0/10 LOCATION: Bilateral chest FINDINGS: Slight bibasilar atelectasis and/or infiltrate is seen. NG tube is present with tip at the level of t he gastroesophageal junction and needs to be advanced. Right subclavian PICC line is present with tip overlapping the expected region of the SVC. Heart and mediastinum are unremarkable for technique. No definite pneumothorax is seen for technique. CONCLUSION: 1. Slight bibasilar atelectasis and/or infiltrate is seen. 2. The tip of the NG tube needs to be advanced. Dorothy Sanchez MD on November 04, 2017 at 18:20 Board Certified Radiologist. This report was verified electronically.
[2017-11-04] MEDS: CLINIMIX 5/25 (Custom) 2000 mL- >42 mls/hr IV-CENTRAL SCH ×9 (19:57)
[2017-11-04 20:00] VITALS: BP_SYST 103; BP_SYST 62; BP_DIAS 62; PULSE 90; RESP 18; TEMP 101.5; O2SAT 99
[2017-11-05] VITALS (7 sets, daily range): BP systolic 105–117; BP diastolic 58–67; PULSE 80–105; RESP 18–20; TEMP 98.8–100.3; O2SAT 91–97
[2017-11-05] MEDS: PANTOPRAZOLE INJ 80 MG in SODIUM CHLORIDE 0.9% INJ 100 ML IV SCH ×3 (01:02→22:08)
[2017-11-05] MEDS: D5-1/2 NS + KCL 20 MEQ INJ 1,000 ML IV SCH ×3 (02:41→22:09)
[2017-11-05] MEDS: SODIUM CHLORIDE 0.9% FLUSH 10 ML FLUSH IV FLUSH SCH ×3 (09:00→20:10)
[2017-11-05] MEDS: DOCUSATE SODIUM 50 MG/SENNA 8.6 MG TAB PO SCH ×2 (09:38→22:09)
[2017-11-05] MEDS: DIGOXIN 0.125 MG TAB PO SCH (09:38)
[2017-11-05] MEDS: DILTIAZEM HCL 60 MG TAB PO SCH ×4 (09:39→22:09)
--- NOTE | 2017-11-05 10:52 | PD.CONS ---
Consult Service Palliative Care Consult Requested By Dr. Jesus Primary Care Physician Srinivasan Barakat M.D. Reason for Consultation a. To assist with evaluation and management of symptoms including: pain, dysphagia, nausea and vomiting. b. To assist medical decision maker(s) with: better understanding of current medical conditions; weighing benefits/burdens of medical treatment options; making medical treatment decisions. HPI History of Present Illness Mr. Doe is a 72 years old male with a past medical history of hypertension, anemia, atrial fibrillation, liver cancer s/p liver resection, hepatitis C s/p Harvoni course, and large duodenal ulcer with history of GI bleed. Patient presented to the ER on 11/01/17 complaining of generalized weakness, dizziness, having black stools and coffee ground emesis for approximately a week. Patient was hospitalized in August, and treated for severe anemia from a GI bleed. Patient followed up with Dr. Arboleda on 10/19/17 and was scheduled for a panendoscopy procedure on 11/16/17. Patient also sees Dr. Godwin Frazier radiation oncology in [place] and according to spouse and daughter patient was last seen on 10/23/[address] Frazier was planning to initiate radioembolization (TheraSphere) therapy for the liver cancer sometime this month (November,). ER Course: * Vital signs: Temperature 98.9 degrees F, Pulse 84, RR16, BP 104/61, O2 saturation 96% on room air. * Laboratory workup revealed WBC 8.9, hemoglobin 7.3, hematocrit 22.7, platelet count 328, potassium 4.2, AST 10.0, ALT at, troponin less than 0.02%, total protein 6.8, albumin 3.2 * Chest x-ray revealed no acute disease. * 1 unit PRBC transfused GI Dr. Quiroz consulted on 11/02/17. EGD with biopsy performed. NGT placed. Abdomen/pelvis CT on 11/03/17 revealed hepatic mass concerning for malignancy such as hepatocellular carcinoma. Speech therapy consulted for swallow evaluation. Patient failed swallow evaluation. Remains NPO. NGT connected to LIWS. Clinical course complicated with dysphagia and worsening liver mets and disease. General surgeon Dr. Garcia consulted for evaluation of liver mets and obstruction. Dr. Garcia consulted surgical oncology Dr. Gamenthaler to evaluate and manage gastric outlet obstruction. Met with patient`s spouse and daughter at bedside. Patient currently undergoing upper GI Series and abdomen CT in radiology department. Obtained psychosocial history and medical history. Family requested oncology consult, patient is known to Dr. Ortiz. Dr. Culver informed of request. Patient seen and examined in his room. Alert and oriented to self, place and situation. Patient endorsing gastric discomfort. Patient is afebrile. Heart rate 90s. BP 108/58 and O2 saturation 93% on room air. Patient underwent upper GI series and results showed a mass involving the antrum, superior margin in the intimate association with the liver extending into the first portion of the duodenum causing significant gastric outlet obstruction. Abdomen CT revealed antral mass probably arising from the surgical margin in the liver. Patient appears to have a good understanding of his medical condition. Appears to have her ability to only burdens and benefits of treatment at this time. Discussed CODE STATUS, patient states that at this time he wants to give himself a chance, and see how he would do with available treatment options. Patient went ahead to enquire if the question regarding code status would be addressed in the future. Explained to patient that he has a choice to change his code status anytime during this hospital stay or in the future. Patient has an understanding that his condition may change in the future. Family supportive of patient`s decisions. Patient has never completed advance directives. Patient designated his Clotilde Doe as his health care surrogate and his daughter Ted Longoria as his alternate Health care surrogate. Assisted patient with completing and signing HCS form. Case discussed with Dr. Culver and JOYCE Champagne. . Function/Cognitive Trajectory Patient was recently admitted in August 2017 for severe anemia, and at that time he had had an unintentional weight loss of about 10 pounds. He lives at home with his spouse. Prior to hospitalization patient was independent of all his ADLs. . Review of Systems Constitutional: COMPLAINS OF: Fatigue, Weight loss, Generalized weakness Eyes: DENIES: Eye inflammation Ears, nose, mouth, throat: DENIES: Nasal discharge Respiratory: COMPLAINS OF: Shortness of breath, DENIES: Cough, Hemoptysis Cardiovascular: DENIES: Chest pain, Palpitations Gastrointestinal: COMPLAINS OF: Black stools, Difficulty Swallowing, DENIES: Nausea, Vomiting Hematologic/Lymphatics: COMPLAINS OF: History of transfusions Psychiatric: DENIES: Confusion, Hallucinations, Agitation Past Family Social History Coded Allergies: No Known Allergies (Unverified , 07/25/12) Past Medical History Hypertension A. fib Liver cancer Hep C treated with Harvoni in 2014 Cirrhosis History of partial small bowel obstruction. New liver mass concerning for hepatocellular carcinoma . Past Surgical History Liver resection in 2015 due to liver cancer at [facility] Appendectomy Cholecystectomy Eye surgery Left rotator cuff surgery Colonoscopy with polyps removal 09/03/17 EGD 09/06/17 . Reported Medications Zofran Odt (Ondansetron Odt) 4 Mg Tab 4 Mg SL Q6HR PRN Protonix (Pantoprazole Sodium) 40 Mg Tab 40 Mg PO DAILY Diltiazem (Diltiazem HCl) 120 Mg Tab 120 Mg PO QID Digoxin 0.125 Mg Tab 0.125 Mg PO DAILY Tylenol (Acetaminophen) 325 Mg Tab 500 Mg PO ONCE Ferrous Sulfate 325 Mg (65 Mg Iron) Tablet 325 Mg PO TIDPC . Current Medications Medications (Trade) Dose Ordered Sig/Víctor Route Start Time Stop Time Status Last Admin (NS Flush) 2 ml UNSCH PRN IV FLUSH 11/02/17 00:45 (NS Flush) 2 ml BID IV FLUSH 11/02/17 09:00 11/03/17 08:56 (Lanoxin) 0.125 mg DAILY PO 11/02/17 09:00 11/04/17 08:10 (Cardizem) 120 mg QID PO 11/02/17 09:00 11/04/17 21:00 (Chloraseptic [place]) 2 spray Q2H PRN MT 11/02/17 16:45 11/02/17 17:19 Potassium Chloride/Dextrose/ Sod Cl 1,000 ml @ 100 mls/hr Q10H IV 11/03/17 10:41 11/04/17 15:06 (Ativan Inj) 1 mg Q6H PRN IV PUSH 11/03/17 09:45 11/03/17 10:58 (Ambien) 5 mg HS PRN PO 11/03/17 21:00 Pantoprazole Sodium 80 mg/ Sodium Chloride 100 ml @ 10 mls/hr Q10H IV 11/03/17 10:30 11/05/17 01:02 (Tylenol) 650 mg Q4H PRN PO 11/03/17 11:15 11/04/17 19:56 (Zofran Inj) 4 mg Q6H PRN IVP 11/03/17 11:15 11/04/17 17:56 (Reglan Inj) 5 mg Q6H PRN IV PUSH 11/03/17 11:15 (Roxicodone) 10 mg Q4H PRN PO 11/03/17 12:15 11/05/17 04:48 (Morphine Inj) 2 mg Q3H PRN IV PUSH 11/03/17 11:15 (Morphine Inj) 4 mg Q3H PRN IV PUSH 11/03/17 12:15 (Morphine Inj) 4 mg Q3H PRN IV PUSH 11/03/17 12:15 (Roxicodone) 5 mg Q4H PRN PO 11/03/17 11:15 (Narcan Inj) 0.4 mg UNSCH PRN IV PUSH 11/03/17 11:15 (Germania-Colace) 1 tab BID PO 11/03/17 21:00 11/04/17 19:56 (Milk Of Magnesia Liq) 30 ml Q12H PRN PO 11/03/17 11:15 (Senokot) 17.2 mg Q12H PRN PO 11/03/17 11:15 (Dulcolax Supp) 10 mg DAILY PRN RECTAL 11/03/17 11:15 (Lactulose Liq) 30 ml DAILY PRN PO 11/03/17 11:15 Sodium Chloride 11 meq/Sodium Acetate 59 meq/ Potassium Chloride 40 meq/ Sodium Phosphate 40 meq/Magnesium Chloride 10 meq/ Calcium Chloride 9 meq/ Multivitamins 10 ml/Folic Acid 1 mg/Amino Acids/ Dextrose 2,084.1437 ml @ 83 mls/hr Q24H IV-CENTRAL 11/04/17 20:00 11/04/17 19:57 (NS Flush) See Protocol DAILY IV FLUSH 11/05/17 09:00 (NS Flush) See Protocol UNSCH PRN IV FLUSH 11/04/17 17:30 (Heparin Central Flush) See Protocol DAILY IV FLUSH 11/05/17 09:00 (Heparin Central Flush) See Protocol UNSCH PRN IV FLUSH 11/04/17 17:30 (NS Flush) UNSCH PRN IV FLUSH 11/04/17 17:30 Family History Mother : Dementia One sister, one half brother recently . . Substance Use Tobacco: Half PPD for the past 2 years Alcohol: History of EtOH abuse. Quit in 2014 Prescription med abuse: None reported Illicits: None reported . Psychosocial History Patient was born and raised in [place]. He moved to [place] in 1991. Patient worked in construction and mostly as a galan. Patient has also lived and worked in [place] for about 5 years. He retired in 2009. Patient has been to his spouse since 2001 but have been together for about 46 years. They have and adult daughter together. . Spiritual/Cultural Factors Patient is Sabianism. They have support from their local sikh. . Living Will: Never completed Health Care Surrogate: Copy in medical record Durable Power of Screed Operator: Never completed Date completed: 11/05/2017 . Health Care Surrogate(s): Spouse- Clotilde Doe- health care surrogate [phone] Daughter- Ted Longoria-[phone] . Today's verbally stated goals: Aggressive . Ethical and Legal Issues None identified at this time. . Physical Exam Vital Signs Date Time Temp Pulse Resp B/P (MAP) Pulse Ox O2 Delivery O2 Flow Rate FiO2 11/05/17 08:00 98.8 93 19 105/58 (74) 91 11/05/17 04:05 99.2 82 18 107/58 (74) 96 11/05/17 00:00 98.9 80 18 108/62 (77) 97 11/04/17 20:00 101.5 90 18 103/62 (76) 99 11/04/17 16:00 98.3 86 18 119/69 (86) 94 11/04/17 12:00 98.8 85 18 116/68 (84) 94 11/04/17 09:55 92 Exam CONSTITUTIONAL/GENERAL: This is an adequately nourished patient, in mild abdominal discomfort. TUBES/LINES/DRAINS: PIV, Midline catheter, NGT SKIN: No jaundice, rashes, or lesions. Ecchymoses on upper extremities. No wounds seen anteriorly. Skin temperature appropriate. Not diaphoretic. HEAD: Atraumatic. Normocephalic. EYES: Pupils equal and round and reactive. Extraocular motions intact. No scleral icterus. No injection or drainage. Fundi not examined. ENT: Hearing grossly normal. Nose without bleeding or purulent drainage. Moist oral mucosa NECK: Trachea midline. Supple, nontender. CARDIOVASCULAR: Regular rate and rhythm without murmurs, gallops, or rubs. No JVD. Peripheral pulses symmetric. RESPIRATORY/CHEST: Symmetric, unlabored respirations. Clear to auscultation. Breath sounds equal bilaterally. No wheezes, rales, or rhonchi. GASTROINTESTINAL: Abdomen soft, non-tender, nondistended. No guarding. Bowel sounds present. GENITOURINARY: Without palpable bladder distension. MUSCULOSKELETAL: Extremities without clubbing, cyanosis, or edema. No joint tenderness or effusion noted. No calf tenderness. No mottling or clubbing. NEUROLOGICAL: Awake and alert. Motor and sensory grossly within normal limits. Follows commands. Cognitively sharp. Moves all extremities. PSYCHIATRIC: No obvious anxiety/depression. no apparent hallucinations or other psychotic thought process. . Diagnostic Tests Laboratory Laboratory Tests Test 11/02/17 14:52 11/03/17 06:27 11/04/17 05:23 11/04/17 05:32 Hemoglobin 8.2 GM/DL (13.0-17.0) 9.0 GM/DL (13.0-17.0) 8.6 GM/DL (13.0-17.0) Hematocrit 23.1 % (39.0-51.0) 27.7 % (39.0-51.0) 27.0 % (39.0-51.0) White Blood Count 14.2 TH/MM3 (4.0-11.0) 11.0 TH/MM3 (4.0-11.0) Red Blood Count 3.04 MIL/MM3 (4.50-5.90) 2.98 MIL/MM3 (4.50-5.90) Mean Corpuscular Volume 91.1 FL (80.0-100.0) 90.4 FL (80.0-100.0) Mean Corpuscular Hemoglobin 29.6 PG (27.0-34.0) 29.0 PG (27.0-34.0) Mean Corpuscular Hemoglobin Concent 32.5 % (32.0-36.0) 32.0 % (32.0-36.0) Red Cell Distribution Width 18.2 % (11.6-17.2) 17.8 % (11.6-17.2) Platelet Count 332 TH/MM3 (150-450) 326 TH/MM3 (150-450) Mean Platelet Volume 7.5 FL (7.0-11.0) 7.5 FL (7.0-11.0) Neutrophils (%) (Auto) 87.1 % (16.0-70.0) 81.9 % (16.0-70.0) Lymphocytes (%) (Auto) 5.0 % (9.0-44.0) 7.2 % (9.0-44.0) Monocytes (%) (Auto) 7.5 % (0.0-8.0) 10.4 % (0.0-8.0) Eosinophils (%) (Auto) 0.1 % (0.0-4.0) 0.3 % (0.0-4.0) Basophils (%) (Auto) 0.3 % (0.0-2.0) 0.2 % (0.0-2.0) Neutrophils # (Auto) 12.4 TH/MM3 (1.8-7.7) 9.0 TH/MM3 (1.8-7.7) Lymphocytes # (Auto) 0.7 TH/MM3 (1.0-4.8) 0.8 TH/MM3 (1.0-4.8) Monocytes # (Auto) 1.1 TH/MM3 (0-0.9) 1.2 TH/MM3 (0-0.9) Eosinophils # (Auto) 0.0 TH/MM3 (0-0.4) 0.0 TH/MM3 (0-0.4) Basophils # (Auto) 0.0 TH/MM3 (0-0.2) 0.0 TH/MM3 (0-0.2) CBC Comment DIFF FINAL DIFF FINAL Differential Comment Blood Urea Nitrogen 11 MG/DL (7-18) 11 MG/DL (7-18) Creatinine 1.04 MG/DL (0.60-1.30) 1.15 MG/DL (0.60-1.30) Random Glucose 87 MG/DL (74-106) 156 MG/DL (74-106) Calcium Level 8.7 MG/DL (8.5-10.1) 8.4 MG/DL (8.5-10.1) Sodium Level 140 MEQ/L (136-145) 137 MEQ/L (136-145) Potassium Level 4.1 MEQ/L (3.5-5.1) 4.1 MEQ/L (3.5-5.1) Chloride Level 107 MEQ/L (98-107) 106 MEQ/L (98-107) Carbon Dioxide Level 22.5 MEQ/L (21.0-32.0) 25.6 MEQ/L (21.0-32.0) Anion Gap 11 MEQ/L (5-15) 5 MEQ/L (5-15) Estimat Glomerular Filtration Rate 85 ML/MIN (>89) 76 ML/MIN (>89) Total Protein 6.7 GM/DL (6.4-8.2) Albumin 3.0 GM/DL (3.4-5.0) Phosphorus Level 2.8 MG/DL (2.5-4.9) Magnesium Level 2.3 MG/DL (1.5-2.5) Alkaline Phosphatase 74 U/L (45-117) Aspartate Amino Transf (AST/SGOT) 29 U/L (15-37) Alanine Aminotransferase (ALT/SGPT) 12 U/L (12-78) Total Bilirubin 0.8 MG/DL (0.2-1.0) Hemoglobin A1c 4.3 % (4.3-6.0) Free Thyroxine 1.20 NG/DL (0.76-1.46) Thyroid Stimulating Hormone 3rd Gen 2.670 uIU/ML (0.358-3.740) Tumor Marker Alpha Fetoprotein 1.3 NG/ML (0.5-8.0) Carcinoembryonic Antigen 0.8 NG/ML (0.2-5.0) CA 19-9 Antigen 13.5 U/ML (0.0-35.0) Result Diagram: 11/04/17 0532 11/04/17 0523 Imaging Last Impressions Chest X-Ray 11/04/17 0000 Signed Impressions: Service Date/Time: Saturday, November 04, 2017 18:05 - CONCLUSION: 1. Slight bibasilar atelectasis and/or infiltrate is seen. 2. The tip of the NG tube needs to be advanced. Dorothy Sanchez MD Abdomen/Pelvis CT 11/03/17 0000 Signed Impressions: Service Date/Time: Friday, November 03, 2017 15:52 - CONCLUSION: Hepatic mass appears larger concerning for malignancy such as hepatocellular carcinoma. Dorothy Sanchez MD Procedures 11/02/2017- EGD w/ biopsy . Patient/Family Conference Family Conference Location: Bedside Issues Discussed: * Palliative care role, purpose, approach * Additional medical, psychosocial, and spiritual history * Patients general health, functional status, and cognitive changes in the months leading up to the current hospitalization * Patient/family understanding of the current medical problems * Patient/family understanding of prognosis * Patients goals of care as best understood from advance directives and/or conversations and/or values * Current medical treatment options and benefits/burdens of those options * Likely scenarios comparing ongoing aggressive care with a transition to comfort measures only * Questions answered to the best of my ability * Palliative care contact information provided Assessment and Plan Disease Oriented Problem List: (1) GI bleeding (2) Symptomatic anemia (3) History of liver cancer (4) Hepatitis C Symptom Scale: (1) Dysphagia 0-10 Scale: Unable to quantify Comment: Upper GI series revealed an antral mass. . (2) Nausea & vomiting 0-10 Scale: Unable to quantify Comment: Multifactorial. History of liver cancer. Upper GI series revealed an antral mass . (3) Pain 0-10 Scale: Unable to quantify Comment: -Mainly from abdominal/epigastric discomfort. . Pertinent Non-Medical Issues Psychosocial:Patient was born and raised in [place]. He moved to [place] in 1991. Patient worked in construction and mostly as a galan. Patient has also lived and worked in [place] for about 5 years. He retired in 2009. Patient has been to his spouse since 2001 but have been together for about 46 years. They have and adult daughter together. Spiritual:Patient is Sabianism Legal:Patient signed HCS form today Ethical issues impacting care:None identified at this time. . Important Contacts Spouse- Clotilde Doe [phone] Daughter- Ted Longoria- [phone] . Prognosis Mr. Doe is a 72 years old male with a past medical history of hypertension, anemia, atrial fibrillation, liver cancer s/p liver resection, hepatitis C s/p Harvoni course, and large duodenal ulcer with history of GI bleed. Patient presented to the ER on 11/01/17 complaining of generalized weakness, dizziness, having black stools and coffee ground emesis for approximately a week. Clinical course complicated with dysphagia and worsening liver mets and disease. Given ongoing comorbidities, patient remains at high risk for further complications with disease progression, deterioration and decline. . Code Status: Full Code Plan PLAN: Legal decision maker: Patient is able to make his own medical decisions. In the case that patient is incapacitated his spouse Clotilde Doe will act as his health care surrogate and his daughter Ted Longoria as his alternate Health care surrogate. Goals: Aggressive. Patient wants to know his treatment options and would like to give himself a chance CODE STATUS: Full Code Patient appears to have a good understanding of his medical condition. Appears to have her ability to only burdens and benefits of treatment at this time. Discussed CODE STATUS, patient states that at this time he wants to give himself a chance, and see how he would do with available treatment options. Patient went ahead to enquire if the question regarding code status would be addressed in the future. Explained to patient that he has a choice to change his code status anytime during this hospital stay or in the future. Patient has an understanding that his condition may change in the future. Family supportive of patient`s decisions.Patient has never completed advance directives. Patient designated his Clotilde Doe as his health care surrogate and his daughter Ted Longoria as his alternate Health care surrogate. Assisted patient with completing and signing HCS form. SYMPTOMS: * Dysphagia: Patient was found to have a large obstructing/ ulcer at the pylorus making it impossible to pass into the duodenum during EGD. Currently has an NGT and failed swallow evaluation. Currently NPO. Upper GI series revealed an antral mass. General surgeon consulted. No recommendations. * Pain: Multifactorial. Hx of liver cancer and now and an antral mass causing significant gastric outlet obstruction. Patient has Oxycodone 10mg q 4 hrs PRN.Patient has required x6 doses for the last 24 hrs. * Nausea/Vomiting: Multifactorial. History of liver cancer. Upper GI series revealed an antral mass. Patient c/o of epigastric discomfort and nausea. Has an emesis basin and spitting frothy white spit. Patient has Zofran 4mg q 6 hrs and Metoclopramide 5mg q 6 hrs. Patient also has Morphine Sulfate 2 mg q 3 hrs PRN. Palliative Care contact information provided. Palliative care will continue to follow the patient during hospital course as condition evolves, to assist patient/decision-maker with understanding of their medical conditions, weighing benefits/burdens of treatment options, for clarification of goals of treatment. Additionally will assist with any symptoms of palliative concern. . Thank you for the opportunity to participate in the care of Mr. Doe. Attestation To help prompt me to consider important information that might be impacting today's encounter and assessment, information from prior notes written by myself or my colleagues may have been "brought forward" into today's note. My signature on this note, however, is an attestation that I personally performed the exam, history, and/or decision-making noted today, and, unless otherwise indicated, the interactions with patient, family, and staff as well as the review of records all occurred today. I also attest that the listed assessment and stated plan reflect my best clinical judgment today based on the combination of historical information, prior notes, and today's exam/ interactions. When time spent is documented, it refers only to time spent today by the signer, or if indicated, combined time spent today by collaborating physician/nurse practitioner. Geoff Arita Nov 05, 2017 10:41
[2017-11-05] MEDS ORDERED: DIATRIZOATE MEGLUM/DIATRIZOATE SOD 120 ML BTL (for RAD DIAG) NG ONE (11:23)
--- NOTE | 2017-11-05 12:08 | HHI.GIFU ---
Subjective Remarks Pt just back from UGI series. c/o mild nausea, no vomiting. No abd pain. (Zakia Arreola) Objective Vitals I&O Vital Signs Date Time Temp Pulse Resp B/P (MAP) Pulse Ox O2 Delivery O2 Flow Rate FiO2 11/05/17 08:30 98.8 93 20 105/58 (74) 93 11/05/17 08:00 98.8 93 19 105/58 (74) 91 11/05/17 04:05 99.2 82 18 107/58 (74) 96 11/05/17 00:00 98.9 80 18 108/62 (77) 97 11/04/17 20:00 101.5 90 18 103/62 (76) 99 11/04/17 16:00 98.3 86 18 119/69 (86) 94 I/O 11/04/17 11/04/17 11/04/17 11/05/17 11/05/17 11/05/17 07:00 15:00 23:00 07:00 15:00 23:00 Intake Total 1100 ml 1550 ml 1090 ml 0 ml Output Total 850 ml 350 ml 1200 ml 200 ml Balance 250 ml 1200 ml -110 ml -200 ml Intake Oral 0 ml IV Total 1100 ml 1550 ml 1090 ml Output Urine Total 700 ml 600 ml 200 ml Gastric Drainage Total 150 ml 350 ml 600 ml # Bowel Movements 0 0 Laboratory Laboratory Tests Test 11/01/17 22:50 11/04/17 05:23 11/04/17 05:32 Prothrombin Time 10.4 SEC Prothromb Time International Ratio 1.0 RATIO Activated Partial Thromboplast Time 24.7 SEC Troponin I LESS THAN 0.02 NG/ML Blood Urea Nitrogen 11 MG/DL Creatinine 1.15 MG/DL Random Glucose 156 MG/DL Total Protein 6.7 GM/DL Albumin 3.0 GM/DL Calcium Level 8.4 MG/DL Phosphorus Level 2.8 MG/DL Magnesium Level 2.3 MG/DL Alkaline Phosphatase 74 U/L Aspartate Amino Transf (AST/SGOT) 29 U/L Alanine Aminotransferase (ALT/SGPT) 12 U/L Total Bilirubin 0.8 MG/DL Sodium Level 137 MEQ/L Potassium Level 4.1 MEQ/L Chloride Level 106 MEQ/L Carbon Dioxide Level 25.6 MEQ/L Anion Gap 5 MEQ/L Estimat Glomerular Filtration Rate 76 ML/MIN Hemoglobin A1c 4.3 % Free Thyroxine 1.20 NG/DL Thyroid Stimulating Hormone 3rd Gen 2.670 uIU/ML White Blood Count 11.0 TH/MM3 Red Blood Count 2.98 MIL/MM3 Hemoglobin 8.6 GM/DL Hematocrit 27.0 % Mean Corpuscular Volume 90.4 FL Mean Corpuscular Hemoglobin 29.0 PG Mean Corpuscular Hemoglobin Concent 32.0 % Red Cell Distribution Width 17.8 % Platelet Count 326 TH/MM3 Mean Platelet Volume 7.5 FL Neutrophils (%) (Auto) 81.9 % Lymphocytes (%) (Auto) 7.2 % Monocytes (%) (Auto) 10.4 % Eosinophils (%) (Auto) 0.3 % Basophils (%) (Auto) 0.2 % Neutrophils # (Auto) 9.0 TH/MM3 Lymphocytes # (Auto) 0.8 TH/MM3 Monocytes # (Auto) 1.2 TH/MM3 Eosinophils # (Auto) 0.0 TH/MM3 Basophils # (Auto) 0.0 TH/MM3 CBC Comment DIFF FINAL Differential Comment Tumor Marker Alpha Fetoprotein 1.3 NG/ML Carcinoembryonic Antigen 0.8 NG/ML CA 19-9 Antigen 13.5 U/ML Imaging Last Impressions Chest X-Ray 11/04/17 0000 Signed Impressions: Service Date/Time: Saturday, November 04, 2017 18:05 - CONCLUSION: 1. Slight bibasilar atelectasis and/or infiltrate is seen. 2. The tip of the NG tube needs to be advanced. Dorothy Sanchez MD Abdomen/Pelvis CT 11/03/17 0000 Signed Impressions: Service Date/Time: Friday, November 03, 2017 15:52 - CONCLUSION: Hepatic mass appears larger concerning for malignancy such as hepatocellular carcinoma. Dorothy Sanchez MD Physical Exam HEENT: normocephalic; atraumatic; no jaundice. CHEST: Chest is clear to auscultation and percussion. CARDIAC: RRR ABDOMEN: Soft, mildly distended, nontender; no hepatosplenomegaly; bowel sounds soft EXTREMITIES: No clubbing, cyanosis, or edema. SKIN: Normal; no rash; no jaundice. EXAMINATION SCORER: lethargic (Zakia Arreola) Assessment and Plan Plan ASSESSMENT - anemia, melanotic stool - hgb 7.3 on admission, this is drop from his baseline. 2 wks black tarry stool. hx duodenal ulcer No more black stools, hgb today is 8.6 which is stable, yellow gastric out put noted in the canister. Tumor markers including CEA, AFP, CA 19-9 negative EGD on 11/02/17---> The esophagus appeared normal, Circumferential mass was found at the pylorus; Large obstructing /ulcer at the pylorus. Unable to pass into the duodenum. Biopsies obtained. Retained food and fluid in the stomach. 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 on TPN. NGTto LIWS. path EGD/ gastric mass pending. GS consult pending. d/w palliative care, likely goals will remain aggressive. UGI 11/05 noted, mass involving antrum, associating with liver, extending into duodenum causing significant gastric outlet syndrome d/w GS PLAN - await GS eval - await CT - NPO per ST, failed eval - NGT to LIWS - EGD in one week - Await bx - Monitor hh - monitor labs - transfuse as needed - further recs to follow this pt seen by myself and DR Barclay and this note is written on her behalf (Zakia Arreola) Physician Comments seen, examined agree with above await input from surgical oncology (Emilia Barclay MD) Zakia Arreola Nov 05, 2017 12:08 Emilia Barclay MD Nov 05, 2017 15:07
--- NOTE | 2017-11-05 12:14 | HHI.PR ---
Subjective Remarks in no acute distress. but is ill-looking. NG tube in place. complaining of some headache. d/w the daughter at the bedside. Objective Vitals Vital Signs Date Time Temp Pulse Resp B/P (MAP) Pulse Ox O2 Delivery O2 Flow Rate FiO2 11/05/17 08:30 98.8 93 20 105/58 (74) 93 11/05/17 08:00 98.8 93 19 105/58 (74) 91 11/05/17 04:05 99.2 82 18 107/58 (74) 96 11/05/17 00:00 98.9 80 18 108/62 (77) 97 11/04/17 20:00 101.5 90 18 103/62 (76) 99 11/04/17 16:00 98.3 86 18 119/69 (86) 94 I/O 11/04/17 11/04/17 11/04/17 11/05/17 11/05/17 11/05/17 07:00 15:00 23:00 07:00 15:00 23:00 Intake Total 1100 ml 1550 ml 1090 ml 0 ml Output Total 850 ml 350 ml 1200 ml 200 ml Balance 250 ml 1200 ml -110 ml -200 ml Intake Oral 0 ml IV Total 1100 ml 1550 ml 1090 ml Output Urine Total 700 ml 600 ml 200 ml Gastric Drainage Total 150 ml 350 ml 600 ml # Bowel Movements 0 0 Result Diagram: 11/04/17 0532 11/04/17 0523 Imaging Last Impressions Chest X-Ray 11/04/17 0000 Signed Impressions: Service Date/Time: Saturday, November 04, 2017 18:05 - CONCLUSION: 1. Slight bibasilar atelectasis and/or infiltrate is seen. 2. The tip of the NG tube needs to be advanced. Dorothy Sanchez MD Abdomen/Pelvis CT 11/03/17 0000 Signed Impressions: Service Date/Time: Friday, November 03, 2017 15:52 - CONCLUSION: Hepatic mass appears larger concerning for malignancy such as hepatocellular carcinoma. Dorothy Sanchez MD Objective Remarks GENERAL: ill-looking but in no acute distress. CARDIOVASCULAR: Regular rate and regular rhythm without murmurs, gallops, or rubs. RESPIRATORY: Clear to auscultation. Breath sounds equal bilaterally. No wheezes , rales, or rhonchi. GASTROINTESTINAL: Abdomen soft, non-tender, nondistended. Normal, active bowel sounds MUSCULOSKELETAL: Extremities without clubbing, cyanosis, or edema. NEURO: Alert & Oriented x4 to person, place, time, situation. Moves all ext x4 Procedures EGD PROCEDURE REPORT EXAM DATE: 11/02/2017 PATIENT NAME: Anil Doe MR #: [id number] BIRTHDATE: 1945 ATTENDING: Marianela Quiroz MD ORDER #: [id number] SAMPLE CARRIER: Fadumo Quarles and Mandi Dhaliwal STATUS: inpatient INDICATIONS: The patient is a 72 yr old male here for an EGD due to acute post hemorrhagic anemia and hematemesis PROCEDURE PERFORMED: EGD w/ biopsy MEDICATIONS: None and Per Anesthesia. TOPICAL ANESTHETIC: CONSENT: The patient understands the risks and benefits of the procedure and understands that these risks include, but are not limited to: sedation, allergic reaction, infection, perforation and/or bleeding. Alternative means of evaluation and treatment include, among others: physical exam, x-rays, and/or surgical intervention. The patient elects to proceed with this endoscopic procedure. medical equipment was checked for proper function. Hand hygiene and appropriate measures for infection prevention was taken. After the risks, benefits and alternatives of the procedure were thoroughly explained, Informed consent was verified, confirmed and timeout was successfully executed by the treatment team. The patient was anesthetized with topical anesthesia and the Pentax [id number] endoscope was introduced through the mouth and advanced to the pylorus. Retroflexion was not performed The gastroscope was then slowly withdrawn and removed. ESOPHAGUS: The mucosa of the esophagus appeared normal. STOMACH: A circumferential fungating mass with friable surfaces was found at the pylorus. Large obstructing /ulcer at the pylorus. Unable to pass into the duodenum. Biopsies obtained. Retained food and fluid in the stomach. NG placed. ADVERSE EVENTS: There were no complications. IMPRESSIONS: 1. The esophagus appeared normal 2. Circumferential mass was found at the pylorus; Large obstructing /ulcer at the pylorus. Unable to pass into the duodenum. Biopsies obtained. Retained food and fluid in the stomach. NG placed 3. Retroflexion was not performed RECOMMENDATIONS: 1. Await biopsy results. Biopsy results will not be ready for 7-10 days. If you don't hear from us in two weeks, call our office for biopsy results. 2. Xray: CT ABD W/CONTRAST 3. NG to L.I.S. NPO PATIENT CONDITION: stable DISPOSITION: Inpatient REPEAT EXAM: Return 1 week EGD pending biopsy results Medications and IVs Inpatient Medications Acetaminophen (Tylenol) 650 mg Q4H PRN PO TEMP > 100.4 Last administered on 11/04at 19:56; Start 11/03/17 at 11:15 Bisacodyl (Dulcolax Supp) 10 mg DAILY PRN RECTAL SEVERE CONSITIPATION; Start at 11:15 Diatrizoate Meglum/ Diatrizoate Sod ( Gastroview Liq) 18 ml ONCE ONCE PO Last administered on 11/03/17at 12:40; Start 11/03/17 at 12:00; Stop 11/03/17 at 12: 01; Status DC Digoxin (Lanoxin) 0.125 mg DAILY PO Last administered on 11/05/17at 09:38; Start 11/02/17 at 09:00 Diltiazem HCl (Cardizem) 120 mg QID PO Last administered on 11/05/17at 09:39; Start 11/02/17 at 09:00 Heparin Sodium (Porcine) (Heparin Central Flush) See Protocol UNSCH PRN IV FLUSH SEE PROTOCOL TABLE; Start 11/04/17 at 17:30 Lactulose (Lactulose Liq) 30 ml DAILY PRN PO SEVERE CONSITIPATION; Start at 11:15 Lorazepam (Ativan Inj) 1 mg Q6H PRN IV PUSH ANXIETY Last administered on at 10:58; Start 11/03/17 at 09:45 Magnesium Hydroxide (Milk Of Magnesia Liq) 30 ml Q12H PRN PO Mild constipation ; Start 11/03/17 at 11:15 Metoclopramide HCl (Reglan Inj) 5 mg Q6H PRN IV PUSH NAUSEA OR VOMITING; Start 11/03/17 at 11:15 Miscellaneous Information ALL NURSING DEPARTME... UNSCH PRN .XX SEE LABEL COMMENTS; Start 11/02/17 at 13:30; Stop 11/03/17 at 13:29; Status DC Morphine Sulfate (Morphine Inj) 4 mg Q3H PRN IV PUSH BREAKTHROUGH PAIN; Start 11/03/17 at 12:15 Naloxone HCl (Narcan Inj) 0.4 mg UNSCH PRN IV PUSH SEE LABEL COMMENTS; Start at 11:15 Ondansetron HCl (Zofran Inj) 4 mg Q6H PRN IVP NAUSEA OR VOMITING Last administered on 11/04/17 17:56; Start 11/03/17 at 11:15 Oxycodone HCl (Roxicodone) 5 mg Q4H PRN PO PAIN SCALE 3 TO 5; Start 11/03/17 at 11:15 Pantoprazole Sodium 80 mg/ Sodium Chloride 100 ml @ 10 mls/hr Q10H IV Last administered on 11/05/17at 01:02; Start 11/03/17 at 10:30 Phenol (Chloraseptic [place]) 2 spray Q2H PRN MT SORE THROAT Last administered on 11/02/17at 17:19; Start 11/02/17 at 16:45 Potassium Chloride/Dextrose/ Sod Cl 1,000 ml @ 100 mls/hr Q10H IV Last administered on 11/04/17 15:06; Start 11/03/17 at 10:41 Senna/Docusate Sodium (Germania-Colace) 1 tab BID PO Last administered on 11/05/17at 09:38; Start 11/03/17 at 21:00 Sennosides (Senokot) 17.2 mg Q12H PRN PO Moderate constipation; Start 11/03/17 at 11:15 Sodium Chloride (NS Flush) UNSCH PRN IV FLUSH SEE PROTOCOL TABLE; Start at 17:30 Sodium Chloride 11 meq/Sodium Acetate 59 meq/ Potassium Chloride 40 meq/ Sodium Phosphate 40 meq/Magnesium Chloride 10 meq/ Calcium Chloride 9 meq/ Multivitamins 10 ml/Folic Acid 1 mg/Amino Acids/ Dextrose 2,084.1437 ml @ 83 mls /hr Q24H IV-CENTRAL Last administered on 11/04/17at 19:57; Start 11/04/17 at 20:00 Zolpidem Tartrate (Ambien) 5 mg HS PRN PO INSOMNIA; Start 11/03/17 at 21:00 A/P Assessment and Plan 1. GI bleed with acute anemia H&H 7.3/22.7 Patient with history of large bleeding duodenal ulcer s/p PRBC transfusion. Protonix drip Gastroenterology consulted, appreciate assistance and continue nothing by mouth for scheduled Had EGD 2-2 IMPRESSIONS: 1. The esophagus appeared normal 2. Circumferential mass was found at the pylorus; Large obstructing /ulcer at the pylorus. Unable to pass into the duodenum. Biopsies obtained. Retained food and fluid in the stomach. NG placed 3. Retroflexion was not performed PYLORIC ULCER/MASS HAS NGT IN PLACE 2. Liver masses concerning for HCC-- LIVER CANCER- HX OF LIVER RESECTIONS Patient seen by oncology during his most recent hospitalization on 09/06/17 will reconsult oncology for further recommendations. surgery consulted. NG tube in place- on TPN. 3. Previous history of Atrial fibrillation - currently normal sinus rhythm Continue home digoxin and diltiazem 4. DVT prophylaxis - anticoagulation contraindicated secondary to GI bleed. SCDs Deandre Culver MD Nov 05, 2017 12:14
--- NOTE | 2017-11-05 12:17 | RADRPT ---
EXAM DATE/TIME: 11/05/2017 10:47 [facility] COMPARISON: CT ABDOMEN W/O CONTRAST, November 05, 2017, 11:24. INDICATIONS : Neoplasm FLUORO TIME: 3.3 minutes IMAGE COUNT: CONTRAST: 1. MD Bernstein MEDICAL HISTORY : Cirrhosis. Hepatitis C. Cardiovascular disease. liver cancer SURGICAL HISTORY : Appendectomy. Cholecystectomy. ENCOUNTER: Initial ACUITY: 4 - 6 days PAIN SCORE: 0/10 LOCATION: Bilateral abdomen FINDINGS: There is a large filling defect probably mass mass involving the antrum, superior margin in intimate association with the liver extending into the first portion of the duodenum causing significant gastr ic outlet obstruction. CONCLUSION: Antral mass as described above. CT is pending. Som Diez MD FACR on November 05, 2017 at 12:12 Board Certified Radiologist. This report was verified electronically.
--- NOTE | 2017-11-05 12:20 | RADRPT ---
EXAM DATE/TIME: 11/05/2017 11:24 [facility] COMPARISON: MRI ABDOMEN W & W/O CONTRAST, September 02, 2017, 7:33. INDICATIONS : Abdominal pain, duodenal mass post upper GI ORAL CONTRAST: No oral contrast ingested. RADIATION DOSE: 9.87 CTDIvol (mGy) MEDICAL HISTORY : Cardiovascular disease. Hypertension. Liver cancer SURGICAL HISTORY : Appendectomy. Cholecystectomy. ENCOUNTER: Initial ACUITY: 1 day PAIN SCALE: 5/10 LOCATION: mid abdomen TECHNIQUE: Volumetric scanning of the abdomen was performed. Using automated exposure control and adjustment of the mA and/or kV according to patient size, radiation dose was kept as low as reasonably achievable to obtain optimal diagnostic quality images. DICOM format image data is available electronically for review and comparison. FINDINGS: Minimal bibasilar parenchymal changes are evident. CT scan confirms the mass in the antrum in intimate association with the liver margin at site of surg ical clips. This mass is indistinguishable from the edge of the liver. Masses causing significant outlet obstruction. The liver is grossly free of focal defects Common duct is obscured by this mass as it extends into the jed hepatis Review of bone windows reveals only degenerative changes. CONCLUSION: Antral mass as described above probably arising from the surgical margin in the liver. Som Diez MD FACR on November 05, 2017 at 12:15 Board Certified Radiologist. This report was verified electronically.
--- NOTE | 2017-11-05 12:46 | PD.CONS ---
HPI Service General Surgery Consult Requested By Dr. Jesus Reason for Consult gastric outlet obstruction, recurrent liver cancer Primary Care Physician Srinivasan Barakat M.D. History of Present Illness 72 yo M s/p liver resection for hepatocellular carcinoma with two weeks of difficulty tolerating oral intake. He underwent liver resection in 2014 in [facility] for HCC. According to family, he has a known recurrence and followed up with his surgeon Dr. Catalan, and was referred to radiation oncology who is planning RFA or some other less invasive procedure. Since admission here he has been noted to have a gastric outlet obstruction. NG tube has been in place. He underwent EGD which showed a large antral mass and biopsies were performed. The biopsy results have not come back. He has undergone upper GI and CT scan this morning showing high-grade gastric outlet obstruction and a mass probably arising from the resection margin of the liver affecting the antrum. His and daughter are with him in the room. His daughter is a rn case management here at [place] and is very involved in his care. The patient does not complain of pain at this time. Past Family Social History Past Medical History Hypertension A. fib Hepatocellular carcinoma s/p resection with recurrence Hep C Cirrhosis Past Surgical History Liver resection in 2014 due to HCC- [facility] Dr. Catalan Appendectomy Cholecystectomy Eye surgery Left rotator cuff surgery Reported Medications Reported Meds & Active Scripts Active Zofran Odt (Ondansetron Odt) 4 Mg Tab 4 Mg SL Q6HR PRN Protonix (Pantoprazole Sodium) 40 Mg Tab 40 Mg PO DAILY Reported Diltiazem (Diltiazem HCl) 120 Mg Tab 120 Mg PO QID Digoxin 0.125 Mg Tab 0.125 Mg PO DAILY Tylenol (Acetaminophen) 325 Mg Tab 500 Mg PO ONCE Ferrous Sulfate 325 Mg (65 Mg Iron) Tablet 325 Mg PO TIDPC Allergies: Coded Allergies: No Known Allergies (Unverified , 07/25/12) Active Ordered Medications Current Medications Medications (Trade) Dose Ordered Sig/Víctor Route Start Time Stop Time Status Last Admin (NS Flush) 2 ml UNSCH PRN IV FLUSH 11/02/17 00:45 (NS Flush) 2 ml BID IV FLUSH 11/02/17 09:00 11/05/17 09:00 (Lanoxin) 0.125 mg DAILY PO 11/02/17 09:00 11/05/17 09:38 (Cardizem) 120 mg QID PO 11/02/17 09:00 11/05/17 09:39 (Chloraseptic [place]) 2 spray Q2H PRN MT 11/02/17 16:45 11/02/17 17:19 Potassium Chloride/Dextrose/ Sod Cl 1,000 ml @ 100 mls/hr Q10H IV 11/03/17 10:41 11/04/17 15:06 (Ativan Inj) 1 mg Q6H PRN IV PUSH 11/03/17 09:45 11/03/17 10:58 (Ambien) 5 mg HS PRN PO 11/03/17 21:00 Pantoprazole Sodium 80 mg/ Sodium Chloride 100 ml @ 10 mls/hr Q10H IV 11/03/17 10:30 11/05/17 01:02 (Tylenol) 650 mg Q4H PRN PO 11/03/17 11:15 11/04/17 19:56 (Zofran Inj) 4 mg Q6H PRN IVP 11/03/17 11:15 11/04/17 17:56 (Reglan Inj) 5 mg Q6H PRN IV PUSH 11/03/17 11:15 (Roxicodone) 10 mg Q4H PRN PO 11/03/17 12:15 11/05/17 09:39 (Morphine Inj) 2 mg Q3H PRN IV PUSH 11/03/17 11:15 (Morphine Inj) 4 mg Q3H PRN IV PUSH 11/03/17 12:15 (Morphine Inj) 4 mg Q3H PRN IV PUSH 11/03/17 12:15 (Roxicodone) 5 mg Q4H PRN PO 11/03/17 11:15 (Narcan Inj) 0.4 mg UNSCH PRN IV PUSH 11/03/17 11:15 (Germania-Colace) 1 tab BID PO 11/03/17 21:00 11/05/17 09:38 (Milk Of Magnesia Liq) 30 ml Q12H PRN PO 11/03/17 11:15 (Senokot) 17.2 mg Q12H PRN PO 11/03/17 11:15 (Dulcolax Supp) 10 mg DAILY PRN RECTAL 11/03/17 11:15 (Lactulose Liq) 30 ml DAILY PRN PO 11/03/17 11:15 Sodium Chloride 11 meq/Sodium Acetate 59 meq/ Potassium Chloride 40 meq/ Sodium Phosphate 40 meq/Magnesium Chloride 10 meq/ Calcium Chloride 9 meq/ Multivitamins 10 ml/Folic Acid 1 mg/Amino Acids/ Dextrose 2,084.1437 ml @ 83 mls/hr Q24H IV-CENTRAL 11/04/17 20:00 11/04/17 19:57 (NS Flush) See Protocol DAILY IV FLUSH 11/05/17 09:00 11/05/17 09:00 (NS Flush) See Protocol UNSCH PRN IV FLUSH 11/04/17 17:30 (Heparin Central Flush) See Protocol DAILY IV FLUSH 11/05/17 09:00 11/05/17 09:00 (Heparin Central Flush) See Protocol UNSCH PRN IV FLUSH 11/04/17 17:30 (NS Flush) UNSCH PRN IV FLUSH 11/04/17 17:30 Family History Noncontributory Social History Tobacco: Half a pack for the past 2 years Alcohol use: None since 2014 Illicit drug use: Denies His daughter is a rn case management here very involved in his care. Physical Exam Vital Signs Vital Signs Date Time Temp Pulse Resp B/P (MAP) Pulse Ox O2 Delivery O2 Flow Rate FiO2 11/05/17 08:30 98.8 93 20 105/58 (74) 93 11/05/17 08:00 98.8 93 19 105/58 (74) 91 11/05/17 04:05 99.2 82 18 107/58 (74) 96 11/05/17 00:00 98.9 80 18 108/62 (77) 97 11/04/17 20:00 101.5 90 18 103/62 (76) 99 11/04/17 16:00 98.3 86 18 119/69 (86) 94 Physical Exam GENERAL: Awake and alert. No acute distress. Cooperative. ENT: Moist oral mucosa. NG in place CHEST: Nonlabored breathing. No respiratory distress. CARDIOVASCULAR: Warm well perfused ABDOMEN: Right subcostal scar. Nontender and soft. EXTREMITIES: No cyanosis or edema. SKIN: Warm, dry, nonjaundiced. Result Diagram: 11/04/17 0532 11/04/17 0523 Imaging Last Impressions Upper GI Series 11/05/17 Signed Impressions: Service Date/Time: Sunday, November 05, 2017 10:47 - CONCLUSION: Antral mass as described above. CT is pending. Som Diez MD FACR Abdomen CT 11/05/17 0000 Signed Impressions: Service Date/Time: Sunday, November 05, 2017 11:24 - CONCLUSION: Antral mass as described above probably arising from the surgical margin in the liver. Som Diez MD FACR Chest X-Ray 11/04/17 0000 Signed Impressions: Service Date/Time: Saturday, November 04, 2017 18:05 - CONCLUSION: 1. Slight bibasilar atelectasis and/or infiltrate is seen. 2. The tip of the NG tube needs to be advanced. Dorothy Sanchez MD Abdomen/Pelvis CT 11/03/17 0000 Signed Impressions: Service Date/Time: Friday, November 03, 2017 15:52 - CONCLUSION: Hepatic mass appears larger concerning for malignancy such as hepatocellular carcinoma. Dorothy Sanchez MD Assessment and Plan Assessment and Plan 72 yo M with recurrent HCC with gastric outlet obstruction. UGI shows antral mass with significant gastric outlet obstruction. CT shows antral mass near margin of resection of the liver. Pathology from EGD biopsy pending. I have asked Dr. Winslow surgical oncology to evaluate and treat. I informed the family he will be seeing them. Care may need to be coordinated with his physicians in [place]. He may require gastrojejunostomy bypass if desired. Lester Garcia MD Nov 05, 2017 12:46
--- NOTE | 2017-11-05 16:03 | PD.CONS ---
cc: Mckay Winslow MD [facility] Service Surgical Oncology Consult Requested By Dr. Garcia Reason for Consult Surgical Oncology consultation for recurrent hepatocellular cellular carcinoma Primary Care Physician Srinivasan Barakat M.D. History of Present Illness This is a 72-year-old male with a past medical history of hypertension, atrial fibrillation, hepatocellular carcinoma as post resection and hepatitis C status post Harvoni treatment. The patient has a known recurrence of hepatocellular carcinoma and has been following with his surgeon in [place], Dr. Dr Aguero. He was scheduled to have an outpatient radiation procedure once insurance approval had been completed. This was scheduled to be done in the upcoming weeks. The patient comes to the Emergency Department for this admission with an inability to tolerate by mouth intake. He reports nausea and vomiting. An NG tube was placed on admission. He did have an EGD which showed a large antral mass. Biopsies were obtained and are still pending at this point. The patient has had an upper GI which visualizes the antral mass as well as a CT that again visualizes the antral mass. His is at his bedside. His daughter, Swati , is a Concessionist in the hospital. He does not have pain at this time but is aggravated by the NGT. A Surgical Oncology consultation has been requested. Review of Systems Constitutional: COMPLAINS OF: Weight loss (15 lbs in 1-2 weeks ) Endocrine: DENIES: Polydipsia, Polyuria, Polyphagia Eyes: DENIES: Diplopia Ears, nose, mouth, throat: DENIES: Hearing loss Cardiovascular: DENIES: Palpitations, Syncope Gastrointestinal: COMPLAINS OF: Nausea, Vomiting, DENIES: Abdominal pain Genitourinary: DENIES: Urgency Musculoskeletal: DENIES: Muscle aches Integumentary: DENIES: Abnormal pigmentation Hematologic/lymphatic: DENIES: Bruising Immunologic/allergic: DENIES: Eczema Neurologic: DENIES: Abnormal gait, Headache Psychiatric: DENIES: Confusion, Mood changes, Depression Past Family Social History Past Medical History Hypertension A. fib Hepatocellular carcinoma s/p resection with recurrence Hepatitis C s/p Harvoni treatment Past Surgical History Liver resection in 2014 due to HCC- FH Darren Stahl Cholecystectomy (at time of liver resection) Open Appendectomy at age 13 Eye surgery Left rotator cuff surgery Reported Medications Ferrous Sulfate Digoxin Diltiazem Tylenol Zofran Protonix Allergies: Coded Allergies: No Known Allergies (Unverified , 07/25/12) Active Ordered Medications Current Medications Medications (Trade) Dose Ordered Sig/Víctor Route Start Time Stop Time Status Last Admin (NS Flush) 2 ml UNSCH PRN IV FLUSH 11/02/17 00:45 (NS Flush) 2 ml BID IV FLUSH 11/02/17 09:00 11/05/17 09:00 (Lanoxin) 0.125 mg DAILY PO 11/02/17 09:00 11/05/17 09:38 (Cardizem) 120 mg QID PO 11/02/17 09:00 11/05/17 12:41 (Chloraseptic [place]) 2 spray Q2H PRN MT 11/02/17 16:45 11/02/17 17:19 Potassium Chloride/Dextrose/ Sod Cl 1,000 ml @ 100 mls/hr Q10H IV 11/03/17 10:41 11/05/17 12:48 (Ativan Inj) 1 mg Q6H PRN IV PUSH 11/03/17 09:45 11/03/17 10:58 (Ambien) 5 mg HS PRN PO 11/03/17 21:00 Pantoprazole Sodium 80 mg/ Sodium Chloride 100 ml @ 10 mls/hr Q10H IV 11/03/17 10:30 11/05/17 12:48 (Tylenol) 650 mg Q4H PRN PO 11/03/17 11:15 11/04/17 19:56 (Zofran Inj) 4 mg Q6H PRN IVP 11/03/17 11:15 11/04/17 17:56 (Reglan Inj) 5 mg Q6H PRN IV PUSH 11/03/17 11:15 (Roxicodone) 10 mg Q4H PRN PO 11/03/17 12:15 11/05/17 12:41 (Morphine Inj) 2 mg Q3H PRN IV PUSH 11/03/17 11:15 (Morphine Inj) 4 mg Q3H PRN IV PUSH 11/03/17 12:15 (Morphine Inj) 4 mg Q3H PRN IV PUSH 11/03/17 12:15 (Roxicodone) 5 mg Q4H PRN PO 11/03/17 11:15 (Narcan Inj) 0.4 mg UNSCH PRN IV PUSH 11/03/17 11:15 (Germania-Colace) 1 tab BID PO 11/03/17 21:00 11/05/17 09:38 (Milk Of Magnesia Liq) 30 ml Q12H PRN PO 11/03/17 11:15 (Senokot) 17.2 mg Q12H PRN PO 11/03/17 11:15 (Dulcolax Supp) 10 mg DAILY PRN RECTAL 11/03/17 11:15 (Lactulose Liq) 30 ml DAILY PRN PO 11/03/17 11:15 Sodium Chloride 11 meq/Sodium Acetate 59 meq/ Potassium Chloride 40 meq/ Sodium Phosphate 40 meq/Magnesium Chloride 10 meq/ Calcium Chloride 9 meq/ Multivitamins 10 ml/Folic Acid 1 mg/Amino Acids/ Dextrose 2,084.1437 ml @ 83 mls/hr Q24H IV-CENTRAL 11/04/17 20:00 11/04/17 19:57 (NS Flush) See Protocol DAILY IV FLUSH 11/05/17 09:00 11/05/17 09:00 (NS Flush) See Protocol UNSCH PRN IV FLUSH 11/04/17 17:30 (Heparin Central Flush) See Protocol DAILY IV FLUSH 11/05/17 09:00 11/05/17 09:00 (Heparin Central Flush) See Protocol UNSCH PRN IV FLUSH 11/04/17 17:30 (NS Flush) UNSCH PRN IV FLUSH 11/04/17 17:30 Family History Noncontributory Social History Tobacco: + tobacco use in the past; quit 6 mns ago Alcohol use: None since 2014 Denies illicit drug use Physical Exam Vital Signs Vital Signs Date Time Temp Pulse Resp B/P (MAP) Pulse Ox O2 Delivery O2 Flow Rate FiO2 11/05/17 14:40 18 11/05/17 12:00 99.9 96 19 111/59 (76) 94 11/05/17 08:30 98.8 93 20 105/58 (74) 93 11/05/17 08:00 98.8 93 19 105/58 (74) 91 11/05/17 04:05 99.2 82 18 107/58 (74) 96 11/05/17 00:00 98.9 80 18 108/62 (77) 97 11/04/17 20:00 101.5 90 18 103/62 (76) 99 11/04/17 16:00 98.3 86 18 119/69 (86) 94 Physical Exam GENERAL: 72 year old male sitting in chair in no acute distress. SKIN: Warm and dry. HEAD: Atraumatic. Normocephalic. EYES: Pupils equal and round. No scleral icterus. No injection or drainage. ENT: No nasal bleeding or discharge. Mucous membranes pink and moist. NECK: Trachea midline. CARDIOVASCULAR: Regular rate and rhythm. RESPIRATORY: No accessory muscle use. Clear to auscultation. Breath sounds equal bilaterally. GASTROINTESTINAL: Abdomen soft, nontender; thin; non distended. RUQ well healed incision. RLQ well healed incision. No visible signs of hernias. MUSCULOSKELETAL: Extremities without clubbing, cyanosis, or edema. No obvious deformities. NEUROLOGICAL: Awake and alert. No obvious cranial nerve deficits. Motor grossly within normal limits. Five out of 5 muscle strength in the arms and legs. Normal speech. PSYCHIATRIC: Appropriate mood and affect; insight and judgment normal. Result Diagram: 11/04/17 0532 11/04/17 0523 Imaging Last Impressions Upper GI Series 11/05/17 Signed Impressions: Service Date/Time: Sunday, November 05, 2017 10:47 - CONCLUSION: Antral mass as described above. CT is pending. Som Diez MD FACR Abdomen CT 11/05/17 Signed Impressions: Service Date/Time: Sunday, November 05, 2017 11:24 - CONCLUSION: Antral mass as described above probably arising from the surgical margin in the liver. Som Diez MD FACR Chest X-Ray 11/04/17 0000 Signed Impressions: Service Date/Time: Saturday, November 04, 2017 18:05 - CONCLUSION: 1. Slight bibasilar atelectasis and/or infiltrate is seen. 2. The tip of the NG tube needs to be advanced. Dorothy Sanchez MD Abdomen/Pelvis CT 11/03/17 0000 Signed Impressions: Service Date/Time: Friday, November 03, 2017 15:52 - CONCLUSION: Hepatic mass appears larger concerning for malignancy such as hepatocellular carcinoma. Dorothy Sanchez MD Assessment and Plan Assessment and Plan 72 year old male with known recurrent hepatocellular carcinoma; Gastric outlet obstruction -Agree with NGT to LIWS -NPO -Continue TPN -Await biopsies from EGD -Will discuss surgical options -Thank you for this consult; We will continue to follow Discussed Condition With Dr. Winslow Mr. and Mrs. Brook Longoria (Daughter) Attending Statement The exam, history, and the medical decision-making described in the above note were completed with the assistance of the mid-level provider. I reviewed and agree with the findings presented. I attest that I had a [id number] encounter with the patient on the same day, and personally performed and documented my assessment and findings in the medical record. Patient with GOO, hx of HCC s/p left hepatectomy Abdominal exam: non-tender, distended stomach long d/w patient and family about his diagnosis and the treatment options, likely would benefit from palliative bypass for GOO Leticia Hernandez Nov 05, 2017 16:03 Mckay Winslow MD Nov 16, 2017 07:26
[2017-11-05] MEDS: MORPHINE SULFATE 4 MG/ML INJ IV PUSH PRN (20:07)
[2017-11-05] MEDS: CLINIMIX 5/25 (Custom) 2000 mL- >42 mls/hr IV-CENTRAL SCH ×9 (22:08)
[2017-11-05] MEDS: ONDANSETRON HCL 4 MG/2 ML VIAL IVP PRN (22:30)
[2017-11-06] VITALS (7 sets, daily range): BP systolic 94–116; BP diastolic 54–64; PULSE 84–101; RESP 18–20; TEMP 96.5–100; O2SAT 95–99
[2017-11-06] MEDS: MORPHINE SULFATE 4 MG/ML INJ IV PUSH PRN ×3 (03:25→23:41)
[2017-11-06] MEDS ORDERED: LACTATED RINGER'S 1000 ML IV PRN (03:30)
--- NOTE | 2017-11-06 06:05 | MB ---
cc: MIGUEL JOHNSON M.D. DATE OF CONSULTATION November 05, 2017. ATTENDING PHYSICIAN Dr. Culver REASON FOR CONSULTATION Oncology consult to render opinion regarding patient with possible recurrent hepatocellular carcinoma. HISTORY OF PRESENT ILLNESS The patient is a 72-year-old male admitted in early August 2017 with complaint of weakness. He was found to have significant anemia due to GI bleed. During the hospital stay he was found to have a new right hepatic liver mass which measured about 2.8 cm. He had history of hepatocellular carcinoma that was resected in [place] by Dr. Gonzalez around 2014. During his hospital stay in August he had a colonoscopy and upper endoscopy. He was found to have an ulcer in the duodenum. When he was discharged, he had followup Dr. Gonzalez in [place]. According to his daughter, Swati, the patient was referred to interventional radiology to consider TheraSphere embolization. However, at this point he is awaiting insurance approval. The patient stated, about a week ago he started having dark, tarry stools again. He also HAD nausea and vomiting and vomited coffee-ground material. He has increased weakness and fatigue. He has increased dyspnea on exertion. He has dizziness and decided to come back to the hospital. He was found to be anemic. He had another upper endoscopy which showed a mass in the antrum/pylorus. He also had a large ulcer causing obstruction. The mass was biopsied and pathology is still pending. When I saw the patient, his is at the bedside. His daughter is on the phone. The patient just had pain medication and he is a little drowsy. He denies any chest pain. He says abdominal pain has improved. HE denies any dysuria or hematuria. He has not had a bowel movement in the last two days. PAST MEDICAL HISTORY 1. Hepatitis C. Cirrhosis. History of Harvoni in 2014. 2. Hepatocellular carcinoma resected in 2014. 3. GI bleed. 4. Small bowel obstruction. 5. Chronic atrial fibrillation. 6. Anemia. 7. Hypertension. PAST SURGICAL HISTORY 1. Resection of liver mass of 2014. 2. Appendectomy. 3. Cholecystectomy. 4. Eye surgery. 5. Left rotator cuff surgery. 6. Colonoscopy and upper endoscopy in August 2017. FAMILY HISTORY He has a son and two daughters. No history of cancer in the family. SOCIAL HISTORY More than 20 pack-year smoking history. He has quit alcohol in 2015. ALLERGIES No known drug allergies. CURRENT MEDICATIONS 1. TPN. 2. Germania-Colace. 3. Protonix. 4. Digoxin. 5. Diltiazem. REVIEW OF SYSTEMS Constitutional: As above. Eyes: Negative. ENT: Negative. Cardiovascular: Chest pressure, palpitation. Respiratory: Denies any dyspnea on exertion. Denies significant cough. GI: As above. : No dysuria or hematuria. Musculoskeletal: Negative. Hematology: As above. Endocrine: Negative. Dermatology: Negative. Psychiatric: Negative. Neurologic: Negative. PHYSICAL EXAMINATION Vitals: Temperature 100.3, blood pressure 117/67, O2 saturation 96%. General: He is alert and oriented x3. He looks tired. HEENT: Atraumatic, normocephalic. Pupils equal, round, reactive to light. Oropharynx - dry mucosa. NG tube noted. Neck: No thyromegaly. No palpable masses. Lymphatics: No palpable cervical, clavicular, axillary or inguinal lymph nodes. Cardiovascular: Regular S1 and S2, normal. Lungs: Clear to auscultation bilaterally. Abdomen: Soft, a little tender in the upper abdomen. No rebound, no ridigity. Positive bowel sounds. Extremity Exam: No cyanosis, clubbing or edema. Back: No paravertebral tenderness. Skin: No rash or petechiae. Neurologic: Exam nonfocal. LABORATORY DATA Dated November 04, 2017, was reviewed - Hemoglobin was 8.6. Alpha-fetoprotein of 1.5. CEA is 0.8. CA 19-9 13.5. ASSESSMENT 1. Hepatic mass most consistent with recurrent hepatocellular carcinoma. He has history of hepatitis C cirrhosis. He had a hepatocellular carcinoma resected in [address] Dias in [place]. When he presented to the hospital in August, CT showed a new 2.8 cm in the right hepatic dome. MRI showed a 3.5 cm enhancing mass with adjacent 1.2 cm mass more laterally. He went back to see Dr. Dias and was referred to interventional radiology to consider TheraSphere embolization. At this point he is still awaiting insurance approval to have the procedure done. However, he presented with nausea, vomiting and GI bleed. EGD showed a mass at the pylorus causing obstruction. CT abdomen also confirmed a mass in the antrum and it could possibly be arising from the surgical margin of the liver. The mass was biopsied and the pathology is still pending. I reviewed CT and EGD finding with the patient and family. I told them this possibly could a recurrent hepatocellular carcinoma but can also be a gastric cancer, we will await the pathology from the biopsy. 2. Gastric outlet obstruction due to the mass in the antrum as above. Surgery is following. NG tube was just placed. 3. Symptomatic anemia due to GI bleed. He has a large ulcer in the pylorus which is likely the source of bleed. He is getting transfusion support. 4. History of hepatitis C treated with Harvoni in 2014. 5. Chronic atrial fibrillation. PLAN 1. Discussion with the patient and family as above. 2. Await biopsy results. If this mass in the pylorus turns out to be extension of hepatocellular carcinoma, I think he will not be a candidate for TheraSphere embolization and we will have to consider external beam radiation but we will discuss more once we have the pathology. 3. Continue supportive care. Thank you, Dr. Culver, for asking me to see this patient. MD DANIEL Ceron/SHYAM /5:40 PM /5:37 AM SHILO
[2017-11-06] MEDS: ONDANSETRON HCL 4 MG/2 ML VIAL IVP PRN (06:16)
[2017-11-06] MEDS: D5-1/2 NS + KCL 20 MEQ INJ 1,000 ML IV SCH ×2 (08:41→19:45)
[2017-11-06] MEDS: DIGOXIN 0.125 MG TAB PO SCH (08:56)
[2017-11-06] MEDS: DOCUSATE SODIUM 50 MG/SENNA 8.6 MG TAB PO SCH ×2 (08:56→21:58)
[2017-11-06] MEDS: DILTIAZEM HCL 60 MG TAB PO SCH ×4 (08:56→21:00)
[2017-11-06] MEDS: SODIUM CHLORIDE 0.9% FLUSH 10 ML FLUSH IV FLUSH SCH ×2 (09:00→21:41)
[2017-11-06] MEDS: PANTOPRAZOLE INJ 80 MG in SODIUM CHLORIDE 0.9% INJ 100 ML IV SCH ×2 (09:33→21:41)
--- NOTE | 2017-11-06 09:54 | HHI.PR ---
Subjective Remarks in no acute distress. ill looking. NG tube in place. has mild headache. and nausea. low grade fever earlier. family at the bedside. Objective Vitals Vital Signs Date Time Temp Pulse Resp B/P (MAP) Pulse Ox O2 Delivery O2 Flow Rate FiO2 11/06/17 08:49 99 11/06/17 08:00 99.5 101 19 110/61 (77) 99 11/06/17 06:30 96 11/06/17 04:59 100.0 98 20 113/61 (78) 98 11/06/17 00:00 93 11/06/17 00:00 98.3 92 20 112/59 (76) 95 11/05/17 20:00 99.2 105 20 116/66 (83) 94 11/05/17 20:00 103 11/05/17 16:00 100.3 94 18 117/67 (84) 96 11/05/17 14:40 18 11/05/17 12:00 99.9 96 19 111/59 (76) 94 I/O 11/05/17 11/05/17 11/05/17 11/06/17 11/06/17 11/06/17 07:00 15:00 23:00 07:00 15:00 23:00 Intake Total 1090 ml 0 ml 3218 ml Output Total 1200 ml 200 ml 800 ml 925 ml Balance -110 ml -200 ml 2418 ml -925 ml Intake Oral 0 ml 0 ml IV Total 1090 ml 2184 ml TPN/PPN 1034 ml Output Urine Total 600 ml 200 ml 625 ml Gastric Drainage Total 600 ml 800 ml 300 ml # Voids 4 # Bowel Movements 0 0 Result Diagram: 11/04/17 0532 11/04/17 0523 Imaging Last Impressions Upper GI Series 11/05/17 Signed Impressions: Service Date/Time: Sunday, November 05, 2017 10:47 - CONCLUSION: Antral mass as described above. CT is pending. Som Diez MD FACR Abdomen CT 11/05/17 0000 Signed Impressions: Service Date/Time: Sunday, November 05, 2017 11:24 - CONCLUSION: Antral mass as described above probably arising from the surgical margin in the liver. Som Diez MD FACR Chest X-Ray 11/04/17 Signed Impressions: Service Date/Time: Saturday, November 04, 2017 18:05 - CONCLUSION: 1. Slight bibasilar atelectasis and/or infiltrate is seen. 2. The tip of the NG tube needs to be advanced. Dorothy Sanchez MD Abdomen/Pelvis CT 11/03/17 0000 Signed Impressions: Service Date/Time: Friday, November 03, 2017 15:52 - CONCLUSION: Hepatic mass appears larger concerning for malignancy such as hepatocellular carcinoma. Dorothy Sanchez MD Objective Remarks GENERAL: ill-looking but in no acute distress. CARDIOVASCULAR: Regular rate and regular rhythm without murmurs, gallops, or rubs. RESPIRATORY: Clear to auscultation. Breath sounds equal bilaterally. No wheezes , rales, or rhonchi. GASTROINTESTINAL: Abdomen soft, non-tender, nondistended. Normal, active bowel sounds MUSCULOSKELETAL: Extremities without clubbing, cyanosis, or edema. NEURO: Alert & Oriented x4 to person, place, time, situation. Moves all ext x4 Procedures EGD PROCEDURE REPORT EXAM DATE: 11/02/2017 PATIENT NAME: Anil Doe MR #: [id number] BIRTHDATE: 1945 ATTENDING: Marianela Quiroz MD ORDER #: [id number] [employer] AGENT: Fadumo Quarles and Mandi Dhaliwal STATUS: inpatient INDICATIONS: The patient is a 72 yr old male here for an EGD due to acute post hemorrhagic anemia and hematemesis PROCEDURE PERFORMED: EGD w/ biopsy MEDICATIONS: None and Per Anesthesia. TOPICAL ANESTHETIC: CONSENT: The patient understands the risks and benefits of the procedure and understands that these risks include, but are not limited to: sedation, allergic reaction, infection, perforation and/or bleeding. Alternative means of evaluation and treatment include, among others: physical exam, x-rays, and/or surgical intervention. The patient elects to proceed with this endoscopic procedure. medical equipment was checked for proper function. Hand hygiene and appropriate measures for infection prevention was taken. After the risks, benefits and alternatives of the procedure were thoroughly explained, Informed consent was verified, confirmed and timeout was successfully executed by the treatment team. The patient was anesthetized with topical anesthesia and the Pentax [id number] endoscope was introduced through the mouth and advanced to the pylorus. Retroflexion was not performed The gastroscope was then slowly withdrawn and removed. ESOPHAGUS: The mucosa of the esophagus appeared normal. STOMACH: A circumferential fungating mass with friable surfaces was found at the pylorus. Large obstructing /ulcer at the pylorus. Unable to pass into the duodenum. Biopsies obtained. Retained food and fluid in the stomach. NG placed. ADVERSE EVENTS: There were no complications. IMPRESSIONS: 1. The esophagus appeared normal 2. Circumferential mass was found at the pylorus; Large obstructing /ulcer at the pylorus. Unable to pass into the duodenum. Biopsies obtained. Retained food and fluid in the stomach. NG placed 3. Retroflexion was not performed RECOMMENDATIONS: 1. Await biopsy results. Biopsy results will not be ready for 7-10 days. If you don't hear from us in two weeks, call our office for biopsy results. 2. Xray: CT ABD W/CONTRAST 3. NG to L.I.S. NPO PATIENT CONDITION: stable DISPOSITION: Inpatient REPEAT EXAM: Return 1 week EGD pending biopsy results Medications and IVs Inpatient Medications Acetaminophen (Tylenol) 650 mg Q4H PRN PO TEMP > 100.4 Last administered on 11/04at 19:56; Start 11/03/17 at 11:15 Bisacodyl (Dulcolax Supp) 10 mg DAILY PRN RECTAL SEVERE CONSITIPATION; Start at 11:15 Diatrizoate Meglum/ Diatrizoate Sod ( Gastroview Liq) 18 ml ONCE ONCE PO Last administered on 11/03/17at 12:40; Start 11/03/17 at 12:00; Stop 11/03/17 at 12: 01; Status DC Digoxin (Lanoxin) 0.125 mg DAILY PO Last administered on 11/06/17at 08:56; Start 11/02/17 at 09:00 Diltiazem HCl (Cardizem) 120 mg QID PO Last administered on 11/06/17at 08:56; Start 11/02/17 at 09:00 Heparin Sodium (Porcine) (Heparin Central Flush) See Protocol UNSCH PRN IV FLUSH SEE PROTOCOL TABLE; Start 11/04/17 at 17:30 Lactated Ringer's 1,000 ml @ 30 mls/hr Q24H PRN IV SEE LABEL COMMENTS; Start at 03:30; Stop 11/09/17 at 03:29 Lactulose (Lactulose Liq) 30 ml DAILY PRN PO SEVERE CONSITIPATION; Start at 11:15 Lorazepam (Ativan Inj) 1 mg Q6H PRN IV PUSH ANXIETY Last administered on at 10:58; Start 11/03/17 at 09:45 Magnesium Hydroxide (Milk Of Magnesia Liq) 30 ml Q12H PRN PO Mild constipation ; Start 11/03/17 at 11:15 Metoclopramide HCl (Reglan Inj) 5 mg Q6H PRN IV PUSH NAUSEA OR VOMITING; Start 11/03/17 at 11:15 Miscellaneous Information ALL NURSING DEPARTME... UNSCH PRN .XX SEE LABEL COMMENTS; Start 11/02/17 at 13:30; Stop 11/03/17 at 13:29; Status DC Morphine Sulfate (Morphine Inj) 4 mg Q3H PRN IV PUSH BREAKTHROUGH PAIN; Start 11/03/17 at 12:15 Naloxone HCl (Narcan Inj) 0.4 mg UNSCH PRN IV PUSH SEE LABEL COMMENTS; Start at 11:15 Ondansetron HCl (Zofran Inj) 4 mg Q6H PRN IVP NAUSEA OR VOMITING Last administered on 11/06/17at 06:16; Start 11/03/17 at 11:15 Oxycodone HCl (Roxicodone) 5 mg Q4H PRN PO PAIN SCALE 3 TO 5; Start 11/03/17 at 11:15 Pantoprazole Sodium 80 mg/ Sodium Chloride 100 ml @ 10 mls/hr Q10H IV Last administered on 11/06/17at 09:33; Start 11/03/17 at 10:30 Phenol (Chloraseptic [place]) 2 spray Q2H PRN MT SORE THROAT Last administered on 11/02/17 17:19; Start 11/02/17 at 16:45 Potassium Chloride/Dextrose/ Sod Cl 1,000 ml @ 100 mls/hr Q10H IV Last administered on 11/05/17at 12:48; Start 11/03/17 at 10:41 Senna/Docusate Sodium (Germania-Colace) 1 tab BID PO Last administered on 11/06/17at 08:56; Start 11/03/17 at 21:00 Sennosides (Senokot) 17.2 mg Q12H PRN PO Moderate constipation; Start 11/03/17 at 11:15 Sodium Chloride (NS Flush) UNSCH PRN IV FLUSH SEE PROTOCOL TABLE; Start at 17:30 Sodium Chloride 11 meq/Sodium Acetate 59 meq/ Potassium Chloride 40 meq/ Sodium Phosphate 40 meq/Magnesium Chloride 10 meq/ Calcium Chloride 9 meq/ Multivitamins 10 ml/Folic Acid 1 mg/Amino Acids/ Dextrose 2,084.1437 ml @ 83 mls /hr Q24H IV-CENTRAL Last administered on 11/05/17at 22:08; Start 11/04/17 at 20:00 Zolpidem Tartrate (Ambien) 5 mg HS PRN PO INSOMNIA; Start 11/03/17 at 21:00 A/P Assessment and Plan 1. GI bleed with acute anemia Patient with history of large bleeding duodenal ulcer s/p PRBC transfusion. Protonix drip Gastroenterology consulted, appreciate assistance and continue nothing by mouth for scheduled Had EGD 2-2 IMPRESSIONS: 1. The esophagus appeared normal/2. Circumferential mass was found at the pylorus; Large obstructing /ulcer atthe pylorus. Unable to pass into the duodenum. Biopsies obtained. Retained food and fluid in the stomach. NG placed/3. Retroflexion was not performed 2- Pyloric mass NG tube in place- biopsy with moderately-differentiated adenocarcinoma- awaiting oncology and surgery recommendations. 3. Liver masses concerning for HCC-- LIVER CANCER- HX OF LIVER RESECTIONS Patient seen by oncology during his most recent hospitalization on 09/06/17 oncology consulted. 4. Previous history of Atrial fibrillation - currently normal sinus rhythm Continue home digoxin and diltiazem 5. DVT prophylaxis - anticoagulation contraindicated secondary to GI bleed. SCDs Deandre Culver MD Nov 06, 2017 09:54
--- NOTE | 2017-11-06 10:55 | PD.ONC.PN ---
Subjective Subjective Remarks Tmax 100F overnight. Patient resting in bed in nad. at bedside. Patient is somnolent as he received oxycodone earlier today. Objective Data Date Time Temp Pulse Resp B/P (MAP) Pulse Ox O2 Delivery O2 Flow Rate FiO2 11/06/17 08:49 99 11/06/17 08:00 99.5 101 19 110/61 (77) 99 11/06/17 06:30 96 11/06/17 04:59 100.0 98 20 113/61 (78) 98 11/06/17 00:00 93 11/06/17 00:00 98.3 92 20 112/59 (76) 95 11/05/17 20:00 99.2 105 20 116/66 (83) 94 11/05/17 20:00 103 11/05/17 16:00 100.3 94 18 117/67 (84) 96 11/05/17 14:40 18 11/05/17 12:00 99.9 96 19 111/59 (76) 94 11/06/17 11/06/17 11/06/17 07:00 15:00 23:00 Output Total 925 ml Balance -925 ml Result Diagram: 11/04/17 0532 11/04/17 0523 Administered Medications Medications (Trade) Dose Ordered Sig/Víctor Route PRN Reason Start Time Stop Time Status Last Admin Dose Admin Sodium Chloride (NS Flush) 2 ml BID IV FLUSH 11/02/17 09:00 11/05/17 20:10 Digoxin (Lanoxin) 0.125 mg DAILY PO 11/02/17 09:00 11/06/17 08:56 Diltiazem HCl (Cardizem) 120 mg QID PO 11/02/17 09:00 11/06/17 08:56 Phenol (Chloraseptic [place]) 2 spray Q2H PRN MT SORE THROAT 11/02/17 16:45 11/02/17 17:19 Potassium Chloride/Dextrose/ Sod Cl 1,000 ml @ 100 mls/hr Q10H IV 11/03/17 10:41 11/05/17 12:48 Lorazepam (Ativan Inj) 1 mg Q6H PRN IV PUSH ANXIETY 11/03/17 09:45 11/03/17 10:58 Pantoprazole Sodium 80 mg/ Sodium Chloride 100 ml @ 10 mls/hr Q10H IV 11/03/17 10:30 11/06/17 09:33 Acetaminophen (Tylenol) 650 mg Q4H PRN PO TEMP > 100.4 11/03/17 11:15 11/04/17 19:56 Ondansetron HCl (Zofran Inj) 4 mg Q6H PRN IVP NAUSEA OR VOMITING 11/03/17 11:15 11/06/17 06:16 Oxycodone HCl (Roxicodone) 10 mg Q4H PRN PO PAIN SCALE 6 TO 10 11/03/17 12:15 11/06/17 09:28 Morphine Sulfate (Morphine Inj) 4 mg Q3H PRN IV PUSH Pain 6-10;if unable to take PO 11/03/17 12:15 11/06/17 06:23 Senna/Docusate Sodium (Germania-Colace) 1 tab BID PO 11/03/17 21:00 11/06/17 08:56 Sodium Chloride 11 meq/Sodium Acetate 59 meq/ Potassium Chloride 40 meq/ Sodium Phosphate 40 meq/Magnesium Chloride 10 meq/ Calcium Chloride 9 meq/ Multivitamins 10 ml/Folic Acid 1 mg/Amino Acids/ Dextrose 2,084.1437 ml @ 83 mls/hr Q24H IV-CENTRAL 11/04/17 20:00 11/05/17 22:08 Sodium Chloride (NS Flush) See Protocol DAILY IV FLUSH 11/05/17 09:00 11/05/17 09:00 Heparin Sodium (Porcine) (Heparin Central Flush) See Protocol DAILY IV FLUSH 11/05/17 09:00 11/06/17 08:56 Objective Remarks GENERAL: Elderly lethargic male, lying supine in bed resting. SKIN: Warm and dry. HEAD: Normocephalic. EYES: no injection or drainage. NECK: Supple, trachea midline. CARDIOVASCULAR: +S1/S2 RESPIRATORY: anterior paz with occasional rhonchi. GASTROINTESTINAL: Abdomen soft, non-tender, nondistended. EXTREMITIES: No cyanosis, or edema. NEUROLOGICAL: awake but lethargic. 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 --has history of hepatitis C cirrhosis. --had a hepatocellular carcinoma resected in [address] Dias in [place]. --When he presented to the hospital in August, CT showed a new 2.8 cm in the right hepatic dome. MRI showed a 3.5 cm enhancing mass with adjacent 1.2 cm mass more laterally. went back to see Dr. Dias (surgeon) and was referred to interventional radiology to consider TheraSphere embolization. is still awaiting insurance approval to have the procedure done. --this hospitalization, he presented with nausea, vomiting and GI bleed. EGD showed a mass at the pylorus causing obstruction. CT abdomen also confirmed a mass in the antrum and it could possibly be arising from the surgical margin of the liver. The mass was biopsied and the pathology shows adenocarcinoma of gastric origin. --surgery planning to place J-tube for feeding. (2) Symptomatic anemia ICD Codes: D64.9 - Anemia, unspecified Status: Acute Plan: --d/t GIB --monitor and transfuse as needed. Assessment 72y/o female with possible recurrent hepatocellular carcinoma. h/o Hepatitis C. Cirrhosis. History of Harvoni in 2014. Hepatocellular carcinoma resected in 2014. GI bleed. Small bowel obstruction. Chronic atrial fibrillation. Anemia. Hypertension. Plan 1. will need biopsy of liver mass to see if we are dealing with two primaries or gastric cancer with mets to liver. 2. UPDATE: d/w surgery, Dr. Winslow will obtain liver biopsy during G-J placement today Attending Statement The exam, history, and the medical decision-making described in the above note were completed with the assistance of the mid-level provider. I reviewed and agree with the findings presented. I attest that I had a [id number] encounter with the patient on the same day, and personally performed and documented my assessment and findings in the medical record. Denies abdominal pain but is taking pain meds. No more melena. Biopsy of gastric antrum mass showed adenocarcinoma arising from gastric mucosa. Discussed with pathology and at the tumor board. Unclear if pt has 2 primary tumor of HCC and gastric cancer vs HCC invaded the stomach vs gastric cancer with mets to liver. Will need to biopsy the liver mass. is taking pt to the OR for exp lap may clarify the origin of this tumor and biopsy of the liver mass. Alexandra Rai Nov 06, 2017 10:55 Lane Ortiz MD Nov 06, 2017 16:19
[2017-11-06] MEDS ORDERED: PHENYLEPH/NS 1000 MCG/10 ML SYR IV ONE (12:00)
[2017-11-06] MEDS ORDERED: LIDOCAINE HCL 1% PF 5 ML SYRINGE OTHER ONE (12:00)
[2017-11-06] MEDS ORDERED: ONDANSETRON HCL 4 MG/2 ML VIAL IV ONE (12:00)
[2017-11-06] MEDS ORDERED: ESMOLOL HCL 100 MG/10 ML VIAL IV ONE (12:00)
[2017-11-06] MEDS ORDERED: GLYCOPYRROLATE 1 MG/5 ML SYRINGE IV PUSH ONE (12:00)
[2017-11-06] MEDS ORDERED: SUCCINYLCHOLINE CHLORIDE 200 MG/10 ML VIAL IV ONE (12:00)
[2017-11-06] MEDS ORDERED: DEXAMETHASONE SOD PHOS 4 MG/ML VIAL IV ONE (12:00)
[2017-11-06] MEDS ORDERED: NEOSTIGMINE 5 MG/5 ML SYRINGE IV PUSH ONE (12:00)
[2017-11-06] MEDS ORDERED: PROPOFOL 200 MG/20 ML AMP IV ONE (12:00)
[2017-11-06] MEDS ORDERED: LACTATED RINGER'S 1000 ML INJ 2,000 ML IV ONE (12:00)
[2017-11-06] MEDS ORDERED: ROCURONIUM INJ 50 MG/5 ML SYRINGE IV PUSH ONE (12:00)
[2017-11-06] MEDS ORDERED: BUPIVACAINE/EPINEPHRINE 0.25% 50 ML VIAL ONE (14:39)
--- NOTE | 2017-11-06 15:53 | HHI.GIFU ---
Subjective Remarks Patient gone for G/J Objective Vitals I&O Vital Signs Date Time Temp Pulse Resp B/P (MAP) Pulse Ox O2 Delivery O2 Flow Rate FiO2 11/06/17 12:00 99.9 92 19 116/64 (81) 96 11/06/17 11:04 20 11/06/17 08:49 99 11/06/17 08:00 99.5 101 19 110/61 (77) 99 11/06/17 06:30 96 11/06/17 04:59 100.0 98 20 113/61 (78) 98 11/06/17 00:00 93 11/06/17 00:00 98.3 92 20 112/59 (76) 95 11/05/17 20:00 99.2 105 20 116/66 (83) 94 11/05/17 20:00 103 11/05/17 16:00 100.3 94 18 117/67 (84) 96 I/O 11/05/17 11/05/17 11/05/17 11/06/17 11/06/17 11/06/17 07:00 15:00 23:00 07:00 15:00 23:00 Intake Total 1090 ml 0 ml 3218 ml Output Total 1200 ml 200 ml 800 ml 925 ml Balance -110 ml -200 ml 2418 ml -925 ml Intake Oral 0 ml 0 ml IV Total 1090 ml 2184 ml TPN/PPN 1034 ml Output Urine Total 600 ml 200 ml 625 ml Gastric Drainage Total 600 ml 800 ml 300 ml # Voids 4 # Bowel Movements 0 0 Physical Exam HEENT: normocephalic; atraumatic; no jaundice. CHEST: Chest is clear to auscultation and percussion. CARDIAC: RRR ABDOMEN: Soft, mildly distended, nontender; no hepatosplenomegaly; bowel sounds soft EXTREMITIES: No clubbing, cyanosis, or edema. SKIN: Normal; no rash; no jaundice. SALES OPERATIONS ANALYST: lethargic Assessment and Plan Plan ASSESSMENT/ History - anemia, melanotic stool - hgb 7.3 on admission, 2 wks black tarry stool. hx duodenal ulcer No more black stools, hgb 2/4 8.6. Tumor markers including CEA, AFP, CA 19-9 negative EGD on 11/02/17---> The esophagus appeared normal, Circumferential mass was found at the pylorus; Large obstructing /ulcer at the pylorus. Unable to pass into the duodenum. Biopsies obtained. Retained food and fluid in the stomach. NG placed CT on 11/03/17 showed hepatic mass appears larger concerning for malignancy such as hepatocellular carcinoma - hx of liver mass s/p liver resection in 2016 at in [place], there was evidence of returning liver cancer, but pt deemed not a surgical candidate - hx hep C/Cirrhosis, s/p tx with harvoni in 2014, liver mass s/p liver resection in 2016 at in [place] 11/05/[address], report pending. on TPN. NGTto LIWS. path EGD/ gastric mass pending. GS consult pending. d/w palliative care, likely goals will remain aggressive. UGI 11/05 noted, mass involving antrum, associating with liver, extending into duodenum causing significant gastric outlet syndrome d/w GS 11/06/2017, Low grade fever, HGB 8.6 on 11/04/17, Liver biopsy today and GJ tube placement per GS. PLAN -TPN - GJ tube today per GS, liver biopsy . - NPO - NGT to LIWS when back to . - Follow up EGD in one week per GI note - Biopsy pending - Monitor labs, HGB/HCT , recheck in am. - transfuse as needed - further recs to follow this pt seen DR Barclay and this note is written on her behalf Brooke Sosa Nov 06, 2017 15:52
[2017-11-06] MEDS ORDERED: HYDROmorphone HCL PF 2 MG/ML VIAL ONE (16:04)
[2017-11-06] MEDS ORDERED: ACETAMINOPHEN 1000 MG/100 ML 100 ML IV ONE (16:04)
[2017-11-06] MEDS ORDERED: ceFAZolin 2 GM PREMIX 50 ML ONE (16:33)
[2017-11-06] MEDS ORDERED: DO NOT ADM ANY ANTICOAGULANT DRUGS PRN (18:41)
[2017-11-06] MEDS ORDERED: FLUCONAZOLE 400 MG PREMIX BAG 200 ML IV ONE (20:00)
[2017-11-06] MEDS: PIPERACIL-TAZO 3.375 GM PREMIX 50 ML IV SCH (20:00)
[2017-11-06] MEDS: CLINIMIX 5/25 (Custom) 2000 mL- >42 mls/hr IV-CENTRAL SCH ×9 (21:41)
[2017-11-07] VITALS (10 sets, daily range): BP systolic 106–123; BP diastolic 61–69; PULSE 72–87; RESP 16–18; TEMP 96.7–99.7; O2SAT 92–98
[2017-11-07] MEDS: PIPERACIL-TAZO 3.375 GM PREMIX 50 ML IV SCH ×3 (01:04→14:17)
[2017-11-07] MEDS: D5-1/2 NS + KCL 20 MEQ INJ 1,000 ML IV SCH ×2 (04:41→14:41)
[2017-11-07] MEDS: PANTOPRAZOLE INJ 80 MG in SODIUM CHLORIDE 0.9% INJ 100 ML IV SCH ×3 (05:38→23:58)
[2017-11-07] MEDS: MORPHINE SULFATE 4 MG/ML INJ IV PUSH PRN ×3 (05:42→11:03)
[2017-11-07 05:53] LABS: HEMATOCRIT 23.4 % (39.0-51.0); HEMOGLOBIN 7.6 GM/DL (13.0-17.0); MEAN CELL VOLUME 88.2 FL (80.0-100.0); MEAN CORPUSCULAR HEMOGLOBIN 28.5 PG (27.0-34.0); MEAN CORPUSCULAR HGB CONC 32.3 % (32.0-36.0); MEAN PLATELET VOLUME 7.4 FL (7.0-11.0); PLATELET COUNT 260 TH/MM3 (150-450); RED BLOOD COUNT 2.65 MIL/MM3 (4.50-5.90); WHITE BLOOD COUNT 13.5 TH/MM3 (4.0-11.0)
[2017-11-07] MEDS: DIGOXIN 0.125 MG TAB PO SCH (08:26)
[2017-11-07] MEDS: DOCUSATE SODIUM 50 MG/SENNA 8.6 MG TAB PO SCH ×2 (08:27→20:06)
[2017-11-07] MEDS: DILTIAZEM HCL 60 MG TAB PO SCH ×4 (08:27→20:06)
[2017-11-07] MEDS: MAGNESIUM HYDROXIDE SUSP 30 ML CUP PO PRN (08:28)
[2017-11-07] MEDS: SODIUM CHLORIDE 0.9% FLUSH 10 ML FLUSH IV FLUSH SCH ×4 (09:00→20:24)
--- NOTE | 2017-11-07 09:00 | MP ---
cc: MARCO SHAFER DATE OF SURGERY: 11/06/2017 PREOPERATIVE DIAGNOSIS 1. Gastric outlet obstruction. 2. Recurrent hepatocellular carcinoma. POSTOPERATIVE DIAGNOSIS 1. Gastric outlet obstruction. 2. Recurrent hepatocellular carcinoma. PROCEDURES 1. Laparoscopic converted to open Jos-en-Y gastrojejunostomy bypass. 2. Extensive lysis of adhesions greater than 45 minutes (open). 3. Juan M-Cut liver biopsy of malignant lesion in the liver remnant. ATTENDING SURGEON Dr. Shafer. CHIEF MECHANICAL ENGINEER Staff. ANESTHESIA General. BLOOD LOSS 150 ccs. COMPLICATIONS None. FINDINGS 1. Severe dense adhesions throughout the abdomen, particularly in the right upper quadrant with near-frozen abdomen right upper quadrant, unable to visualize the stomach laparoscopically requiring open surgery. 2. obstructing mass in the 1st portion duodenum and adhered to the liver remnant INDICATIONS FOR PROCEDURE The patient is a 72-year-old male who has a history of hepatocellular carcinoma status post left hepatectomy. Unfortunately, the patient developed what appears to be a local recurrence in his liver remnant that has caused erosion in through the pylorus or duodenal portion of his stomach and caused a gastric outlet obstruction. Discussed this with the patient and this is not a resectable process, however, due to the patient's severe symptoms of gastric outlet obstruction palliative bypass was indicated. I have discussed the risks, benefits, alternatives to palliative bypass and they agreed to undergo open procedure. PROCEDURE The patient was taken to the operating room, placed in supine position, placed under general endotracheal anesthesia. The abdomen was shaved, prepped and draped in sterile fashion. Time-out was performed. The abdomen was entered through Bear type technique. A small 3 cm skin incision was made above the umbilicus with the 15 blade scalpel. We dissected down subcutaneous tissue and opened the midline fascia under direct visualization and also spreading with a hemostat. We entered the intraperitoneal cavity without difficulty. Initially appeared to be minimal adhesions at this area. We placed a 10-mm balloon trocar into this area and insufflated the abdomen. We placed a 5 mm 30 degree camera into the abdomen and surveyed the abdomen. There is no evidence of any complication from our entry. There were several loops of small bowel adhered to the abdominal wall surrounding the area of the port and essentially there was not even a safe place to put a second port and the stomach was not visualized and there was really no space to work, making laparoscopic surgery virtually technically impossible in this patient with multiple previous abdominal surgeries. At this point in time I felt it was safe to convert to the open approach. We removed the 10-mm balloon trocar, removed insufflation from the patient. We made a upper midline incision with a 15 blade scalpel. Used Bovie electrocautery to dissect the subcutaneous tissue and carefully opened the fascia over a hemostat, avoiding injury to bowel. We used dissection with the Bovie but mostly Metzenbaum scissors to take down several loops of small bowel from around the area of the incision back several centimeters in all directions. We freed up all the small bowel with the exception of some adhesions in the right lower quadrant of the patient's remote history of appendectomy. A few small serosal tears were repaired with 3-0 Silk sutures. There were no enterotomies made. This was approximately 1 hour of time. Once we had completely lysed the adhesions and we had brought down the omentum and transverse colon we were able to visualize the stomach and the omentum. We opened the gastrocolic ligament. This was able to deliver the stomach down into our operative field without tension. We also identified ligament of Treitz and the proximal small bowel, jejunum was free of adhesions and fairly mobile. Prior to doing anastomosis we went ahead and performed a liver biopsy. We used a Juan M-Cut biopsy with multiple passes to what appeared to be a mass in the liver remnant at the resection margin medially. This was white hard tumor type material, with multiple passes it was passed off for permanent processing. We had excellent hemostasis with the Bovie electrocautery as well as placement of some Surgicel over this area. We then turned our attention to reconstruction. We performed a Jos-en-Y gastrojejunostomy, antecolic, retrogastric using blue load to divide the bowel and a blue load and green load on the gastroenteric anastomosis. We reinforced all staple lines with the 3-0 Silk sutures. This was widely patent with no bleeding. Performed a JJ anastomosis with [id number] function end-to-end using a blue load on the open GI stapler and closing the staple defect with a second blue load and oversewing the staple line with 3-0 Silks as well. Again, this was widely patent with all viable tissue. At this point in time we irrigate out the abdomen with 2 liters of saline until all suctioning was clear. All bowel in normal anatomic position with exception of our Jos-en-Y. We placed some omentum over midline. We closed the midline fascia with a #1 looped PDS suture. We closed the skin with skin peter and sterile dressing was applied. The patient was discontinued from anesthesia and taken to PACU in stable condition. The patient tolerated the procedure well, no apparent complications. All counts were correct. I was present and scrubbed for the entire procedure. MD BRUNO Goodwin/TLL /7:06 PM /8:17 AM MTDD
--- NOTE | 2017-11-07 10:00 | HHI.PR ---
Subjective Remarks in no acute distress. but is ill looking. pain is fairly controlled. NG tube in place. Objective Vitals Vital Signs Date Time Temp Pulse Resp B/P (MAP) Pulse Ox O2 Delivery O2 Flow Rate FiO2 11/07/17 08:00 99.5 87 16 123/68 (86) 98 11/07/17 05:16 98 11/07/17 00:55 99.7 77 18 106/63 (77) 11/07/17 00:00 80 11/06/17 20:00 96.5 84 18 94/54 (67) 96 11/06/17 20:00 98.9 100 20 117/59 (78) 100 Nasal Cannula 2 11/06/17 19:45 102 24 122/67 (85) 100 Nasal Cannula 2 11/06/17 19:30 106 20 121/65 (83) 100 Nasal Cannula 2 11/06/17 19:15 103 14 125/71 (89) 100 Nasal Cannula 2 11/06/17 19:00 105 12 141/71 (94) 99 Nasal Cannula 2 11/06/17 18:45 106 23 130/68 (88) 100 Nasal Cannula 3 11/06/17 18:42 98.1 104 20 142/77 (98) 100 Nasal Cannula 3 11/06/17 12:00 99.9 92 19 116/64 (81) 96 11/06/17 11:04 20 I/O 11/06/17 11/06/17 11/06/17 11/07/17 11/07/17 11/07/17 07:00 15:00 23:00 07:00 15:00 23:00 Intake Total 3894 ml 200 ml Output Total 925 ml 875 ml 650 ml Balance -925 ml 3019 ml -450 ml Intake Oral 0 ml IV Total 1694 ml 200 ml Other 2200 ml Output Urine Total 625 ml 400 ml 500 ml Gastric Drainage Total 300 ml 325 ml 150 ml Estimated Blood Loss 150 ml Result Diagram: 11/07/17 0537 11/04/17 0523 Imaging Last Impressions Upper GI Series 11/05/17 Signed Impressions: Service Date/Time: Sunday, November 05, 2017 10:47 - CONCLUSION: Antral mass as described above. CT is pending. Som Diez MD FACR Abdomen CT 11/05/17 Signed Impressions: Service Date/Time: Sunday, November 05, 2017 11:24 - CONCLUSION: Antral mass as described above probably arising from the surgical margin in the liver. Som Diez MD FACR Chest X-Ray 11/04/17 0000 Signed Impressions: Service Date/Time: Saturday, November 04, 2017 18:05 - CONCLUSION: 1. Slight bibasilar atelectasis and/or infiltrate is seen. 2. The tip of the NG tube needs to be advanced. Dorothy Sanchez MD Abdomen/Pelvis CT 11/03/17 0000 Signed Impressions: Service Date/Time: Friday, November 03, 2017 15:52 - CONCLUSION: Hepatic mass appears larger concerning for malignancy such as hepatocellular carcinoma. Dorothy Sanchez MD Objective Remarks GENERAL: ill-looking but in no acute distress. CARDIOVASCULAR: Regular rate and regular rhythm without murmurs, gallops, or rubs. RESPIRATORY: Clear to auscultation. Breath sounds equal bilaterally. No wheezes , rales, or rhonchi. GASTROINTESTINAL: Abdomen soft, non-tender, nondistended. Normal, active bowel sounds MUSCULOSKELETAL: Extremities without clubbing, cyanosis, or edema. NEURO: Alert & Oriented x4 to person, place, time, situation. Moves all ext x4 Procedures EGD PROCEDURE REPORT EXAM DATE: 11/02/2017 PATIENT NAME: Anil Doe MR #: [id number] BIRTHDATE: 1945 ATTENDING: Marianela Quiroz MD ORDER #: [id number] LIBRARY SCIENCE INSTRUCTOR: Fadumo Quarles and Mandi Dhaliwal STATUS: inpatient INDICATIONS: The patient is a 72 yr old male here for an EGD due to acute post hemorrhagic anemia and hematemesis PROCEDURE PERFORMED: EGD w/ biopsy MEDICATIONS: None and Per Anesthesia. TOPICAL ANESTHETIC: CONSENT: The patient understands the risks and benefits of the procedure and understands that these risks include, but are not limited to: sedation, allergic reaction, infection, perforation and/or bleeding. Alternative means of evaluation and treatment include, among others: physical exam, x-rays, and/or surgical intervention. The patient elects to proceed with this endoscopic procedure. medical equipment was checked for proper function. Hand hygiene and appropriate measures for infection prevention was taken. After the risks, benefits and alternatives of the procedure were thoroughly explained, Informed consent was verified, confirmed and timeout was successfully executed by the treatment team. The patient was anesthetized with topical anesthesia and the Pentax [id number] endoscope was introduced through the mouth and advanced to the pylorus. Retroflexion was not performed The gastroscope was then slowly withdrawn and removed. ESOPHAGUS: The mucosa of the esophagus appeared normal. STOMACH: A circumferential fungating mass with friable surfaces was found at the pylorus. Large obstructing /ulcer at the pylorus. Unable to pass into the duodenum. Biopsies obtained. Retained food and fluid in the stomach. NG placed. ADVERSE EVENTS: There were no complications. IMPRESSIONS: 1. The esophagus appeared normal 2. Circumferential mass was found at the pylorus; Large obstructing /ulcer at the pylorus. Unable to pass into the duodenum. Biopsies obtained. Retained food and fluid in the stomach. NG placed 3. Retroflexion was not performed RECOMMENDATIONS: 1. Await biopsy results. Biopsy results will not be ready for 7-10 days. If you don't hear from us in two weeks, call our office for biopsy results. 2. Xray: CT ABD W/CONTRAST 3. NG to L.I.S. NPO PATIENT CONDITION: stable DISPOSITION: Inpatient REPEAT EXAM: Return 1 week EGD pending biopsy results 1. Laparoscopic converted to open Jos-en-Y gastrojejunostomy bypass. 2. Extensive lysis of adhesions greater than 45 minutes (open). 3. Juan M-Cut liver biopsy of malignant lesion in the liver remnant. Medications and IVs Inpatient Medications Acetaminophen (Tylenol) 650 mg Q4H PRN PO TEMP > 100.4 Last administered on 11/04at 19:56; Start 11/03/17 at 11:15 Bisacodyl (Dulcolax Supp) 10 mg DAILY PRN RECTAL SEVERE CONSITIPATION; Start at 11:15 Diatrizoate Meglum/ Diatrizoate Sod ( Gastroview Liq) 18 ml ONCE ONCE PO Last administered on 11/03/17at 12:40; Start 11/03/17 at 12:00; Stop 11/03/17 at 12: 01; Status DC Digoxin (Lanoxin) 0.125 mg DAILY PO Last administered on 11/07/17at 08:26; Start 11/02/17 at 09:00 Diltiazem HCl (Cardizem) 120 mg QID PO Last administered on 11/07/17at 08:27; Start 11/02/17 at 09:00 Fluconazole/ Sodium Chloride 200 ml @ 100 mls/hr ONCE ONCE IV Last administered on 11/06/17at 21:41; Start 11/06/17 at 20:00; Stop 11/06/17 at 21:59; Status DC Heparin Sodium (Porcine) (Heparin Central Flush) See Protocol UNSCH PRN IV FLUSH SEE PROTOCOL TABLE; Start 11/04/17 at 17:30 Lactated Ringer's 1,000 ml @ 30 mls/hr Q24H PRN IV SEE LABEL COMMENTS; Start at 03:30; Stop 11/09/17 at 03:29 Lactulose (Lactulose Liq) 30 ml DAILY PRN PO SEVERE CONSITIPATION; Start at 11:15; Stop 11/06/17 at 19:06; Status DC Lorazepam (Ativan Inj) 1 mg Q6H PRN IV PUSH ANXIETY Last administered on at 10:58; Start 11/03/17 at 09:45 Magnesium Hydroxide (Milk Of Magnesia Liq) 30 ml Q12H PRN PO Mild constipation Last administered on 11/07/17at 08:28; Start 11/03/17 at 11:15 Metoclopramide HCl (Reglan Inj) 5 mg Q6H PRN IV PUSH NAUSEA OR VOMITING; Start 11/03/17 at 11:15 Miscellaneous Information ALL NURSING DEPARTME... UNSCH PRN .XX SEE LABEL COMMENTS; Start 11/06/17 at 18:41; Stop 11/07/17 at 18:40 Morphine Sulfate (Morphine Inj) 4 mg Q3H PRN IV PUSH BREAKTHROUGH PAIN; Start 11/03/17 at 12:15 Naloxone HCl (Narcan Inj) 0.4 mg UNSCH PRN IV PUSH SEE LABEL COMMENTS; Start at 11:15 Ondansetron HCl (Zofran Inj) 4 mg Q6H PRN IVP NAUSEA OR VOMITING Last administered on 11/06/17at 06:16; Start 11/03/17 at 11:15 Oxycodone HCl (Roxicodone) 5 mg Q4H PRN PO PAIN SCALE 3 TO 5; Start 11/03/17 at 11:15 Pantoprazole Sodium 80 mg/ Sodium Chloride 100 ml @ 10 mls/hr Q10H IV Last administered on 11/07/17at 05:38; Start 11/03/17 at 10:30 Phenol (Chloraseptic [place]) 2 spray Q2H PRN MT SORE THROAT Last administered on 11/02/17 17:19; Start 11/02/17 at 16:45 Piperacillin Sod/ Tazobactam Sod 50 ml @ 100 mls/hr Q6H IV Last administered on 11/07/17 08:35; Start 11/06/17 at 20:00; Stop 11/07/17 at 14:29 Potassium Chloride/Dextrose/ Sod Cl 1,000 ml @ 100 mls/hr Q10H IV Last administered on 11/06/17at 19:45; Start 11/03/17 at 10:41 Senna/Docusate Sodium (Germania-Colace) 1 tab BID PO Last administered on 11/07/17at 08:27; Start 11/03/17 at 21:00 Sennosides (Senokot) 17.2 mg Q12H PRN PO Moderate constipation; Start 11/03/17 at 11:15 Sodium Chloride (NS Flush) UNSCH PRN IV FLUSH SEE PROTOCOL TABLE; Start at 17:30 Sodium Chloride 11 meq/Sodium Acetate 59 meq/ Potassium Chloride 40 meq/ Sodium Phosphate 40 meq/Magnesium Chloride 10 meq/ Calcium Chloride 9 meq/ Multivitamins 10 ml/Folic Acid 1 mg/Amino Acids/ Dextrose 2,084.1437 ml @ 83 mls /hr Q24H IV-CENTRAL Last administered on 11/06/17at 21:41; Start 11/04/17 at 20:00 Zolpidem Tartrate (Ambien) 5 mg HS PRN PO INSOMNIA; Start 11/03/17 at 21:00 A/P Assessment and Plan 1. GI bleed with acute anemia Patient with history of large bleeding duodenal ulcer s/p PRBC transfusion. Protonix drip Gastroenterology consulted, appreciate assistance and continue nothing by mouth for scheduled Had EGD 2-2 IMPRESSIONS: 1. The esophagus appeared normal/2. Circumferential mass was found at the pylorus; Large obstructing /ulcer atthe pylorus. Unable to pass into the duodenum. Biopsies obtained. Retained food and fluid in the stomach. NG placed/3. Retroflexion was not performed 2- Pyloric mass NG tube in place- biopsy with moderately-differentiated adenocarcinoma- s/p Laparoscopic converted to open Jos-en-Y gastrojejunostomy bypass/ Extensive lysis of adhesions greater than 45 minutes (open) 3. Liver masses concerning for HCC-- LIVER CANCER- HX OF LIVER RESECTIONS s/p Juan M-Cut liver biopsy of malignant lesion in the liver remnant. will follow the pathology. oncology following. 4. Previous history of Atrial fibrillation - currently normal sinus rhythm Continue home digoxin and diltiazem 5. DVT prophylaxis - anticoagulation contraindicated secondary to GI bleed. SCDs Discharge Planning not ready for discharge. Deandre Culver MD Nov 07, 2017 10:00
--- NOTE | 2017-11-07 11:32 | PD.ONC.PN ---
Subjective Subjective Remarks Tmax 99.7 overnight. Patient resting in bed. patient seen at 1030AM. he received morphine 4mg IV at 830 this morning, but states he is in a lot of pain. the pain worsens after he coughs. Objective Data Date Time Temp Pulse Resp B/P (MAP) Pulse Ox O2 Delivery O2 Flow Rate FiO2 11/07/17 08:00 99.5 87 16 123/68 (86) 98 11/07/17 05:16 98 11/07/17 00:55 99.7 77 18 106/63 (77) 11/07/17 00:00 80 11/06/17 20:00 96.5 84 18 94/54 (67) 96 11/06/17 20:00 98.9 100 20 117/59 (78) 100 Nasal Cannula 2 11/06/17 19:45 102 24 122/67 (85) 100 Nasal Cannula 2 11/06/17 19:30 106 20 121/65 (83) 100 Nasal Cannula 2 11/06/17 19:15 103 14 125/71 (89) 100 Nasal Cannula 2 11/06/17 19:00 105 12 141/71 (94) 99 Nasal Cannula 2 11/06/17 18:45 106 23 130/68 (88) 100 Nasal Cannula 3 11/06/17 18:42 98.1 104 20 142/77 (98) 100 Nasal Cannula 3 11/06/17 12:00 99.9 92 19 116/64 (81) 96 11/07/17 11/07/17 11/07/17 07:00 15:00 23:00 Intake Total 200 ml Output Total 650 ml Balance -450 ml Result Diagram: 11/07/17 0537 11/04/17 0523 Laboratory Results Laboratory Tests Test 11/07/17 05:37 White Blood Count 13.5 TH/MM3 Red Blood Count 2.65 MIL/MM3 Hemoglobin 7.6 GM/DL Hematocrit 23.4 % Mean Corpuscular Volume 88.2 FL Mean Corpuscular Hemoglobin 28.5 PG Mean Corpuscular Hemoglobin Concent 32.3 % Red Cell Distribution Width 17.0 % Platelet Count 260 TH/MM3 Mean Platelet Volume 7.4 FL Administered Medications Medications (Trade) Dose Ordered Sig/Víctor Route PRN Reason Start Time Stop Time Status Last Admin Dose Admin Sodium Chloride (NS Flush) 2 ml BID IV FLUSH 11/02/17 09:00 11/06/17 21:41 Digoxin (Lanoxin) 0.125 mg DAILY PO 11/02/17 09:00 11/07/17 08:26 Diltiazem HCl (Cardizem) 120 mg QID PO 11/02/17 09:00 11/07/17 08:27 Phenol (Chloraseptic [place]) 2 spray Q2H PRN MT SORE THROAT 11/02/17 16:45 11/02/17 17:19 Potassium Chloride/Dextrose/ Sod Cl 1,000 ml @ 100 mls/hr Q10H IV 11/03/17 10:41 11/06/17 19:45 Lorazepam (Ativan Inj) 1 mg Q6H PRN IV PUSH ANXIETY 11/03/17 09:45 11/03/17 10:58 Pantoprazole Sodium 80 mg/ Sodium Chloride 100 ml @ 10 mls/hr Q10H IV 11/03/17 10:30 11/07/17 05:38 Acetaminophen (Tylenol) 650 mg Q4H PRN PO TEMP > 100.4 11/03/17 11:15 11/04/17 19:56 Ondansetron HCl (Zofran Inj) 4 mg Q6H PRN IVP NAUSEA OR VOMITING 11/03/17 11:15 11/06/17 06:16 Morphine Sulfate (Morphine Inj) 4 mg Q3H PRN IV PUSH Pain 6-10;if unable to take PO 11/03/17 12:15 11/07/17 11:03 Senna/Docusate Sodium (Germania-Colace) 1 tab BID PO 11/03/17 21:00 11/07/17 08:27 Magnesium Hydroxide (Milk Of Magnesia Liq) 30 ml Q12H PRN PO Mild constipation 11/03/17 11:15 11/07/17 08:28 Sodium Chloride 11 meq/Sodium Acetate 59 meq/ Potassium Chloride 40 meq/ Sodium Phosphate 40 meq/Magnesium Chloride 10 meq/ Calcium Chloride 9 meq/ Multivitamins 10 ml/Folic Acid 1 mg/Amino Acids/ Dextrose 2,084.1437 ml @ 83 mls/hr Q24H IV-CENTRAL 11/04/17 20:00 11/06/17 21:41 Sodium Chloride (NS Flush) See Protocol DAILY IV FLUSH 11/05/17 09:00 11/05/17 09:00 Heparin Sodium (Porcine) (Heparin Central Flush) See Protocol DAILY IV FLUSH 11/05/17 09:00 11/06/17 08:56 Piperacillin Sod/ Tazobactam Sod 50 ml @ 100 mls/hr Q6H IV 11/06/17 20:00 11/07/17 14:29 11/07/17 08:35 Objective Remarks GENERAL: Elderly male, sitting up in bed, complaining of pain in abdomen. SKIN: Warm and dry. HEAD: Normocephalic. EYES: no injection or drainage. NECK: Supple, trachea midline. CARDIOVASCULAR: +S1/S2 RESPIRATORY: anterior paz clear. GASTROINTESTINAL: Abdomen soft, bandage along midline is clean. mildly tender throughout. EXTREMITIES: No cyanosis, or edema. NEUROLOGICAL: awake and alert, normal speech. Assessment/Plan Problem List: (1) Liver masses ICD Codes: R16.0 - Hepatomegaly, not elsewhere classified Plan: --s/p open laparotomy on 11/06 with Jos-en-Y G-J bypass performed for palliation. 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 --has history of hepatitis C cirrhosis. --had a hepatocellular carcinoma rese[place] [address] Dias in [place]. --When he presented to the hospital in August, CT showed a new 2.8 cm in the right hepatic dome. MRI showed a 3.5 cm enhancing mass with adjacent 1.2 cm mass more laterally. went back to see Dr. Dias (surgeon) and was referred to interventional radiology to consider TheraSphere embolization. is still awaiting insurance approval to have the procedure done. --this hospitalization, he presented with nausea, vomiting and GI bleed. EGD showed a mass at the pylorus causing obstruction. CT abdomen also confirmed a mass in the antrum and it could possibly be arising from the surgical margin of the liver. The mass was biopsied and the pathology shows adenocarcinoma of gastric origin. (2) Symptomatic anemia ICD Codes: D64.9 - Anemia, unspecified Status: Acute Plan: --d/t GIB --monitor and transfuse as needed. 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 h/o Hepatitis C. Cirrhosis. History of Harvoni in 2014. Hepatocellular carcinoma resected in 2014. GI bleed. Small bowel obstruction. Chronic atrial fibrillation. Anemia. Hypertension. Plan 1. await pathology from liver biopsy 2. will simplify pain medications and increase morphine to 6mg IV q 2 hours PRN pain 3. give 1 unit pRBC Attending Statement The exam, history, and the medical decision-making described in the above note were completed with the assistance of the mid-level provider. I reviewed and agree with the findings presented. I attest that I had a [id number] encounter with the patient on the same day, and personally performed and documented my assessment and findings in the medical record. Feeling better after Jos-en-Y GJ bypass. Tenderness at surgical site. Had liver biopsy and path pending. Continue supportive care. Unclear liver mass recurrent HCC vs mets gastric adenocarcinoma? Alexandra Rai Nov 07, 2017 11:32 Lane Ortiz MD Nov 07, 2017 12:59
[2017-11-07] MEDS ORDERED: ACETAMINOPHEN 325 MG TAB PO PRN (11:45)
[2017-11-07] MEDS ORDERED: diphenhydrAMINE HCL 25 MG CAP PO PRN (11:45)
[2017-11-07] MEDS ORDERED: SODIUM CHLOR 0.9% 250 ML INJ 250 ML IV ONE (11:45)
--- NOTE | 2017-11-07 13:26 | HHI.HCPN ---
Reason for visit a. To assist with evaluation and management of symptoms including: pain, dysphagia, nausea and vomiting. b. To assist medical decision maker(s) with: better understanding of current medical conditions; weighing benefits/burdens of medical treatment options; making medical treatment decisions. Subjective/Interval History Patient seen and examined in his room in the presence of his . Patient lethargic, oriented to self, place abdomen situation. Patient endorsing pain to abdomen and occasional nausea. Has an emesis basin with frothy white sputum. NGT to LIWS draining green colored drainage. He underwent laparoscopic converted to open Jos-en-Y gastrojejunostomy bypass, lysis of adhesions and Juan M -Cut liver biopsy of malignant lesion in the liver remnant on 11/06/17. Patient has a surgical incision to midabdomen with a dressing dry and intact. Encouraged to use pillow when coughing to reduce pain. Patient has used x4 prn Morphine Sulfate 4mg IVP doses in the past 12hours post-op. Laboratory workup today revealing WBC 13.5, hemoglobin 7.6, hematocrit 23.4 and platelet count 260. No recent imaging. Family/friend interactions at bedside. . Advance Directives Living Will: Never completed Health Care Surrogate: Copy in medical record Durable Power of Integration Specialist: Never completed Advance Directive Specifics Date completed: 11/05/2017 . Health Care Surrogate(s): Spouse- Clotilde oDe- health care surrogate [phone] Daughter- Ted Longoria-[phone] . Objective Vital Signs Date Time Temp Pulse Resp B/P (MAP) Pulse Ox O2 Delivery O2 Flow Rate FiO2 11/07/17 08:00 99.5 87 16 123/68 (86) 98 11/07/17 05:16 98 11/07/17 00:55 99.7 77 18 106/63 (77) 11/07/17 00:00 80 11/06/17 20:00 96.5 84 18 94/54 (67) 96 11/06/17 20:00 98.9 100 20 117/59 (78) 100 Nasal Cannula 2 11/06/17 19:45 102 24 122/67 (85) 100 Nasal Cannula 2 11/06/17 19:30 106 20 121/65 (83) 100 Nasal Cannula 2 2/6/18 19:15 103 14 125/71 (89) 100 Nasal Cannula 2 11/06/17 19:00 105 12 141/71 (94) 99 Nasal Cannula 2 11/06/17 18:45 106 23 130/68 (88) 100 Nasal Cannula 3 11/06/17 18:42 98.1 104 20 142/77 (98) 100 Nasal Cannula 3 Intake & Output 11/07/17 11/07/17 07:00 19:00 Intake Total 1894 ml Output Total 1375 ml Balance 519 ml Intake Oral 0 ml IV Total 1894 ml Output Urine Total 900 ml Gastric Drainage Total 475 ml Physical Exam CONSTITUTIONAL/GENERAL: This is an adequately nourished patient, in mild abdominal discomfort. TUBES/LINES/DRAINS: PIV, Midline catheter, NGT, SCDs SKIN: No jaundice, rashes, or lesions. Ecchymoses on upper extremities. Mid abdominal surgical incision covered with a dressing. Skin temperature appropriate. Not diaphoretic. HEAD: Atraumatic. Normocephalic. EYES: Pupils equal and round and reactive. Extraocular motions intact. No scleral icterus. No injection or drainage. Fundi not examined. ENT: Hearing grossly normal. Nose without bleeding or purulent drainage. Moist oral mucosa NECK: Trachea midline. Supple, nontender. CARDIOVASCULAR: Regular rate and rhythm without murmurs, gallops, or rubs. No JVD. Peripheral pulses symmetric. RESPIRATORY/CHEST: Symmetric, unlabored respirations. Clear to auscultation. Breath sounds equal bilaterally. No wheezes, rales, or rhonchi. GASTROINTESTINAL: Abdomen tender to touch, midline abdominal surgical incision with a dressing dry and intact. No bowel sounds. GENITOURINARY: Without palpable bladder distension. MUSCULOSKELETAL: Extremities without clubbing, cyanosis, or edema. No joint tenderness or effusion noted. No calf tenderness. No mottling or clubbing. NEUROLOGICAL: Awake, lethargic, oriented to self, place and situation. Motor and sensory grossly within normal limits. Follows commands. Cognitively sharp. Moves all extremities. PSYCHIATRIC: No obvious anxiety/depression. no apparent hallucinations or other psychotic thought process. . Diagnostic Tests Laboratory Laboratory Tests Test 11/07/17 05:37 White Blood Count 13.5 TH/MM3 (4.0-11.0) Red Blood Count 2.65 MIL/MM3 (4.50-5.90) Hemoglobin 7.6 GM/DL (13.0-17.0) Hematocrit 23.4 % (39.0-51.0) Mean Corpuscular Volume 88.2 FL (80.0-100.0) Mean Corpuscular Hemoglobin 28.5 PG (27.0-34.0) Mean Corpuscular Hemoglobin Concent 32.3 % (32.0-36.0) Red Cell Distribution Width 17.0 % (11.6-17.2) Platelet Count 260 TH/MM3 (150-450) Mean Platelet Volume 7.4 FL (7.0-11.0) Result Diagram: 11/07/17 0537 11/04/17 0523 Procedures 11/02/2017- EGD w/ biopsy 11/06/2017-laparoscopic converted to open Jos-en-Y gastrojejunostomy bypass, lysis of adhesions, Juan M-Cut liver biopsy of malignant lesion in the liver remnant. . Assessment and Plan Disease Oriented Problem List: (1) GI bleeding (2) Symptomatic anemia (3) History of liver cancer (4) Hepatitis C Symptom Scale: (1) Dysphagia 0-10 Scale: Unable to quantify Comment: Upper GI series revealed an antral mass. . (2) Nausea & vomiting 0-10 Scale: Unable to quantify Comment: Multifactorial. History of liver cancer. Upper GI series revealed an antral mass . (3) Pain 0-10 Scale: Unable to quantify Comment: -Mainly from abdominal/epigastric discomfort. . Pertinent Non-Medical Issues Psychosocial:Patient was born and raised in [place]. He moved to [place] in 1991. Patient worked in construction and mostly as a galan. Patient has also lived and worked in [place] for about 5 years. He retired in 2009. Patient has been to his spouse since 2001 but have been together for about 46 years. They have and adult daughter together. Spiritual:Patient is Gnosticism Legal:Patient signed HCS form today Ethical issues impacting care:None identified at this time. . Important Contacts Spouse- Clotilde Doe [phone] Daughter- Ted Lonogria- [phone] . Prognosis Mr. Doe is a 72 years old male with a past medical history of hypertension, anemia, atrial fibrillation, liver cancer s/p liver resection, hepatitis C s/p Harvoni course, and large duodenal ulcer with history of GI bleed. Patient presented to the ER on 11/01/17 complaining of generalized weakness, dizziness, having black stools and coffee ground emesis for approximately a week. Clinical course complicated with dysphagia and worsening liver mets and disease. Given ongoing comorbidities, patient remains at high risk for further complications with disease progression, deterioration and decline. . Code Status: Full Code Plan PLAN: Legal decision maker: Patient is able to make his own medical decisions. In the case that patient is incapacitated his spouse Clotilde Doe will act as his health care surrogate and his daughter Ted Longoria as his alternate Health care surrogate. Goals: Remain aggressive CODE STATUS: Full Code SYMPTOMS: * Dysphagia: Patient was found to have a large obstructing/ ulcer at the pylorus making it impossible to pass into the duodenum during EGD. Currently has an NGT and failed swallow evaluation. Currently NPO. Upper GI series revealed an antral mass. General surgeon consulted. No recommendations. * Pain: Multifactorial. Hx of liver cancer and now and an antral mass causing significant gastric outlet obstruction. Oxycodone discontinued, patient is NPO. Patient had palliative bypass on 11/06/17. Has a midabdominal surgical incision. Patient has 4mg Morphine Sulfate IVP Q 3 hrs prn. Patient also has Morphine Sulfate 6mg IVP Q 3 hours. Patient has used x4 prn Morphine Sulfate 4mg IVP doses in the past 12hours post-op.Patient endorsing abdominal pain. Patient has not used the 6 mg dose yet.Patient may benefit from low dose Tramadol. * Nausea/Vomiting: Multifactorial. History of liver cancer. Upper GI series revealed an antral mass. Patient c/o of epigastric discomfort and nausea. Has an emesis basin and spitting frothy white spit. Patient has Zofran 4mg q 6 hrs ( Last dose given on 11/06/17) and Metoclopramide 5mg q 6 hrs. patient endorsing occasional nausea. Encouraged patient to request nausea medication when needed. Palliative Care contact information provided. Palliative care will continue to follow the patient during hospital course as condition evolves, to assist patient/decision-maker with understanding of their medical conditions, weighing benefits/burdens of treatment options, for clarification of goals of treatment. Additionally will assist with any symptoms of palliative concern. . Attestation To help prompt me to consider important information that might be impacting today's encounter and assessment, information from prior notes written by myself or my colleagues may have been "brought forward" into today's note. My signature on this note, however, is an attestation that I personally performed the exam, history, and/or decision-making noted today, and, unless otherwise indicated, the interactions with patient, family, and staff as well as the review of records all occurred today. I also attest that the listed assessment and stated plan reflect my best clinical judgment today based on the combination of historical information, prior notes, and today's exam/ interactions. When time spent is documented, it refers only to time spent today by the signer, or if indicated, combined time spent today by collaborating physician/nurse practitioner. Geoff Arita Nov 07, 2017 13:26
--- NOTE | 2017-11-07 15:32 | HHI.GIFU ---
Subjective Remarks Resting in the bed Awaken to voice family in the room Pillow at abdomen to splint when coughing, dressing clean dry and intact Low-grade fever 99.7 Objective Vitals I&O Vital Signs Date Time Temp Pulse Resp B/P (MAP) Pulse Ox O2 Delivery O2 Flow Rate FiO2 11/07/17 12:00 99.0 72 16 116/61 (79) 98 11/07/17 08:00 99.5 87 16 123/68 (86) 98 11/07/17 05:16 98 11/07/17 00:55 99.7 77 18 106/63 (77) 11/07/17 00:00 80 11/06/17 20:00 96.5 84 18 94/54 (67) 96 11/06/17 20:00 98.9 100 20 117/59 (78) 100 Nasal Cannula 2 11/06/17 19:45 102 24 122/67 (85) 100 Nasal Cannula 2 11/06/17 19:30 106 20 121/65 (83) 100 Nasal Cannula 2 11/06/17 19:15 103 14 125/71 (89) 100 Nasal Cannula 2 11/06/17 19:00 105 12 141/71 (94) 99 Nasal Cannula 2 11/06/17 18:45 106 23 130/68 (88) 100 Nasal Cannula 3 11/06/17 18:42 98.1 104 20 142/77 (98) 100 Nasal Cannula 3 I/O 11/06/17 11/06/17 11/06/17 11/07/17 11/07/17 11/07/17 07:00 15:00 23:00 07:00 15:00 23:00 Intake Total 3894 ml 200 ml Output Total 925 ml 875 ml 650 ml Balance -925 ml 3019 ml -450 ml Intake Oral 0 ml IV Total 1694 ml 200 ml Other 2200 ml Output Urine Total 625 ml 400 ml 500 ml Gastric Drainage Total 300 ml 325 ml 150 ml Estimated Blood Loss 150 ml Laboratory Laboratory Tests Test 11/07/17 05:37 White Blood Count 13.5 Red Blood Count 2.65 Hemoglobin 7.6 Hematocrit 23.4 Mean Corpuscular Volume 88.2 Mean Corpuscular Hemoglobin 28.5 Mean Corpuscular Hemoglobin Concent 32.3 Red Cell Distribution Width 17.0 Platelet Count 260 Mean Platelet Volume 7.4 Imaging Last Impressions Upper GI Series 11/05/17 0000 Signed Impressions: Service Date/Time: Sunday, November 05, 2017 10:47 - CONCLUSION: Antral mass as described above. CT is pending. Som Diez MD FACR Abdomen CT 11/05/17 0000 Signed Impressions: Service Date/Time: Sunday, November 05, 2017 11:24 - CONCLUSION: Antral mass as described above probably arising from the surgical margin in the liver. Som Diez MD FACR Chest X-Ray 11/04/17 0000 Signed Impressions: Service Date/Time: Saturday, November 04, 2017 18:05 - CONCLUSION: 1. Slight bibasilar atelectasis and/or infiltrate is seen. 2. The tip of the NG tube needs to be advanced. Dorothy Sanchez MD Abdomen/Pelvis CT 11/03/17 0000 Signed Impressions: Service Date/Time: Friday, November 03, 2017 15:52 - CONCLUSION: Hepatic mass appears larger concerning for malignancy such as hepatocellular carcinoma. Dorothy Sanchez MD Physical Exam HEENT: normocephalic; atraumatic; no jaundice., Pale mucous membranes CHEST: Chest low volumes diminished breath sounds CARDIAC: RRR ABDOMEN: Flat, Soft, nondistended, tenderness with palpation close to surgical site mid abdomen; no bowel sounds EXTREMITIES: No clubbing, cyanosis, or edema. SKIN: Dry; no rash; no jaundice. PATTERN KEEPER: lethargic but arouses to verbal stimuli Assessment and Plan Plan ASSESSMENT/ History - anemia, melanotic stool - hgb 7.3 on admission, 2 wks black tarry stool. hx duodenal ulcer No more black stools, hgb 2/4 8.6. Tumor markers including CEA, AFP, CA 19-9 negative EGD on 11/02/17---> The esophagus appeared normal, Circumferential mass was found at the pylorus; Large obstructing /ulcer at the pylorus. Unable to pass into the duodenum. Biopsies obtained. Retained food and fluid in the stomach. NG placed CT on 11/03/17 showed hepatic mass appears larger concerning for malignancy such as hepatocellular carcinoma - hx of liver mass s/p liver resection in 2016 at in [place], there was evidence of returning liver cancer, but pt deemed not a surgical candidate - hx hep C/Cirrhosis, s/p tx with ruth ann in 2014, liver mass s/p liver resection in 2016 at in [place] 11/05/[address], report pending. on TPN. NGTto LIWS. path EGD/ gastric mass pending. GS consult pending. d/w palliative care, likely goals will remain aggressive. UGI 11/05 noted, mass involving antrum, associating with liver, extending into duodenum causing significant gastric outlet syndrome d/w GS 11/06/2017, Low grade fever, HGB 8.6 on 11/04/17, no pt. visit. Out of room for procedure 11/07/17, severe anemia , possibly due to surgical procedure on 11/06/07 .hemoglobin 7.6, one unit of blood pending, low-grade fever 99.7. Liver biopsy on 11/06/17 pending. Gastric mass biopsy shows adenocarcinoma ; complications of gastric outlet obstruction. Appreciate general surgery input and surgical procedure on 11/06/17. Spoke with daughter in depth and family and patient are aware. Want full aggressive care. No active bowel sounds for now, abdominal dressing clean dry and intact. , Encourage patient and family members to assist him with turning, activity movement in the bed, coughing and deep breathing., PLAN -TPN continued at 83 cc an hour for now. - NPO, may have an occasional ice chip for oral moistening - NGT to LIWS, continue for now, approximately 150 cc of biliary secretions today - Biopsy pending liver -Consider oncology consult - Monitor labs, HGB/HCT , recheck in am. - Transfusion pending today - further recs to follow, may need repeat EGD next week . TBA this pt seen by myself and DR Barclay and this note is written on her behalf Brooke Sosa Nov 07, 2017 15:32
[2017-11-07] MEDS: MORPHINE SULFATE 8 MG/ML INJ IV PUSH PRN ×2 (16:17→20:07)
--- NOTE | 2017-11-07 18:34 | HHI.PR ---
Subjective Subjective Notes Resting in bed With some pain but controlled Objective Vitals/I&O Vital Signs Date Time Temp Pulse Resp B/P (MAP) Pulse Ox O2 Delivery O2 Flow Rate FiO2 11/07/17 18:26 20 11/07/17 17:55 98.9 78 115/63 97 11/06/17 20:00 Nasal Cannula 2 Labs Laboratory Tests Test 11/07/17 05:37 White Blood Count 13.5 Red Blood Count 2.65 Hemoglobin 7.6 Hematocrit 23.4 Mean Corpuscular Volume 88.2 Mean Corpuscular Hemoglobin 28.5 Mean Corpuscular Hemoglobin Concent 32.3 Red Cell Distribution Width 17.0 Platelet Count 260 Mean Platelet Volume 7.4 Radiology Last Impressions Upper GI Series 11/05/17 0000 Signed Impressions: Service Date/Time: Sunday, November 05, 2017 10:47 - CONCLUSION: Antral mass as described above. CT is pending. Som Diez MD FACR Abdomen CT 11/05/17 0000 Signed Impressions: Service Date/Time: Sunday, November 05, 2017 11:24 - CONCLUSION: Antral mass as described above probably arising from the surgical margin in the liver. Som Diez MD FACR Chest X-Ray 11/04/17 0000 Signed Impressions: Service Date/Time: Saturday, November 04, 2017 18:05 - CONCLUSION: 1. Slight bibasilar atelectasis and/or infiltrate is seen. 2. The tip of the NG tube needs to be advanced. Dorothy Sanchez MD Abdomen/Pelvis CT 11/03/17 0000 Signed Impressions: Service Date/Time: Friday, November 03, 2017 15:52 - CONCLUSION: Hepatic mass appears larger concerning for malignancy such as hepatocellular carcinoma. Dorothy Sanchez MD Cardiovascular: Regular Lungs: Clear Abdomen: Other (midline incision with dry dressing ) Extremities: No edema A/P Assessment and Plan 72 year old male POD1 open Jos en Y gastrojejunostomy bypass -Continue NGT to [facility] for a few ice chips -Oncology following Attending Statement The exam, history, and the medical decision-making described in the above note were completed with the assistance of the mid-level provider. I reviewed and agree with the findings presented. I attest that I had a [id number] encounter with the patient on the same day, and personally performed and documented my assessment and findings in the medical record. s/p RNY bypass, stable Abdominal exam: stable postop tenderness, no peritonitis, incision clean/dry/ intact continue postoperative management/pain control Leticia Hernandez Nov 07, 2017 18:34 Mckay Winslow MD Nov 16, 2017 07:26
[2017-11-07] MEDS: CLINIMIX 5/25 (Custom) 2000 mL- >42 mls/hr IV-CENTRAL SCH ×9 (20:06)
[2017-11-07] MEDS: ONDANSETRON HCL 4 MG/2 ML VIAL IVP PRN (20:07)
[2017-11-08] VITALS (9 sets, daily range): BP systolic 113–124; BP diastolic 61–70; PULSE 78–86; RESP 16–17; TEMP 96.9–98.9; O2SAT 92–98
[2017-11-08] MEDS: D5-1/2 NS + KCL 20 MEQ INJ 1,000 ML IV SCH ×4 (00:41→19:58)
[2017-11-08] MEDS: PANTOPRAZOLE INJ 80 MG in SODIUM CHLORIDE 0.9% INJ 100 ML IV SCH ×2 (04:18→19:07)
[2017-11-08] MEDS: MORPHINE SULFATE 8 MG/ML INJ IV PUSH PRN ×4 (05:16→19:08)
[2017-11-08 05:45] LABS: AUTOMATED NEUTROPHIL # 10.2 TH/MM3 (1.8-7.7); BASOPHIL % 0.4 % (0.0-2.0); EOSINOPHIL # 0.2 TH/MM3 (0-0.4); EOSINOPHIL % 1.5 % (0.0-4.0); HEMOGLOBIN 8.8 GM/DL (13.0-17.0); LYMPH % 6.3 % (9.0-44.0); LYMPHOCYTE # 0.8 TH/MM3 (1.0-4.8); MEAN CELL VOLUME 86.1 FL (80.0-100.0); MEAN CORPUSCULAR HEMOGLOBIN 28.2 PG (27.0-34.0); MEAN CORPUSCULAR HGB CONC 32.7 % (32.0-36.0); MEAN PLATELET VOLUME 7.5 FL (7.0-11.0); MONO % 12.4 % (0.0-8.0); MONOCYTE # 1.6 TH/MM3 (0-0.9); NEUT % 79.4 % (16.0-70.0); PLATELET COUNT 285 TH/MM3 (150-450); RED BLOOD COUNT 3.14 MIL/MM3 (4.50-5.90); RED CELL DISTRIBUTION WIDTH 17.6 % (11.6-17.2); WHITE BLOOD COUNT 12.8 TH/MM3 (4.0-11.0)
[2017-11-08 06:00] LABS: BICARBONATE 26.8 MEQ/L (21.0-32.0); CALCIUM 8.3 MG/DL (8.5-10.1); CREATININE 0.73 MG/DL (0.60-1.30)
[2017-11-08] MEDS: DIGOXIN 0.125 MG TAB PO SCH (09:31)
[2017-11-08] MEDS: DOCUSATE SODIUM 50 MG/SENNA 8.6 MG TAB PO SCH ×2 (09:32→19:07)
[2017-11-08] MEDS: DILTIAZEM HCL 60 MG TAB PO SCH ×4 (09:32→19:06)
[2017-11-08] MEDS: SODIUM CHLORIDE 0.9% FLUSH 10 ML FLUSH IV FLUSH SCH ×3 (09:33→19:07)
--- NOTE | 2017-11-08 11:47 | PD.ONC.PN ---
Subjective Subjective Remarks Afebrile overnight. Patient resting in bed in nad. states pain is better controlled today with morphine 6mg IV. feels more comfortable. Objective Data Date Time Temp Pulse Resp B/P (MAP) Pulse Ox O2 Delivery O2 Flow Rate FiO2 11/08/17 08:00 83 11/08/17 08:00 98.7 81 16 124/70 (88) 98 11/08/17 05:21 17 11/08/17 04:09 85 11/08/17 04:00 97.1 83 16 120/61 (80) 92 11/08/17 00:00 96.9 83 16 118/65 (82) 96 11/07/17 20:55 98.9 77 18 113/63 98 11/07/17 20:04 79 11/07/17 20:00 96.7 83 16 115/62 (79) 92 11/07/17 17:55 98.9 78 17 115/63 97 11/07/17 16:00 99.3 80 16 123/69 (87) 98 11/07/17 12:00 99.0 72 16 116/61 (79) 98 11/08/17 11/08/17 11/08/17 07:00 15:00 23:00 Intake Total 100 ml Output Total 1250 ml Balance -1150 ml Result Diagram: 11/08/17 0510 11/08/17 0510 Laboratory Results Laboratory Tests Test 11/08/17 05:10 White Blood Count 12.8 TH/MM3 Red Blood Count 3.14 MIL/MM3 Hemoglobin 8.8 GM/DL Hematocrit 27.0 % Mean Corpuscular Volume 86.1 FL Mean Corpuscular Hemoglobin 28.2 PG Mean Corpuscular Hemoglobin Concent 32.7 % Red Cell Distribution Width 17.6 % Platelet Count 285 TH/MM3 Mean Platelet Volume 7.5 FL Neutrophils (%) (Auto) 79.4 % Lymphocytes (%) (Auto) 6.3 % Monocytes (%) (Auto) 12.4 % Eosinophils (%) (Auto) 1.5 % Basophils (%) (Auto) 0.4 % Neutrophils # (Auto) 10.2 TH/MM3 Lymphocytes # (Auto) 0.8 TH/MM3 Monocytes # (Auto) 1.6 TH/MM3 Eosinophils # (Auto) 0.2 TH/MM3 Basophils # (Auto) 0.0 TH/MM3 CBC Comment DIFF FINAL Differential Comment Blood Urea Nitrogen 11 MG/DL Creatinine 0.73 MG/DL Random Glucose 240 MG/DL Calcium Level 8.3 MG/DL Sodium Level 138 MEQ/L Potassium Level 3.8 MEQ/L Chloride Level 105 MEQ/L Carbon Dioxide Level 26.8 MEQ/L Anion Gap 6 MEQ/L Estimat Glomerular Filtration Rate 128 ML/MIN Administered Medications Medications (Trade) Dose Ordered Sig/Víctor Route PRN Reason Start Time Stop Time Status Last Admin Dose Admin Sodium Chloride (NS Flush) 2 ml BID IV FLUSH 11/02/17 09:00 11/08/17 09:33 Digoxin (Lanoxin) 0.125 mg DAILY PO 11/02/17 09:00 11/08/17 09:31 Diltiazem HCl (Cardizem) 120 mg QID PO 11/02/17 09:00 11/08/17 09:32 Phenol (Chloraseptic [place]) 2 spray Q2H PRN MT SORE THROAT 11/02/17 16:45 11/02/17 17:19 Potassium Chloride/Dextrose/ Sod Cl 1,000 ml @ 100 mls/hr Q10H IV 11/03/17 10:41 11/06/17 19:45 Lorazepam (Ativan Inj) 1 mg Q6H PRN IV PUSH ANXIETY 11/03/17 09:45 11/03/17 10:58 Pantoprazole Sodium 80 mg/ Sodium Chloride 100 ml @ 10 mls/hr Q10H IV 11/03/17 10:30 11/08/17 04:18 Acetaminophen (Tylenol) 650 mg Q4H PRN PO TEMP > 100.4 11/03/17 11:15 11/04/17 19:56 Ondansetron HCl (Zofran Inj) 4 mg Q6H PRN IVP NAUSEA OR VOMITING 11/03/17 11:15 11/07/17 20:07 Senna/Docusate Sodium (Germania-Colace) 1 tab BID PO 11/03/17 21:00 11/08/17 09:32 Magnesium Hydroxide (Milk Of Magnesia Liq) 30 ml Q12H PRN PO Mild constipation 11/03/17 11:15 11/07/17 08:28 Sodium Chloride 11 meq/Sodium Acetate 59 meq/ Potassium Chloride 40 meq/ Sodium Phosphate 40 meq/Magnesium Chloride 10 meq/ Calcium Chloride 9 meq/ Multivitamins 10 ml/Folic Acid 1 mg/Amino Acids/ Dextrose 2,084.1437 ml @ 83 mls/hr Q24H IV-CENTRAL 11/04/17 20:00 11/07/17 20:06 Sodium Chloride (NS Flush) See Protocol DAILY IV FLUSH 11/05/17 09:00 11/08/17 09:33 Heparin Sodium (Porcine) (Heparin Central Flush) See Protocol DAILY IV FLUSH 11/05/17 09:00 11/08/17 09:32 Morphine Sulfate (Morphine Inj) 6 mg Q2HR PRN IV PUSH pain 1-10 11/07/17 10:45 11/08/17 09:34 Objective Remarks GENERAL: Elderly male, lying in bed watching TV in nad. appears comfortable. SKIN: Warm and dry. HEAD: Normocephalic. EYES: no injection or drainage. NECK: Supple, trachea midline. CARDIOVASCULAR: +S1/S2 RESPIRATORY: anterior paz clear. GASTROINTESTINAL: Abdomen soft, mildly tender. clean bandage along midline. EXTREMITIES: No cyanosis, or edema. NEUROLOGICAL: awake and alert, normal speech. moving all extremities. Assessment/Plan Problem List: (1) Liver masses ICD Codes: R16.0 - Hepatomegaly, not elsewhere classified Plan: --s/p open laparotomy on 11/06 with Jos-en-Y G-J bypass performed for palliation. pathology from liver biopsy is pending. History: --Hepatic mass could be recurrent HCC or met from adenocarcinoma of stomach. --has history of hepatitis C cirrhosis. --had a hepatocellular carcinoma rese[place] [address] Dias in [place]. --When he presented to the hospital in August, CT showed a new 2.8 cm in the right hepatic dome. MRI showed a 3.5 cm enhancing mass with adjacent 1.2 cm mass more laterally. went back to see Dr. Dias (surgeon) and was referred to interventional radiology to consider TheraSphere embolization. is still awaiting insurance approval to have the procedure done. --this hospitalization, he presented with nausea, vomiting and GI bleed. EGD showed a mass at the pylorus causing obstruction. CT abdomen also confirmed a mass in the antrum and it could possibly be arising from the surgical margin of the liver. The mass was biopsied and the pathology shows adenocarcinoma of gastric origin. (2) Symptomatic anemia ICD Codes: D64.9 - Anemia, unspecified Status: Acute Plan: --d/t GIB --monitor and transfuse as needed. 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 h/o Hepatitis C. Cirrhosis. History of Harvoni in 2014. Hepatocellular carcinoma resected in 2015. GI bleed. Small bowel obstruction. Chronic atrial fibrillation. Anemia. Hypertension. Plan 1. await pathology 2. continue pain management. Attending Statement The exam, history, and the medical decision-making described in the above note were completed with the assistance of the mid-level provider. I reviewed and agree with the findings presented. I attest that I had a [id number] encounter with the patient on the same day, and personally performed and documented my assessment and findings in the medical record. Abdominal pain better controlled. Path form liver biopsy pending. Unclear if pt has 2 primaries vs gastric cancer with mets to liver vs recurrent HCC extending into the stomach. treatment recommendation will depend on the pathology. Alexandra Rai Nov 08, 2017 11:47 Lane Ortiz MD Nov 08, 2017 14:14
[2017-11-08] MEDS: ONDANSETRON HCL 4 MG/2 ML VIAL IVP PRN (14:03)
--- NOTE | 2017-11-08 16:26 | HHI.HCPN ---
Reason for visit a. To assist with evaluation and management of symptoms including: pain, dysphagia, nausea and vomiting. b. To assist medical decision maker(s) with: better understanding of current medical conditions; weighing benefits/burdens of medical treatment options; making medical treatment decisions. Subjective/Interval History Patient is sitting up on a recliner. Patient`s in room during visit. Alert and oriented to self, place and situation. Patient states that his pain is tolerable today and seems to be better managed. Patient has been receiving Morphine Sulfate 6mg and has required x5 doses for the past 24 hours. Patient states that he gets nauseates occasionally- encouraged him to request anti- nausea medication from nursing staff when ever he feels nauseated. Patient remains NPO and has an NGT to [facility]. Vital signs stable. 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 Liver pathology pending. Case discussed with LAUREN Navarro. . Family/friend interactions at bedside. . Advance Directives Living Will: Never completed Health Care Surrogate: Copy in medical record Durable Power of Pressurised Container Filler: Never completed Advance Directive Specifics Date completed: 11/05/2017 . Health Care Surrogate(s): Spouse- Clotilde Doe- health care surrogate [phone] Daughter- Ted Longoria-[phone] . Significant change in goals: No change in goals of care. Remain aggressive. . Objective Vital Signs Date Time Temp Pulse Resp B/P (MAP) Pulse Ox O2 Delivery O2 Flow Rate FiO2 11/08/17 12:00 98.9 84 16 115/66 (82) 96 11/08/17 08:00 83 11/08/17 08:00 98.7 81 16 124/70 (88) 98 11/08/17 05:21 17 11/08/17 04:09 85 11/08/17 04:00 97.1 83 16 120/61 (80) 92 11/08/17 00:00 96.9 83 16 118/65 (82) 96 11/07/17 20:55 98.9 77 18 113/63 98 11/07/17 20:04 79 11/07/17 20:00 96.7 83 16 115/62 (79) 92 11/07/17 17:55 98.9 78 17 115/63 97 Intake & Output 11/08/17 11/08/17 07:00 19:00 Intake Total 1151.1437 ml 100 ml Output Total 1250 ml Balance -98.8563 ml 100 ml Intake Oral 0 ml IV Total 751.1437 ml 100 ml Packed Cells 400 ml Output Urine Total 600 ml Gastric Drainage Total 650 ml # Voids 0 # Bowel Movements 0 Physical Exam CONSTITUTIONAL/GENERAL: This is an adequately nourished patient, in no apparent distress, sitting up in a recliner. TUBES/LINES/DRAINS: PIV, Midline catheter, NGT, SCDs SKIN: No jaundice, rashes, or lesions. Ecchymoses on upper extremities. Mid abdominal surgical incision covered with a dressing. Skin temperature appropriate. Not diaphoretic. HEAD: Atraumatic. Normocephalic. EYES: Pupils equal and round and reactive. Extraocular motions intact. No scleral icterus. No injection or drainage. Fundi not examined. ENT: Hearing grossly normal. Nose without bleeding or purulent drainage. Moist oral mucosa NECK: Trachea midline. Supple, nontender. CARDIOVASCULAR: Regular rate and rhythm without murmurs, gallops, or rubs. No JVD. Peripheral pulses symmetric. RESPIRATORY/CHEST: Symmetric, unlabored respirations. Clear to auscultation. Breath sounds equal bilaterally. No wheezes, rales, or rhonchi. GASTROINTESTINAL: Abdomen tender to touch, midline abdominal surgical incision with a dressing dry and intact. No bowel sounds. GENITOURINARY: Without palpable bladder distension. MUSCULOSKELETAL: Extremities without clubbing, cyanosis, or edema. No joint tenderness or effusion noted. No calf tenderness. No mottling or clubbing. NEUROLOGICAL: Awake, lethargic, oriented to self, place and situation. Motor and sensory grossly within normal limits. Follows commands. Cognitively sharp. Moves all extremities. PSYCHIATRIC: No obvious anxiety/depression. no apparent hallucinations or other psychotic thought process. . Diagnostic Tests Laboratory Laboratory Tests Test 11/07/17 05:37 11/08/17 05:10 White Blood Count 13.5 TH/MM3 (4.0-11.0) 12.8 TH/MM3 (4.0-11.0) Red Blood Count 2.65 MIL/MM3 (4.50-5.90) 3.14 MIL/MM3 (4.50-5.90) Hemoglobin 7.6 GM/DL (13.0-17.0) 8.8 GM/DL (13.0-17.0) Hematocrit 23.4 % (39.0-51.0) 27.0 % (39.0-51.0) Mean Corpuscular Volume 88.2 FL (80.0-100.0) 86.1 FL (80.0-100.0) Mean Corpuscular Hemoglobin 28.5 PG (27.0-34.0) 28.2 PG (27.0-34.0) Mean Corpuscular Hemoglobin Concent 32.3 % (32.0-36.0) 32.7 % (32.0-36.0) Red Cell Distribution Width 17.0 % (11.6-17.2) 17.6 % (11.6-17.2) Platelet Count 260 TH/MM3 (150-450) 285 TH/MM3 (150-450) Mean Platelet Volume 7.4 FL (7.0-11.0) 7.5 FL (7.0-11.0) Neutrophils (%) (Auto) 79.4 % (16.0-70.0) Lymphocytes (%) (Auto) 6.3 % (9.0-44.0) Monocytes (%) (Auto) 12.4 % (0.0-8.0) Eosinophils (%) (Auto) 1.5 % (0.0-4.0) Basophils (%) (Auto) 0.4 % (0.0-2.0) Neutrophils # (Auto) 10.2 TH/MM3 (1.8-7.7) Lymphocytes # (Auto) 0.8 TH/MM3 (1.0-4.8) Monocytes # (Auto) 1.6 TH/MM3 (0-0.9) Eosinophils # (Auto) 0.2 TH/MM3 (0-0.4) Basophils # (Auto) 0.0 TH/MM3 (0-0.2) CBC Comment DIFF FINAL Differential Comment Blood Urea Nitrogen 11 MG/DL (7-18) Creatinine 0.73 MG/DL (0.60-1.30) Random Glucose 240 MG/DL (74-106) Calcium Level 8.3 MG/DL (8.5-10.1) Sodium Level 138 MEQ/L (136-145) Potassium Level 3.8 MEQ/L (3.5-5.1) Chloride Level 105 MEQ/L (98-107) Carbon Dioxide Level 26.8 MEQ/L (21.0-32.0) Anion Gap 6 MEQ/L (5-15) Estimat Glomerular Filtration Rate 128 ML/MIN (>89) Result Diagram: 11/08/17 0510 11/08/17 0510 Procedures 11/02/2017- EGD w/ biopsy 11/06/2017-laparoscopic converted to open Jos-en-Y gastrojejunostomy bypass, lysis of adhesions, Juan M-Cut liver biopsy of malignant lesion in the liver remnant. . Assessment and Plan Disease Oriented Problem List: (1) GI bleeding (2) Symptomatic anemia (3) History of liver cancer (4) Hepatitis C Symptom Scale: (1) Dysphagia 0-10 Scale: Unable to quantify Comment: Upper GI series revealed an antral mass. . (2) Nausea & vomiting 0-10 Scale: Unable to quantify Comment: Multifactorial. History of liver cancer. Upper GI series revealed an antral mass . (3) Pain 0-10 Scale: Unable to quantify Comment: -Mainly from abdominal/epigastric discomfort. . Pertinent Non-Medical Issues Psychosocial:Patient was born and raised in [place]. He moved to [place] in 1991. Patient worked in construction and mostly as a galan. Patient has also lived and worked in [place] for about 5 years. He retired in 2009. Patient has been to his spouse since 2001 but have been together for about 46 years. They have and adult daughter together. Spiritual:Patient is Religious Legal:Patient signed HCS form today Ethical issues impacting care:None identified at this time. . Important Contacts Spouse- Clotilde Doe [phone] Daughter- Ted Longoria- [phone] . Prognosis Mr. Doe is a 72 years old male with a past medical history of hypertension, anemia, atrial fibrillation, liver cancer s/p liver resection, hepatitis C s/p Harvoni course, and large duodenal ulcer with history of GI bleed. Patient presented to the ER on 11/01/17 complaining of generalized weakness, dizziness, having black stools and coffee ground emesis for approximately a week. Clinical course complicated with dysphagia and worsening liver mets and disease. Given ongoing comorbidities, patient remains at high risk for further complications with disease progression, deterioration and decline. . Code Status: Full Code Plan PLAN: Legal decision maker: Patient is able to make his own medical decisions. In the case that patient is incapacitated his spouse Clotilde Doe will act as his health care surrogate and his daughter Ted Longoria as his alternate Health care surrogate. Goals: Remain aggressive CODE STATUS: Full Code SYMPTOMS: * Dysphagia: Patient was found to have a large obstructing/ ulcer at the pylorus making it impossible to pass into the duodenum during EGD. Currently has an NGT and failed swallow evaluation. Currently NPO. Upper GI series revealed an antral mass. General surgeon consulted. Patient is s/p open laparotomy with palliative Jos-en-Y G-J bypass on 11/06/17. Speech therapy signed off today. Recommending ST reconsult when patient is cleared from NPO status. * Pain: Multifactorial. Hx of liver cancer and now and an antral mass causing significant gastric outlet obstruction. Oxycodone discontinued, patient is NPO. Patient had palliative bypass on 11/06/17. Has a midabdominal surgical incision. Patient has 4mg Morphine Sulfate IVP Q 3 hrs prn. Patient also has Morphine Sulfate 6mg IVP Q 3 hours. Patient has used x4 prn Morphine Sulfate 4mg IVP doses in the past 12hours post-op.Patient able to get OOB and sit up on a recliner today. States that pain seems to be better managed with Morphine 6mg IVP. Patient has required has required x5 doses for the past 24 hours. No recommendations at this time. * Nausea/Vomiting: Multifactorial. History of liver cancer. Upper GI series revealed an antral mass. Patient c/o of epigastric discomfort and nausea. Has an emesis basin and spitting frothy white spit. Patient has Zofran 4mg q 6 hrs ( Last dose given on 11/06/17) and Metoclopramide 5mg q 6 hrs. patient endorsing occasional nausea. Encouraged patient to request nausea medication when needed.No recommendations. Palliative Care contact information provided. Palliative care will continue to follow the patient during hospital course as condition evolves, to assist patient/decision-maker with understanding of their medical conditions, weighing benefits/burdens of treatment options, for clarification of goals of treatment. Additionally will assist with any symptoms of palliative concern. . Attestation To help prompt me to consider important information that might be impacting today's encounter and assessment, information from prior notes written by myself or my colleagues may have been "brought forward" into today's note. My signature on this note, however, is an attestation that I personally performed the exam, history, and/or decision-making noted today, and, unless otherwise indicated, the interactions with patient, family, and staff as well as the review of records all occurred today. I also attest that the listed assessment and stated plan reflect my best clinical judgment today based on the combination of historical information, prior notes, and today's exam/ interactions. When time spent is documented, it refers only to time spent today by the signer, or if indicated, combined time spent today by collaborating physician/nurse practitioner. Geoff Arita Nov 08, 2017 16:26
--- NOTE | 2017-11-08 16:31 | HHI.PR ---
Subjective Remarks Patient was asleep when I came in. Currently denied any pain. States he got some pain medication and it helped. Discussed with RN and patient had a complaint of right ear pain. When I asked patient regarding this he said that his pain resolved. No nausea or vomiting at this time. Objective Vitals Vital Signs Date Time Temp Pulse Resp B/P (MAP) Pulse Ox O2 Delivery O2 Flow Rate FiO2 11/08/17 16:00 98.7 78 17 115/64 (81) 98 11/08/17 12:00 98.9 84 16 115/66 (82) 96 11/08/17 08:00 83 11/08/17 08:00 98.7 81 16 124/70 (88) 98 11/08/17 05:21 17 11/08/17 04:09 85 11/08/17 04:00 97.1 83 16 120/61 (80) 92 11/08/17 00:00 96.9 83 16 118/65 (82) 96 11/07/17 20:55 98.9 77 18 113/63 98 11/07/17 20:04 79 11/07/17 20:00 96.7 83 16 115/62 (79) 92 11/07/17 17:55 98.9 78 17 115/63 97 I/O 11/07/17 11/07/17 11/07/17 11/08/17 11/08/17 11/08/17 07:00 15:00 23:00 07:00 15:00 23:00 Intake Total 200 ml 3667.1437 ml 100 ml 100 ml Output Total 650 ml 1900 ml 1250 ml Balance -450 ml 1767.1437 ml -1150 ml 100 ml Intake Oral 0 ml 0 ml IV Total 200 ml 3267.1437 ml 100 ml 100 ml Packed Cells 400 ml Output Urine Total 500 ml 1500 ml 600 ml Gastric Drainage Total 150 ml 400 ml 650 ml # Voids 0 # Bowel Movements 0 0 Result Diagram: 11/08/1750911/08/17509 Imaging Last Impressions Upper GI Series 11/05/17 Signed Impressions: Service Date/Time: Sunday, November 05, 2017 10:47 - CONCLUSION: Antral mass as described above. CT is pending. Som Diez MD FACR Abdomen CT 11/05/17 Signed Impressions: Service Date/Time: Sunday, November 05, 2017 11:24 - CONCLUSION: Antral mass as described above probably arising from the surgical margin in the liver. Som Diez MD FACR Chest X-Ray 11/04/17 0000 Signed Impressions: Service Date/Time: Saturday, November 04, 2017 18:05 - CONCLUSION: 1. Slight bibasilar atelectasis and/or infiltrate is seen. 2. The tip of the NG tube needs to be advanced. Dorothy Sanchez MD Abdomen/Pelvis CT 11/03/17 0000 Signed Impressions: Service Date/Time: Friday, November 03, 2017 15:52 - CONCLUSION: Hepatic mass appears larger concerning for malignancy such as hepatocellular carcinoma. Dorothy Sanchez MD Objective Remarks GENERAL: ill-looking, NG tube in place CARDIOVASCULAR: Regular rate and regular rhythm without murmurs RESPIRATORY: Clear to auscultation. Breath sounds equal bilaterally. No wheezes GASTROINTESTINAL: Abdomen soft, some discomfort w deep palpation, nondistended. dressing over abdomen d/c/i. MUSCULOSKELETAL: Extremities without edema. NEURO: Alert & Oriented x4. Moves all ext x4 Procedures EGD PROCEDURE REPORT EXAM DATE: 11/02/2017 PATIENT NAME: Anil Doe MR #: [id number] BIRTHDATE: 1945 ATTENDING: Marianela Quiroz MD ORDER #: [id number] COMPOSITE BOAT BUILDER: Fadumo Quarles and Madni Dhaliwal STATUS: inpatient INDICATIONS: The patient is a 72 yr old male here for an EGD due to acute post hemorrhagic anemia and hematemesis PROCEDURE PERFORMED: EGD w/ biopsy MEDICATIONS: None and Per Anesthesia. TOPICAL ANESTHETIC: CONSENT: The patient understands the risks and benefits of the procedure and understands that these risks include, but are not limited to: sedation, allergic reaction, infection, perforation and/or bleeding. Alternative means of evaluation and treatment include, among others: physical exam, x-rays, and/or surgical intervention. The patient elects to proceed with this endoscopic procedure. medical equipment was checked for proper function. Hand hygiene and appropriate measures for infection prevention was taken. After the risks, benefits and alternatives of the procedure were thoroughly explained, Informed consent was verified, confirmed and timeout was successfully executed by the treatment team. The patient was anesthetized with topical anesthesia and the Pentax [id number] endoscope was introduced through the mouth and advanced to the pylorus. Retroflexion was not performed The gastroscope was then slowly withdrawn and removed. ESOPHAGUS: The mucosa of the esophagus appeared normal. STOMACH: A circumferential fungating mass with friable surfaces was found at the pylorus. Large obstructing /ulcer at the pylorus. Unable to pass into the duodenum. Biopsies obtained. Retained food and fluid in the stomach. NG placed. ADVERSE EVENTS: There were no complications. IMPRESSIONS: 1. The esophagus appeared normal 2. Circumferential mass was found at the pylorus; Large obstructing /ulcer at the pylorus. Unable to pass into the duodenum. Biopsies obtained. Retained food and fluid in the stomach. NG placed 3. Retroflexion was not performed RECOMMENDATIONS: 1. Await biopsy results. Biopsy results will not be ready for 7-10 days. If you don't hear from us in two weeks, call our office for biopsy results. 2. Xray: CT ABD W/CONTRAST 3. NG to L.I.S. NPO PATIENT CONDITION: stable DISPOSITION: Inpatient REPEAT EXAM: Return 1 week EGD pending biopsy results 1. Laparoscopic converted to open Jos-en-Y gastrojejunostomy bypass. 2. Extensive lysis of adhesions greater than 45 minutes (open). 3. Juan M-Cut liver biopsy of malignant lesion in the liver remnant. A/P Assessment and Plan 1. GI bleed with acute anemia Patient with history of large bleeding duodenal ulcer s/p PRBC transfusion. Protonix drip Gastroenterology following, appreciate assistance, NGTube in place. Had EGD 2-2 : Circumferential mass was found at the pylorus; Large obstructing / ulcer at the pylorus. 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 Pt is s/p Laparoscopic converted to open Jos-en-Y gastrojejunostomy bypass/ Extensive lysis of adhesions continue pain management 2. 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 liver biopsy shows non diagnostic necrotic , fibroadipose and liver tissue in needle core biopsy oncology following. palliative care following. appreciate assistance from all consultants 3. Previous history of Atrial fibrillation - currently normal sinus rhythm Continue home digoxin and diltiazem 4. DVT prophylaxis - anticoagulation contraindicated secondary to GI bleed. SCDs Discharge Planning no discharge plans at this time. Need clearance from all consultants Kaity Olvera MD Nov 08, 2017 16:31
[2017-11-08] MEDS: CLINIMIX 5/25 (Custom) 2000 mL- >42 mls/hr IV-CENTRAL SCH ×9 (19:07)
--- NOTE | 2017-11-08 19:29 | HHI.PR ---
Subjective Subjective Notes Resting in bed No issues Objective Vitals/I&O Vital Signs Date Time Temp Pulse Resp B/P (MAP) Pulse Ox O2 Delivery O2 Flow Rate FiO2 11/08/17 18:09 98 21 11/08/17 16:00 98.7 78 17 115/64 (81) 11/06/17 20:00 Nasal Cannula 2 Labs Laboratory Tests Test 11/08/17 05:10 White Blood Count 12.8 Red Blood Count 3.14 Hemoglobin 8.8 Hematocrit 27.0 Mean Corpuscular Volume 86.1 Mean Corpuscular Hemoglobin 28.2 Mean Corpuscular Hemoglobin Concent 32.7 Red Cell Distribution Width 17.6 Platelet Count 285 Mean Platelet Volume 7.5 Neutrophils (%) (Auto) 79.4 Lymphocytes (%) (Auto) 6.3 Monocytes (%) (Auto) 12.4 Eosinophils (%) (Auto) 1.5 Basophils (%) (Auto) 0.4 Neutrophils # (Auto) 10.2 Lymphocytes # (Auto) 0.8 Monocytes # (Auto) 1.6 Eosinophils # (Auto) 0.2 Basophils # (Auto) 0.0 CBC Comment DIFF FINAL Differential Comment Blood Urea Nitrogen 11 Creatinine 0.73 Random Glucose 240 Calcium Level 8.3 Sodium Level 138 Potassium Level 3.8 Chloride Level 105 Carbon Dioxide Level 26.8 Anion Gap 6 Estimat Glomerular Filtration Rate 128 Radiology Last Impressions Upper GI Series 11/05/17 0000 Signed Impressions: Service Date/Time: Sunday, November 05, 2017 10:47 - CONCLUSION: Antral mass as described above. CT is pending. Som Diez MD FACR Abdomen CT 11/05/17 0000 Signed Impressions: Service Date/Time: Sunday, November 05, 2017 11:24 - CONCLUSION: Antral mass as described above probably arising from the surgical margin in the liver. Som Diez MD FACR Chest X-Ray 11/04/17 0000 Signed Impressions: Service Date/Time: Saturday, November 04, 2017 18:05 - CONCLUSION: 1. Slight bibasilar atelectasis and/or infiltrate is seen. 2. The tip of the NG tube needs to be advanced. Dorothy Sanchez MD Abdomen/Pelvis CT 11/03/17 0000 Signed Impressions: Service Date/Time: Friday, November 03, 2017 15:52 - CONCLUSION: Hepatic mass appears larger concerning for malignancy such as hepatocellular carcinoma. Dorothy Sanchez MD Cardiovascular: Regular Lungs: Clear Abdomen: Other (midline incision with minimal serous drainage---removed; abdomen soft; mildly tender to palpation ) Extremities: No edema Narrative Exam NGT removed at bedside A/P Assessment and Plan 72 year old male with known recurrent HHC; gastric outlet obstruction; POD2 lap converted to open Jos-en-Y gastrojejunostomy bypass; liver bx -DC NGT -Start sips of clears -Pain control -OOB as tolerated Attending Statement The exam, history, and the medical decision-making described in the above note were completed with the assistance of the mid-level provider. I reviewed and agree with the findings presented. I attest that I had a [id number] encounter with the patient on the same day, and personally performed and documented my assessment and findings in the medical record. s/p bypass, stable Abdominal exam: stable postop tenderness, no peritonitis, incision clean/dry/ intact continue postoperative management Leticia Hernandez Nov 08, 2017 19:29 Mckay Winslow MD Nov 16, 2017 07:27
[2017-11-09] VITALS (7 sets, daily range): BP systolic 103–126; BP diastolic 58–70; PULSE 65–81; RESP 16–19; TEMP 96.7–100.2; O2SAT 95–97
[2017-11-09] MEDS: PANTOPRAZOLE INJ 80 MG in SODIUM CHLORIDE 0.9% INJ 100 ML IV SCH ×2 (03:54→16:51)
[2017-11-09] MEDS: D5-1/2 NS + KCL 20 MEQ INJ 1,000 ML IV SCH ×3 (03:55→16:50)
[2017-11-09 04:45] LABS: AUTOMATED NEUTROPHIL # 7.6 TH/MM3 (1.8-7.7); BASOPHIL # 0.1 TH/MM3 (0-0.2); BASOPHIL % 0.5 % (0.0-2.0); EOSINOPHIL # 0.3 TH/MM3 (0-0.4); HEMOGLOBIN 8.9 GM/DL (13.0-17.0); LYMPH % 4.5 % (9.0-44.0); LYMPHOCYTE # 0.4 TH/MM3 (1.0-4.8); MEAN CELL VOLUME 84.8 FL (80.0-100.0); MEAN CORPUSCULAR HEMOGLOBIN 27.8 PG (27.0-34.0); MEAN CORPUSCULAR HGB CONC 32.8 % (32.0-36.0); MEAN PLATELET VOLUME 7.5 FL (7.0-11.0); MONO % 13.2 % (0.0-8.0); MONOCYTE # 1.3 TH/MM3 (0-0.9); NEUT % 78.8 % (16.0-70.0); PLATELET COUNT 309 TH/MM3 (150-450); RED BLOOD COUNT 3.19 MIL/MM3 (4.50-5.90); RED CELL DISTRIBUTION WIDTH 18.4 % (11.6-17.2); WHITE BLOOD COUNT 9.7 TH/MM3 (4.0-11.0)
[2017-11-09 05:20] LABS: BICARBONATE 26.2 MEQ/L (21.0-32.0); CALCIUM 8.7 MG/DL (8.5-10.1); CREATININE 0.74 MG/DL (0.60-1.30)
[2017-11-09] MEDS: SODIUM CHLORIDE 0.9% FLUSH 10 ML FLUSH IV FLUSH SCH ×3 (08:36→19:52)
[2017-11-09] MEDS: DOCUSATE SODIUM 50 MG/SENNA 8.6 MG TAB PO SCH ×2 (08:36→19:55)
[2017-11-09] MEDS: DIGOXIN 0.125 MG TAB PO SCH (08:36)
[2017-11-09] MEDS: DILTIAZEM HCL 60 MG TAB PO SCH ×4 (08:36→20:02)
[2017-11-09] MEDS: MORPHINE SULFATE 8 MG/ML INJ IV PUSH PRN ×4 (08:38→19:54)
--- NOTE | 2017-11-09 13:29 | PD.ONC.PN ---
Subjective Subjective Remarks Afebrile overnight. Patient resting in bed in nad. states pain controlled when he gets the morphine. Tolerating clear liquid diet. Objective Data Date Time Temp Pulse Resp B/P (MAP) Pulse Ox O2 Delivery O2 Flow Rate FiO2 11/09/17 12:00 98.4 70 19 111/69 (83) 97 11/09/17 08:10 97 11/09/17 08:00 98.7 76 18 126/70 (88) 95 11/09/17 04:00 79 11/09/17 04:00 96.7 65 16 115/62 (79) 97 11/09/17 00:00 97.9 78 16 111/60 (77) 95 11/08/17 23:59 81 11/08/17 20:00 97.5 84 16 113/63 (80) 96 11/08/17 20:00 86 11/08/17 19:13 16 11/08/17 18:09 98 21 11/08/17 16:00 98.7 78 17 115/64 (81) 98 11/09/17 11/09/17 11/09/17 07:00 15:00 23:00 Intake Total 1340 ml 875 ml Balance 1340 ml 875 ml Result Diagram: 11/09/17 0415 11/09/17 0415 Laboratory Results Laboratory Tests Test 11/09/17 04:15 White Blood Count 9.7 TH/MM3 Red Blood Count 3.19 MIL/MM3 Hemoglobin 8.9 GM/DL Hematocrit 27.0 % Mean Corpuscular Volume 84.8 FL Mean Corpuscular Hemoglobin 27.8 PG Mean Corpuscular Hemoglobin Concent 32.8 % Red Cell Distribution Width 18.4 % Platelet Count 309 TH/MM3 Mean Platelet Volume 7.5 FL Neutrophils (%) (Auto) 78.8 % Lymphocytes (%) (Auto) 4.5 % Monocytes (%) (Auto) 13.2 % Eosinophils (%) (Auto) 3.0 % Basophils (%) (Auto) 0.5 % Neutrophils # (Auto) 7.6 TH/MM3 Lymphocytes # (Auto) 0.4 TH/MM3 Monocytes # (Auto) 1.3 TH/MM3 Eosinophils # (Auto) 0.3 TH/MM3 Basophils # (Auto) 0.1 TH/MM3 CBC Comment DIFF FINAL Differential Comment Blood Urea Nitrogen 10 MG/DL Creatinine 0.74 MG/DL Random Glucose 341 MG/DL Calcium Level 8.7 MG/DL Sodium Level 136 MEQ/L Potassium Level 3.9 MEQ/L Chloride Level 102 MEQ/L Carbon Dioxide Level 26.2 MEQ/L Anion Gap 8 MEQ/L Estimat Glomerular Filtration Rate 126 ML/MIN Administered Medications Medications (Trade) Dose Ordered Sig/Víctor Route PRN Reason Start Time Stop Time Status Last Admin Dose Admin Sodium Chloride (NS Flush) 2 ml BID IV FLUSH 11/02/17 09:00 11/09/17 08:37 Digoxin (Lanoxin) 0.125 mg DAILY PO 11/02/17 09:00 11/09/17 08:36 Diltiazem HCl (Cardizem) 120 mg QID PO 11/02/17 09:00 11/09/17 12:57 Phenol (Chloraseptic [place]) 2 spray Q2H PRN MT SORE THROAT 11/02/17 16:45 11/02/17 17:19 Potassium Chloride/Dextrose/ Sod Cl 1,000 ml @ 100 mls/hr Q10H IV 11/03/17 10:41 11/09/17 08:41 Lorazepam (Ativan Inj) 1 mg Q6H PRN IV PUSH ANXIETY 11/03/17 09:45 11/03/17 10:58 Pantoprazole Sodium 80 mg/ Sodium Chloride 100 ml @ 10 mls/hr Q10H IV 11/03/17 10:30 11/09/17 03:54 Acetaminophen (Tylenol) 650 mg Q4H PRN PO TEMP > 100.4 11/03/17 11:15 11/04/17 19:56 Ondansetron HCl (Zofran Inj) 4 mg Q6H PRN IVP NAUSEA OR VOMITING 11/03/17 11:15 11/08/17 14:03 Senna/Docusate Sodium ([place]-Colace) 1 tab BID PO 11/03/17 21:00 11/09/17 08:36 Magnesium Hydroxide (Milk Of Magnesia Liq) 30 ml Q12H PRN PO Mild constipation 11/03/17 11:15 11/07/17 08:28 Sodium Chloride 11 meq/Sodium Acetate 59 meq/ Potassium Chloride 40 meq/ Sodium Phosphate 40 meq/Magnesium Chloride 10 meq/ Calcium Chloride 9 meq/ Multivitamins 10 ml/Folic Acid 1 mg/Amino Acids/ Dextrose 2,084.1437 ml @ 83 mls/hr Q24H IV-CENTRAL 11/04/17 20:00 11/08/17 19:07 Sodium Chloride (NS Flush) See Protocol DAILY IV FLUSH 11/05/17 09:00 11/09/17 08:36 Heparin Sodium (Porcine) (Heparin Central Flush) See Protocol DAILY IV FLUSH 11/05/17 09:00 11/09/17 08:36 Morphine Sulfate (Morphine Inj) 6 mg Q2HR PRN IV PUSH pain 1-10 11/07/17 10:45 11/09/17 11:25 Objective Remarks GENERAL: Elderly male, supine in bed resting. SKIN: Warm and dry. HEAD: Normocephalic. EYES: no injection or drainage. NECK: Supple, trachea midline. CARDIOVASCULAR: +S1/S2 RESPIRATORY: anterior paz clear. GASTROINTESTINAL: bandage along midline is c/d/i. mildly tender throughout. abdomen is soft. EXTREMITIES: No cyanosis, or edema. NEUROLOGICAL: no obvious focal deficit. Assessment/Plan Problem List: (1) Liver masses ICD Codes: R16.0 - Hepatomegaly, not elsewhere classified Plan: --s/p open laparotomy on 11/06 with Jos-en-Y G-J bypass performed for palliation. pathology from liver biopsy is pending. History: --Hepatic mass could be recurrent HCC or met from adenocarcinoma of stomach. --has history of hepatitis C cirrhosis. --had a hepatocellular carcinoma rese[place] [address] Dias in [place]. --When he presented to the hospital in August, CT showed a new 2.8 cm in the right hepatic dome. MRI showed a 3.5 cm enhancing mass with adjacent 1.2 cm mass more laterally. went back to see Dr. Dias (surgeon) and was referred to interventional radiology to consider TheraSphere embolization. is still awaiting insurance approval to have the procedure done. --this hospitalization, he presented with nausea, vomiting and GI bleed. EGD showed a mass at the pylorus causing obstruction. CT abdomen also confirmed a mass in the antrum and it could possibly be arising from the surgical margin of the liver. The mass was biopsied and the pathology shows adenocarcinoma of gastric origin. UPDATE: pathology was updated to state with additional staining the mass appears to be HCC. (2) Symptomatic anemia ICD Codes: D64.9 - Anemia, unspecified Status: Acute Plan: --d/t GIB --monitor and transfuse as needed. 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 h/o Hepatitis C. Cirrhosis. History of Harvoni in 2014. Hepatocellular carcinoma resected in 2014. GI bleed. Small bowel obstruction. Chronic atrial fibrillation. Anemia. Hypertension. Plan 1. continue pain management. 2. diet per surgical team. Attending Statement The exam, history, and the medical decision-making described in the above note were completed with the assistance of the mid-level provider. I reviewed and agree with the findings presented. I attest that I had a [id number] encounter with the patient on the same day, and personally performed and documented my assessment and findings in the medical record. Feeling slightly better. NGT removed. The pathology from stomach biopsy showed hepatocellular carcinoma rather than gastric adenocarcinoma. 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 The tumor is not resectable. Plan to discuss his case at the tumor board and to see if he will be a candidate for XRT or other local therapy. Alexandra Rai Nov 09, 2017 13:29 Lane Ortiz MD Nov 09, 2017 19:06
[2017-11-09] MEDS ORDERED: DEXTROSE 50% IN WATER 50 ML VIAL(D50) IV PUSH PRN (14:45)
[2017-11-09] MEDS ORDERED: GLUCAGON 1 MG/ML VIAL OTHER PRN (14:45)
--- NOTE | 2017-11-09 15:21 | HHI.HCPN ---
Reason for visit a. To assist with evaluation and management of symptoms including: pain, dysphagia, nausea and vomiting. b. To assist medical decision maker(s) with: better understanding of current medical conditions; weighing benefits/burdens of medical treatment options; making medical treatment decisions. Subjective/Interval History Patient seen and examined in room in the presence of his daughter and . Patient is in bed, awake, alert and oriented to self, place and situation. Patient denying pain at this time. Patient is required to x5 prn morphine sulfate doses over 24 hours. Occasionally spitting frothy saliva in emesis basin. NG tube discontinued yesterday. Patient started on clear liquid diet, tolerated well. No report of nausea and vomiting. Case discussed with LAUREN Navarro and LAUREN Elias. . Family/friend interactions Patient's daughter and at bedside . Advance Directives Living Will: Never completed Health Care Surrogate: Copy in medical record Durable Power of Regional Engagement Consultant: Never completed Advance Directive Specifics Date completed: 11/05/2017 . Health Care Surrogate(s): Spouse- Clotilde Doe- health care surrogate [phone] Daughter- Ted Longoria-[phone] . Objective Vital Signs Date Time Temp Pulse Resp B/P (MAP) Pulse Ox O2 Delivery O2 Flow Rate FiO2 11/09/17 12:00 98.4 70 19 111/69 (83) 97 11/09/17 08:10 97 11/09/17 08:00 98.7 76 18 126/70 (88) 95 11/09/17 04:00 79 11/09/17 04:00 96.7 65 16 115/62 (79) 97 11/09/17 00:00 97.9 78 16 111/60 (77) 95 11/08/17 23:59 81 11/08/17 20:00 97.5 84 16 113/63 (80) 96 11/08/17 20:00 86 11/08/17 19:13 16 11/08/17 18:09 98 21 11/08/17 16:00 98.7 78 17 115/64 (81) 98 Intake & Output 11/09/17 11/09/17 07:00 19:00 Intake Total 3424.1437 ml 875 ml Output Total 250 ml Balance 3174.1437 ml 875 ml Intake Oral 240 ml IV Total 3184.1437 ml 875 ml Output Urine Total 250 ml # Voids 3 # Bowel Movements 1 Physical Exam CONSTITUTIONAL/GENERAL: This is an adequately nourished patient, in no apparent distress. Currently denies pain. TUBES/LINES/DRAINS: PIV, Midline catheter, SCDs SKIN: No jaundice, rashes, or lesions. Ecchymoses on upper extremities. Mid abdominal surgical incision covered with a dressing. Skin temperature appropriate. Not diaphoretic. HEAD: Atraumatic. Normocephalic. EYES: Pupils equal and round and reactive. Extraocular motions intact. No scleral icterus. No injection or drainage. Fundi not examined. ENT: Hearing grossly normal. Nose without bleeding or purulent drainage. Moist oral mucosa NECK: Trachea midline. Supple, nontender. CARDIOVASCULAR: Regular rate and rhythm without murmurs, gallops, or rubs. No JVD. Peripheral pulses symmetric. RESPIRATORY/CHEST: Symmetric, unlabored respirations. Clear to auscultation. Breath sounds equal bilaterally. No wheezes, rales, or rhonchi. GASTROINTESTINAL: Abdomen tender to touch, midline abdominal surgical incision with a dressing dry and intact. No bowel sounds. GENITOURINARY: Without palpable bladder distension. MUSCULOSKELETAL: Extremities without clubbing, cyanosis, or edema. No joint tenderness or effusion noted. No calf tenderness. No mottling or clubbing. NEUROLOGICAL: Awake, lethargic, oriented to self, place and situation. Motor and sensory grossly within normal limits. Follows commands. Cognitively sharp. Moves all extremities. PSYCHIATRIC: No obvious anxiety/depression. no apparent hallucinations or other psychotic thought process. . Diagnostic Tests Laboratory Laboratory Tests Test 11/07/17 05:37 11/08/17 05:10 11/09/17 04:15 White Blood Count 13.5 TH/MM3 (4.0-11.0) 12.8 TH/MM3 (4.0-11.0) 9.7 TH/MM3 (4.0-11.0) Red Blood Count 2.65 MIL/MM3 (4.50-5.90) 3.14 MIL/MM3 (4.50-5.90) 3.19 MIL/MM3 (4.50-5.90) Hemoglobin 7.6 GM/DL (13.0-17.0) 8.8 GM/DL (13.0-17.0) 8.9 GM/DL (13.0-17.0) Hematocrit 23.4 % (39.0-51.0) 27.0 % (39.0-51.0) 27.0 % (39.0-51.0) Mean Corpuscular Volume 88.2 FL (80.0-100.0) 86.1 FL (80.0-100.0) 84.8 FL (80.0-100.0) Mean Corpuscular Hemoglobin 28.5 PG (27.0-34.0) 28.2 PG (27.0-34.0) 27.8 PG (27.0-34.0) Mean Corpuscular Hemoglobin Concent 32.3 % (32.0-36.0) 32.7 % (32.0-36.0) 32.8 % (32.0-36.0) Red Cell Distribution Width 17.0 % (11.6-17.2) 17.6 % (11.6-17.2) 18.4 % (11.6-17.2) Platelet Count 260 TH/MM3 (150-450) 285 TH/MM3 (150-450) 309 TH/MM3 (150-450) Mean Platelet Volume 7.4 FL (7.0-11.0) 7.5 FL (7.0-11.0) 7.5 FL (7.0-11.0) Neutrophils (%) (Auto) 79.4 % (16.0-70.0) 78.8 % (16.0-70.0) Lymphocytes (%) (Auto) 6.3 % (9.0-44.0) 4.5 % (9.0-44.0) Monocytes (%) (Auto) 12.4 % (0.0-8.0) 13.2 % (0.0-8.0) Eosinophils (%) (Auto) 1.5 % (0.0-4.0) 3.0 % (0.0-4.0) Basophils (%) (Auto) 0.4 % (0.0-2.0) 0.5 % (0.0-2.0) Neutrophils # (Auto) 10.2 TH/MM3 (1.8-7.7) 7.6 TH/MM3 (1.8-7.7) Lymphocytes # (Auto) 0.8 TH/MM3 (1.0-4.8) 0.4 TH/MM3 (1.0-4.8) Monocytes # (Auto) 1.6 TH/MM3 (0-0.9) 1.3 TH/MM3 (0-0.9) Eosinophils # (Auto) 0.2 TH/MM3 (0-0.4) 0.3 TH/MM3 (0-0.4) Basophils # (Auto) 0.0 TH/MM3 (0-0.2) 0.1 TH/MM3 (0-0.2) CBC Comment DIFF FINAL DIFF FINAL Differential Comment Blood Urea Nitrogen 11 MG/DL (7-18) 10 MG/DL (7-18) Creatinine 0.73 MG/DL (0.60-1.30) 0.74 MG/DL (0.60-1.30) Random Glucose 240 MG/DL (74-106) 341 MG/DL (74-106) Calcium Level 8.3 MG/DL (8.5-10.1) 8.7 MG/DL (8.5-10.1) Sodium Level 138 MEQ/L (136-145) 136 MEQ/L (136-145) Potassium Level 3.8 MEQ/L (3.5-5.1) 3.9 MEQ/L (3.5-5.1) Chloride Level 105 MEQ/L (98-107) 102 MEQ/L (98-107) Carbon Dioxide Level 26.8 MEQ/L (21.0-32.0) 26.2 MEQ/L (21.0-32.0) Anion Gap 6 MEQ/L (5-15) 8 MEQ/L (5-15) Estimat Glomerular Filtration Rate 128 ML/MIN (>89) 126 ML/MIN (>89) Result Diagram: 11/09/17 0415 11/09/17 0415 Procedures 11/02/2017- EGD w/ biopsy 11/06/2017-laparoscopic converted to open Jos-en-Y gastrojejunostomy bypass, lysis of adhesions, Juan M-Cut liver biopsy of malignant lesion in the liver remnant. . Assessment and Plan Disease Oriented Problem List: (1) GI bleeding (2) Symptomatic anemia (3) History of liver cancer (4) Hepatitis C Symptom Scale: (1) Dysphagia 0-10 Scale: Unable to quantify Comment: Upper GI series revealed an antral mass. . (2) Nausea & vomiting 0-10 Scale: Unable to quantify Comment: Multifactorial. History of liver cancer. Upper GI series revealed an antral mass . (3) Pain 0-10 Scale: Unable to quantify Comment: -Mainly from abdominal/epigastric discomfort. . Pertinent Non-Medical Issues Psychosocial:Patient was born and raised in [place]. He moved to [place] in 1991. Patient worked in construction and mostly as a galan. Patient has also lived and worked in [place] for about 5 years. He retired in 2009. Patient has been to his spouse since 2001 but have been together for about 46 years. They have and adult daughter together. Spiritual:Patient is Gnosticism Legal:Patient signed HCS form today Ethical issues impacting care:None identified at this time. . Important Contacts Spouse- Clotilde Doe [phone] Daughter- Ted Longoria- [phone] . Prognosis Mr. Doe is a 72 years old male with a past medical history of hypertension, anemia, atrial fibrillation, liver cancer s/p liver resection, hepatitis C s/p Harvoni course, and large duodenal ulcer with history of GI bleed. Patient presented to the ER on 11/01/17 complaining of generalized weakness, dizziness, having black stools and coffee ground emesis for approximately a week. Clinical course complicated with dysphagia and worsening liver mets and disease. Given ongoing comorbidities, patient remains at high risk for further complications with disease progression, deterioration and decline. . Code Status: Full Code Plan PLAN: Legal decision maker: Patient is able to make his own medical decisions. In the case that patient is incapacitated his spouse Clotilde Doe will act as his health care surrogate and his daughter Ted Longoria as his alternate Health care surrogate. Goals: Remain aggressive CODE STATUS: Full Code SYMPTOMS: * Dysphagia: Patient was found to have a large obstructing/ ulcer at the pylorus making it impossible to pass into the duodenum during EGD. Currently has an NGT and failed swallow evaluation. Currently NPO. Upper GI series revealed an antral mass. General surgeon consulted. Patient is s/p open laparotomy with palliative Jos-en-Y G-J bypass on 2/6/18. Speech therapy signed off today. NG tube discontinued 11/08. Patient on clear liquid diet- tolerating well. No recommendations. * Pain: Multifactorial. Hx of liver cancer and now and an antral mass causing significant gastric outlet obstruction. Oxycodone discontinued, patient is NPO. Patient had palliative bypass on 11/06/17. Has a midabdominal surgical incision. Patient has 4mg Morphine Sulfate IVP Q 3 hrs prn. Patient also has Morphine Sulfate 6mg IVP Q 3 hours. Patient has used x4 prn Morphine Sulfate 4mg IVP doses in the past 12hours post-op.Patient able to get OOB and sit up on a recliner today. States that pain seems to be better managed with Morphine 6mg IVP. Denies pain at this time. Patient has required has required x5 doses for the past 24 hours. No recommendations at this time. * Nausea/Vomiting: Multifactorial. History of liver cancer. Upper GI series revealed an antral mass. Patient c/o of epigastric discomfort and nausea. Has an emesis basin and spitting frothy white spit. Patient has Zofran 4mg q 6 hrs ( Last dose given on 11/06/17) and Metoclopramide 5mg q 6 hrs. patient endorsing occasional nausea. Encouraged patient to request nausea medication when needed.No recommendations. Palliative Care contact information provided. Palliative care will continue to follow the patient during hospital course as condition evolves, to assist patient/decision-maker with understanding of their medical conditions, weighing benefits/burdens of treatment options, for clarification of goals of treatment. Additionally will assist with any symptoms of palliative concern. . Attestation To help prompt me to consider important information that might be impacting today's encounter and assessment, information from prior notes written by myself or my colleagues may have been "brought forward" into today's note. My signature on this note, however, is an attestation that I personally performed the exam, history, and/or decision-making noted today, and, unless otherwise indicated, the interactions with patient, family, and staff as well as the review of records all occurred today. I also attest that the listed assessment and stated plan reflect my best clinical judgment today based on the combination of historical information, prior notes, and today's exam/ interactions. When time spent is documented, it refers only to time spent today by the signer, or if indicated, combined time spent today by collaborating physician/nurse practitioner. Geoff Arita Nov 09, 2017 15:20
--- NOTE | 2017-11-09 15:27 | HHI.PR ---
Subjective Remarks Pt states he feels ok, tired. pain controlled. tolerating diet but not much appetite. no nausea at this time. Objective Vitals Vital Signs Date Time Temp Pulse Resp B/P (MAP) Pulse Ox O2 Delivery O2 Flow Rate FiO2 11/09/17 12:00 98.4 70 19 111/69 (83) 97 11/09/17 08:10 97 11/09/17 08:00 98.7 76 18 126/70 (88) 95 11/09/17 04:00 79 11/09/17 04:00 96.7 65 16 115/62 (79) 97 11/09/17 00:00 97.9 78 16 111/60 (77) 95 11/08/17 23:59 81 11/08/17 20:00 97.5 84 16 113/63 (80) 96 11/08/17 20:00 86 11/08/17 19:13 16 11/08/17 18:09 98 21 11/08/17 16:00 98.7 78 17 115/64 (81) 98 I/O 11/08/17 11/08/17 11/08/17 11/09/17 11/09/17 11/09/17 07:00 15:00 23:00 07:00 15:00 23:00 Intake Total 100 ml 100 ml 2084.1437 ml 1340 ml 875 ml Output Total 1250 ml 1050 ml Balance -1150 ml 100 ml 1034.1437 ml 1340 ml 875 ml Intake Oral 0 ml 0 ml 240 ml IV Total 100 ml 100 ml 2084.1437 ml 1100 ml 875 ml Output Urine Total 600 ml 1050 ml Gastric Drainage Total 650 ml # Voids 0 3 # Bowel Movements 0 0 1 Result Diagram: 11/09/175 11/09/17 0415 Imaging Last Impressions Upper GI Series 11/05/17 0000 Signed Impressions: Service Date/Time: Sunday, November 05, 2017 10:47 - CONCLUSION: Antral mass as described above. CT is pending. Som Diez MD FACR Abdomen CT 11/05/17 0000 Signed Impressions: Service Date/Time: Sunday, November 05, 2017 11:24 - CONCLUSION: Antral mass as described above probably arising from the surgical margin in the liver. Som Diez MD FACR Chest X-Ray 11/04/17 0000 Signed Impressions: Service Date/Time: Saturday, November 04, 2017 18:05 - CONCLUSION: 1. Slight bibasilar atelectasis and/or infiltrate is seen. 2. The tip of the NG tube needs to be advanced. Dorothy Sanchez MD Abdomen/Pelvis CT 11/03/17 0000 Signed Impressions: Service Date/Time: Friday, November 03, 2017 15:52 - CONCLUSION: Hepatic mass appears larger concerning for malignancy such as hepatocellular carcinoma. Dorothy Sanchez MD Objective Remarks GENERAL: ill-looking CARDIOVASCULAR: Regular rate and regular rhythm without murmurs RESPIRATORY: Clear to auscultation. Breath sounds equal bilaterally. No wheezes GASTROINTESTINAL: Abdomen soft, some discomfort w deep palpation, nondistended. dressing over abdomen d/c/i. MUSCULOSKELETAL: Extremities without edema. NEURO: Alert & Oriented x4. Moves all ext x4 Procedures EGD PROCEDURE REPORT EXAM DATE: 11/02/2017 PATIENT NAME: Anil Doe MR #: [id number] BIRTHDATE: 1945 ATTENDING: Marianela Quiroz MD ORDER #: [id number] PROBATION MANAGER: Fadumo Quarles and Mandi Dhaliwal STATUS: inpatient INDICATIONS: The patient is a 72 yr old male here for an EGD due to acute post hemorrhagic anemia and hematemesis PROCEDURE PERFORMED: EGD w/ biopsy MEDICATIONS: None and Per Anesthesia. TOPICAL ANESTHETIC: CONSENT: The patient understands the risks and benefits of the procedure and understands that these risks include, but are not limited to: sedation, allergic reaction, infection, perforation and/or bleeding. Alternative means of evaluation and treatment include, among others: physical exam, x-rays, and/or surgical intervention. The patient elects to proceed with this endoscopic procedure. medical equipment was checked for proper function. Hand hygiene and appropriate measures for infection prevention was taken. After the risks, benefits and alternatives of the procedure were thoroughly explained, Informed consent was verified, confirmed and timeout was successfully executed by the treatment team. The patient was anesthetized with topical anesthesia and the [employer] EG-[id number] endoscope was introduced through the mouth and advanced to the pylorus. Retroflexion was not performed The gastroscope was then slowly withdrawn and removed. ESOPHAGUS: The mucosa of the esophagus appeared normal. STOMACH: A circumferential fungating mass with friable surfaces was found at the pylorus. Large obstructing /ulcer at the pylorus. Unable to pass into the duodenum. Biopsies obtained. Retained food and fluid in the stomach. NG placed. ADVERSE EVENTS: There were no complications. IMPRESSIONS: 1. The esophagus appeared normal 2. Circumferential mass was found at the pylorus; Large obstructing /ulcer at the pylorus. Unable to pass into the duodenum. Biopsies obtained. Retained food and fluid in the stomach. NG placed 3. Retroflexion was not performed RECOMMENDATIONS: 1. Await biopsy results. Biopsy results will not be ready for 7-10 days. If you don't hear from us in two weeks, call our office for biopsy results. 2. Xray: CT ABD W/CONTRAST 3. NG to L.I.S. NPO PATIENT CONDITION: stable DISPOSITION: Inpatient REPEAT EXAM: Return 1 week EGD pending biopsy results 1. Laparoscopic converted to open Jos-en-Y gastrojejunostomy bypass. 2. Extensive lysis of adhesions greater than 45 minutes (open). 3. Juan M-Cut liver biopsy of malignant lesion in the liver remnant. A/P Assessment and Plan 1. GI bleed with acute anemia Patient with history of large bleeding duodenal ulcer s/p PRBC transfusion. Protonix drip Gastroenterology following, appreciate assistance, NGTube in place. Had EGD 2-2 : Circumferential mass was found at the pylorus; Large obstructing / ulcer at the pylorus. 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 Pt is s/p Laparoscopic converted to open Jos-en-Y gastrojejunostomy bypass/ Extensive lysis of adhesions continue pain management per sx 2. 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 liver biopsy shows non diagnostic necrotic , fibroadipose and liver tissue in needle core biopsy oncology following. awaiting their recs palliative care following. appreciate assistance from all consultants 3. Previous history of Atrial fibrillation - currently normal sinus rhythm Continue home digoxin and diltiazem 4. DVT prophylaxis - anticoagulation contraindicated secondary to GI bleed. SCDs Discharge Planning no discharge plans at this time. Need clearance from all consultants advance diet per Kaity Beasley MD Nov 09, 2017 15:27
--- NOTE | 2017-11-09 16:33 | HHI.PR ---
Subjective Subjective Notes Up to chair Pain controlled Objective Vitals/I&O Vital Signs Date Time Temp Pulse Resp B/P (MAP) Pulse Ox O2 Delivery O2 Flow Rate FiO2 11/09/17 12:00 98.4 70 19 111/69 (83) 97 11/08/17 18:09 21 11/06/17 20:00 Nasal Cannula 2 Labs Laboratory Tests Test 11/09/17 04:15 White Blood Count 9.7 Red Blood Count 3.19 Hemoglobin 8.9 Hematocrit 27.0 Mean Corpuscular Volume 84.8 Mean Corpuscular Hemoglobin 27.8 Mean Corpuscular Hemoglobin Concent 32.8 Red Cell Distribution Width 18.4 Platelet Count 309 Mean Platelet Volume 7.5 Neutrophils (%) (Auto) 78.8 Lymphocytes (%) (Auto) 4.5 Monocytes (%) (Auto) 13.2 Eosinophils (%) (Auto) 3.0 Basophils (%) (Auto) 0.5 Neutrophils # (Auto) 7.6 Lymphocytes # (Auto) 0.4 Monocytes # (Auto) 1.3 Eosinophils # (Auto) 0.3 Basophils # (Auto) 0.1 CBC Comment DIFF FINAL Differential Comment Blood Urea Nitrogen 10 Creatinine 0.74 Random Glucose 341 Calcium Level 8.7 Sodium Level 136 Potassium Level 3.9 Chloride Level 102 Carbon Dioxide Level 26.2 Anion Gap 8 Estimat Glomerular Filtration Rate 126 Radiology Last Impressions Upper GI Series 11/05/17 0000 Signed Impressions: Service Date/Time: Sunday, November 05, 2017 10:47 - CONCLUSION: Antral mass as described above. CT is pending. Som Diez MD FACR Abdomen CT 11/05/17 0000 Signed Impressions: Service Date/Time: Sunday, November 05, 2017 11:24 - CONCLUSION: Antral mass as described above probably arising from the surgical margin in the liver. Som Diez MD FACR Chest X-Ray 11/04/17 0000 Signed Impressions: Service Date/Time: Saturday, November 04, 2017 18:05 - CONCLUSION: 1. Slight bibasilar atelectasis and/or infiltrate is seen. 2. The tip of the NG tube needs to be advanced. Dorothy Sanchez MD Abdomen/Pelvis CT 11/03/17 0000 Signed Impressions: Service Date/Time: Friday, November 03, 2017 15:52 - CONCLUSION: Hepatic mass appears larger concerning for malignancy such as hepatocellular carcinoma. Dorothy Sanchez MD Cardiovascular: Regular Lungs: Clear Abdomen: Non-distended, Non-tender, Other (midline incision with peter---c/d/ i ) Extremities: No edema A/P Assessment and Plan 72 year old male with known recurrent HHC; gastric outlet obstruction; POD3 lap converted to open Jos-en-Y gastrojejunostomy bypass; liver bx -Advance to full liquids -Pain control -OOB as tolerated -Pathology review per Oncology Attending Statement The exam, history, and the medical decision-making described in the above note were completed with the assistance of the mid-level provider. I reviewed and agree with the findings presented. I attest that I had a [id number] encounter with the patient on the same day, and personally performed and documented my assessment and findings in the medical record. s/p RNY palliative bypass for GOO, stable Abdominal exam: stable postop tenderness, no peritonitis, incision clean/dry/ intact no signs of leak or complications continue postoperative management Leticia Hernandez Nov 09, 2017 16:33 Mckay Winslow MD Nov 16, 2017 06:46
[2017-11-09] MEDS: INSULIN ASPART SUPPLEMENTAL SCALE SQ SCH ×2 (17:10→20:05)
[2017-11-09] MEDS: CLINIMIX 5/25 (Custom) 2000 mL- >42 mls/hr IV-CENTRAL SCH ×9 (19:54)
[2017-11-10] VITALS (8 sets, daily range): BP systolic 110–143; BP diastolic 64–87; PULSE 74–98; RESP 16–20; TEMP 98.8–99.1; O2SAT 94–97
[2017-11-10] MEDS: PANTOPRAZOLE INJ 80 MG in SODIUM CHLORIDE 0.9% INJ 100 ML IV SCH ×3 (02:43→23:02)
[2017-11-10] MEDS: D5-1/2 NS + KCL 20 MEQ INJ 1,000 ML IV SCH ×2 (06:03→16:47)
[2017-11-10] MEDS: SODIUM CHLORIDE 0.9% FLUSH 10 ML FLUSH IV FLUSH SCH ×3 (08:25→20:42)
[2017-11-10] MEDS: DOCUSATE SODIUM 50 MG/SENNA 8.6 MG TAB PO SCH ×2 (08:27→20:27)
[2017-11-10] MEDS: DILTIAZEM HCL 60 MG TAB PO SCH ×4 (08:27→20:27)
[2017-11-10] MEDS: DIGOXIN 0.125 MG TAB PO SCH (08:27)
[2017-11-10] MEDS: INSULIN ASPART SUPPLEMENTAL SCALE SQ SCH ×4 (08:28→20:42)
[2017-11-10] MEDS: MORPHINE SULFATE 8 MG/ML INJ IV PUSH PRN (08:28)
[2017-11-10] MEDS ORDERED: ENOXAPARIN SODIUM 40 MG/0.4 ML SYRINGE SQ SCH (09:00)
[2017-11-10] MEDS: MORPHINE SULFATE 2 MG/ML INJ IV PUSH PRN ×2 (12:04→18:47)
--- NOTE | 2017-11-10 13:41 | HHI.PR ---
Subjective Subjective Notes gas pain, feels like he has to have a BM Objective Vitals/I&O Vital Signs Date Time Temp Pulse Resp B/P (MAP) Pulse Ox O2 Delivery O2 Flow Rate FiO2 11/10/17 08:00 99.0 98 20 143/87 (105) 95 11/08/17 18:09 21 11/06/17 20:00 Nasal Cannula 2 Radiology Last Impressions Upper GI Series 11/05/17 0000 Signed Impressions: Service Date/Time: Sunday, November 05, 2017 10:47 - CONCLUSION: Antral mass as described above. CT is pending. Som Diez MD FACR Abdomen CT 11/05/17 0000 Signed Impressions: Service Date/Time: Sunday, November 05, 2017 11:24 - CONCLUSION: Antral mass as described above probably arising from the surgical margin in the liver. Som Diez MD FACR Chest X-Ray 11/04/17 0000 Signed Impressions: Service Date/Time: Saturday, November 04, 2017 18:05 - CONCLUSION: 1. Slight bibasilar atelectasis and/or infiltrate is seen. 2. The tip of the NG tube needs to be advanced. Dorothy Sanchez MD Abdomen/Pelvis CT 11/03/17 0000 Signed Impressions: Service Date/Time: Friday, November 03, 2017 15:52 - CONCLUSION: Hepatic mass appears larger concerning for malignancy such as hepatocellular carcinoma. Dorothy Sanchez MD Abdomen: Non-distended, Post-op tenderness A/P Assessment and Plan 72yo male with GOO 2/2 recurrent HCC, s/p open bypass, stable. continue to go slow with PO, OOB, pain control. Mckay Winslow MD Nov 10, 2017 13:41
[2017-11-10 13:53] LABS: AUTOMATED NEUTROPHIL # 6.2 TH/MM3 (1.8-7.7); BASOPHIL % 0.5 % (0.0-2.0); EOSINOPHIL # 0.3 TH/MM3 (0-0.4); EOSINOPHIL % 3.5 % (0.0-4.0); HEMATOCRIT 28.1 % (39.0-51.0); HEMOGLOBIN 9.2 GM/DL (13.0-17.0); LYMPH % 7.4 % (9.0-44.0); LYMPHOCYTE # 0.6 TH/MM3 (1.0-4.8); MEAN CELL VOLUME 84.2 FL (80.0-100.0); MEAN CORPUSCULAR HEMOGLOBIN 27.8 PG (27.0-34.0); MEAN PLATELET VOLUME 7.5 FL (7.0-11.0); MONO % 11.7 % (0.0-8.0); MONOCYTE # 0.9 TH/MM3 (0-0.9); NEUT % 76.9 % (16.0-70.0); PLATELET COUNT 330 TH/MM3 (150-450); RED BLOOD COUNT 3.33 MIL/MM3 (4.50-5.90); WHITE BLOOD COUNT 8.1 TH/MM3 (4.0-11.0)
--- NOTE | 2017-11-10 14:10 | PD.ONC.PN ---
Subjective Subjective Remarks Try to eat breakfast, no BM yet. +gas pain. Objective Data Date Time Temp Pulse Resp B/P (MAP) Pulse Ox O2 Delivery O2 Flow Rate FiO2 11/10/17 08:00 99.0 98 20 143/87 (105) 95 11/10/17 04:00 99.0 78 18 126/67 (86) 97 11/10/17 00:00 99.1 76 18 110/64 (79) 94 11/09/17 20:00 100.2 81 18 103/58 (73) 95 11/09/17 16:00 98.9 72 18 116/69 (85) 95 11/10/17 11/10/17 11/10/17 07:00 15:00 23:00 Intake Total 1913 ml 68 ml Balance 1913 ml 68 ml Result Diagram: 11/10/17 1328 11/09/17 0415 Laboratory Results Laboratory Tests Test 11/10/17 13:20 11/10/17 13:28 White Blood Count 8.1 TH/MM3 Red Blood Count 3.33 MIL/MM3 Hemoglobin 9.2 GM/DL Hematocrit 28.1 % Mean Corpuscular Volume 84.2 FL Mean Corpuscular Hemoglobin 27.8 PG Mean Corpuscular Hemoglobin Concent 33.0 % Red Cell Distribution Width 18.0 % Platelet Count 330 TH/MM3 Mean Platelet Volume 7.5 FL Neutrophils (%) (Auto) 76.9 % Lymphocytes (%) (Auto) 7.4 % Monocytes (%) (Auto) 11.7 % Eosinophils (%) (Auto) 3.5 % Basophils (%) (Auto) 0.5 % Neutrophils # (Auto) 6.2 TH/MM3 Lymphocytes # (Auto) 0.6 TH/MM3 Monocytes # (Auto) 0.9 TH/MM3 Eosinophils # (Auto) 0.3 TH/MM3 Basophils # (Auto) 0.0 TH/MM3 CBC Comment DIFF FINAL Differential Comment Administered Medications Medications (Trade) Dose Ordered Sig/Víctor Route PRN Reason Start Time Stop Time Status Last Admin Dose Admin Sodium Chloride (NS Flush) 2 ml BID IV FLUSH 11/02/17 09:00 11/09/17 19:52 Digoxin (Lanoxin) 0.125 mg DAILY PO 11/02/17 09:00 11/10/17 08:27 Diltiazem HCl (Cardizem) 120 mg QID PO 11/02/17 09:00 11/10/17 12:33 Phenol (Chloraseptic [place]) 2 spray Q2H PRN MT SORE THROAT 11/02/17 16:45 11/02/17 17:19 Potassium Chloride/Dextrose/ Sod Cl 1,000 ml @ 100 mls/hr Q10H IV 11/03/17 10:41 11/10/17 06:03 Lorazepam (Ativan Inj) 1 mg Q6H PRN IV PUSH ANXIETY 11/03/17 09:45 11/03/17 10:58 Pantoprazole Sodium 80 mg/ Sodium Chloride 100 ml @ 10 mls/hr Q10H IV 11/03/17 10:30 11/10/17 12:04 Acetaminophen (Tylenol) 650 mg Q4H PRN PO TEMP > 100.4 11/03/17 11:15 11/04/17 19:56 Ondansetron HCl (Zofran Inj) 4 mg Q6H PRN IVP NAUSEA OR VOMITING 11/03/17 11:15 11/08/17 14:03 Senna/Docusate Sodium (Germania-Colace) 1 tab BID PO 11/03/17 21:00 11/10/17 08:27 Magnesium Hydroxide (Milk Of Magntessa Liq) 30 ml Q12H PRN PO Mild constipation 11/03/17 11:15 11/07/17 08:28 Sodium Chloride 11 meq/Sodium Acetate 59 meq/ Potassium Chloride 40 meq/ Sodium Phosphate 40 meq/Magnesium Chloride 10 meq/ Calcium Chloride 9 meq/ Multivitamins 10 ml/Folic Acid 1 mg/Amino Acids/ Dextrose 2,084.1437 ml @ 83 mls/hr Q24H IV-CENTRAL 11/04/17 20:00 11/09/17 19:54 Sodium Chloride (NS Flush) See Protocol DAILY IV FLUSH 11/05/17 09:00 11/09/17 08:36 Heparin Sodium (Porcine) (Heparin Central Flush) See Protocol DAILY IV FLUSH 11/05/17 09:00 11/10/17 08:28 Insulin Aspart (NovoLOG SUPPLEMENTAL SCALE) 1 ACHS SLIDING SCALE SQ 11/09/17 17:00 11/10/17 12:04 Morphine Sulfate (Morphine Inj) 2 mg Q4H PRN IV PUSH PAIN Level 1-6 11/10/17 11:00 11/10/17 12:04 Objective Remarks GENERAL: Well-nourished, well-developed patient. SKIN: Warm and dry. HEAD: Normocephalic. EYES: No scleral icterus. No injection or drainage. NECK: Supple, trachea midline. No JVD or lymphadenopathy. LYMPHATIC: No adenopathy. CARDIOVASCULAR: Regular rate and rhythm without murmurs. RESPIRATORY: Breath sounds equal bilaterally. No accessory muscle use. GASTROINTESTINAL: Abdomen soft, dressing dry, tender. EXTREMITIES: No cyanosis, or edema. MUSCULOSKELETAL: Adequate muscle tone. NEUROLOGICAL: No obvious focal deficit. Awake, alert, and oriented x3. PSYCHIATRIC: Appropriate mood and affect; insight and judgment normal. Assessment/Plan Problem List: (1) Liver masses ICD Codes: R16.0 - Hepatomegaly, not elsewhere classified Plan: --s/p open laparotomy on 11/06 with Jos-en-Y G-J bypass performed for palliation. pathology from liver biopsy is negative for neoplasm. History: --Hepatic mass could be recurrent HCC or met from adenocarcinoma of stomach. --has history of hepatitis C cirrhosis. --had a hepatocellular carcinoma rese[place] in [address] Dias in [place]. --When he presented to the hospital in August, CT showed a new 2.8 cm in the right hepatic dome. MRI showed a 3.5 cm enhancing mass with adjacent 1.2 cm mass more laterally. went back to see Dr. Dias (surgeon) and was referred to interventional radiology to consider TheraSphere embolization. is still awaiting insurance approval to have the procedure done. --this hospitalization, he presented with nausea, vomiting and GI bleed. EGD showed a mass at the pylorus causing obstruction. CT abdomen also confirmed a mass in the antrum and it could possibly be arising from the surgical margin of the liver. The mass was biopsied and the pathology shows adenocarcinoma of gastric origin. UPDATE: pathology was updated to state with additional staining the mass appears to be HCC. (2) Symptomatic anemia ICD Codes: D64.9 - Anemia, unspecified Status: Acute Plan: --d/t GIB --monitor and transfuse as needed. 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 h/o Hepatitis C. Cirrhosis. History of Harvoni in 2014. Hepatocellular carcinoma resected in 2014. GI bleed. Small bowel obstruction. Chronic atrial fibrillation. Anemia. Hypertension. Plan 1. continue pain management. 2. diet per surgical team. 3. Discussed with pt's daughter and . I told them pt has recurrent HCC invaded the pyloric channel. Pt is not a good candidate for surgical resection per surgery. I plan to discuss his case at the tumor board to see ifhe will be a candidate for any local therapy or XRT. Their questions were answered. Lane Ortiz MD Nov 10, 2017 14:10
[2017-11-10 14:15] LABS: ALBUMIN 2.3 GM/DL (3.4-5.0); ALT (GPT) 72 U/L (12-78); AST (GOT) 44 U/L (15-37); BICARBONATE 25.8 MEQ/L (21.0-32.0); BLOOD UREA NITROGEN 10 MG/DL (7-18); CALCIUM 8.4 MG/DL (8.5-10.1); CHLORIDE 105 MEQ/L (98-107); CREATININE 0.75 MG/DL (0.60-1.30); GLOMERULAR FILTRATION RATE 124 ML/MIN (>89); GLUCOSE,RANDOM 277 MG/DL (74-106); SODIUM (NA) 136 MEQ/L (136-145)
[2017-11-10 14:18] LABS: ALKALINE PHOSPHATASE 80 U/L (45-117); TOTAL BILIRUBIN ADULT 0.3 MG/DL (0.2-1.0); TOTAL PROTEIN 6.4 GM/DL (6.4-8.2)
--- NOTE | 2017-11-10 16:17 | HHI.PR ---
Subjective Remarks Patient has had a lot to process over the last few days, GI bleed, possible recurrence of HCC as evidenced by spot on liver. His only complaint is that of pain. Objective Vitals Vital Signs Date Time Temp Pulse Resp B/P (MAP) Pulse Ox O2 Delivery O2 Flow Rate FiO2 11/10/17 08:00 99.0 98 20 143/87 (105) 95 11/10/17 04:00 99.0 78 18 126/67 (86) 97 11/10/17 00:00 99.1 76 18 110/64 (79) 94 11/09/17 20:00 100.2 81 18 103/58 (73) 95 I/O 11/09/17 11/09/17 11/09/17 11/10/17 11/10/17 11/10/17 06:59 14:59 22:59 06:59 14:59 22:59 Intake Total 1340 ml 875 ml 840 ml 1913 ml 68 ml Output Total 900 ml Balance 1340 ml 875 ml -60 ml 1913 ml 68 ml Intake Oral 240 ml 840 ml IV Total 1100 ml 875 ml 1000 ml 68 ml TPN/PPN 913 ml Output Urine Total 900 ml # Voids 3 # Bowel Movements 1 0 Result Diagram: 11/10/17 1328 11/10/17 1320 Objective Remarks GENERAL: Well-nourished, well-developed patient, tolerating liquids PO SKIN: Warm and dry. HEAD: Normocephalic. EYES: No scleral icterus. No injection or drainage. NECK: Supple, trachea midline. No JVD or lymphadenopathy. CARDIOVASCULAR: Irregularly irregular, 1/6 JANET RESPIRATORY: Breath sounds equal bilaterally. No accessory muscle use. GASTROINTESTINAL: Abdomen soft, non-tender, mild bloating. Hypoactive bowel sounds EXTREMITIES: No cyanosis, or edema. NEUROLOGICAL: Awake, alert, and oriented x 3. Non-focal. Procedures EGD PROCEDURE REPORT EXAM DATE: 11/02/2017 PATIENT NAME: Anil Doe MR #: [id number] BIRTHDATE: 1945 ATTENDING: Marianela Quiroz MD ORDER #: [id number] DIETARY DIRECTOR: Fadumo Quarles and Mandi Dhaliwal STATUS: inpatient INDICATIONS: The patient is a 72 yr old male here for an EGD due to acute post hemorrhagic anemia and hematemesis PROCEDURE PERFORMED: EGD w/ biopsy MEDICATIONS: None and Per Anesthesia. TOPICAL ANESTHETIC: CONSENT: The patient understands the risks and benefits of the procedure and understands that these risks include, but are not limited to: sedation, allergic reaction, infection, perforation and/or bleeding. Alternative means of evaluation and treatment include, among others: physical exam, x-rays, and/or surgical intervention. The patient elects to proceed with this endoscopic procedure. medical equipment was checked for proper function. Hand hygiene and appropriate measures for infection prevention was taken. After the risks, benefits and alternatives of the procedure were thoroughly explained, Informed consent was verified, confirmed and timeout was successfully executed by the treatment team. The patient was anesthetized with topical anesthesia and the [facility] [id number] endoscope was introduced through the mouth and advanced to the pylorus. Retroflexion was not performed The gastroscope was then slowly withdrawn and removed. ESOPHAGUS: The mucosa of the esophagus appeared normal. STOMACH: A circumferential fungating mass with friable surfaces was found at the pylorus. Large obstructing /ulcer at the pylorus. Unable to pass into the duodenum. Biopsies obtained. Retained food and fluid in the stomach. NG placed. ADVERSE EVENTS: There were no complications. IMPRESSIONS: 1. The esophagus appeared normal 2. Circumferential mass was found at the pylorus; Large obstructing /ulcer at the pylorus. Unable to pass into the duodenum. Biopsies obtained. Retained food and fluid in the stomach. NG placed 3. Retroflexion was not performed RECOMMENDATIONS: 1. Await biopsy results. Biopsy results will not be ready for 7-10 days. If you don't hear from us in two weeks, call our office for biopsy results. 2. Xray: CT ABD W/CONTRAST 3. NG to L.I.S. NPO PATIENT CONDITION: stable DISPOSITION: Inpatient REPEAT EXAM: Return 1 week EGD pending biopsy results 1. Laparoscopic converted to open Jos-en-Y gastrojejunostomy bypass. 2. Extensive lysis of adhesions greater than 45 minutes (open). 3. Juan M-Cut liver biopsy of malignant lesion in the liver remnant. A/P Problem List: (1) GI bleeding ICD Code: K92.2 - Gastrointestinal hemorrhage, unspecified Status: Acute (2) Duodenal ulcer ICD Code: K26.9 - Duodenal ulcer, unspecified as acute or chronic, without hemorrhage or perforation (3) Liver masses ICD Code: R16.0 - Hepatomegaly, not elsewhere classified (4) History of liver cancer ICD Code: Z85.05 - Personal history of malignant neoplasm of liver Status: Chronic (5) Hepatitis C ICD Code: B19.20 - Unspecified viral hepatitis C without hepatic coma Status: Chronic Assessment and Plan Upper GI Bleed with Anemia Large bleeding duodenal ulcer s/p Ruox-en-Y gastrojejunostomy bypass 11/06/17 s/p PRBC transfusion Continue Protonix Drip NG Tube in place Appreciate General Surgery Appreciate Gastroenterology Hepatocellular Carcinoma Patient has a history of HCC, and a hx of Hep C Pathology from pyloric mass shows Hepatocellular Carcinoma extending into that tissue Pathology from liver mass was inconclusive, non-diagnostic necrotic tissue Appreciate Oncology recommendations Appreciate Palliative care following Atrial Fibrillation Irregular today, rate controlled Continue home dose Digoxin and Diltiazem DVT Prophylaxis SCD hose due to GI bleed Josh Garcia MD Nov 10, 2017 16:17
[2017-11-10] MEDS: CLINIMIX 5/25 (Custom) 2000 mL- >42 mls/hr IV-CENTRAL SCH ×9 (20:00)
[2017-11-10] MEDS: SODIUM CHLORIDE 23.4% INJ 5.5 MEQ, SODIUM ACETATE INJ 29.5 MEQ, POTASSIUM CHLORIDE INJ ... IV-CENTRAL SCH ×9 (20:30)
[2017-11-11] VITALS (8 sets, daily range): BP systolic 105–123; BP diastolic 63–93; PULSE 66–90; RESP 16–19; TEMP 98–99.9; O2SAT 92–97
[2017-11-11] MEDS: MORPHINE SULFATE 8 MG/ML INJ IV PUSH PRN ×4 (02:31→17:51)
[2017-11-11] MEDS: D5-1/2 NS + KCL 20 MEQ INJ 1,000 ML IV SCH ×2 (02:32→08:41)
[2017-11-11] MEDS: SODIUM CHLORIDE 23.4% INJ 5.5 MEQ, SODIUM ACETATE INJ 29.5 MEQ, POTASSIUM CHLORIDE INJ ... IV-CENTRAL SCH ×18 (06:35→19:42)
[2017-11-11 07:03] LABS: AUTOMATED NEUTROPHIL # 6.6 TH/MM3 (1.8-7.7); BASOPHIL # 0.2 TH/MM3 (0-0.2); BASOPHIL % 2.7 % (0.0-2.0); EOSINOPHIL # 0.3 TH/MM3 (0-0.4); EOSINOPHIL % 3.1 % (0.0-4.0); HEMATOCRIT 27.6 % (39.0-51.0); HEMOGLOBIN 9.1 GM/DL (13.0-17.0); LYMPHOCYTE # 0.7 TH/MM3 (1.0-4.8); MEAN CELL VOLUME 85.2 FL (80.0-100.0); MEAN CORPUSCULAR HEMOGLOBIN 28.1 PG (27.0-34.0); MEAN PLATELET VOLUME 7.6 FL (7.0-11.0); MONO % 10.7 % (0.0-8.0); MONOCYTE # 0.9 TH/MM3 (0-0.9); NEUT % 75.5 % (16.0-70.0); PLATELET COUNT 314 TH/MM3 (150-450); RED BLOOD COUNT 3.25 MIL/MM3 (4.50-5.90); RED CELL DISTRIBUTION WIDTH 18.5 % (11.6-17.2); WHITE BLOOD COUNT 8.7 TH/MM3 (4.0-11.0)
[2017-11-11] MEDS: DILTIAZEM HCL 60 MG TAB PO SCH ×4 (08:20→21:22)
[2017-11-11] MEDS: DIGOXIN 0.125 MG TAB PO SCH (08:20)
[2017-11-11] MEDS: DOCUSATE SODIUM 50 MG/SENNA 8.6 MG TAB PO SCH ×2 (08:20→19:42)
[2017-11-11] MEDS: SODIUM CHLORIDE 0.9% FLUSH 10 ML FLUSH IV FLUSH SCH ×3 (08:20→19:56)
[2017-11-11] MEDS: PANTOPRAZOLE INJ 80 MG in SODIUM CHLORIDE 0.9% INJ 100 ML IV SCH ×2 (08:21→18:24)
--- NOTE | 2017-11-11 08:23 | PD.ONC.PN ---
Subjective Subjective Remarks Tmax 99.9 overnight Had some morphine about 2 am, and his pain is still controlled Still not eating much Passing flatus No BM TPN continues Objective Data Date Time Temp Pulse Resp B/P (MAP) Pulse Ox O2 Delivery O2 Flow Rate FiO2 11/11/17 08:00 98.0 75 19 113/63 (80) 97 11/11/17 04:36 99.2 90 18 117/93 (101) 93 11/11/17 03:12 66 11/11/17 00:00 99.9 77 16 105/65 (78) 92 11/10/17 23:55 77 11/10/17 20:00 98.8 74 16 115/67 (83) 95 11/10/17 19:49 96 21 11/10/17 19:32 81 11/10/17 16:00 99.1 81 20 121/70 (87) 95 11/11/17 11/11/17 11/11/17 07:00 15:00 23:00 Intake Total 1763 ml 120 ml Output Total 800 ml Balance 963 ml 120 ml Result Diagram: 11/11/17 0624 11/10/17 1320 Laboratory Results Laboratory Tests Test 11/10/17 13:20 11/10/17 13:28 11/11/17 06:24 Blood Urea Nitrogen 10 MG/DL Creatinine 0.75 MG/DL Random Glucose 277 MG/DL Total Protein 6.4 GM/DL Albumin 2.3 GM/DL Calcium Level 8.4 MG/DL Alkaline Phosphatase 80 U/L Aspartate Amino Transf (AST/SGOT) 44 U/L Alanine Aminotransferase (ALT/SGPT) 72 U/L Total Bilirubin 0.3 MG/DL Sodium Level 136 MEQ/L Potassium Level 4.0 MEQ/L Chloride Level 105 MEQ/L Carbon Dioxide Level 25.8 MEQ/L Anion Gap 5 MEQ/L Estimat Glomerular Filtration Rate 124 ML/MIN White Blood Count 8.1 TH/MM3 8.7 TH/MM3 Red Blood Count 3.33 MIL/MM3 3.25 MIL/MM3 Hemoglobin 9.2 GM/DL 9.1 GM/DL Hematocrit 28.1 % 27.6 % Mean Corpuscular Volume 84.2 FL 85.2 FL Mean Corpuscular Hemoglobin 27.8 PG 28.1 PG Mean Corpuscular Hemoglobin Concent 33.0 % 33.0 % Red Cell Distribution Width 18.0 % 18.5 % Platelet Count 330 TH/MM3 314 TH/MM3 Mean Platelet Volume 7.5 FL 7.6 FL Neutrophils (%) (Auto) 76.9 % 75.5 % Lymphocytes (%) (Auto) 7.4 % 8.0 % Monocytes (%) (Auto) 11.7 % 10.7 % Eosinophils (%) (Auto) 3.5 % 3.1 % Basophils (%) (Auto) 0.5 % 2.7 % Neutrophils # (Auto) 6.2 TH/MM3 6.6 TH/MM3 Lymphocytes # (Auto) 0.6 TH/MM3 0.7 TH/MM3 Monocytes # (Auto) 0.9 TH/MM3 0.9 TH/MM3 Eosinophils # (Auto) 0.3 TH/MM3 0.3 TH/MM3 Basophils # (Auto) 0.0 TH/MM3 0.2 TH/MM3 CBC Comment DIFF FINAL DIFF FINAL Differential Comment Administered Medications Medications (Trade) Dose Ordered Sig/Víctor Route PRN Reason Start Time Stop Time Status Last Admin Dose Admin Sodium Chloride (NS Flush) 2 ml BID IV FLUSH 11/02/17 09:00 11/10/17 20:42 Digoxin (Lanoxin) 0.125 mg DAILY PO 11/02/17 09:00 11/10/17 08:27 Diltiazem HCl (Cardizem) 120 mg QID PO 11/02/17 09:00 11/10/17 20:27 Phenol (Chloraseptic [place]) 2 spray Q2H PRN MT SORE THROAT 11/02/17 16:45 11/02/17 17:19 Potassium Chloride/Dextrose/ Sod Cl 1,000 ml @ 100 mls/hr Q10H IV 11/03/17 10:41 11/11/17 02:32 Lorazepam (Ativan Inj) 1 mg Q6H PRN IV PUSH ANXIETY 11/03/17 09:45 11/03/17 10:58 Pantoprazole Sodium 80 mg/ Sodium Chloride 100 ml @ 10 mls/hr Q10H IV 11/03/17 10:30 11/10/17 23:02 Acetaminophen (Tylenol) 650 mg Q4H PRN PO TEMP > 100.4 11/03/17 11:15 11/04/17 19:56 Ondansetron HCl (Zofran Inj) 4 mg Q6H PRN IVP NAUSEA OR VOMITING 11/03/17 11:15 11/08/17 14:03 Senna/Docusate Sodium (Germania-Colace) 1 tab BID PO 11/03/17 21:00 11/10/17 20:27 Magnesium Hydroxide (Milk Of Anne Sams) 30 ml Q12H PRN PO Mild constipation 11/03/17 11:15 11/07/17 08:28 Sodium Chloride 11 meq/Sodium Acetate 59 meq/ Potassium Chloride 40 meq/ Sodium Phosphate 40 meq/Magnesium Chloride 10 meq/ Calcium Chloride 9 meq/ Multivitamins 10 ml/Folic Acid 1 mg/Amino Acids/ Dextrose 2,084.1437 ml @ 83 mls/hr Q24H IV-CENTRAL 11/04/17 20:00 11/09/17 19:54 Sodium Chloride (NS Flush) See Protocol DAILY IV FLUSH 11/05/17 09:00 11/09/17 08:36 Heparin Sodium (Porcine) (Heparin Central Flush) See Protocol DAILY IV FLUSH 11/05/17 09:00 11/10/17 08:28 Insulin Aspart (NovoLOG SUPPLEMENTAL SCALE) 1 ACHS SLIDING SCALE SQ 11/09/17 17:00 11/10/17 20:42 Sodium Chloride 5.5 meq/Sodium Acetate 29.5 meq/ Potassium Chloride 20 meq/ Sodium Phosphate 20 meq/Magnesium Chloride 5 meq/ Calcium Chloride 4.5 meq/ Multivitamins 5 ml/Folic Acid 0.5 mg/Amino Acids/ Dextrose 1,042.0719 ml @ 83 mls/hr [id number] IV-CENTRAL 11/10/17 20:00 11/11/17 06:35 Morphine Sulfate (Morphine Inj) 2 mg Q4H PRN IV PUSH PAIN Level 1-6 11/10/17 11:00 11/10/17 18:47 Morphine Sulfate (Morphine Inj) 6 mg Q4H PRN IV PUSH Pain Level 7-10 11/10/17 11:00 11/11/17 02:31 Objective Remarks GENERAL: Older male resting in bed in no obvious distress SKIN: Warm and dry. HEAD: Normocephalic. EYES: No injection or drainage. NECK: Supple, trachea midline. CARDIOVASCULAR: Regular rate and rhythm without murmurs. RESPIRATORY: Clear anteriorly. Breathing unlabored at rest. GASTROINTESTINAL: Abdomen soft. Vertical abdominal incision. Dressing dry and intact. EXTREMITIES: No cyanosis, or edema. MUSCULOSKELETAL: Adequate muscle tone. NEUROLOGICAL: No obvious focal deficit. Awake, alert, and oriented x3. Assessment/Plan Problem List: (1) Liver masses ICD Codes: R16.0 - Hepatomegaly, not elsewhere classified Plan: --s/p open laparotomy on 11/06 with Jos-en-Y G-J bypass performed for palliation. pathology from liver biopsy is negative for neoplasm. History: --has history of hepatitis C cirrhosis. --had a hepatocellular carcinoma rese[place] [address] Dias in [place]. --When he presented to the hospital in August, CT showed a new 2.8 cm in the right hepatic dome. MRI showed a 3.5 cm enhancing mass with adjacent 1.2 cm mass more laterally. went back to see Dr. Dias (surgeon) and was referred to interventional radiology to consider TheraSphere embolization. is still awaiting insurance approval to have the procedure done. --this hospitalization, he presented with nausea, vomiting and GI bleed. EGD showed a mass at the pylorus causing obstruction. CT abdomen also confirmed a mass in the antrum and it could possibly be arising from the surgical margin of the liver. The mass was biopsied and the pathology shows adenocarcinoma of gastric origin. UPDATE: pathology was updated to state with additional staining the mass appears to be HCC. (2) Symptomatic anemia ICD Codes: D64.9 - Anemia, unspecified Status: Acute Plan: --d/t GIB --monitor and transfuse as needed. 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 h/o Hepatitis C. Cirrhosis. History of Harvoni in 2014. Hepatocellular carcinoma resected in 2014. GI bleed. Small bowel obstruction. Chronic atrial fibrillation. Anemia. Hypertension. Plan 1. Monitor CBC 2. Continue diet per GS. 3. Supportive care. 4. Pt will be discussed at tumor boards on Sunday for possibility of local therapy or radiation. Attending Statement The exam, history, and the medical decision-making described in the above note were completed with the assistance of the mid-level provider. I reviewed and agree with the findings presented. I attest that I had a [id number] encounter with the patient on the same day, and personally performed and documented my assessment and findings in the medical record. Tolerating small amount of food, +flatus, no BM yet. Pain is controlled. Plan to discussed case at Tumor Board on Sunday. Delmi Souza Nov 11, 2017 08:23 Lane Ortiz MD Nov 11, 2017 12:24
[2017-11-11] MEDS: INSULIN ASPART SUPPLEMENTAL SCALE SQ SCH ×4 (08:28→19:56)
[2017-11-11] MEDS: MAGNESIUM HYDROXIDE SUSP 30 ML CUP PO PRN (12:33)
--- NOTE | 2017-11-11 13:39 | HHI.PR ---
cc: Daniel Gallegos MD Subjective Subjective Notes DAILY PROGRESS NOTE FOR SURGICAL ATTENDING, DR. DANIEL GALLEGOS Family bedside Patient looks comfortable Objective Vitals/I&O Vital Signs Date Time Temp Pulse Resp B/P (MAP) Pulse Ox O2 Delivery O2 Flow Rate FiO2 11/11/17 12:00 98.3 86 19 116/67 (83) 97 11/10/17 19:49 21 Labs Laboratory Tests Test 11/01/17 22:50 11/04/17 05:23 11/04/17 05:32 11/10/17 13:20 Prothrombin Time 10.4 SEC Prothromb Time International Ratio 1.0 RATIO Activated Partial Thromboplast Time 24.7 SEC Troponin I LESS THAN 0.02 NG/ML Hemoglobin A1c 4.3 % Blood Urea Nitrogen 11 MG/DL 10 MG/DL Creatinine 1.15 MG/DL 0.75 MG/DL Random Glucose 156 MG/DL 277 MG/DL Total Protein 6.7 GM/DL 6.4 GM/DL Albumin 3.0 GM/DL 2.3 GM/DL Calcium Level 8.4 MG/DL 8.4 MG/DL Phosphorus Level 2.8 MG/DL Magnesium Level 2.3 MG/DL Alkaline Phosphatase 74 U/L 80 U/L Aspartate Amino Transf (AST/SGOT) 29 U/L 44 U/L Alanine Aminotransferase (ALT/SGPT) 12 U/L 72 U/L Total Bilirubin 0.8 MG/DL 0.3 MG/DL Sodium Level 137 MEQ/L 136 MEQ/L Potassium Level 4.1 MEQ/L 4.0 MEQ/L Chloride Level 106 MEQ/L 105 MEQ/L Carbon Dioxide Level 25.6 MEQ/L 25.8 MEQ/L Free Thyroxine 1.20 NG/DL Thyroid Stimulating Hormone 3rd Gen 2.670 uIU/ML Tumor Marker Alpha Fetoprotein 1.3 NG/ML Carcinoembryonic Antigen 0.8 NG/ML CA 19-9 Antigen 13.5 U/ML Anion Gap 5 MEQ/L Estimat Glomerular Filtration Rate 124 ML/MIN Test 11/11/17 06:24 White Blood Count 8.7 TH/MM3 Red Blood Count 3.25 MIL/MM3 Hemoglobin 9.1 GM/DL Hematocrit 27.6 % Mean Corpuscular Volume 85.2 FL Mean Corpuscular Hemoglobin 28.1 PG Mean Corpuscular Hemoglobin Concent 33.0 % Red Cell Distribution Width 18.5 % Platelet Count 314 TH/MM3 Mean Platelet Volume 7.6 FL Neutrophils (%) (Auto) 75.5 % Lymphocytes (%) (Auto) 8.0 % Monocytes (%) (Auto) 10.7 % Eosinophils (%) (Auto) 3.1 % Basophils (%) (Auto) 2.7 % Neutrophils # (Auto) 6.6 TH/MM3 Lymphocytes # (Auto) 0.7 TH/MM3 Monocytes # (Auto) 0.9 TH/MM3 Eosinophils # (Auto) 0.3 TH/MM3 Basophils # (Auto) 0.2 TH/MM3 CBC Comment DIFF FINAL Differential Comment Laboratory Tests Test 11/11/17 06:24 White Blood Count 8.7 Red Blood Count 3.25 Hemoglobin 9.1 Hematocrit 27.6 Mean Corpuscular Volume 85.2 Mean Corpuscular Hemoglobin 28.1 Mean Corpuscular Hemoglobin Concent 33.0 Red Cell Distribution Width 18.5 Platelet Count 314 Mean Platelet Volume 7.6 Neutrophils (%) (Auto) 75.5 Lymphocytes (%) (Auto) 8.0 Monocytes (%) (Auto) 10.7 Eosinophils (%) (Auto) 3.1 Basophils (%) (Auto) 2.7 Neutrophils # (Auto) 6.6 Lymphocytes # (Auto) 0.7 Monocytes # (Auto) 0.9 Eosinophils # (Auto) 0.3 Basophils # (Auto) 0.2 CBC Comment DIFF FINAL Differential Comment Radiology Last Impressions Upper GI Series 11/05/17 0000 Signed Impressions: Service Date/Time: Sunday, November 05, 2017 10:47 - CONCLUSION: Antral mass as described above. CT is pending. Som Diez MD FACR Abdomen CT 11/05/17 0000 Signed Impressions: Service Date/Time: Sunday, November 05, 2017 11:24 - CONCLUSION: Antral mass as described above probably arising from the surgical margin in the liver. Som Diez MD FACR Chest X-Ray 11/04/17 0000 Signed Impressions: Service Date/Time: Saturday, November 04, 2017 18:05 - CONCLUSION: 1. Slight bibasilar atelectasis and/or infiltrate is seen. 2. The tip of the NG tube needs to be advanced. Dorothy Sanchez MD Abdomen/Pelvis CT 11/03/17 0000 Signed Impressions: Service Date/Time: Friday, November 03, 2017 15:52 - CONCLUSION: Hepatic mass appears larger concerning for malignancy such as hepatocellular carcinoma. Dorothy Sanchez MD Abdomen: Post-op tenderness Extremities: Perfused A/P Assessment and Plan 72yo male with GOO 2/2 recurrent HCC, s/p open bypass, stable. continue to go slow with PO, OOB, pain control. Attending Statement NOTE FOR SURGICAL ATTENDING, DR. DANIEL GALLEGOS I attest that I had a [id number] encounter with the patient on the same day, and personally performed and documented my assessment and findings in the medical record. The following services were provided during this hospital visit: Chart data review, vital sign assessments/reviewing monitor data Review of consultations notes if present. Medication orders/review and/or management Ordering and/or reviewing lab tests Ordering and/or interpreting/reviewing x-rays and/or diagnostic studies Care of the patient and discussion of the patient with the care team Documentation time To help prompt me to consider important information that might be impacting today's encounter and assessment, information from prior notes written by myself or my colleagues may have been "brought forward/copy and pasted" into today's note. Daniel Gallegos MD Nov 11, 2017 13:39
--- NOTE | 2017-11-11 15:08 | HHI.PR ---
Subjective Remarks Patient is at his baseline, still in some pain from the surgery, still no bowel movement. He says the laxatives are not helping, and requests prune juice. He is aware that there is evidence his HCC has recurred, and that his case will be reviewed by the Tumor Board on Sunday. Objective Vitals Vital Signs Date Time Temp Pulse Resp B/P (MAP) Pulse Ox O2 Delivery O2 Flow Rate FiO2 11/11/17 12:00 98.3 86 19 116/67 (83) 97 11/11/17 08:00 98.0 75 19 113/63 (80) 97 11/11/17 04:36 99.2 90 18 117/93 (101) 93 11/11/17 03:12 66 11/11/17 00:00 99.9 77 16 105/65 (78) 92 11/10/17 23:55 77 11/10/17 20:00 98.8 74 16 115/67 (83) 95 11/10/17 19:49 96 21 11/10/17 19:32 81 11/10/17 16:00 99.1 81 20 121/70 (87) 95 I/O 11/10/17 11/10/17 11/10/17 11/11/17 11/11/17 11/11/17 07:00 15:00 23:00 07:00 15:00 23:00 Intake Total 1913 ml 68 ml 2303 ml 1905.07 ml 120 ml Output Total 1950 ml 800 ml Balance 1913 ml 68 ml 353 ml 1105.07 ml 120 ml Intake Oral 840 ml 120 ml IV Total 1000 ml 68 ml 1463 ml 1905.07 ml TPN/PPN 913 ml Output Urine Total 1950 ml 800 ml # Bowel Movements 0 Result Diagram: 11/11/17 0624 11/10/17 1320 Objective Remarks GENERAL: Well-nourished, well-developed patient, tolerating liquids PO SKIN: Warm and dry. HEAD: Normocephalic. EYES: No scleral icterus. No injection or drainage. NECK: Supple, trachea midline. No JVD or lymphadenopathy. CARDIOVASCULAR: Irregularly irregular, 1/6 JANET RESPIRATORY: Breath sounds equal bilaterally. No accessory muscle use. GASTROINTESTINAL: Abdomen soft, non-tender, mild bloating. Hypoactive bowel sounds EXTREMITIES: No cyanosis, or edema. NEUROLOGICAL: Awake, alert, and oriented x 3. Non-focal. Procedures EGD w/ Biopsy 11/02/2017 A/P Problem List: (1) GI bleeding ICD Code: K92.2 - Gastrointestinal hemorrhage, unspecified Status: Acute (2) Duodenal ulcer ICD Code: K26.9 - Duodenal ulcer, unspecified as acute or chronic, without hemorrhage or perforation (3) Liver masses ICD Code: R16.0 - Hepatomegaly, not elsewhere classified (4) History of liver cancer ICD Code: Z85.05 - Personal history of malignant neoplasm of liver Status: Chronic (5) Hepatitis C ICD Code: B19.20 - Unspecified viral hepatitis C without hepatic coma Status: Chronic Assessment and Plan Upper GI Bleed with Anemia Large bleeding duodenal ulcer s/p Ruox-en-Y gastrojejunostomy bypass 11/06/17 s/p PRBC transfusion Continue Protonix Drip NG Tube in place Appreciate General Surgery Appreciate Gastroenterology Hepatocellular Carcinoma Patient has a history of HCC, and a hx of Hep C Pathology from pyloric mass shows Hepatocellular Carcinoma extending into that tissue Pathology from liver mass was inconclusive, non-diagnostic necrotic tissue Appreciate Oncology recommendations Appreciate Palliative care following Tumor Board review of his case scheduled for Sunday Atrial Fibrillation Regular rate and rhythm today Continue home dose Digoxin and Diltiazem DVT Prophylaxis SCD hose due to GI bleed Josh Garcia MD Nov 11, 2017 15:08
[2017-11-11] MEDS: MORPHINE SULFATE 2 MG/ML INJ IV PUSH PRN (21:24)
[2017-11-12] VITALS (13 sets, daily range): BP systolic 104–163; BP diastolic 59–88; PULSE 68–93; RESP 16–24; TEMP 97.8–99.2; O2SAT 92–98
[2017-11-12] MEDS: PANTOPRAZOLE INJ 80 MG in SODIUM CHLORIDE 0.9% INJ 100 ML IV SCH ×2 (03:48→14:26)
[2017-11-12] MEDS: SODIUM CHLORIDE 23.4% INJ 5.5 MEQ, SODIUM ACETATE INJ 29.5 MEQ, POTASSIUM CHLORIDE INJ ... IV-CENTRAL SCH ×18 (08:19→22:00)
[2017-11-12] MEDS: DILTIAZEM HCL 60 MG TAB PO SCH ×4 (08:22→22:02)
[2017-11-12] MEDS: DOCUSATE SODIUM 50 MG/SENNA 8.6 MG TAB PO SCH ×2 (08:22→22:02)
[2017-11-12] MEDS: DIGOXIN 0.125 MG TAB PO SCH (08:22)
[2017-11-12] MEDS: INSULIN ASPART SUPPLEMENTAL SCALE SQ SCH ×4 (08:22→22:02)
[2017-11-12] MEDS: SODIUM CHLORIDE 0.9% FLUSH 10 ML FLUSH IV FLUSH SCH ×3 (08:23→22:03)
[2017-11-12] MEDS ORDERED: MORPHINE SULFATE 2 MG/ML INJ IV PUSH PRN (09:45)
[2017-11-12] MEDS ORDERED: oxyCODONE/ACETAMINOPHEN 5 MG/325 MG TAB PO PRN (09:45)
--- NOTE | 2017-11-12 12:24 | PD.ONC.PN ---
Subjective Subjective Remarks Afebrile overnight. Patient resting in bed. still having pain from surgery. asking for pain medication tolerating diet. Objective Data Date Time Temp Pulse Resp B/P (MAP) Pulse Ox O2 Delivery O2 Flow Rate FiO2 11/12/17 12:00 97.8 91 20 154/88 (110) 97 11/12/17 10:25 95 11/12/17 08:00 99.1 71 20 112/65 (81) 97 11/12/17 08:00 98.8 86 20 135/85 (102) 97 11/12/17 04:38 98.5 93 16 112/62 (79) 95 11/12/17 04:00 69 11/12/17 00:55 99.2 74 16 104/65 (78) 92 11/12/17 00:10 76 11/11/17 20:00 98.9 76 16 115/63 (80) 95 11/11/17 19:35 76 11/11/17 16:00 99.0 72 18 123/68 (86) 97 11/12/17 11/12/17 11/12/17 07:00 15:00 23:00 Intake Total 881 ml 362.0719 ml Output Total 800 ml Balance 81 ml 362.0719 ml Result Diagram: 11/11/17 0624 11/10/17 1320 Administered Medications Medications (Trade) Dose Ordered Sig/Víctor Route PRN Reason Start Time Stop Time Status Last Admin Dose Admin Sodium Chloride (NS Flush) 2 ml BID IV FLUSH 11/02/17 09:00 11/12/17 08:23 Digoxin (Lanoxin) 0.125 mg DAILY PO 11/02/17 09:00 11/12/17 08:22 Diltiazem HCl (Cardizem) 120 mg QID PO 11/02/17 09:00 11/12/17 08:22 Phenol (Chloraseptic [place]) 2 spray Q2H PRN MT SORE THROAT 11/02/17 16:45 11/02/17 17:19 Lorazepam (Ativan Inj) 1 mg Q6H PRN IV PUSH ANXIETY 11/03/17 09:45 11/03/17 10:58 Pantoprazole Sodium 80 mg/ Sodium Chloride 100 ml @ 10 mls/hr Q10H IV 11/03/17 10:30 11/12/17 03:48 Acetaminophen (Tylenol) 650 mg Q4H PRN PO TEMP > 100.4 11/03/17 11:15 11/04/17 19:56 Ondansetron HCl (Zofran Inj) 4 mg Q6H PRN IVP NAUSEA OR VOMITING 11/03/17 11:15 11/08/17 14:03 Senna/Docusate Sodium (Germania-Colace) 1 tab BID PO 11/03/17 21:00 11/12/17 08:22 Magnesium Hydroxide (Milk Of Anne Libonnie) 30 ml Q12H PRN PO Mild constipation 11/03/17 11:15 11/11/17 12:33 Sodium Chloride (NS Flush) See Protocol DAILY IV FLUSH 11/05/17 09:00 11/09/17 08:36 Heparin Sodium (Porcine) (Heparin Central Flush) See Protocol DAILY IV FLUSH 11/05/17 09:00 11/12/17 08:23 Insulin Aspart (NovoLOG SUPPLEMENTAL SCALE) 1 ACHS SLIDING SCALE SQ 11/09/17 17:00 11/12/17 08:22 Sodium Chloride 5.5 meq/Sodium Acetate 29.5 meq/ Potassium Chloride 20 meq/ Sodium Phosphate 20 meq/Magnesium Chloride 5 meq/ Calcium Chloride 4.5 meq/ Multivitamins 5 ml/Folic Acid 0.5 mg/Amino Acids/ Dextrose 1,042.0719 ml @ 83 mls/hr [id number] IV-CENTRAL 11/10/17 20:00 11/12/17 08:19 Oxycodone/ Acetaminophen (Percocet 5-325 Mg) 1 tab Q4H PRN PO pain 1-10 11/12/17 09:45 11/12/17 11:23 Objective Remarks GENERAL: Elderly male, lying supine in bed. SKIN: Warm and dry. HEAD: Normocephalic. EYES: no injection or drainage. NECK: Supple, trachea midline. CARDIOVASCULAR: +S1/S2 RESPIRATORY: anterior paz clear. GASTROINTESTINAL: soft, mild tenderness. peter in place along incision line. no bleeding. EXTREMITIES: No cyanosis, or edema. NEUROLOGICAL: awake and alert, normal speech. moving all extremities. no obvious focal deficit. Assessment/Plan Problem List: (1) Liver masses ICD Codes: R16.0 - Hepatomegaly, not elsewhere classified Plan: --s/p open laparotomy on 11/06 with Jos-en-Y G-J bypass performed for palliation. pathology from liver biopsy is negative for neoplasm. History: --has history of hepatitis C cirrhosis. --had a hepatocellular carcinoma rese[place] [address] Dias in [place]. --When he presented to the hospital in August, CT showed a new 2.8 cm in the right hepatic dome. MRI showed a 3.5 cm enhancing mass with adjacent 1.2 cm mass more laterally. went back to see Dr. Dias (surgeon) and was referred to interventional radiology to consider TheraSphere embolization. is still awaiting insurance approval to have the procedure done. --this hospitalization, he presented with nausea, vomiting and GI bleed. EGD showed a mass at the pylorus causing obstruction. CT abdomen also confirmed a mass in the antrum and it could possibly be arising from the surgical margin of the liver. The mass was biopsied and the pathology shows adenocarcinoma of gastric origin. UPDATE: pathology was updated to state with additional staining the mass appears to be HCC. (2) Symptomatic anemia ICD Codes: D64.9 - Anemia, unspecified Status: Acute Plan: --d/t GIB --monitor and transfuse as needed. 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 h/o Hepatitis C. Cirrhosis. History of Harvoni in 2014. Hepatocellular carcinoma resected in 2014. GI bleed. Small bowel obstruction. Chronic atrial fibrillation. Anemia. Hypertension. Plan 1. Monitor CBC 2. continue pain management. 3. plan to discuss case at tumor boards tomorrow to determine treatment. in terms of discharge, the patient can be discharged when surgery clears. we will follow outpatient. Attending Statement The exam, history, and the medical decision-making described in the above note were completed with the assistance of the mid-level provider. I reviewed and agree with the findings presented. I attest that I had a [id number] encounter with the patient on the same day, and personally performed and documented my assessment and findings in the medical record. Eating a little more. Abdominal pain improving. Continue supportive care. Plan to discussed case at tumor board tomorrow. Alexandra Rai Nov 12, 2017 12:24 Lane Ortiz MD Nov 12, 2017 16:05
[2017-11-12] MEDS: MAGNESIUM HYDROXIDE SUSP 30 ML CUP PO PRN (12:37)
--- NOTE | 2017-11-12 12:55 | HHI.HCPN ---
Reason for visit a. To assist with evaluation and management of symptoms including: pain, dysphagia, nausea/vomiting and constipation. b. To assist medical decision maker(s) with: better understanding of current medical conditions; weighing benefits/burdens of medical treatment options; making medical treatment decisions. Subjective/Interval History Patient seen and examined in his room. Patient is in bed, awake, alert and oriented to self, place and situation. Able to follow commands. Celine signs stable. Patient states that he hasn`t been feeling nauseated as much as he did prior to surgery. No reported vomiting. Patient is on a full liquid diet and seems to be tolerating that well. He remains on TPN. Patient`s last recorded bowel movement was 11/09/17. Reporting flatus and urge to move bowels. Patient is on Germania colace 1 tab BID, Magnesium hydroxide q 12 hrs prn , sennokot 17.2 mg q 12hrs prn, dulocolax suppository 10mg daily prn, metoclopramide 5 mg q 6 hrs. Pain seems to be well managed. Patient denies pain during visit. Morphine sulfate reduced to from 6mg to 2 mg Q 3 hrs on 11/12/17. Patient also started on Oxycodone /acetaminophen 5/325 q 4 hrs prn , first dose administered at 1123hrs. Per oncology notes, patient`s case to be discussed at Tumor boards on Sunday for possibility of local therapy or radiation. Patient is aware and goals remain aggressive. . Family/friend interactions No family at bedside . Advance Directives Living Will: Never completed Health Care Surrogate: Copy in medical record Durable Power of [place] Utility Worker: Never completed Advance Directive Specifics Date completed: 11/05/2017 . Health Care Surrogate(s): Spouse- Clotilde Doe- health care surrogate [phone] Daughter- Ted Longoria-[phone] . Objective Vital Signs Date Time Temp Pulse Resp B/P (MAP) Pulse Ox O2 Delivery O2 Flow Rate FiO2 11/12/17 12:00 97.8 91 20 154/88 (110) 97 11/12/17 10:25 95 11/12/17 08:00 99.1 71 20 112/65 (81) 97 11/12/17 08:00 98.8 86 20 135/85 (102) 97 11/12/17 04:38 98.5 93 16 112/62 (79) 95 11/12/17 04:00 69 11/12/17 00:55 99.2 74 16 104/65 (78) 92 11/12/17 00:10 76 11/11/17 20:00 98.9 76 16 115/63 (80) 95 11/11/17 19:35 76 11/11/17 16:00 99.0 72 18 123/68 (86) 97 Intake & Output 11/12/17 11/12/17 07:00 19:00 Intake Total 2092 ml 362.0719 ml Output Total 800 ml Balance 1292 ml 362.0719 ml Intake Oral 120 ml IV Total 2092 ml 242.0719 ml Output Urine Total 800 ml Physical Exam CONSTITUTIONAL/GENERAL: This is an adequately nourished patient, in no apparent distress. Currently denies pain. TUBES/LINES/DRAINS: PIV, PICC Line, SCDs SKIN: No jaundice, rashes, or lesions. Ecchymoses on upper extremities. Mid abdominal surgical incision covered with a dressing. Skin temperature appropriate. Not diaphoretic. HEAD: Atraumatic. Normocephalic. EYES: Pupils equal and round and reactive. Extraocular motions intact. No scleral icterus. No injection or drainage. Fundi not examined. ENT: Hearing grossly normal. Nose without bleeding or purulent drainage. Moist oral mucosa NECK: Trachea midline. Supple, nontender. CARDIOVASCULAR: Regular rate and rhythm without murmurs, gallops, or rubs. No JVD. Peripheral pulses symmetric. RESPIRATORY/CHEST: Symmetric, unlabored respirations. Clear to auscultation. Breath sounds equal bilaterally. No wheezes, rales, or rhonchi. GASTROINTESTINAL: Abdomen non-tender to touch, midline abdominal surgical incision with peter open to air. Positive BS X 4 quadrants GENITOURINARY: Without palpable bladder distension. MUSCULOSKELETAL: Extremities without clubbing, cyanosis, or edema. No joint tenderness or effusion noted. No calf tenderness. No mottling or clubbing. NEUROLOGICAL: Awake, lethargic, oriented to self, place and situation. Motor and sensory grossly within normal limits. Follows commands. Cognitively sharp. Moves all extremities. PSYCHIATRIC: No obvious anxiety/depression. no apparent hallucinations or other psychotic thought process. . Diagnostic Tests Laboratory Laboratory Tests Test 2/10/18 13:20 11/10/17 13:28 11/11/17 06:24 Blood Urea Nitrogen 10 MG/DL (7-18) Creatinine 0.75 MG/DL (0.60-1.30) Random Glucose 277 MG/DL (74-106) Total Protein 6.4 GM/DL (6.4-8.2) Albumin 2.3 GM/DL (3.4-5.0) Calcium Level 8.4 MG/DL (8.5-10.1) Alkaline Phosphatase 80 U/L (45-117) Aspartate Amino Transf (AST/SGOT) 44 U/L (15-37) Alanine Aminotransferase (ALT/SGPT) 72 U/L (12-78) Total Bilirubin 0.3 MG/DL (0.2-1.0) Sodium Level 136 MEQ/L (136-145) Potassium Level 4.0 MEQ/L (3.5-5.1) Chloride Level 105 MEQ/L (98-107) Carbon Dioxide Level 25.8 MEQ/L (21.0-32.0) Anion Gap 5 MEQ/L (5-15) Estimat Glomerular Filtration Rate 124 ML/MIN (>89) White Blood Count 8.1 TH/MM3 (4.0-11.0) 8.7 TH/MM3 (4.0-11.0) Red Blood Count 3.33 MIL/MM3 (4.50-5.90) 3.25 MIL/MM3 (4.50-5.90) Hemoglobin 9.2 GM/DL (13.0-17.0) 9.1 GM/DL (13.0-17.0) Hematocrit 28.1 % (39.0-51.0) 27.6 % (39.0-51.0) Mean Corpuscular Volume 84.2 FL (80.0-100.0) 85.2 FL (80.0-100.0) Mean Corpuscular Hemoglobin 27.8 PG (27.0-34.0) 28.1 PG (27.0-34.0) Mean Corpuscular Hemoglobin Concent 33.0 % (32.0-36.0) 33.0 % (32.0-36.0) Red Cell Distribution Width 18.0 % (11.6-17.2) 18.5 % (11.6-17.2) Platelet Count 330 TH/MM3 (150-450) 314 TH/MM3 (150-450) Mean Platelet Volume 7.5 FL (7.0-11.0) 7.6 FL (7.0-11.0) Neutrophils (%) (Auto) 76.9 % (16.0-70.0) 75.5 % (16.0-70.0) Lymphocytes (%) (Auto) 7.4 % (9.0-44.0) 8.0 % (9.0-44.0) Monocytes (%) (Auto) 11.7 % (0.0-8.0) 10.7 % (0.0-8.0) Eosinophils (%) (Auto) 3.5 % (0.0-4.0) 3.1 % (0.0-4.0) Basophils (%) (Auto) 0.5 % (0.0-2.0) 2.7 % (0.0-2.0) Neutrophils # (Auto) 6.2 TH/MM3 (1.8-7.7) 6.6 TH/MM3 (1.8-7.7) Lymphocytes # (Auto) 0.6 TH/MM3 (1.0-4.8) 0.7 TH/MM3 (1.0-4.8) Monocytes # (Auto) 0.9 TH/MM3 (0-0.9) 0.9 TH/MM3 (0-0.9) Eosinophils # (Auto) 0.3 TH/MM3 (0-0.4) 0.3 TH/MM3 (0-0.4) Basophils # (Auto) 0.0 TH/MM3 (0-0.2) 0.2 TH/MM3 (0-0.2) CBC Comment DIFF FINAL DIFF FINAL Differential Comment Result Diagram: 11/11/17 0624 11/10/17 1320 Procedures 11/02/2017- EGD w/ biopsy 11/06/2017-laparoscopic converted to open Jos-en-Y gastrojejunostomy bypass, lysis of adhesions, Juan M-Cut liver biopsy of malignant lesion in the liver remnant. . Assessment and Plan Disease Oriented Problem List: (1) GI bleeding (2) Symptomatic anemia (3) History of liver cancer (4) Hepatitis C Symptom Scale: (1) Dysphagia 0-10 Scale: Unable to quantify Comment: Upper GI series revealed an antral mass. . (2) Nausea & vomiting 0-10 Scale: Unable to quantify Comment: Multifactorial. History of liver cancer. Upper GI series revealed an antral mass . (3) Pain 0-10 Scale: Unable to quantify Comment: -Mainly from abdominal/epigastric discomfort. . (4) Constipation 0-10 Scale: Unable to quantify Comment: Patient is s/p palliative bypass surgery. Patient has been on pain medication. Now on a full liquid diet. Only passing flatus. No BM. . Pertinent Non-Medical Issues Psychosocial:Patient was born and raised in [place]. He moved to [place] in 1991. Patient worked in construction and mostly as a galan. Patient has also lived and worked in [place] for about 5 years. He retired in 2009. Patient has been to his spouse since 2001 but have been together for about 46 years. They have and adult daughter together. Spiritual:Patient is [place] Legal:Patient signed HCS form today Ethical issues impacting care:None identified at this time. . Important Contacts Spouse- Brook, Clotilde [phone] Daughter- Ted Longoria- [phone] . Prognosis Mr. Doe is a 72 years old male with a past medical history of hypertension, anemia, atrial fibrillation, liver cancer s/p liver resection, hepatitis C s/p Harvoni course, and large duodenal ulcer with history of GI bleed. Patient presented to the ER on 11/01/17 complaining of generalized weakness, dizziness, having black stools and coffee ground emesis for approximately a week. Clinical course complicated with dysphagia and worsening liver mets and disease. Given ongoing comorbidities, patient remains at high risk for further complications with disease progression, deterioration and decline. . Code Status: Full Code Plan PLAN: Legal decision maker: Patient is able to make his own medical decisions. In the case that patient is incapacitated his spouse Clotilde Doe will act as his health care surrogate and his daughter Ted Longoria as his alternate Health care surrogate. Goals: Remain aggressive CODE STATUS: Full Code Per oncology notes, patient`s case to be discussed at Tumor boards on Sunday for possibility of local therapy or radiation. Patient is aware and goals remain aggressive. SYMPTOMS: * Dysphagia: Patient was found to have a large obstructing/ ulcer at the pylorus making it impossible to pass into the duodenum during EGD. Currently has an NGT and failed swallow evaluation. Currently NPO. Upper GI series revealed an antral mass. General surgeon consulted. Patient is s/p open laparotomy with palliative Jos-en-Y G-J bypass on 11/06/17. Speech therapy signed off today. NG tube discontinued 11/08. Patient now on full liquid diet -tolerating well. No recommendations. * Pain: Multifactorial. Hx of liver cancer and now and an antral mass causing significant gastric outlet obstruction. Oxycodone discontinued, patient is NPO. Patient had palliative bypass on 11/06/17. Has a midabdominal surgical incision with peter open to air. Pain seems to be well managed. Patient denies pain during visit. Morphine sulfate reduced to from 6mg to 2 mg Q 3 hrs on 11/12/17. Patient also started on Oxycodone /acetaminophen 5/325 q 4 hrs prn , first dose administered at 1123hrs. Recommending using Oxycodone more than parenteral Morphine sulfate for pain control. * Constipation: Patient is s/p palliative bypass surgery. Patient has been on pain medication. Now on a full liquid diet. Patient`s last recorded bowel movement was 11/09/17. Reporting flatus and urge to move bowels. Patient is on Germania colace 1 tab BID, Magnesium hydroxide q 12 hrs prn , sennokot 17.2 mg q 12hrs prn, Dulcolax suppository 10mg daily prn, metoclopramide 5 mg q 6 hrs. Patient has only received x2 prn doses of Magnesium hydroxide last dose 11/11/17 , he has not received Senokot and Dulcolax suppository. Recommending using prn medications until patient moves bowels. * Nausea/Vomiting: Multifactorial. History of liver cancer. Upper GI series revealed an antral mass. Patient c/o of epigastric discomfort and nausea. Has an emesis basin and spitting frothy white spit. Patient has Zofran 4mg q 6 hrs ( Last dose given on 11/06/17) and Metoclopramide 5mg q 6 hrs. patient endorsing occasional nausea. Encouraged patient to request nausea medication when needed.No recommendations. Palliative Care contact information provided. Palliative care will continue to follow the patient during hospital course as condition evolves, to assist patient/decision-maker with understanding of their medical conditions, weighing benefits/burdens of treatment options, for clarification of goals of treatment. Additionally will assist with any symptoms of palliative concern. . Geoff Arita Nov 12, 2017 12:55
--- NOTE | 2017-11-12 16:59 | HHI.PR ---
Subjective Remarks Pain meds were adjusted yesterday to provide more even coverage, but patient states his pain is still present. He still has not had a bowel movement, is drinking the prune juice he requested. Objective Vitals Vital Signs Date Time Temp Pulse Resp B/P (MAP) Pulse Ox O2 Delivery O2 Flow Rate FiO2 11/12/17 16:00 98.1 74 19 104/61 (75) 98 11/12/17 12:42 73 108/59 (75) 11/12/17 12:00 98.4 78 19 163/80 (107) 95 11/12/17 10:25 95 11/12/17 08:38 68 11/12/17 08:00 99.1 71 20 112/65 (81) 97 11/12/17 04:38 98.5 93 16 112/62 (79) 95 11/12/17 04:00 69 11/12/17 00:55 99.2 74 16 104/65 (78) 92 11/12/17 00:10 76 11/11/17 20:00 98.9 76 16 115/63 (80) 95 11/11/17 19:35 76 I/O 11/11/17 11/11/17 11/11/17 11/12/17 11/12/17 11/12/17 07:00 15:00 23:00 07:00 15:00 23:00 Intake Total 1905.07 ml 120 ml 2171 ml 881 ml 362.0719 ml Output Total 800 ml 500 ml 800 ml Balance 1105.07 ml 120 ml 1671 ml 81 ml 362.0719 ml Intake Oral 120 ml 960 ml 120 ml IV Total 1905.07 ml 1211 ml 881 ml 242.0719 ml Output Urine Total 800 ml 500 ml 800 ml # Bowel Movements 0 Result Diagram: 11/11/17 0624 11/10/17 1320 Objective Remarks GENERAL: Well-nourished, well-developed patient, tolerating liquids PO SKIN: Warm and dry. HEAD: Normocephalic. EYES: No scleral icterus. No injection or drainage. NECK: Supple, trachea midline. No JVD or lymphadenopathy. CARDIOVASCULAR: Irregularly irregular, 1/6 JANET RESPIRATORY: Breath sounds equal bilaterally. No accessory muscle use. GASTROINTESTINAL: Abdomen soft, non-tender, mild bloating. Hypoactive bowel sounds EXTREMITIES: No cyanosis, or edema. NEUROLOGICAL: Awake, alert, and oriented x 3. Non-focal. Procedures EGD w/ Biopsy 11/02/2017 A/P Problem List: (1) GI bleeding ICD Code: K92.2 - Gastrointestinal hemorrhage, unspecified Status: Acute (2) Duodenal ulcer ICD Code: K26.9 - Duodenal ulcer, unspecified as acute or chronic, without hemorrhage or perforation (3) Liver masses ICD Code: R16.0 - Hepatomegaly, not elsewhere classified (4) History of liver cancer ICD Code: Z85.05 - Personal history of malignant neoplasm of liver Status: Chronic (5) Hepatitis C ICD Code: B19.20 - Unspecified viral hepatitis C without hepatic coma Status: Chronic Assessment and Plan Upper GI Bleed with Anemia Large bleeding duodenal ulcer s/p Ruox-en-Y gastrojejunostomy bypass 11/06/17 Continue Protonix Drip Appreciate General Surgery Appreciate Gastroenterology Hepatocellular Carcinoma Patient has a history of HCC, and a hx of Hep C Pathology from pyloric mass shows Hepatocellular Carcinoma extending into that tissue Pathology from liver mass was inconclusive, non-diagnostic necrotic tissue Appreciate Oncology recommendations Appreciate Palliative care following Tumor Board review of his case scheduled for Sunday Anemia Transfused 2 units PRBC, H&H so far stable Will follow trend Pain management Will increase Oxycodone from 5mg to 10mg to control pain better Constipation Continue prune juice that he requested Will discuss fleets enema tomorrow if no BM achieved Atrial Fibrillation Regular rate and rhythm today Continue home dose Digoxin and Diltiazem DVT Prophylaxis SCD hose due to GI bleed Josh Garcia MD Nov 12, 2017 16:59
--- NOTE | 2017-11-12 17:11 | HHI.PR ---
Subjective Subjective Notes Resting in bed No issues; not much appetite Was able to ambulate today Objective Vitals/I&O Vital Signs Date Time Temp Pulse Resp B/P (MAP) Pulse Ox O2 Delivery O2 Flow Rate FiO2 11/12/17 16:00 98.1 74 19 104/61 (75) 98 11/10/17 19:49 21 Radiology Last Impressions Upper GI Series 11/05/17 0000 Signed Impressions: Service Date/Time: Sunday, November 05, 2017 10:47 - CONCLUSION: Antral mass as described above. CT is pending. Som Diez MD FACR Abdomen CT 11/05/17 0000 Signed Impressions: Service Date/Time: Sunday, November 05, 2017 11:24 - CONCLUSION: Antral mass as described above probably arising from the surgical margin in the liver. Som Diez MD FACR Chest X-Ray 11/04/17 0000 Signed Impressions: Service Date/Time: Saturday, November 04, 2017 18:05 - CONCLUSION: 1. Slight bibasilar atelectasis and/or infiltrate is seen. 2. The tip of the NG tube needs to be advanced. Dorothy Sanchez MD Abdomen/Pelvis CT 11/03/17 0000 Signed Impressions: Service Date/Time: Friday, November 03, 2017 15:52 - CONCLUSION: Hepatic mass appears larger concerning for malignancy such as hepatocellular carcinoma. Dorothy Sanchez MD Cardiovascular: Regular Lungs: Clear Abdomen: Other (Midline incision---dressing changed--- peter--c/d/i ) Extremities: No edema A/P Assessment and Plan 72 year old male with known recurrent HHC; gastric outlet obstruction; POD6 lap converted to open Jos-en-Y gastrojejunostomy bypass; liver bx -Continue full liquids for now; okay for family to bring in food -Pain control -OOB as tolerated -TPN until PO intake better Attending Statement The exam, history, and the medical decision-making described in the above note were completed with the assistance of the mid-level provider. I reviewed and agree with the findings presented. I attest that I had a [id number] encounter with the patient on the same day, and personally performed and documented my assessment and findings in the medical record. s/p palliative bypass for obstructing HCC, stable Abdominal exam: stable postop tenderness, no peritonitis, incision clean/dry/ intact continue postoperative management continue fulls, has some mild gastric emptying delay, should improve over time Leticia Hernandez Nov 12, 2017 17:11 Mckay Winslow MD Nov 16, 2017 06:51
[2017-11-12] MEDS: oxyCODONE/ACETAMINOPHEN 10 MG/325 MG TAB PO PRN ×2 (17:29→22:14)
[2017-11-12 20:00] LABS: AUTOMATED NEUTROPHIL # 7.5 TH/MM3 (1.8-7.7); BASOPHIL % 0.4 % (0.0-2.0); EOSINOPHIL # 0.4 TH/MM3 (0-0.4); EOSINOPHIL % 3.9 % (0.0-4.0); HEMATOCRIT 27.9 % (39.0-51.0); HEMOGLOBIN 9.2 GM/DL (13.0-17.0); LYMPH % 9.4 % (9.0-44.0); LYMPHOCYTE # 0.9 TH/MM3 (1.0-4.8); MEAN CELL VOLUME 83.5 FL (80.0-100.0); MEAN CORPUSCULAR HEMOGLOBIN 27.5 PG (27.0-34.0); MONO % 9.3 % (0.0-8.0); MONOCYTE # 0.9 TH/MM3 (0-0.9); PLATELET COUNT 319 TH/MM3 (150-450); RED BLOOD COUNT 3.35 MIL/MM3 (4.50-5.90); RED CELL DISTRIBUTION WIDTH 18.1 % (11.6-17.2); WHITE BLOOD COUNT 9.7 TH/MM3 (4.0-11.0)
[2017-11-12 20:12] LABS: BICARBONATE 26.8 MEQ/L (21.0-32.0); CALCIUM 8.7 MG/DL (8.5-10.1); CREATININE 0.82 MG/DL (0.60-1.30)
[2017-11-13] VITALS (10 sets, daily range): BP systolic 96–112; BP diastolic 54–63; PULSE 67–97; RESP 16–22; TEMP 97.3–99.1; O2SAT 95–98
[2017-11-13] MEDS: PANTOPRAZOLE INJ 80 MG in SODIUM CHLORIDE 0.9% INJ 100 ML IV SCH ×3 (00:21→23:04)
[2017-11-13] MEDS: oxyCODONE/ACETAMINOPHEN 10 MG/325 MG TAB PO PRN ×4 (02:24→23:31)
[2017-11-13] MEDS: SENNOSIDES 8.6 MG TAB PO PRN (02:27)
[2017-11-13] MEDS: DIGOXIN 0.125 MG TAB PO SCH (08:54)
[2017-11-13] MEDS: DOCUSATE SODIUM 50 MG/SENNA 8.6 MG TAB PO SCH ×2 (08:55→23:05)
[2017-11-13] MEDS: SODIUM CHLORIDE 0.9% FLUSH 10 ML FLUSH IV FLUSH SCH ×3 (09:00→21:00)
[2017-11-13] MEDS: DILTIAZEM HCL 60 MG TAB PO SCH ×4 (09:11→23:05)
[2017-11-13] MEDS: INSULIN ASPART SUPPLEMENTAL SCALE SQ SCH ×3 (09:12→17:44)
[2017-11-13] MEDS: SODIUM CHLORIDE 23.4% INJ 5.5 MEQ, SODIUM ACETATE INJ 29.5 MEQ, POTASSIUM CHLORIDE INJ ... IV-CENTRAL SCH ×18 (09:26→23:16)
[2017-11-13] MEDS ORDERED: DEXTROSE 50% IN WATER 50 ML VIAL(D50) IV PUSH PRN (09:30)
[2017-11-13] MEDS ORDERED: GLYCERIN ADULT 2 GM SUPP RECTAL PRN (09:30)
[2017-11-13] MEDS ORDERED: GLUCAGON 1 MG/ML VIAL OTHER PRN (09:30)
--- NOTE | 2017-11-13 11:19 | HHI.PR ---
Subjective Subjective Notes Up to chair Just got back from walking in the hallways Still with little appetite but would like to try to supplement shakes Objective Vitals/I&O Vital Signs Date Time Temp Pulse Resp B/P (MAP) Pulse Ox O2 Delivery O2 Flow Rate FiO2 11/13/17 09:47 96 11/13/17 08:00 97.3 68 16 103/55 (71) 11/10/17 19:49 21 Labs Laboratory Tests Test 11/12/17 18:30 White Blood Count 9.7 Red Blood Count 3.35 Hemoglobin 9.2 Hematocrit 27.9 Mean Corpuscular Volume 83.5 Mean Corpuscular Hemoglobin 27.5 Mean Corpuscular Hemoglobin Concent 33.0 Red Cell Distribution Width 18.1 Platelet Count 319 Mean Platelet Volume 8.0 Neutrophils (%) (Auto) 77.0 Lymphocytes (%) (Auto) 9.4 Monocytes (%) (Auto) 9.3 Eosinophils (%) (Auto) 3.9 Basophils (%) (Auto) 0.4 Neutrophils # (Auto) 7.5 Lymphocytes # (Auto) 0.9 Monocytes # (Auto) 0.9 Eosinophils # (Auto) 0.4 Basophils # (Auto) 0.0 CBC Comment DIFF FINAL Differential Comment Blood Urea Nitrogen 13 Creatinine 0.82 Random Glucose 306 Calcium Level 8.7 Sodium Level 134 Potassium Level 4.1 Chloride Level 101 Carbon Dioxide Level 26.8 Anion Gap 6 Estimat Glomerular Filtration Rate 112 Radiology Last Impressions Upper GI Series 11/05/17 0000 Signed Impressions: Service Date/Time: Sunday, November 05, 2017 10:47 - CONCLUSION: Antral mass as described above. CT is pending. Som Diez MD FACR Abdomen CT 11/05/17 0000 Signed Impressions: Service Date/Time: Sunday, November 05, 2017 11:24 - CONCLUSION: Antral mass as described above probably arising from the surgical margin in the liver. Som Diez MD FACR Chest X-Ray 11/04/17 0000 Signed Impressions: Service Date/Time: Saturday, November 04, 2017 18:05 - CONCLUSION: 1. Slight bibasilar atelectasis and/or infiltrate is seen. 2. The tip of the NG tube needs to be advanced. Dorothy Sanchez MD Abdomen/Pelvis CT 11/03/17 0000 Signed Impressions: Service Date/Time: Friday, November 03, 2017 15:52 - CONCLUSION: Hepatic mass appears larger concerning for malignancy such as hepatocellular carcinoma. Dorothy Sanchez MD Cardiovascular: Regular Lungs: Clear Abdomen: Other (midline incision with peter; abdomen mildly distended; non tender to palpation ) Extremities: No edema A/P Assessment and Plan 72 year old male with known recurrent HHC; gastric outlet obstruction; POD7 lap converted to open Jos-en-Y gastrojejunostomy bypass; liver bx -Continue full liquids for now; okay for family to bring in food; added Ensure shakes -Pain control -OOB as tolerated -TPN until PO intake better Attending Statement The exam, history, and the medical decision-making described in the above note were completed with the assistance of the mid-level provider. I reviewed and agree with the findings presented. I attest that I had a [id number] encounter with the patient on the same day, and personally performed and documented my assessment and findings in the medical record. s/p palliative bypass RNY, stable Abdominal exam: stable postop tenderness, no peritonitis, incision clean/dry/ intact still with some difficulty eating continue postoperative management may need TPN at home until stomach empties through RNY better Leticia Hernandez Nov 13, 2017 11:19 Mckay Winslow MD Nov 16, 2017 06:54
--- NOTE | 2017-11-13 11:28 | RADRPT ---
EXAM DATE/TIME: 11/13/2017 10:24 [facility] COMPARISON: No previous studies available for comparison. INDICATIONS : Cough. MEDICAL HISTORY : Cirrhosis. Hepatitis C. cardiovascular disease, liver cancer SURGICAL HISTORY : Appendectomy. Cholecystectomy. ENCOUNTER: Initial ACUITY: 2 weeks PAIN SCORE: 0/10 LOCATION: Bilateral chest FINDINGS: PA and obvious the chest show an intra-alveolar infiltrate within the left lung base. Linear atelecta sis within the right lung base. No effusions. Heart normal in size. Right-sided PICC line observed. CONCLUSION: Left lower lobe infiltrate and right basilar atelectasis. Derik Swift Jr., MD on November 13, 2017 at 11:25 Board Certified Radiologist. This report was verified electronically.
--- NOTE | 2017-11-13 12:36 | HHI.HCPN ---
Reason for visit a. To assist with evaluation and management of symptoms including: pain, dysphagia, nausea/vomiting and constipation. b. To assist medical decision maker(s) with: better understanding of current medical conditions; weighing benefits/burdens of medical treatment options; making medical treatment decisions. Subjective/Interval History Patient is sitting up in a recliner chair, in mild discomfort. Oriented to self , place and situation. Follows commands with all 4 extremities. Denies pain and nausea. Has his hand on his abdomen. Patient endorsing shortness of breath- ambulated today in the hallway for the first time. Vital signs stable. Patient remains on full liquid diet with Ensure TID, tolerating well. Encouraged to eat his food. Currently consuming 0-75% of his breakfast, 0-75% lunch and 0% dinner. Patient remains on TPN infusion and protonix infusion. Sliding scale changed today due to high bedside glucose. Last total protein on 11/10/17=6.4 and albumin=2.3. Patient`s last recorded bowel movement was 11/09/17. Patient continues to report having flatus and urge to move bowels. Patient is on Germania colace 1 tab BID, Magnesium hydroxide q 12 hrs prn , sennokot 17.2 mg q 12hrs prn, dulocolax suppository 10mg daily prn, metoclopramide 5 mg q 6 hrs. Patient received prn Senokot earlier today at 0227hrs. Pain seems to be well managed with oxycodone. Patient has not used prn parenteral Morphine Sulfate. Patient denies pain during visit. Patient`s case to be discussed at Tumor boards today for possibility of local therapy or radiation. Case discussed with bedside RN, and LAUREN Elias (Oncology). . Family/friend interactions Patient`s daughter in room during visit encouraging patient to eat. . Advance Directives Living Will: Never completed Health Care Surrogate: Copy in medical record Durable Power of Band Master: Never completed Advance Directive Specifics Date completed: 11/05/2017 . Health Care Surrogate(s): Spouse- Clotilde Doe- health care surrogate [phone] Daughter- Ted Longoria-[phone] . Objective Vital Signs Date Time Temp Pulse Resp B/P (MAP) Pulse Ox O2 Delivery O2 Flow Rate FiO2 11/13/17 09:47 96 11/13/17 08:00 97.3 68 16 103/55 (71) 96 11/13/17 08:00 97 11/13/17 04:12 67 11/13/17 04:00 97.8 81 22 96/54 (68) 97 11/13/17 00:03 72 11/13/17 00:00 98.3 70 22 112/61 (78) 97 11/12/17 20:00 97.9 88 24 112/65 (81) 95 11/12/17 19:59 87 11/12/17 16:00 98.1 74 19 104/61 (75) 98 11/12/17 15:00 70 11/12/17 12:42 73 108/59 (75) Intake & Output 11/13/17 11/13/17 07:00 19:00 Intake Total 1320 ml Output Total 550 ml Balance 770 ml Intake Oral 120 ml IV Total 1200 ml Output Urine Total 550 ml # Bowel Movements 0 Physical Exam CONSTITUTIONAL/GENERAL: This is an adequately nourished patient, in mild discomfort. Currently denies pain. TUBES/LINES/DRAINS: PIV, PICC Line, SCDs SKIN: No jaundice, rashes, or lesions. Ecchymoses on upper extremities. Mid abdominal surgical incision covered with a dressing. Skin temperature appropriate. Not diaphoretic. HEAD: Atraumatic. Normocephalic. EYES: Pupils equal and round and reactive. Extraocular motions intact. No scleral icterus. No injection or drainage. Fundi not examined. ENT: Hearing grossly normal. Nose without bleeding or purulent drainage. Moist oral mucosa NECK: Trachea midline. Supple, nontender. CARDIOVASCULAR: Regular rate and rhythm without murmurs, gallops, or rubs. No JVD. Peripheral pulses symmetric. RESPIRATORY/CHEST: Symmetric, unlabored respirations. Clear to auscultation. Breath sounds equal bilaterally. No wheezes, rales, or rhonchi. GASTROINTESTINAL: Abdomen non-tender to touch, midline abdominal surgical incision with peter covered with a primapore dressing -drainage noted to distal part of incision. Hypoactive bowel sounds. GENITOURINARY: Without palpable bladder distension. MUSCULOSKELETAL: Extremities without clubbing, cyanosis, or edema. No joint tenderness or effusion noted. No calf tenderness. No mottling or clubbing. NEUROLOGICAL: Awake, lethargic, oriented to self, place and situation. Motor and sensory grossly within normal limits. Follows commands. Cognitively sharp. Moves all extremities. PSYCHIATRIC: No obvious anxiety/depression. no apparent hallucinations or other psychotic thought process. . Diagnostic Tests Laboratory Laboratory Tests Test 11/10/17 13:20 11/10/17 13:28 11/11/17 06:24 11/12/17 18:30 Blood Urea Nitrogen 10 MG/DL (7-18) 13 MG/DL (7-18) Creatinine 0.75 MG/DL (0.60-1.30) 0.82 MG/DL (0.60-1.30) Random Glucose 277 MG/DL (74-106) 306 MG/DL (74-106) Total Protein 6.4 GM/DL (6.4-8.2) Albumin 2.3 GM/DL (3.4-5.0) Calcium Level 8.4 MG/DL (8.5-10.1) 8.7 MG/DL (8.5-10.1) Alkaline Phosphatase 80 U/L (45-117) Aspartate Amino Transf (AST/SGOT) 44 U/L (15-37) Alanine Aminotransferase (ALT/SGPT) 72 U/L (12-78) Total Bilirubin 0.3 MG/DL (0.2-1.0) Sodium Level 136 MEQ/L (136-145) 134 MEQ/L (136-145) Potassium Level 4.0 MEQ/L (3.5-5.1) 4.1 MEQ/L (3.5-5.1) Chloride Level 105 MEQ/L (98-107) 101 MEQ/L (98-107) Carbon Dioxide Level 25.8 MEQ/L (21.0-32.0) 26.8 MEQ/L (21.0-32.0) Anion Gap 5 MEQ/L (5-15) 6 MEQ/L (5-15) Estimat Glomerular Filtration Rate 124 ML/MIN (>89) 112 ML/MIN (>89) White Blood Count 8.1 TH/MM3 (4.0-11.0) 8.7 TH/MM3 (4.0-11.0) 9.7 TH/MM3 (4.0-11.0) Red Blood Count 3.33 MIL/MM3 (4.50-5.90) 3.25 MIL/MM3 (4.50-5.90) 3.35 MIL/MM3 (4.50-5.90) Hemoglobin 9.2 GM/DL (13.0-17.0) 9.1 GM/DL (13.0-17.0) 9.2 GM/DL (13.0-17.0) Hematocrit 28.1 % (39.0-51.0) 27.6 % (39.0-51.0) 27.9 % (39.0-51.0) Mean Corpuscular Volume 84.2 FL (80.0-100.0) 85.2 FL (80.0-100.0) 83.5 FL (80.0-100.0) Mean Corpuscular Hemoglobin 27.8 PG (27.0-34.0) 28.1 PG (27.0-34.0) 27.5 PG (27.0-34.0) Mean Corpuscular Hemoglobin Concent 33.0 % (32.0-36.0) 33.0 % (32.0-36.0) 33.0 % (32.0-36.0) Red Cell Distribution Width 18.0 % (11.6-17.2) 18.5 % (11.6-17.2) 18.1 % (11.6-17.2) Platelet Count 330 TH/MM3 (150-450) 314 TH/MM3 (150-450) 319 TH/MM3 (150-450) Mean Platelet Volume 7.5 FL (7.0-11.0) 7.6 FL (7.0-11.0) 8.0 FL (7.0-11.0) Neutrophils (%) (Auto) 76.9 % (16.0-70.0) 75.5 % (16.0-70.0) 77.0 % (16.0-70.0) Lymphocytes (%) (Auto) 7.4 % (9.0-44.0) 8.0 % (9.0-44.0) 9.4 % (9.0-44.0) Monocytes (%) (Auto) 11.7 % (0.0-8.0) 10.7 % (0.0-8.0) 9.3 % (0.0-8.0) Eosinophils (%) (Auto) 3.5 % (0.0-4.0) 3.1 % (0.0-4.0) 3.9 % (0.0-4.0) Basophils (%) (Auto) 0.5 % (0.0-2.0) 2.7 % (0.0-2.0) 0.4 % (0.0-2.0) Neutrophils # (Auto) 6.2 TH/MM3 (1.8-7.7) 6.6 TH/MM3 (1.8-7.7) 7.5 TH/MM3 (1.8-7.7) Lymphocytes # (Auto) 0.6 TH/MM3 (1.0-4.8) 0.7 TH/MM3 (1.0-4.8) 0.9 TH/MM3 (1.0-4.8) Monocytes # (Auto) 0.9 TH/MM3 (0-0.9) 0.9 TH/MM3 (0-0.9) 0.9 TH/MM3 (0-0.9) Eosinophils # (Auto) 0.3 TH/MM3 (0-0.4) 0.3 TH/MM3 (0-0.4) 0.4 TH/MM3 (0-0.4) Basophils # (Auto) 0.0 TH/MM3 (0-0.2) 0.2 TH/MM3 (0-0.2) 0.0 TH/MM3 (0-0.2) CBC Comment DIFF FINAL DIFF FINAL DIFF FINAL Differential Comment Result Diagram: 11/12/17 1830 11/12/17 1830 Imaging Last 48 hours Impressions Chest X-Ray 11/13/17 0000 Signed Impressions: Service Date/Time: Monday, November 13, 2017 10:24 - CONCLUSION: Left lower lobe infiltrate and right basilar atelectasis. Derik Swift Jr., MD Procedures 11/02/2017- EGD w/ biopsy 11/06/2017-laparoscopic converted to open Jos-en-Y gastrojejunostomy bypass, lysis of adhesions, Juan M-Cut liver biopsy of malignant lesion in the liver remnant. . Assessment and Plan Disease Oriented Problem List: (1) GI bleeding (2) Symptomatic anemia (3) History of liver cancer (4) Hepatitis C Symptom Scale: (1) Dysphagia 0-10 Scale: Unable to quantify Comment: Upper GI series revealed an antral mass. . (2) Nausea & vomiting 0-10 Scale: Unable to quantify Comment: Multifactorial. History of liver cancer. Upper GI series revealed an antral mass . (3) Pain 0-10 Scale: Unable to quantify Comment: -Mainly from abdominal/epigastric discomfort. . (4) Constipation 0-10 Scale: Unable to quantify Comment: Patient is s/p palliative bypass surgery. Patient has been on pain medication. Now on a full liquid diet. Only passing flatus. No BM. . Pertinent Non-Medical Issues Psychosocial:Patient was born and raised in [place]. He moved to [place] in 1991. Patient worked in construction and mostly as a galan. Patient has also lived and worked in [place] for about 5 years. He retired in 2009. Patient has been to his spouse since 2001 but have been together for about 46 years. They have and adult daughter together. Spiritual:Patient is Mandaen Legal:Patient signed HCS form today Ethical issues impacting care:None identified at this time. . Important Contacts Spouse- Clotilde Doe [phone] Daughter- Ted Longoria- [phone] . Prognosis Mr. Doe is a 72 years old male with a past medical history of hypertension, anemia, atrial fibrillation, liver cancer s/p liver resection, hepatitis C s/p Harvoni course, and large duodenal ulcer with history of GI bleed. Patient presented to the ER on 11/01/17 complaining of generalized weakness, dizziness, having black stools and coffee ground emesis for approximately a week. Clinical course complicated with dysphagia and worsening liver mets and disease. Given ongoing comorbidities, patient remains at high risk for further complications with disease progression, deterioration and decline. . Code Status: Full Code Plan PLAN: Legal decision maker: Patient is able to make his own medical decisions. In the case that patient is incapacitated his spouse Clotilde Doe will act as his health care surrogate and his daughter Ted Longoria as his alternate Health care surrogate. Goals: Remain aggressive CODE STATUS: Full Code Per oncology notes, patient`s case to be discussed at Tumor boards on Sunday for possibility of local therapy or radiation. Patient is aware and goals remain aggressive. SYMPTOMS: * Dysphagia: Patient was found to have a large obstructing/ ulcer at the pylorus making it impossible to pass into the duodenum during EGD. Currently has an NGT and failed swallow evaluation. Currently NPO. Upper GI series revealed an antral mass. General surgeon consulted. Patient is s/p open laparotomy with palliative Jos-en-Y G-J bypass on 11/06/17. Speech therapy signed off today. NG tube discontinued 11/08. Patient now on full liquid diet -tolerating well. No recommendations. Resolved. * Pain: Multifactorial. Hx of liver cancer and now and an antral mass causing significant gastric outlet obstruction. Oxycodone discontinued, patient is NPO. Patient had palliative bypass on 11/06/17. Has a midabdominal surgical incision with peter open to air. Pain seems to be well managed. Patient denies pain during visit. Morphine sulfate reduced to from 6mg to 2 mg Q 3 hrs on 11/12/17. Patient also started on Oxycodone /acetaminophen 5/325 q 4 hrs prn. Recommending using Oxycodone more than parenteral Morphine sulfate for pain control. * Constipation: Patient is s/p palliative bypass surgery. Patient has been on pain medication. Now on a full liquid diet. Patient`s last recorded bowel movement was 11/09/17. Reporting flatus and urge to move bowels. Patient is on Germania colace 1 tab BID, Magnesium hydroxide q 12 hrs prn , sennokot 17.2 mg q 12hrs prn, Dulcolax suppository 10mg daily prn, metoclopramide 5 mg q 6 hrs. Patient has only received x2 prn doses of Magnesium hydroxide last dose 11/11/17 , and Dulcolax suppository. Patient received Senokot earlier on today. Recommending using prn medications until patient moves bowels. * Nausea/Vomiting: Multifactorial. History of liver cancer. Upper GI series revealed an antral mass. Patient c/o of epigastric discomfort and nausea. Has an emesis basin and spitting frothy white spit. Patient has Zofran 4mg q 6 hrs ( Last dose given on 11/06/17) and Metoclopramide 5mg q 6 hrs. patient endorsing occasional nausea. Encouraged patient to request nausea medication when needed.No recommendations. Palliative Care contact information provided. Palliative care will continue to follow the patient during hospital course as condition evolves, to assist patient/decision-maker with understanding of their medical conditions, weighing benefits/burdens of treatment options, for clarification of goals of treatment. Additionally will assist with any symptoms of palliative concern. . Attestation To help prompt me to consider important information that might be impacting today's encounter and assessment, information from prior notes written by myself or my colleagues may have been "brought forward" into today's note. My signature on this note, however, is an attestation that I personally performed the exam, history, and/or decision-making noted today, and, unless otherwise indicated, the interactions with patient, family, and staff as well as the review of records all occurred today. I also attest that the listed assessment and stated plan reflect my best clinical judgment today based on the combination of historical information, prior notes, and today's exam/ interactions. When time spent is documented, it refers only to time spent today by the signer, or if indicated, combined time spent today by collaborating physician/nurse practitioner. Geoff Arita Nov 13, 2017 12:35
--- NOTE | 2017-11-13 13:12 | HHI.PR ---
Subjective Remarks Pain is better controlled today. Eating a liquid diet, still no BM. Objective Vitals Vital Signs Date Time Temp Pulse Resp B/P (MAP) Pulse Ox O2 Delivery O2 Flow Rate FiO2 11/13/17 12:00 97.7 97 16 107/60 (76) 98 11/13/17 09:47 96 11/13/17 08:00 97.3 68 16 103/55 (71) 96 11/13/17 08:00 97 11/13/17 04:12 67 11/13/17 04:00 97.8 81 22 96/54 (68) 97 11/13/17 00:03 72 11/13/17 00:00 98.3 70 22 112/61 (78) 97 11/12/17 20:00 97.9 88 24 112/65 (81) 95 11/12/17 19:59 87 11/12/17 16:00 98.1 74 19 104/61 (75) 98 11/12/17 15:00 70 I/O 11/12/17 11/12/17 11/12/17 11/13/17 11/13/17 11/13/17 07:00 15:00 23:00 07:00 15:00 23:00 Intake Total 881 ml 381.0719 ml 1100 ml 220 ml Output Total 800 ml 300 ml 250 ml Balance 81 ml 381.0719 ml 800 ml -30 ml Intake Oral 120 ml 120 ml IV Total 881 ml 261.0719 ml 1100 ml 100 ml Output Urine Total 800 ml 300 ml 250 ml # Bowel Movements 0 Result Diagram: 11/12/17182911/12/171829 Objective Remarks GENERAL: Well-nourished, well-developed patient, tolerating liquids PO SKIN: Warm and dry. HEAD: Normocephalic. EYES: No scleral icterus. No injection or drainage. NECK: Supple, trachea midline. No JVD or lymphadenopathy. CARDIOVASCULAR: Irregularly irregular, 1/6 JANET RESPIRATORY: Breath sounds equal bilaterally. No accessory muscle use. GASTROINTESTINAL: Abdomen soft, non-tender, mild bloating. Hypoactive bowel sounds EXTREMITIES: No cyanosis, or edema. NEUROLOGICAL: Awake, alert, and oriented x 3. Non-focal. Procedures EGD w/ Biopsy 11/02/2017 A/P Problem List: (1) GI bleeding ICD Code: K92.2 - Gastrointestinal hemorrhage, unspecified Status: Acute (2) Duodenal ulcer ICD Code: K26.9 - Duodenal ulcer, unspecified as acute or chronic, without hemorrhage or perforation (3) Liver masses ICD Code: R16.0 - Hepatomegaly, not elsewhere classified (4) History of liver cancer ICD Code: Z85.05 - Personal history of malignant neoplasm of liver Status: Chronic (5) Hepatitis C ICD Code: B19.20 - Unspecified viral hepatitis C without hepatic coma Status: Chronic Assessment and Plan Upper GI Bleed with Anemia Large bleeding duodenal ulcer s/p Ruox-en-Y gastrojejunostomy bypass 11/06/17 Continue Protonix Drip Appreciate General Surgery Appreciate Gastroenterology Hepatocellular Carcinoma Patient has a history of HCC, and a hx of Hep C Pathology from pyloric mass shows Hepatocellular Carcinoma extending into that tissue Pathology from liver mass was inconclusive, non-diagnostic necrotic tissue Appreciate Oncology recommendations Appreciate Palliative care following Tumor Board review is today, will watch for info about treatment Anemia Transfused 2 units PRBC, H&H so far stable Will follow trend Pain management Pain under adequate control now Continue Percocet 10mg Q4 PRN Constipation Still no BM Continue prune juice. Glycerine suppository added, will add fleets tomorrow if no BM Atrial Fibrillation Regular rate and rhythm today Continue home dose Digoxin and Diltiazem DVT Prophylaxis SCD hose due to GI bleed Josh Garcia MD Nov 13, 2017 13:12
--- NOTE | 2017-11-13 13:31 | PD.ONC.PN ---
Subjective Subjective Remarks Afebrile overnight. Patient resting in room. Has not been eating much. states he doesn't have much of an appetite. Objective Data Date Time Temp Pulse Resp B/P (MAP) Pulse Ox O2 Delivery O2 Flow Rate FiO2 11/13/17 12:00 97.7 97 16 107/60 (76) 98 11/13/17 09:47 96 11/13/17 08:00 97.3 68 16 103/55 (71) 96 11/13/17 08:00 97 11/13/17 04:12 67 11/13/17 04:00 97.8 81 22 96/54 (68) 97 11/13/17 00:03 72 11/13/17 00:00 98.3 70 22 112/61 (78) 97 11/12/17 20:00 97.9 88 24 112/65 (81) 95 11/12/17 19:59 87 11/12/17 16:00 98.1 74 19 104/61 (75) 98 11/12/17 15:00 70 11/13/17 11/13/17 11/13/17 07:00 15:00 23:00 Intake Total 220 ml Output Total 250 ml Balance -30 ml Result Diagram: 11/12/17 1830 11/12/17 1830 Laboratory Results Laboratory Tests Test 11/12/17 18:30 White Blood Count 9.7 TH/MM3 Red Blood Count 3.35 MIL/MM3 Hemoglobin 9.2 GM/DL Hematocrit 27.9 % Mean Corpuscular Volume 83.5 FL Mean Corpuscular Hemoglobin 27.5 PG Mean Corpuscular Hemoglobin Concent 33.0 % Red Cell Distribution Width 18.1 % Platelet Count 319 TH/MM3 Mean Platelet Volume 8.0 FL Neutrophils (%) (Auto) 77.0 % Lymphocytes (%) (Auto) 9.4 % Monocytes (%) (Auto) 9.3 % Eosinophils (%) (Auto) 3.9 % Basophils (%) (Auto) 0.4 % Neutrophils # (Auto) 7.5 TH/MM3 Lymphocytes # (Auto) 0.9 TH/MM3 Monocytes # (Auto) 0.9 TH/MM3 Eosinophils # (Auto) 0.4 TH/MM3 Basophils # (Auto) 0.0 TH/MM3 CBC Comment DIFF FINAL Differential Comment Blood Urea Nitrogen 13 MG/DL Creatinine 0.82 MG/DL Random Glucose 306 MG/DL Calcium Level 8.7 MG/DL Sodium Level 134 MEQ/L Potassium Level 4.1 MEQ/L Chloride Level 101 MEQ/L Carbon Dioxide Level 26.8 MEQ/L Anion Gap 6 MEQ/L Estimat Glomerular Filtration Rate 112 ML/MIN Imaging Studies Last 24 hours Impressions Chest X-Ray 11/13/17 0000 Signed Impressions: Service Date/Time: Monday, November 13, 2017 10:24 - CONCLUSION: Left lower lobe infiltrate and right basilar atelectasis. Derik Swift Jr., MD Administered Medications Medications (Trade) Dose Ordered Sig/Víctor Route PRN Reason Start Time Stop Time Status Last Admin Dose Admin Sodium Chloride (NS Flush) 2 ml BID IV FLUSH 11/02/17 09:00 11/12/17 22:03 Digoxin (Lanoxin) 0.125 mg DAILY PO 11/02/17 09:00 11/13/17 08:54 Diltiazem HCl (Cardizem) 120 mg QID PO 11/02/17 09:00 11/13/17 12:24 Phenol (Chloraseptic [place]) 2 spray Q2H PRN MT SORE THROAT 11/02/17 16:45 11/02/17 17:19 Lorazepam (Ativan Inj) 1 mg Q6H PRN IV PUSH ANXIETY 11/03/17 09:45 11/03/17 10:58 Pantoprazole Sodium 80 mg/ Sodium Chloride 100 ml @ 10 mls/hr Q10H IV 11/03/17 10:30 11/13/17 09:26 Acetaminophen (Tylenol) 650 mg Q4H PRN PO TEMP > 100.4 11/03/17 11:15 11/04/17 19:56 Ondansetron HCl (Zofran Inj) 4 mg Q6H PRN IVP NAUSEA OR VOMITING 11/03/17 11:15 11/08/17 14:03 Senna/Docusate Sodium (Germania-Colace) 1 tab BID PO 11/03/17 21:00 11/13/17 08:55 Magnesium Hydroxide (Milk Of Magnesia Liq) 30 ml Q12H PRN PO Mild constipation 11/03/17 11:15 11/12/17 12:37 Sennosides (Senokot) 17.2 mg Q12H PRN PO Moderate constipation 11/03/17 11:15 11/13/17 02:27 Sodium Chloride (NS Flush) See Protocol DAILY IV FLUSH 11/05/17 09:00 11/09/17 08:36 Heparin Sodium (Porcine) (Heparin Central Flush) See Protocol DAILY IV FLUSH 11/05/17 09:00 11/13/17 09:11 Sodium Chloride 5.5 meq/Sodium Acetate 29.5 meq/ Potassium Chloride 20 meq/ Sodium Phosphate 20 meq/Magnesium Chloride 5 meq/ Calcium Chloride 4.5 meq/ Multivitamins 5 ml/Folic Acid 0.5 mg/Amino Acids/ Dextrose 1,042.0719 ml @ 83 mls/hr [id number] IV-CENTRAL 11/10/17 20:00 11/13/17 09:26 Oxycodone/ Acetaminophen (Percocet 10-325 Mg) 1 tab Q4H PRN PO PAIN SCALE 1 TO 10 11/12/17 17:00 11/13/17 09:21 Insulin Aspart (NovoLOG SUPPLEMENTAL SCALE) 1 ACHS SLIDING SCALE SQ 11/13/17 12:00 11/13/17 12:24 Objective Remarks GENERAL: Elderly male, lying supine in bed in [facility]. SKIN: Warm and dry. HEAD: Normocephalic. EYES: no injection or drainage. NECK: Supple, trachea midline. CARDIOVASCULAR: +S1/S2 RESPIRATORY: anterior paz clear. GASTROINTESTINAL: soft, mildly tender around incision site. EXTREMITIES: No cyanosis, or edema. NEUROLOGICAL: no obvious focal deficit. Assessment/Plan Problem List: (1) Symptomatic anemia ICD Codes: D64.9 - Anemia, unspecified Status: Acute Plan: --d/t GIB --monitor and transfuse as needed. (2) Hepatocellular carcinoma ICD Codes: C22.0 - Liver cell carcinoma Plan: --s/p open laparotomy on 11/06 with Jos-en-Y G-J bypass performed for palliation. pathology from liver biopsy is negative for neoplasm. History: --has history of hepatitis C cirrhosis. --had a hepatocellular carcinoma rese[place] [address] Dias in [place]. --When he presented to the hospital in August, CT showed a new 2.8 cm in the right hepatic dome. MRI showed a 3.5 cm enhancing mass with adjacent 1.2 cm mass more laterally. went back to see Dr. Dias (surgeon) and was referred to interventional radiology to consider TheraSphere embolization. is still awaiting insurance approval to have the procedure done. --this hospitalization, he presented with nausea, vomiting and GI bleed. EGD showed a mass at the pylorus causing obstruction. CT abdomen also confirmed a mass in the antrum and it could possibly be arising from the surgical margin of the liver. The mass was biopsied and the pathology shows adenocarcinoma of gastric origin. UPDATE: pathology was updated to state with additional staining the mass appears to be HCC. 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 h/o Hepatitis C. Cirrhosis. History of Harvoni in 2014. Hepatocellular carcinoma resected in 2015. GI bleed. Small bowel obstruction. Chronic atrial fibrillation. Anemia. Hypertension. Plan 1. Monitor CBC 2. encourage oral intake. 3. patient discussed at tumor boards plan will for chemoembolization performed in invasive radiology followed by radiation (will be performed outpatient after patient has healed from surgery) Disposition: the patient can be discharged when surgery clears. we will follow outpatient. Attending Statement The exam, history, and the medical decision-making described in the above note were completed with the assistance of the mid-level provider. I reviewed and agree with the findings presented. I attest that I had a [id number] encounter with the patient on the same day, and personally performed and documented my assessment and findings in the medical record. Eating more. Abdominal pain controlled. Reviewed his case with surgery,pathology, radiology and radiation oncology at the tumor board. The tumor is not resectable. The recommendation is to treat with heaptic artery embolization and radiation. He will need to f/u with radiation oncology after d/c. Alexandra Rai Nov 13, 2017 13:31 Lane Ortiz MD Nov 13, 2017 15:51
[2017-11-14] VITALS: BP 115/56; PULSE 73; RESP 22; TEMP 99.1; O2SAT 95
[2017-11-14] MEDS: INSULIN ASPART SUPPLEMENTAL SCALE SQ SCH ×5 (01:45→21:58)
[2017-11-14 04:00] VITALS: BP 98/53; PULSE 70; RESP 20; TEMP 97.9; O2SAT 96
[2017-11-14 08:00] VITALS: BP 109/61; PULSE 69; PULSE 75; RESP 19; TEMP 98.2; O2SAT 96
[2017-11-14] MEDS: DOCUSATE SODIUM 50 MG/SENNA 8.6 MG TAB PO SCH ×2 (08:17→20:34)
[2017-11-14] MEDS: DILTIAZEM HCL 60 MG TAB PO SCH ×4 (08:17→20:34)
[2017-11-14] MEDS: SODIUM CHLORIDE 0.9% FLUSH 10 ML FLUSH IV FLUSH SCH ×3 (08:18→20:43)
[2017-11-14] MEDS: DIGOXIN 0.125 MG TAB PO SCH (08:18)
[2017-11-14] MEDS: oxyCODONE/ACETAMINOPHEN 10 MG/325 MG TAB PO PRN ×2 (08:29→20:34)
[2017-11-14] MEDS: SODIUM CHLORIDE 23.4% INJ 5.5 MEQ, SODIUM ACETATE INJ 29.5 MEQ, POTASSIUM CHLORIDE INJ ... IV-CENTRAL SCH ×9 (08:33)
[2017-11-14] MEDS: PANTOPRAZOLE INJ 80 MG in SODIUM CHLORIDE 0.9% INJ 100 ML IV SCH ×3 (08:33→20:33)
--- NOTE | 2017-11-14 11:35 | HHI.HCPN ---
Reason for visit a. To assist with evaluation and management of symptoms including: pain, dysphagia, nausea/vomiting and constipation. b. To assist medical decision maker(s) with: better understanding of current medical conditions; weighing benefits/burdens of medical treatment options; making medical treatment decisions. Subjective/Interval History Patient sitting up in recliner. in room. Patient is alert and oriented to self, place and situation. Patient denies pain at this time. Remains on full liquid diet and tolerating well. Patient ate 35% of his dinner last night. Family providing food and encouraging patient to eat. Moved bowels twice earlier on today. Denies nausea. Vital signs stable. No recent lab work or imaging. Patient`s care was reviewed yesterday at Tumor boards and plan is to perform chemoembolization by invasive radiology and radiation will be done outpatient after patient heals from surgery. Patient and happy that treatment will be done locally instead of going to [facility]. Case discussed with bedside RN. . Family/friend interactions at bedside. . Advance Directives Living Will: Never completed Health Care Surrogate: Copy in medical record Durable Power of Residence Director: Never completed Advance Directive Specifics Date completed: 11/05/2017 . Health Care Surrogate(s): Spouse- Clotilde Doe- health care surrogate [phone] Daughter- Ted Longoria-[phone] . Objective Vital Signs Date Time Temp Pulse Resp B/P (MAP) Pulse Ox O2 Delivery O2 Flow Rate FiO2 11/14/17 08:00 69 11/14/17 08:00 69 11/14/17 08:00 98.2 75 19 109/61 (77) 96 11/14/17 04:00 97.9 70 20 98/53 (68) 96 11/14/17 00:33 20 11/14/17 00:00 99.1 73 22 115/56 (75) 95 11/13/17 23:32 72 11/13/17 20:00 99.1 81 22 111/62 (78) 95 11/13/17 20:00 77 11/13/17 16:00 98.0 91 17 107/63 (78) 97 11/13/17 12:00 97.7 97 16 107/60 (76) 98 Intake & Output 11/14/17 11/14/17 07:00 19:00 Intake Total 360 ml Balance 360 ml Intake Oral 360 ml # Voids 2 # Bowel Movements 0 Physical Exam CONSTITUTIONAL/GENERAL: This is an adequately nourished patient, in mild discomfort. Currently denies pain. Sitting up in a recliner. TUBES/LINES/DRAINS: PIV, PICC Line, SCDs SKIN: No jaundice, rashes, or lesions. Ecchymoses on upper extremities. Mid abdominal surgical incision covered with a dressing. Skin temperature appropriate. Not diaphoretic. HEAD: Atraumatic. Normocephalic. EYES: Pupils equal and round and reactive. Extraocular motions intact. No scleral icterus. No injection or drainage. Fundi not examined. ENT: Hearing grossly normal. Nose without bleeding or purulent drainage. Moist oral mucosa NECK: Trachea midline. Supple, nontender. CARDIOVASCULAR: Regular rate and rhythm without murmurs, gallops, or rubs. No JVD. Peripheral pulses symmetric. RESPIRATORY/CHEST: Symmetric, unlabored respirations. Clear to auscultation. Breath sounds equal bilaterally. No wheezes, rales, or rhonchi. GASTROINTESTINAL: Abdomen non-tender to touch, midline abdominal surgical incision with peter covered with a primapore dressing -drainage noted to distal part of incision. Hypoactive bowel sounds. GENITOURINARY: Without palpable bladder distension. MUSCULOSKELETAL: Extremities without clubbing, cyanosis, or edema. No joint tenderness or effusion noted. No calf tenderness. No mottling or clubbing. NEUROLOGICAL: Awake, lethargic, oriented to self, place and situation. Motor and sensory grossly within normal limits. Follows commands. Cognitively sharp. Moves all extremities. PSYCHIATRIC: No obvious anxiety/depression. no apparent hallucinations or other psychotic thought process. . Diagnostic Tests Laboratory Laboratory Tests Test 11/12/17 18:30 White Blood Count 9.7 TH/MM3 (4.0-11.0) Red Blood Count 3.35 MIL/MM3 (4.50-5.90) Hemoglobin 9.2 GM/DL (13.0-17.0) Hematocrit 27.9 % (39.0-51.0) Mean Corpuscular Volume 83.5 FL (80.0-100.0) Mean Corpuscular Hemoglobin 27.5 PG (27.0-34.0) Mean Corpuscular Hemoglobin Concent 33.0 % (32.0-36.0) Red Cell Distribution Width 18.1 % (11.6-17.2) Platelet Count 319 TH/MM3 (150-450) Mean Platelet Volume 8.0 FL (7.0-11.0) Neutrophils (%) (Auto) 77.0 % (16.0-70.0) Lymphocytes (%) (Auto) 9.4 % (9.0-44.0) Monocytes (%) (Auto) 9.3 % (0.0-8.0) Eosinophils (%) (Auto) 3.9 % (0.0-4.0) Basophils (%) (Auto) 0.4 % (0.0-2.0) Neutrophils # (Auto) 7.5 TH/MM3 (1.8-7.7) Lymphocytes # (Auto) 0.9 TH/MM3 (1.0-4.8) Monocytes # (Auto) 0.9 TH/MM3 (0-0.9) Eosinophils # (Auto) 0.4 TH/MM3 (0-0.4) Basophils # (Auto) 0.0 TH/MM3 (0-0.2) CBC Comment DIFF FINAL Differential Comment Blood Urea Nitrogen 13 MG/DL (7-18) Creatinine 0.82 MG/DL (0.60-1.30) Random Glucose 306 MG/DL (74-106) Calcium Level 8.7 MG/DL (8.5-10.1) Sodium Level 134 MEQ/L (136-145) Potassium Level 4.1 MEQ/L (3.5-5.1) Chloride Level 101 MEQ/L (98-107) Carbon Dioxide Level 26.8 MEQ/L (21.0-32.0) Anion Gap 6 MEQ/L (5-15) Estimat Glomerular Filtration Rate 112 ML/MIN (>89) Result Diagram: 11/12/17182911/12/17 183 Procedures 11/02/2017- EGD w/ biopsy 11/06/2017-laparoscopic converted to open Jos-en-Y gastrojejunostomy bypass, lysis of adhesions, Juan M-Cut liver biopsy of malignant lesion in the liver remnant. . Assessment and Plan Disease Oriented Problem List: (1) GI bleeding (2) Symptomatic anemia (3) History of liver cancer (4) Hepatitis C Symptom Scale: (1) Dysphagia 0-10 Scale: Unable to quantify Comment: Upper GI series revealed an antral mass. . (2) Nausea & vomiting 0-10 Scale: Unable to quantify Comment: Multifactorial. History of liver cancer. Upper GI series revealed an antral mass . (3) Pain 0-10 Scale: Unable to quantify Comment: -Mainly from abdominal/epigastric discomfort. . (4) Constipation 0-10 Scale: Unable to quantify Comment: Patient is s/p palliative bypass surgery. Patient has been on pain medication. Now on a full liquid diet. Only passing flatus. No BM. . Pertinent Non-Medical Issues Psychosocial:Patient was born and raised in [place]. He moved to [place] in 1991. Patient worked in construction and mostly as a galan. Patient has also lived and worked in [place] for about 5 years. He retired in 2009. Patient has been to his spouse since 2001 but have been together for about 46 years. They have and adult daughter together. Spiritual:Patient is [employer] Legal:Patient signed HCS form today Ethical issues impacting care:None identified at this time. . Important Contacts Spouse- Brook, Clotilde [phone] Daughter- Ted Longoria- [phone] . Prognosis Mr. Doe is a 72 years old male with a past medical history of hypertension, anemia, atrial fibrillation, liver cancer s/p liver resection, hepatitis C s/p Harvoni course, and large duodenal ulcer with history of GI bleed. Patient presented to the ER on 11/01/17 complaining of generalized weakness, dizziness, having black stools and coffee ground emesis for approximately a week. Clinical course complicated with dysphagia and worsening liver mets and disease. Given ongoing comorbidities, patient remains at high risk for further complications with disease progression, deterioration and decline. . Code Status: Full Code Plan PLAN: Legal decision maker: Patient is able to make his own medical decisions. In the case that patient is incapacitated his spouse Clotilde Doe will act as his health care surrogate and his daughter Ted Longoria as his alternate Health care surrogate. Goals: Remain aggressive CODE STATUS: Full Code Patient`s care was reviewed yesterday at Tumor boards and plan is to perform chemoembolization by invasive radiology and radiation will be done outpatient after patient heals from surgery. Patient and happy that treatment will be done locally instead of going to [facility]. SYMPTOMS: * Dysphagia: Patient was found to have a large obstructing/ ulcer at the pylorus making it impossible to pass into the duodenum during EGD. Currently has an NGT and failed swallow evaluation. Currently NPO. Upper GI series revealed an antral mass. General surgeon consulted. Patient is s/p open laparotomy with palliative Jos-en-Y G-J bypass on 11/06/17. Speech therapy signed off today. NG tube discontinued 11/08. Patient now on full liquid diet -tolerating well. No recommendations. Resolved. * Pain: Multifactorial. Hx of liver cancer and now and an antral mass causing significant gastric outlet obstruction. Oxycodone discontinued, patient is NPO. Patient had palliative bypass on 11/06/17. Has a midabdominal surgical incision with peter open to air. Pain seems to be well managed. Patient denies pain during visit. Morphine sulfate reduced to from 6mg to 2 mg Q 3 hrs on 11/12/17. Patient also started on Oxycodone /acetaminophen 5/325 q 4 hrs prn. Recommending using Oxycodone more than parenteral Morphine sulfate for pain control. * Constipation: Patient is s/p palliative bypass surgery. Patient has been on pain medication. Now on a full liquid diet. Patient`s last recorded bowel movement was 11/09/17. Reporting flatus and urge to move bowels. Patient is on Germania colace 1 tab BID, Magnesium hydroxide q 12 hrs prn , sennokot 17.2 mg q 12hrs prn, Dulcolax suppository 10mg daily prn, metoclopramide 5 mg q 6 hrs. Patient has only received x2 prn doses of Magnesium hydroxide last dose 11/11/17 , and Dulcolax suppository. Patient moved his bowels x2 earlier on today . * Nausea/Vomiting: Multifactorial. History of liver cancer. Upper GI series revealed an antral mass. Patient c/o of epigastric discomfort and nausea. Has an emesis basin and spitting frothy white spit. Patient has Zofran 4mg q 6 hrs ( Last dose given on 11/06/17) and Metoclopramide 5mg q 6 hrs. patient endorsing occasional nausea. Encouraged patient to request nausea medication when needed.No recommendations. Palliative Care contact information provided. Palliative care will continue to follow the patient during hospital course as condition evolves, to assist patient/decision-maker with understanding of their medical conditions, weighing benefits/burdens of treatment options, for clarification of goals of treatment. Additionally will assist with any symptoms of palliative concern. . Geoff Arita Nov 14, 2017 11:35
[2017-11-14 12:00] VITALS: BP 108/61; PULSE 76; RESP 19; TEMP 96.7; O2SAT 94
--- NOTE | 2017-11-14 13:17 | PD.ONC.PN ---
Subjective Subjective Remarks Afebrile Pt reports he has no appetite Abdominal pain much improved Objective Data Date Time Temp Pulse Resp B/P (MAP) Pulse Ox O2 Delivery O2 Flow Rate FiO2 11/14/17 12:00 96.7 76 19 108/61 (77) 94 11/14/17 08:00 69 11/14/17 08:00 69 11/14/17 08:00 98.2 75 19 109/61 (77) 96 11/14/17 04:00 97.9 70 20 98/53 (68) 96 11/14/17 00:33 20 11/14/17 00:00 99.1 73 22 115/56 (75) 95 11/13/17 23:32 72 11/13/17 20:00 99.1 81 22 111/62 (78) 95 11/13/17 20:00 77 11/13/17 16:00 98.0 91 17 107/63 (78) 97 11/14/17 11/14/17 11/14/17 07:00 15:00 23:00 Intake Total 360 ml Balance 360 ml Result Diagram: 11/12/17 1830 11/12/17 1830 Administered Medications Medications (Trade) Dose Ordered Sig/Víctor Route PRN Reason Start Time Stop Time Status Last Admin Dose Admin Sodium Chloride (NS Flush) 2 ml BID IV FLUSH 11/02/17 09:00 11/14/17 08:18 Digoxin (Lanoxin) 0.125 mg DAILY PO 11/02/17 09:00 11/14/17 08:18 Diltiazem HCl (Cardizem) 120 mg QID PO 11/02/17 09:00 11/14/17 12:06 Phenol (Chloraseptic [place]) 2 spray Q2H PRN MT SORE THROAT 11/02/17 16:45 11/02/17 17:19 Lorazepam (Ativan Inj) 1 mg Q6H PRN IV PUSH ANXIETY 11/03/17 09:45 11/03/17 10:58 Pantoprazole Sodium 80 mg/ Sodium Chloride 100 ml @ 10 mls/hr Q10H IV 11/03/17 10:30 11/14/17 08:33 Acetaminophen (Tylenol) 650 mg Q4H PRN PO TEMP > 100.4 11/03/17 11:15 11/04/17 19:56 Ondansetron HCl (Zofran Inj) 4 mg Q6H PRN IVP NAUSEA OR VOMITING 11/03/17 11:15 11/08/17 14:03 Senna/Docusate Sodium (Germania-Colace) 1 tab BID PO 11/03/17 21:00 11/14/17 08:17 Magnesium Hydroxide (Milk Of Magntessa Liq) 30 ml Q12H PRN PO Mild constipation 11/03/17 11:15 11/12/17 12:37 Sennosides (Senokot) 17.2 mg Q12H PRN PO Moderate constipation 11/03/17 11:15 11/13/17 02:27 Sodium Chloride (NS Flush) See Protocol DAILY IV FLUSH 11/05/17 09:00 11/09/17 08:36 Heparin Sodium (Porcine) (Heparin Central Flush) See Protocol DAILY IV FLUSH 11/05/17 09:00 11/14/17 08:17 Sodium Chloride 5.5 meq/Sodium Acetate 29.5 meq/ Potassium Chloride 20 meq/ Sodium Phosphate 20 meq/Magnesium Chloride 5 meq/ Calcium Chloride 4.5 meq/ Multivitamins 5 ml/Folic Acid 0.5 mg/Amino Acids/ Dextrose 1,042.0719 ml @ 42 mls/hr Q24H IV-CENTRAL 11/10/17 20:00 11/14/17 08:33 Oxycodone/ Acetaminophen (Percocet 10-325 Mg) 1 tab Q4H PRN PO PAIN SCALE 1 TO 10 11/12/17 17:00 11/14/17 08:29 Insulin Aspart (NovoLOG SUPPLEMENTAL SCALE) 1 ACHS SLIDING SCALE SQ 11/13/17 12:00 11/14/17 12:06 Objective Remarks GENERAL: Older male resting in chair at bedside in no obvious distress SKIN: Warm and dry. HEAD: Normocephalic. EYES: No injection or drainage. NECK: Supple, trachea midline. CARDIOVASCULAR: Regular rate and rhythm without murmurs. RESPIRATORY: Clear anteriorly. Breathing unlabored at rest. GASTROINTESTINAL: Abdomen soft. Vertical abdominal incision. Dressing dry and intact. EXTREMITIES: No cyanosis, or edema. MUSCULOSKELETAL: Adequate muscle tone. NEUROLOGICAL: No obvious focal deficit. Awake, alert, and oriented x3. Assessment/Plan Problem List: (1) Symptomatic anemia ICD Codes: D64.9 - Anemia, unspecified Status: Acute Plan: --d/t GIB --monitor and transfuse as needed. (2) Hepatocellular carcinoma ICD Codes: C22.0 - Liver cell carcinoma Plan: --s/p open laparotomy on 11/06 with Jos-en-Y G-J bypass performed for palliation. pathology from liver biopsy is negative for neoplasm. History: --has history of hepatitis C cirrhosis. --had a hepatocellular carcinoma rese[place] [address] Dias in [place]. --When he presented to the hospital in August, CT showed a new 2.8 cm in the right hepatic dome. MRI showed a 3.5 cm enhancing mass with adjacent 1.2 cm mass more laterally. went back to see Dr. Dias (surgeon) and was referred to interventional radiology to consider TheraSphere embolization. is still awaiting insurance approval to have the procedure done. --this hospitalization, he presented with nausea, vomiting and GI bleed. EGD showed a mass at the pylorus causing obstruction. CT abdomen also confirmed a mass in the antrum and it could possibly be arising from the surgical margin of the liver. The mass was biopsied and the pathology shows adenocarcinoma of gastric origin. UPDATE: pathology was updated to state with additional staining the mass appears to be HCC. 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 h/o Hepatitis C. Cirrhosis. History of Harvoni in 2014. Hepatocellular carcinoma resected in 2014. GI bleed. Small bowel obstruction. Chronic atrial fibrillation. Anemia. Hypertension. Plan 1. Call placed to radiation oncology. They will work on him getting an appointment for outpatient followup. 2. Clear for discharge from oncology standpoint. 3. Increase po intake. Attending Statement The exam, history, and the medical decision-making described in the above note were completed with the assistance of the mid-level provider. I reviewed and agree with the findings presented. I attest that I had a [id number] encounter with the patient on the same day, and personally performed and documented my assessment and findings in the medical record. Feeling stronger. I have discussed his case at the tumor board and discussed the treatment option with pt. He wants to be aggressive with treatment. He will need hepatic artery embolization and XRT to the stomach lesion. He will f/u with rad onc after d/c. Delmi Souza Nov 14, 2017 13:17 Lane Ortiz MD Nov 14, 2017 16:38
[2017-11-14 16:00] VITALS: BP 121/67; PULSE 72; RESP 19; TEMP 97.7; O2SAT 99
--- NOTE | 2017-11-14 16:16 | HHI.PR ---
Subjective Remarks 72M recovering from abdominal surgery. Tolerating liquid diet, up to chair today. Had a small BM last night, but feels there is more there. Objective Vitals Vital Signs Date Time Temp Pulse Resp B/P (MAP) Pulse Ox O2 Delivery O2 Flow Rate FiO2 11/14/17 12:00 96.7 76 19 108/61 (77) 94 11/14/17 08:00 69 11/14/17 08:00 69 11/14/17 08:00 98.2 75 19 109/61 (77) 96 11/14/17 04:00 97.9 70 20 98/53 (68) 96 11/14/17 00:33 20 11/14/17 00:00 99.1 73 22 115/56 (75) 95 11/13/17 23:32 72 11/13/17 20:00 99.1 81 22 111/62 (78) 95 11/13/17 20:00 77 I/O 11/13/17 11/13/17 11/13/17 11/14/17 11/14/17 11/14/17 07:00 15:00 23:00 07:00 15:00 23:00 Intake Total 220 ml 1116 ml 360 ml Output Total 250 ml 700 ml Balance -30 ml 416 ml 360 ml Intake Oral 120 ml 120 ml 360 ml IV Total 100 ml TPN/PPN 996 ml Output Urine Total 250 ml 700 ml # Voids 2 # Bowel Movements 0 1 0 Result Diagram: 11/12/170 11/12/17 1830 Objective Remarks GENERAL: Well-nourished, well-developed patient, tolerating liquids PO SKIN: Warm and dry. HEAD: Normocephalic. EYES: No scleral icterus. No injection or drainage. NECK: Supple, trachea midline. No JVD or lymphadenopathy. CARDIOVASCULAR: Irregularly irregular, 1/6 JANET RESPIRATORY: Breath sounds equal bilaterally. No accessory muscle use. GASTROINTESTINAL: Abdomen soft, non-tender, mild bloating. Hypoactive bowel sounds EXTREMITIES: No cyanosis, or edema. NEUROLOGICAL: Awake, alert, and oriented x 3. Non-focal. Procedures EGD w/ Biopsy 11/02/2017 A/P Problem List: (1) GI bleeding ICD Code: K92.2 - Gastrointestinal hemorrhage, unspecified Status: Acute (2) Duodenal ulcer ICD Code: K26.9 - Duodenal ulcer, unspecified as acute or chronic, without hemorrhage or perforation (3) Liver masses ICD Code: R16.0 - Hepatomegaly, not elsewhere classified (4) History of liver cancer ICD Code: Z85.05 - Personal history of malignant neoplasm of liver Status: Chronic (5) Hepatitis C ICD Code: B19.20 - Unspecified viral hepatitis C without hepatic coma Status: Chronic Assessment and Plan Upper GI Bleed with Anemia Large bleeding duodenal ulcer s/p Ruox-en-Y gastrojejunostomy bypass 11/06/17 Continue Protonix Drip Appreciate General Surgery Appreciate Gastroenterology Hepatocellular Carcinoma Patient has a history of HCC, and a hx of Hep C Pathology from pyloric mass shows Hepatocellular Carcinoma extending into that tissue Pathology from liver mass was inconclusive, non-diagnostic necrotic tissue Appreciate Oncology recommendations Appreciate Palliative care following Tumor Board review recommends chemoembolization outpatient and ongoing treatment as an outpatient Anemia Transfused 2 units PRBC, H&H remains stable Will follow trend Pain management Pain under adequate control now Continue Percocet 10mg Q4 PRN Constipation Small BM on 11/13/17 Continue prune juice, Glycerine suppositories Fleets added as a back up plan Atrial Fibrillation Regular rate and rhythm today Continue home dose Digoxin and Diltiazem DVT Prophylaxis SCD hose due to GI bleed Josh Garcia MD Nov 14, 2017 16:16
[2017-11-14] MEDS ORDERED: SOD PHOSPHATE/SOD BIPHOSPHATE (ADULT) ENEMA 133ML RECTAL PRN (16:30)
--- NOTE | 2017-11-14 16:43 | HHI.PR ---
Subjective Subjective Notes Resting in bed Had a good day Objective Vitals/I&O Vital Signs Date Time Temp Pulse Resp B/P (MAP) Pulse Ox O2 Delivery O2 Flow Rate FiO2 11/14/17 12:00 96.7 76 19 108/61 (77) 94 11/10/17 19:49 21 Radiology Last Impressions Upper GI Series 11/05/17 0000 Signed Impressions: Service Date/Time: Sunday, November 05, 2017 10:47 - CONCLUSION: Antral mass as described above. CT is pending. Som Diez MD FACR Abdomen CT 11/05/17 0000 Signed Impressions: Service Date/Time: Sunday, November 05, 2017 11:24 - CONCLUSION: Antral mass as described above probably arising from the surgical margin in the liver. Som Diez MD FACR Chest X-Ray 11/04/17 0000 Signed Impressions: Service Date/Time: Saturday, November 04, 2017 18:05 - CONCLUSION: 1. Slight bibasilar atelectasis and/or infiltrate is seen. 2. The tip of the NG tube needs to be advanced. Dorothy Sanchez MD Abdomen/Pelvis CT 11/03/17 0000 Signed Impressions: Service Date/Time: Friday, November 03, 2017 15:52 - CONCLUSION: Hepatic mass appears larger concerning for malignancy such as hepatocellular carcinoma. Dorothy Sanchez MD Cardiovascular: Regular Lungs: Clear Abdomen: Other (midline incision with peter ) Extremities: No edema A/P Assessment and Plan 72 year old male with known recurrent HHC; gastric outlet obstruction; POD8 lap converted to open Jos-en-Y gastrojejunostomy bypass; liver bx -Advance to regular diet; okay for family to bring in food from home -Encourage Ensure supplements -Pain control -OOB as tolerated -TPN until PO intake better Attending Statement The exam, history, and the medical decision-making described in the above note were completed with the assistance of the mid-level provider. I reviewed and agree with the findings presented. I attest that I had a [id number] encounter with the patient on the same day, and personally performed and documented my assessment and findings in the medical record. eating better, wean from TPN if can tolerate diet consistently Leticia Hernandez Nov 14, 2017 16:43 Mckay Winslow MD Nov 16, 2017 07:04
[2017-11-14 20:00] VITALS: BP 112/65; PULSE 70; PULSE 75; RESP 16; TEMP 99.5; O2SAT 97
[2017-11-14] MEDS: MAGNESIUM HYDROXIDE SUSP 30 ML CUP PO PRN (21:54)
[2017-11-15] VITALS: BP 103/61; PULSE 68; PULSE 71; RESP 16; TEMP 98.9; O2SAT 95
[2017-11-15 04:00] VITALS: BP 112/58
[2017-11-15 05:24] VITALS: PULSE 76
[2017-11-15 08:00] VITALS: BP 103/55; PULSE 70; RESP 19; TEMP 99.1; O2SAT 99
[2017-11-15] MEDS: DILTIAZEM HCL 60 MG TAB PO SCH ×4 (08:32→20:23)
[2017-11-15] MEDS: SODIUM CHLORIDE 0.9% FLUSH 10 ML FLUSH IV FLUSH SCH ×3 (08:33→20:23)
[2017-11-15] MEDS: DOCUSATE SODIUM 50 MG/SENNA 8.6 MG TAB PO SCH ×2 (08:33→20:23)
[2017-11-15] MEDS: DIGOXIN 0.125 MG TAB PO SCH (08:33)
[2017-11-15] MEDS: oxyCODONE/ACETAMINOPHEN 10 MG/325 MG TAB PO PRN ×2 (08:33→17:57)
[2017-11-15] MEDS: SENNOSIDES 8.6 MG TAB PO PRN (08:33)
[2017-11-15] MEDS: INSULIN ASPART SUPPLEMENTAL SCALE SQ SCH ×4 (08:34→20:23)
--- NOTE | 2017-11-15 10:50 | HHI.HCPN ---
Reason for visit a. To assist with evaluation and management of symptoms including: pain, decreased oral intake and constipation. b. To assist medical decision maker(s) with: better understanding of current medical conditions; weighing benefits/burdens of medical treatment options; making medical treatment decisions. Subjective/Interval History Follow up visit with Mr Cai. Patient is awake in bed, alert and oriented to self, place and situation. Patient denies pain at this time, states it is controlled with pain medication. Pain managed with Oxycodone/acetaminophen 10/ 325. Patient received x3 prn doses in the past 24 hours. Vital signs stable- low grade Temp this morning 99.1 degrees F. Patient diet upgraded to regular diet with Ensure TID, has been tolerating full liquid diet well. Patient`s oral intake has been 0-50% of his meals. Patient states that he has never been a big eater. Encouraged patient to at least eat something for every meal than skipping some meals and drink his ensure. Denies nausea. Patient stated that he was given milk of magnesium last night. Last BM 11/13. TPN being weaned off. Plan for chemoembolization possibly 2-3 weeks after discharge as an outpatient and radiation therapy after healing from palliative gastric bypass surgery. PT following recommended discharge home with no PT. Case discussed with LAUREN Elias . Family/friend interactions Patient's at bedside . Advance Directives Living Will: Never completed Health Care Surrogate: Copy in medical record Durable Power of Web Feeder: Never completed Advance Directive Specifics Date completed: 11/05/2017 . Health Care Surrogate(s): Spouse- Clotilde Doe- health care surrogate [phone] Daughter- Ted Longoria-[phone] . Objective Vital Signs Date Time Temp Pulse Resp B/P (MAP) Pulse Ox O2 Delivery O2 Flow Rate FiO2 11/15/17 08:00 99.1 70 19 103/55 (71) 99 11/15/17 05:24 76 11/15/17 04:00 112/58 (76) 11/15/17 00:00 98.9 71 16 103/61 (75) 95 11/15/17 00:00 68 11/14/17 21:59 20 11/14/17 20:00 75 11/14/17 20:00 99.5 70 16 112/65 (81) 97 11/14/17 16:00 97.7 72 19 121/67 (85) 99 11/14/17 12:00 96.7 76 19 108/61 (77) 94 Intake & Output 11/15/17 11/15/17 07:00 19:00 Output Total 700 ml Balance -700 ml Output Urine Total 700 ml Physical Exam CONSTITUTIONAL/GENERAL: This is an adequately nourished patient, in mild discomfort. Currently denies pain and nausea. TUBES/LINES/DRAINS: PIV, PICC Line, SCDs SKIN: No jaundice, rashes, or lesions. Ecchymoses on upper extremities. Mid abdominal surgical incision covered with a dressing. Skin temperature appropriate. Not diaphoretic. HEAD: Atraumatic. Normocephalic. EYES: Pupils equal and round and reactive. Extraocular motions intact. No scleral icterus. No injection or drainage. Fundi not examined. ENT: Hearing grossly normal. Nose without bleeding or purulent drainage. Moist oral mucosa NECK: Trachea midline. Supple, nontender. CARDIOVASCULAR: Regular rate and rhythm without murmurs, gallops, or rubs. No JVD. Peripheral pulses symmetric. RESPIRATORY/CHEST: Symmetric, unlabored respirations. Clear to auscultation. Breath sounds equal bilaterally. No wheezes, rales, or rhonchi. GASTROINTESTINAL: Abdomen non-tender to touch, midline abdominal surgical incision with peter covered with a primapore dressing -drainage noted to distal part of incision.Active bowel sounds. GENITOURINARY: Without palpable bladder distension. MUSCULOSKELETAL: Extremities without clubbing, cyanosis, or edema. No joint tenderness or effusion noted. No calf tenderness. No mottling or clubbing. NEUROLOGICAL: Awake, oriented to self, place and situation. Motor and sensory grossly within normal limits. Follows commands. Cognitively sharp. Moves all extremities. PSYCHIATRIC: No obvious anxiety/depression. no apparent hallucinations or other psychotic thought process. . Diagnostic Tests Laboratory Laboratory Tests Test 11/12/17 18:30 White Blood Count 9.7 TH/MM3 (4.0-11.0) Red Blood Count 3.35 MIL/MM3 (4.50-5.90) Hemoglobin 9.2 GM/DL (13.0-17.0) Hematocrit 27.9 % (39.0-51.0) Mean Corpuscular Volume 83.5 FL (80.0-100.0) Mean Corpuscular Hemoglobin 27.5 PG (27.0-34.0) Mean Corpuscular Hemoglobin Concent 33.0 % (32.0-36.0) Red Cell Distribution Width 18.1 % (11.6-17.2) Platelet Count 319 TH/MM3 (150-450) Mean Platelet Volume 8.0 FL (7.0-11.0) Neutrophils (%) (Auto) 77.0 % (16.0-70.0) Lymphocytes (%) (Auto) 9.4 % (9.0-44.0) Monocytes (%) (Auto) 9.3 % (0.0-8.0) Eosinophils (%) (Auto) 3.9 % (0.0-4.0) Basophils (%) (Auto) 0.4 % (0.0-2.0) Neutrophils # (Auto) 7.5 TH/MM3 (1.8-7.7) Lymphocytes # (Auto) 0.9 TH/MM3 (1.0-4.8) Monocytes # (Auto) 0.9 TH/MM3 (0-0.9) Eosinophils # (Auto) 0.4 TH/MM3 (0-0.4) Basophils # (Auto) 0.0 TH/MM3 (0-0.2) CBC Comment DIFF FINAL Differential Comment Blood Urea Nitrogen 13 MG/DL (7-18) Creatinine 0.82 MG/DL (0.60-1.30) Random Glucose 306 MG/DL (74-106) Calcium Level 8.7 MG/DL (8.5-10.1) Sodium Level 134 MEQ/L (136-145) Potassium Level 4.1 MEQ/L (3.5-5.1) Chloride Level 101 MEQ/L (98-107) Carbon Dioxide Level 26.8 MEQ/L (21.0-32.0) Anion Gap 6 MEQ/L (5-15) Estimat Glomerular Filtration Rate 112 ML/MIN (>89) Result Diagram: 11/12/17182911/12/171829 Procedures 11/02/2017- EGD w/ biopsy 11/06/2017-laparoscopic converted to open Jos-en-Y gastrojejunostomy bypass, lysis of adhesions, Juanm -Cut liver biopsy of malignant lesion in the liver remnant. . Assessment and Plan Disease Oriented Problem List: (1) GI bleeding (2) Symptomatic anemia (3) History of liver cancer (4) Hepatitis C Symptom Scale: (1) Dysphagia 0-10 Scale: Unable to quantify Comment: Upper GI series revealed an antral mass. . (2) Nausea & vomiting 0-10 Scale: Unable to quantify Comment: Multifactorial. History of liver cancer. Upper GI series revealed an antral mass . (3) Pain 0-10 Scale: Unable to quantify Comment: -Mainly from abdominal/epigastric discomfort. . (4) Constipation 0-10 Scale: Unable to quantify Comment: Patient is s/p palliative bypass surgery. Patient has been on pain medication. Now on a full liquid diet. Only passing flatus. No BM. . Pertinent Non-Medical Issues Psychosocial:Patient was born and raised in [place]. He moved to [place] in 1991. Patient worked in construction and mostly as a galan. Patient has also lived and worked in [place] for about 5 years. He retired in 2009. Patient has been to his spouse since 2001 but have been together for about 46 years. They have and adult daughter together. Spiritual:Patient is [employer] Legal:Patient signed HCS form today Ethical issues impacting care:None identified at this time. . Important Contacts Spouse- Brook, Clotilde [phone] Daughter- Swati Jean- [phone] . Prognosis Mr. Doe is a 72 years old male with a past medical history of hypertension, anemia, atrial fibrillation, liver cancer s/p liver resection, hepatitis C s/p Harvoni course, and large duodenal ulcer with history of GI bleed. Patient presented to the ER on 11/01/17 complaining of generalized weakness, dizziness, having black stools and coffee ground emesis for approximately a week. Clinical course complicated with dysphagia and worsening liver mets and disease. Given ongoing comorbidities, patient remains at high risk for further complications with disease progression, deterioration and decline. . Code Status: Full Code Plan PLAN: Legal decision maker: Patient is able to make his own medical decisions. In the case that patient is incapacitated his spouse Clotilde Doe will act as his health care surrogate and his daughter Ted Longoria as his alternate Health care surrogate. Goals: Remain aggressive CODE STATUS: Full Code SYMPTOMS: * Dysphagia: Patient was found to have a large obstructing/ ulcer at the pylorus making it impossible to pass into the duodenum during EGD. Currently has an NGT and failed swallow evaluation. Currently NPO. Upper GI series revealed an antral mass. General surgeon consulted. Patient is s/p open laparotomy with palliative Jos-en-Y G-J bypass on 11/06/17. Speech therapy signed off today. NG tube discontinued 11/08. Patient now on full liquid diet -tolerating well. Diet upgraded to regular with Ensure 3 times daily. no recommendations. Resolved. * Decreased oral intake: Multifactorial. Patient states that he is not a big eater.Patient was found to have a large obstructing/ ulcer at the pylorus making it impossible to pass into the duodenum during EGD. Patient is s/p open laparotomy with palliative Jos-en-Y G-J bypass on 11/06/17. Patient now on full liquid diet-tolerating well. Diet upgraded 11/14/17 to regular with Ensure 3 times daily. TPN being weaned off. Denies nausea. * Pain: Multifactorial. Hx of liver cancer and now and an antral mass causing significant gastric outlet obstruction. Oxycodone discontinued, patient is NPO. Patient had palliative bypass on 11/06/17. Has a midabdominal surgical incision with peter open to air. Pain seems to be well managed. Patient denies pain during visit. Morphine sulfate reduced to from 6mg to 2 mg Q 3 hrs on 11/12/17. Patient also started on Oxycodone /acetaminophen 5/325 q 4 hrs prn. Recommending using Oxycodone more than parenteral Morphine sulfate for pain control. * Constipation: Patient is s/p palliative bypass surgery. Patient has been on pain medication. Now on a full liquid diet. Patient`s last recorded bowel movement was 11/09/17. Reporting flatus and urge to move bowels. Patient is on Germania colace 1 tab BID, Magnesium hydroxide q 12 hrs prn , sennokot 17.2 mg q 12hrs prn, Dulcolax suppository 10mg daily prn, metoclopramide 5 mg q 6 hrs. * Nausea/Vomiting: Multifactorial. History of liver cancer. Upper GI series revealed an antral mass. Patient c/o of epigastric discomfort and nausea. Has an emesis basin and spitting frothy white spit. Patient has Zofran 4mg q 6 hrs ( Last dose given on 11/06/17) and Metoclopramide 5mg q 6 hrs. patient endorsing occasional nausea. Encouraged patient to request nausea medication when needed. denies nausea. No recommendations. Palliative Care contact information provided. Palliative care will continue to follow the patient during hospital course as condition evolves, to assist patient/decision-maker with understanding of their medical conditions, weighing benefits/burdens of treatment options, for clarification of goals of treatment. Additionally will assist with any symptoms of palliative concern. . Attestation To help prompt me to consider important information that might be impacting today's encounter and assessment, information from prior notes written by myself or my colleagues may have been "brought forward" into today's note. My signature on this note, however, is an attestation that I personally performed the exam, history, and/or decision-making noted today, and, unless otherwise indicated, the interactions with patient, family, and staff as well as the review of records all occurred today. I also attest that the listed assessment and stated plan reflect my best clinical judgment today based on the combination of historical information, prior notes, and today's exam/ interactions. When time spent is documented, it refers only to time spent today by the signer, or if indicated, combined time spent today by collaborating physician/nurse practitioner. Geoff Arita Nov 15, 2017 10:50
--- NOTE | 2017-11-15 12:42 | HHI.PR ---
Subjective Remarks Patient is doing well, he is dealing with normal post op pain, but underlying discomfort is from constipation. I've encouraged glycerine suppositories, which are already on his med list. He denies nausea, ate some mashed potatoes yesterday. Objective Vitals Vital Signs Date Time Temp Pulse Resp B/P (MAP) Pulse Ox O2 Delivery O2 Flow Rate FiO2 11/15/17 08:00 99.1 70 19 103/55 (71) 99 11/15/17 05:24 76 11/15/17 04:00 112/58 (76) 11/15/17 00:00 98.9 71 16 103/61 (75) 95 11/15/17 00:00 68 11/14/17 21:59 20 11/14/17 20:00 75 11/14/17 20:00 99.5 70 16 112/65 (81) 97 11/14/17 16:00 97.7 72 19 121/67 (85) 99 I/O 11/14/17 11/14/17 11/14/17 11/15/17 11/15/17 11/15/17 07:00 15:00 23:00 07:00 15:00 23:00 Intake Total 360 ml 1956 ml Output Total 300 ml 400 ml Balance 360 ml 1656 ml -400 ml Intake Oral 360 ml 840 ml IV Total 1116 ml Output Urine Total 300 ml 400 ml # Voids 2 6 # Bowel Movements 0 Result Diagram: 11/12/17 1830 11/12/17 1830 Objective Remarks GENERAL: Well-nourished, well-developed patient, tolerating liquids PO SKIN: Warm and dry. HEAD: Normocephalic. EYES: No scleral icterus. No injection or drainage. NECK: Supple, trachea midline. No JVD or lymphadenopathy. CARDIOVASCULAR: Irregularly irregular, 1/6 JANET RESPIRATORY: Breath sounds equal bilaterally. No accessory muscle use. GASTROINTESTINAL: Abdomen soft, non-tender, mild bloating. Hypoactive bowel sounds EXTREMITIES: No cyanosis, or edema. NEUROLOGICAL: Awake, alert, and oriented x 3. Non-focal. Procedures EGD w/ Biopsy 11/02/2017 A/P Problem List: (1) GI bleeding ICD Code: K92.2 - Gastrointestinal hemorrhage, unspecified Status: Acute (2) Duodenal ulcer ICD Code: K26.9 - Duodenal ulcer, unspecified as acute or chronic, without hemorrhage or perforation (3) Liver masses ICD Code: R16.0 - Hepatomegaly, not elsewhere classified (4) History of liver cancer ICD Code: Z85.05 - Personal history of malignant neoplasm of liver Status: Chronic (5) Hepatitis C ICD Code: B19.20 - Unspecified viral hepatitis C without hepatic coma Status: Chronic Assessment and Plan Upper GI Bleed with Anemia Large bleeding duodenal ulcer s/p Ruox-en-Y gastrojejunostomy bypass 11/06/17 Continue Protonix Drip Appreciate General Surgery Appreciate Gastroenterology Nutrition Advancing diet as tolerated post op Hyperglycemia related to DM2, likely fueled by TPN Low appetite, but receiving intravenous "food", so will stop TPN today and see if that increases his hunger Hepatocellular Carcinoma Patient has a history of HCC, and a hx of Hep C Pathology from pyloric mass shows Hepatocellular Carcinoma extending into that tissue Pathology from liver mass was inconclusive, non-diagnostic necrotic tissue Appreciate Oncology recommendations Appreciate Palliative care following Tumor Board review recommends chemoembolization outpatient and ongoing treatment as an outpatient Anemia Transfused 2 units PRBC, H&H remains stable Will follow trend Pain management Pain under adequate control now Continue Percocet 10mg Q4 PRN Type 2 Diabetes Patient states that he is "borderline", but sugars have remained elevated, on TPN and liquid diet Will follow pattern off of TPN and change diet to "diabetic" if elevations persist Constipation Small BM on 11/13/17 Encouraged Glycerine suppositories Atrial Fibrillation Regular rate and rhythm today Continue home dose Digoxin and Diltiazem DVT Prophylaxis SCD hose due to GI bleed Josh Garcia MD Nov 15, 2017 12:42
--- NOTE | 2017-11-15 12:46 | HHI.PR ---
Subjective Subjective Notes Resting in bed Has been OOB today Daughter Swati brought him dinner last night Objective Vitals/I&O Vital Signs Date Time Temp Pulse Resp B/P (MAP) Pulse Ox O2 Delivery O2 Flow Rate FiO2 11/15/17 08:00 99.1 70 19 103/55 (71) 99 Radiology Last Impressions Upper GI Series 11/05/17 0000 Signed Impressions: Service Date/Time: Sunday, November 05, 2017 10:47 - CONCLUSION: Antral mass as described above. CT is pending. Som Diez MD FACR Abdomen CT 11/05/17 0000 Signed Impressions: Service Date/Time: Sunday, November 05, 2017 11:24 - CONCLUSION: Antral mass as described above probably arising from the surgical margin in the liver. Som Diez MD FACR Chest X-Ray 11/04/17 0000 Signed Impressions: Service Date/Time: Saturday, November 04, 2017 18:05 - CONCLUSION: 1. Slight bibasilar atelectasis and/or infiltrate is seen. 2. The tip of the NG tube needs to be advanced. Dorothy Sanchez MD Abdomen/Pelvis CT 11/03/17 0000 Signed Impressions: Service Date/Time: Friday, November 03, 2017 15:52 - CONCLUSION: Hepatic mass appears larger concerning for malignancy such as hepatocellular carcinoma. Dorothy Sanchez MD Cardiovascular: Regular Lungs: Clear Abdomen: Other (midline incision with peter---abdomen flat; non distended; Minimally tender ) Extremities: No edema A/P Assessment and Plan 72 year old male with known recurrent HHC; gastric outlet obstruction; POD9 lap converted to open Jos-en-Y gastrojejunostomy bypass; liver bx -Advance to regular diet; okay for family to bring in food from home -Encourage Ensure supplements -Pain control -OOB as tolerated -TPN until PO intake better Leticia Hernandez NURSING UNIT COORDINATOR/Street Worker NURSING UNIT COORDINATOR Nov 15, 2017 12:46
[2017-11-15] MEDS: PANTOPRAZOLE INJ 80 MG in SODIUM CHLORIDE 0.9% INJ 100 ML IV SCH ×2 (13:12→22:58)
[2017-11-15 20:00] VITALS: BP 109/66; PULSE 111; RESP 20; TEMP 99.2; O2SAT 95
[2017-11-15 21:09] VITALS: PULSE 71
[2017-11-16] VITALS: BP 97/55; PULSE 82; RESP 18; TEMP 98.7; O2SAT 96
[2017-11-16 04:03] LABS: AUTOMATED NEUTROPHIL # 6.6 TH/MM3 (1.8-7.7); BASOPHIL % 0.5 % (0.0-2.0); EOSINOPHIL # 0.3 TH/MM3 (0-0.4); EOSINOPHIL % 3.1 % (0.0-4.0); HEMATOCRIT 27.1 % (39.0-51.0); HEMOGLOBIN 8.7 GM/DL (13.0-17.0); MEAN CELL VOLUME 82.9 FL (80.0-100.0); MEAN CORPUSCULAR HEMOGLOBIN 26.6 PG (27.0-34.0); MEAN CORPUSCULAR HGB CONC 32.1 % (32.0-36.0); MEAN PLATELET VOLUME 7.2 FL (7.0-11.0); MONO % 9.3 % (0.0-8.0); MONOCYTE # 0.8 TH/MM3 (0-0.9); NEUT % 76.1 % (16.0-70.0); PLATELET COUNT 402 TH/MM3 (150-450); RED BLOOD COUNT 3.26 MIL/MM3 (4.50-5.90); RED CELL DISTRIBUTION WIDTH 19.2 % (11.6-17.2); WHITE BLOOD COUNT 8.7 TH/MM3 (4.0-11.0)
[2017-11-16 04:28] LABS: BICARBONATE 29.8 MEQ/L (21.0-32.0); CALCIUM 8.6 MG/DL (8.5-10.1); CREATININE 0.92 MG/DL (0.60-1.30)
[2017-11-16 04:47] VITALS: BP 93/51; PULSE 87; RESP 18; TEMP 98.4; O2SAT 94
[2017-11-16 08:00] VITALS: BP 111/60; PULSE 69; RESP 20; TEMP 98.6; O2SAT 97
[2017-11-16] MEDS: INSULIN ASPART SUPPLEMENTAL SCALE SQ SCH ×3 (08:30→12:50)
[2017-11-16] MEDS: SODIUM CHLORIDE 0.9% FLUSH 10 ML FLUSH IV FLUSH SCH ×2 (08:40→09:14)
[2017-11-16] MEDS: DOCUSATE SODIUM 50 MG/SENNA 8.6 MG TAB PO SCH (08:42)
[2017-11-16] MEDS: DIGOXIN 0.125 MG TAB PO SCH (08:43)
[2017-11-16] MEDS: DILTIAZEM HCL 60 MG TAB PO SCH ×2 (08:43→13:33)
--- NOTE | 2017-11-16 10:06 | HHI.PR ---
Subjective Subjective Notes feels better. eating better Objective Vitals/I&O Vital Signs Date Time Temp Pulse Resp B/P (MAP) Pulse Ox O2 Delivery O2 Flow Rate FiO2 11/16/17 08:00 98.6 69 20 111/60 (77) 97 Labs Laboratory Tests Test 11/16/17 03:52 White Blood Count 8.7 Red Blood Count 3.26 Hemoglobin 8.7 Hematocrit 27.1 Mean Corpuscular Volume 82.9 Mean Corpuscular Hemoglobin 26.6 Mean Corpuscular Hemoglobin Concent 32.1 Red Cell Distribution Width 19.2 Platelet Count 402 Mean Platelet Volume 7.2 Neutrophils (%) (Auto) 76.1 Lymphocytes (%) (Auto) 11.0 Monocytes (%) (Auto) 9.3 Eosinophils (%) (Auto) 3.1 Basophils (%) (Auto) 0.5 Neutrophils # (Auto) 6.6 Lymphocytes # (Auto) 1.0 Monocytes # (Auto) 0.8 Eosinophils # (Auto) 0.3 Basophils # (Auto) 0.0 CBC Comment DIFF FINAL Differential Comment Blood Urea Nitrogen 14 Creatinine 0.92 Random Glucose 146 Calcium Level 8.6 Sodium Level 136 Potassium Level 4.8 Chloride Level 102 Carbon Dioxide Level 29.8 Anion Gap 4 Estimat Glomerular Filtration Rate 98 Radiology Last Impressions Upper GI Series 11/05/17 Signed Impressions: Service Date/Time: Sunday, November 05, 2017 10:47 - CONCLUSION: Antral mass as described above. CT is pending. Som Diez MD FACR Abdomen CT 11/05/17 0000 Signed Impressions: Service Date/Time: Sunday, November 05, 2017 11:24 - CONCLUSION: Antral mass as described above probably arising from the surgical margin in the liver. Som Diez MD FACR Chest X-Ray 11/04/17 0000 Signed Impressions: Service Date/Time: Saturday, November 04, 2017 18:05 - CONCLUSION: 1. Slight bibasilar atelectasis and/or infiltrate is seen. 2. The tip of the NG tube needs to be advanced. Dorothy Sanchez MD Abdomen/Pelvis CT 11/03/17 0000 Signed Impressions: Service Date/Time: Friday, November 03, 2017 15:52 - CONCLUSION: Hepatic mass appears larger concerning for malignancy such as hepatocellular carcinoma. Dorothy Sanchez MD Abdomen: Non-distended, Post-op tenderness A/P Assessment and Plan 72yo male with GOO 2/2 recurrent HCC, s/p open bypass, stable. tolerating PO off TPN can Dc from surgery standpoint on PPI, fu in 1-2 weeks with me in office can eat soft, fork tender diet Mckay Winslow MD Nov 16, 2017 10:06
[2017-11-16] MEDS: PANTOPRAZOLE INJ 80 MG in SODIUM CHLORIDE 0.9% INJ 100 ML IV SCH (11:16)
[2017-11-16] MEDS: oxyCODONE/ACETAMINOPHEN 10 MG/325 MG TAB PO PRN (11:44)
[2017-11-16 11:52] VITALS: BP 102/60
[2017-11-16 12:00] VITALS: BP 90/52; PULSE 69; PULSE 93; RESP 20; TEMP 96.3; O2SAT 97
--- NOTE | 2017-11-16 14:06 | HHI.HCPN ---
Reason for visit a. To assist with evaluation and management of symptoms including: pain, decreased oral intake and constipation. b. To assist medical decision maker(s) with: better understanding of current medical conditions; weighing benefits/burdens of medical treatment options; making medical treatment decisions. Subjective/Interval History Patient seen and examined in his room. Patient's at bedside. patient is awake sitting upright in bed, alert, oriented to self, place and situation. Patient states that he is ready to go home. Patient denies pain, and nausea. Patient sparingly using pain medication. [place] removed from surgical incision. Patient endorses improvement of appetite and eating more. Patient tolerating regular diet with Ensure 3 times daily. TPN weaned off. patient has been getting food from home brought in by family. Last BM 11/16/17. Vital signs stable. Laboratory workup revealed WBC 8.7, hemoglobin 8.7, hematocrit 27.1, BUN/creatinine 14/0.92, random glucose 146. Patient states he was sitting up in a recliner area on. Physical therapy following and recommending DC home with normal PT. . Family/friend interactions at bedside . Advance Directives Living Will: Never completed Health Care Surrogate: Copy in medical record Durable Power of Rubber Stamp Dies Inspector: Never completed Advance Directive Specifics Date completed: 11/05/2017 . Health Care Surrogate(s): Spouse- Clotilde Doe- health care surrogate [phone] Daughter- Ted Longoria-[phone] . Objective Vital Signs Date Time Temp Pulse Resp B/P (MAP) Pulse Ox O2 Delivery O2 Flow Rate FiO2 11/16/17 12:00 96.3 93 20 90/52 (65) 97 11/16/17 11:52 102/60 (74) 11/16/17 08:00 98.6 69 20 111/60 (77) 97 11/16/17 04:47 98.4 87 18 93/51 (65) 94 11/16/17 00:00 98.7 82 18 97/55 (69) 96 11/15/17 21:09 71 11/15/17 20:00 99.2 111 20 109/66 (80) 95 Intake & Output 11/16/17 11/16/17 07:00 19:00 Intake Total 157 ml Output Total 500 ml Balance -343 ml IV Total 157 ml Output Urine Total 500 ml Physical Exam CONSTITUTIONAL/GENERAL: This is an adequately nourished patient, in mild discomfort. Currently denies pain and nausea. TUBES/LINES/DRAINS: PIV, PICC Line, SCDs SKIN: No jaundice, rashes, or lesions. Ecchymoses on upper extremities. Mid abdominal surgical incision covered with a dressing. Skin temperature appropriate. Not diaphoretic. HEAD: Atraumatic. Normocephalic. EYES: Pupils equal and round and reactive. Extraocular motions intact. No scleral icterus. No injection or drainage. Fundi not examined. ENT: Hearing grossly normal. Nose without bleeding or purulent drainage. Moist oral mucosa NECK: Trachea midline. Supple, nontender. CARDIOVASCULAR: Regular rate and rhythm without murmurs, gallops, or rubs. No JVD. Peripheral pulses symmetric. RESPIRATORY/CHEST: Symmetric, unlabored respirations. Clear to auscultation. Breath sounds equal bilaterally. No wheezes, rales, or rhonchi. GASTROINTESTINAL: Abdomen non-tender to touch, midline abdominal surgical incision with peter covered with a primapore dressing -drainage noted to distal part of incision.Active bowel sounds. GENITOURINARY: Without palpable bladder distension. MUSCULOSKELETAL: Extremities without clubbing, cyanosis, or edema. No joint tenderness or effusion noted. No calf tenderness. No mottling or clubbing. NEUROLOGICAL: Awake, oriented to self, place and situation. Motor and sensory grossly within normal limits. Follows commands. Cognitively sharp. Moves all extremities. PSYCHIATRIC: No obvious anxiety/depression. no apparent hallucinations or other psychotic thought process. . Diagnostic Tests Laboratory Laboratory Tests Test 11/16/17 03:52 White Blood Count 8.7 TH/MM3 (4.0-11.0) Red Blood Count 3.26 MIL/MM3 (4.50-5.90) Hemoglobin 8.7 GM/DL (13.0-17.0) Hematocrit 27.1 % (39.0-51.0) Mean Corpuscular Volume 82.9 FL (80.0-100.0) Mean Corpuscular Hemoglobin 26.6 PG (27.0-34.0) Mean Corpuscular Hemoglobin Concent 32.1 % (32.0-36.0) Red Cell Distribution Width 19.2 % (11.6-17.2) Platelet Count 402 TH/MM3 (150-450) Mean Platelet Volume 7.2 FL (7.0-11.0) Neutrophils (%) (Auto) 76.1 % (16.0-70.0) Lymphocytes (%) (Auto) 11.0 % (9.0-44.0) Monocytes (%) (Auto) 9.3 % (0.0-8.0) Eosinophils (%) (Auto) 3.1 % (0.0-4.0) Basophils (%) (Auto) 0.5 % (0.0-2.0) Neutrophils # (Auto) 6.6 TH/MM3 (1.8-7.7) Lymphocytes # (Auto) 1.0 TH/MM3 (1.0-4.8) Monocytes # (Auto) 0.8 TH/MM3 (0-0.9) Eosinophils # (Auto) 0.3 TH/MM3 (0-0.4) Basophils # (Auto) 0.0 TH/MM3 (0-0.2) CBC Comment DIFF FINAL Differential Comment Blood Urea Nitrogen 14 MG/DL (7-18) Creatinine 0.92 MG/DL (0.60-1.30) Random Glucose 146 MG/DL (74-106) Calcium Level 8.6 MG/DL (8.5-10.1) Sodium Level 136 MEQ/L (136-145) Potassium Level 4.8 MEQ/L (3.5-5.1) Chloride Level 102 MEQ/L (98-107) Carbon Dioxide Level 29.8 MEQ/L (21.0-32.0) Anion Gap 4 MEQ/L (5-15) Estimat Glomerular Filtration Rate 98 ML/MIN (>89) Result Diagram: 11/16/17 0352 11/16/17 0352 Procedures 11/02/2017- EGD w/ biopsy 11/06/2017-laparoscopic converted to open Jos-en-Y gastrojejunostomy bypass, lysis of adhesions, Juan M-Cut liver biopsy of malignant lesion in the liver remnant. . Assessment and Plan Disease Oriented Problem List: (1) GI bleeding (2) Symptomatic anemia (3) History of liver cancer (4) Hepatitis C Symptom Scale: (1) Dysphagia 0-10 Scale: Unable to quantify Comment: Upper GI series revealed an antral mass. . (2) Nausea & vomiting 0-10 Scale: Unable to quantify Comment: Multifactorial. History of liver cancer. Upper GI series revealed an antral mass . (3) Pain 0-10 Scale: Unable to quantify Comment: -Mainly from abdominal/epigastric discomfort. . (4) Constipation 0-10 Scale: Unable to quantify Comment: Patient is s/p palliative bypass surgery. Patient has been on pain medication. Now on a full liquid diet. Only passing flatus. No BM. . Pertinent Non-Medical Issues Psychosocial:Patient was born and raised in [place]. He moved to [place] in 1991. Patient worked in construction and mostly as a galan. Patient has also lived and worked in [place] for about 5 years. He retired in 2009. Patient has been to his spouse since 2001 but have been together for about 46 years. They have and adult daughter together. Spiritual:Patient is Yarsani Legal:Patient signed HCS form today Ethical issues impacting care:None identified at this time. . Important Contacts Spouse- Clotilde Doe [phone] Daughter- Ted Longoria- [phone] . Prognosis Mr. Doe is a 72 years old male with a past medical history of hypertension, anemia, atrial fibrillation, liver cancer s/p liver resection, hepatitis C s/p Harvoni course, and large duodenal ulcer with history of GI bleed. Patient presented to the ER on 11/01/17 complaining of generalized weakness, dizziness, having black stools and coffee ground emesis for approximately a week. Clinical course complicated with dysphagia and worsening liver mets and disease. Given ongoing comorbidities, patient remains at high risk for further complications with disease progression, deterioration and decline. . Code Status: Full Code Plan PLAN: Legal decision maker: Patient is able to make his own medical decisions. In the case that patient is incapacitated his spouse Clotilde Doe will act as his health care surrogate and his daughter Ted Longoria as his alternate Health care surrogate. Goals: Remain aggressive CODE STATUS: Full Code SYMPTOMS: * Dysphagia: Patient was found to have a large obstructing/ ulcer at the pylorus making it impossible to pass into the duodenum during EGD. Currently has an NGT and failed swallow evaluation. Currently NPO. Upper GI series revealed an antral mass. General surgeon consulted. Patient is s/p open laparotomy with palliative Jos-en-Y G-J bypass on 2/6/18. Speech therapy signed off today. NG tube discontinued 11/08. Patient now on full liquid diet -tolerating well. Diet upgraded to regular with Ensure 3 times daily. no recommendations. Resolved. * Decreased oral intake: Multifactorial. Patient states that he is not a big eater.Patient was found to have a large obstructing/ ulcer at the pylorus making it impossible to pass into the duodenum during EGD. Patient is s/p open laparotomy with palliative Jos-en-Y G-J bypass on 11/06/17. Patient now on full liquid diet-tolerating well. Diet upgraded 11/14/17 to regular with Ensure 3 times daily. TPN being weaned off. Denies nausea. * Pain: Multifactorial. Hx of liver cancer and now and an antral mass causing significant gastric outlet obstruction. Oxycodone discontinued, patient is NPO. Patient had palliative bypass on 11/06/17. Has a midabdominal surgical incision with peter open to air. Pain seems to be well managed.Morphine sulfate reduced to from 6mg to 2 mg Q 3 hrs on 11/12/17. Patient also started on Oxycodone /acetaminophen 5/325 q 4 hrs prn. Sparingly using pain medication. Patient denies pain during visit. * Constipation: Patient is s/p palliative bypass surgery. Patient has been on pain medication. Now on a full liquid diet. Patient`s last recorded bowel movement was 11/09/17. Reporting flatus and urge to move bowels. Patient is on Germania colace 1 tab BID, Magnesium hydroxide q 12 hrs prn , sennokot 17.2 mg q 12hrs prn, Dulcolax suppository 10mg daily prn, metoclopramide 5 mg q 6 hrs. * Nausea/Vomiting: Multifactorial. History of liver cancer. Upper GI series revealed an antral mass. Patient c/o of epigastric discomfort and nausea. Has an emesis basin and spitting frothy white spit. Patient has Zofran 4mg q 6 hrs and Metoclopramide 5mg q 6 hrs. patient endorsing occasional nausea. Encouraged patient to request nausea medication when needed. denies nausea. No recommendations. Resolved. Palliative Care contact information provided. Palliative care will continue to follow the patient during hospital course as condition evolves, to assist patient/decision-maker with understanding of their medical conditions, weighing benefits/burdens of treatment options, for clarification of goals of treatment. Additionally will assist with any symptoms of palliative concern. . Geoff Arita Nov 16, 2017 14:06
[2017-11-16] MEDS ORDERED: GLYCERIN ADULT RECTAL (15:53)
[2017-11-16] MEDS ORDERED: OXYC1TAB36 PO (15:53)
--- NOTE | 2017-11-16 15:58 | HHI.DS ---
Discharge Summary Admission Date Nov 02, 2017 at 00:35 Discharge Date: Nov 16, 2017 Admitting Diagnosis Anemia, GI bleed (1) GI bleeding ICD Code: K92.2 - Gastrointestinal hemorrhage, unspecified Status: Acute (2) Duodenal ulcer ICD Code: K26.9 - Duodenal ulcer, unspecified as acute or chronic, without hemorrhage or perforation (3) Liver masses ICD Code: R16.0 - Hepatomegaly, not elsewhere classified (4) History of liver cancer ICD Code: Z85.05 - Personal history of malignant neoplasm of liver Status: Chronic (5) Hepatitis C ICD Code: B19.20 - Unspecified viral hepatitis C without hepatic coma Status: Chronic Procedures EGD w/ Biopsy 11/02/2017, Jos-en-Y duodenal bypass Brief History - From Admission 72-year-old male with a past medical history significant for hypertension, anemia, atrial fibrillation, hepatitis C cirrhosis with liver mass and large duodenal ulcer with history of GI bleed presents to the emergency department with a complaint of dizziness and black, tarry stools 1 week. The patient has had accompanying fatigue with shortness of breath. He denies any syncope. He also endorses postprandial pain. The patient denies any chest pain, palpitations. No nausea/vomiting/abdominal pain. Vital signs: Temperature 98.9 , pulse 102, respirations 16, BP 126/71, pulse ox 98% on room air CBC/BMP: 11/16/17 0352 11/16/17 0352 Significant Findings Laboratory Tests Test 11/16/17 03:52 Red Blood Count 3.26 MIL/MM3 (4.50-5.90) Hemoglobin 8.7 GM/DL (13.0-17.0) Hematocrit 27.1 % (39.0-51.0) Mean Corpuscular Hemoglobin 26.6 PG (27.0-34.0) Red Cell Distribution Width 19.2 % (11.6-17.2) Neutrophils (%) (Auto) 76.1 % (16.0-70.0) Monocytes (%) (Auto) 9.3 % (0.0-8.0) Random Glucose 146 MG/DL (74-106) Anion Gap 4 MEQ/L (5-15) PE at Discharge GENERAL: Well-nourished, well-developed patient, tolerating liquids PO SKIN: Warm and dry. HEAD: Normocephalic. EYES: No scleral icterus. No injection or drainage. NECK: Supple, trachea midline. No JVD or lymphadenopathy. CARDIOVASCULAR: Irregularly irregular, 1/6 JANET RESPIRATORY: Breath sounds equal bilaterally. No accessory muscle use. GASTROINTESTINAL: Abdomen soft, non-tender, mild bloating. Hypoactive bowel sounds EXTREMITIES: No cyanosis, or edema. NEUROLOGICAL: Awake, alert, and oriented x 3. Non-focal. Hospital Course 72-year-old male with a history of hepatocellular carcinoma. Admitted for anemia and upper GI bleed. Bleeding defect was an ulceration of his duodenum. Further workup revealed possible erosion of hepatocellular carcinoma as evidenced by local infiltration of hepatocellular tissue into the small intestinal wall. Patient underwent a Jos-en-Y duodenal bypass. Subsequently had a bout small bowel obstruction, which cleared with time. He had a small bowel movement 2 days ago. He has been tolerating solid food today. TPN was turned off yesterday and his blood sugars remained stable. Patient has been cleared by general surgery and would like to go home today. Surgical peter were removed at bedside. Pt Condition on Discharge: Fair Discharge Disposition: Discharge Home Discharge Time: <= 30 minutes Discharge Instructions DIET: Follow Instructions for: As Tolerated, No Restrictions Activities you can perform: Weight Bearing as Josh Prieto MD Nov 16, 2017 15:58
== END 2017-11-16 16:59 | disposition home or self-care (01) | DRG 327 ==
LOC: NEPC 21:53 → NEDA 11-02 00:35 → N07A 11-02 01:58
PROVIDERS: ADMIT Family Medicine; ATTEND Family Medicine
PROC: 0DB78ZX Excision of Stomach, Pylorus, Via Natural or Artificial Opening Endoscopic, Diagnostic (ICD-10-PCS; 2017-11-02)
PROC: 30233N1 Transfusion of Nonautologous Red Blood Cells into Peripheral Vein, Percutaneous Approach (ICD-10-PCS; 2017-11-02)
PROC: 02HV33Z Insertion of Infusion Device into Superior Vena Cava, Percutaneous Approach (ICD-10-PCS; 2017-11-04)
PROC: 0WJG4ZZ Inspection of Peritoneal Cavity, Percutaneous Endoscopic Approach (ICD-10-PCS; 2017-11-06)
PROC: 0DNW0ZZ Release Peritoneum, Open Approach (ICD-10-PCS; 2017-11-06)
PROC: 0FB00ZX Excision of Liver, Open Approach, Diagnostic (ICD-10-PCS; 2017-11-06)
PROC: 0D160ZA Bypass Stomach to Jejunum, Open Approach (ICD-10-PCS; principal; 2017-11-06 16:09)
DX: K26.4 Chronic or unspecified duodenal ulcer with hemorrhage (principal); C22.0 Liver cell carcinoma; D62 Acute posthemorrhagic anemia; K31.1 Adult hypertrophic pyloric stenosis; I48.2 Chronic atrial fibrillation; K25.9 Gastric ulcer, unspecified as acute or chronic, without hemorrhage or perforation; I10 Essential (primary) hypertension; K66.0 Peritoneal adhesions (postprocedural) (postinfection); R53.1 Weakness; B19.20 Unspecified viral hepatitis C without hepatic coma; K59.00 Constipation, unspecified; Z53.31 Laparoscopic surgical procedure converted to open procedure; Z87.891 Personal history of nicotine dependence
CPT/HCPCS: 36430; 36569; 71045; 71046; 74150; 74177; 74240; 76937; 80048; 80053; 82105; 82378; 82948; 83036; 83735; 84100; 84439; 84443; 84484; 85014; 85018; 85025; 85027; 85610; 85730; 86301; 86850; 86900; 86901; 86920; 88305; 88307; 88312; 88341; 88342; 93005; 96365; C9113; J0131; J0330; J0690; J1100; J1170; J1450; J1642; J1815; J2060; J2270; J2370; J2405; J2543; J2710; J3010; J3480; J7050; J7120; P9016; Q9963; Q9967